=== PATIENT | male | born 1970 | race African-American/Black ===

== ENCOUNTER 2017-02-18 21:08 | Emergency (ER) | payer SELFPAY | END 2017-02-19 02:22 | disposition home or self-care (01) | LOC: ERS 21:08 | DX: R06.00 Dyspnea, unspecified (principal); J44.9 Chronic obstructive pulmonary disease, unspecified; E03.9 Hypothyroidism, unspecified; E78.5 Hyperlipidemia, unspecified; I11.0 Hypertensive heart disease with heart failure; I50.9 Heart failure, unspecified; F31.9 Bipolar disorder, unspecified; F41.9 Anxiety disorder, unspecified; F20.9 Schizophrenia, unspecified; F17.210 Nicotine dependence, cigarettes, uncomplicated | CPT/HCPCS: 99284 ==

== ENCOUNTER 2017-03-01 21:15 | Inpatient (IN) | payer OTHER, SELFPAY ==
[2017-03-01 22:20] LABS: Hemoglobin 12.9 g/dL (14.0-18.0); INR-International Normal Ratio 1.1; Mean Corpuscular HGB CONC 34.3 g/dL (32.0-36.0); Mean Corpuscular Hemoglobin 35.2 pg (27.0-31.0); Prothrombin Time 13.9 SEC (12.0-14.7); RBC Distribution Width 12.3 % (11.5-14.5); Red Blood Cell (RBC) Count 3.67 mill/uL (4.70-6.10)
[2017-03-01 22:21] LABS: PTT 39.7 SEC (22.9-36.1)
--- NOTE | 2017-03-01 22:21 | RAD ---
CHEST ONE VIEW 03/01/17 HISTORY: Chest pain. COMPARISON: Chest one view 07/18/16. FINDINGS: Heart size is markedly enlarged. Dural lead AICD/pacer is present. No pneumothorax. No focal air space consolidation. IMPRESSION: Marked cardiomegaly. POS: [facility]
[2017-03-01 22:22] LABS: D-Dimer Test 0.44 *mcg/mL (0.27-0.43)
[2017-03-01 22:34] LABS: ALT (SGPT) 20 U/L (8-55); AST (SGOT) 76 U/L (5-34); Albumin 4.3 g/dL (3.5-5.0); Alkaline Phosphatase 100 U/L (40-150); Anion Gap 16 mmol/L (10-20); BUN (Urea Nitrogen) 12 mg/dL (8.9-20.6); Bilirubin, Total 0.5 mg/dL (0.2-1.2); CK (CPK) 3970 U/L (30-200); Calc. Creatinine Clearance 0 mL/min (70-130); Calcium 9.3 mg/dL (7.8-10.44); Carbon Dioxide 25 mmol/L (22-29); Chloride 101 mmol/L (98-107); Estimated GFR-MDRD 67; Globulin 4.2 g/dL (2.4-3.5); Glucose 92 mg/dL (70-105); Potassium 3.4 mmol/L (3.5-5.1); Protein, Total 8.5 g/dL (6.0-8.3); Sodium 139 mmol/L (136-145)
[2017-03-01 22:38] LABS: Lymphocytes 35 % (21-51); MDiff Complete? YES; Mean Platelet Volume 10.9 fL (7.4-10.4); Monocytes 5 % (0-10); Neutrophil 60 % (42-75); PLT Morphology Comment Appears Decreased; Platelet Count 84 thou/uL (130-400); White Blood Cell (WBC) Count 6.3 thou/uL (4.8-10.8)
[2017-03-01 22:42] LABS: Troponin I 0.023 ng/mL (< 0.028)
[2017-03-01 22:49] LABS: CKMB 30.8 ng/mL (0-6.6)
[2017-03-02 00:29] LABS: Bilirubin Negative (Negative); Blood, Urine Negative (Negative); Clarity CLEAR (Clear); Glucose, Urine (Dipstick) Negative (Negative); Leukocyte Negative (Negative); Nitrite Negative (Negative); Protein, Urine (Dipstick) 100 mg/dL (Neg-Trace); Specific Gravity, Urine 1.022 (1.002-1.036)
[2017-03-02 00:31] LABS: Bacteria/HPF None Seen HPF (None Seen); Hyaline Casts/LPF 0-3 HYALINE CAST LPF (0-3 Hyaline); Squamous Epithelial None Seen HPF (0-3); WBC/HPF 0-3 HPF (0-3)
[2017-03-02 00:49] LABS: Medtox Reader # READER 4; Phencyclidine (PCP) Not Detected (NotDetected); THC/Cannabinoid Screen Detected (NotDetected)
[2017-03-02 00:50] LABS: Amphetamine Not Detected (NotDetected); Barbiturates Screen Not Detected (NotDetected); Benzodiazepine Screen Not Detected (NotDetected); Cocaine Metabolite Screen Detected (NotDetected); Medtox Control Line Valid? VALID (VALID); Methadone Not Detected (NotDetected); Methamphetamine Not Detected (NotDetected); Opiate Screen Not Detected (NotDetected); Oxycodone Screen Not Detected (NotDetected); Tricyclic Screen Not Detected (NotDetected)
[2017-03-02 02:04] LABS: Troponin I 0.029 ng/mL (< 0.028)
[2017-03-02] MEDS ORDERED: Sodium Chloride 0.45% 1,000 ML IV SCH ×2 (03:30→19:15)
[2017-03-02 05:43] LABS: Troponin I 0.019 ng/mL (< 0.028)
[2017-03-02] MEDS ORDERED: ISOVUE-370 76%-LOCM 1 ML ONE (06:23)
--- NOTE | 2017-03-02 08:44 | CT ---
PRELIMINARY REPORT/[facility]/EMERGENCY AFTER HOURS PROCEDURE: EXAM: CT Angiography Chest With Intravenous Contrast CLINICAL HISTORY: 46 years old, male; Pain; Chest pain; Type not specified; Patient HX: R/O pe TECHNIQUE: Axial computed tomographic angiography images of the chest with intravenous contrast using pulmonary embolism protocol. Coronal reformatted images were created and reviewed. Oblique reformatted images were created and reviewed. CONTRAST: 100 mL of ISOVUE administered intravenously. COMPARISON: No relevant prior studies available. FINDINGS: Pulmonary arteries: No visible acute pulmonary embolism. Aorta: No acute findings. No thoracic aortic aneurysm. Inferior vena cava: IV contrast extends from the right atrium into the IVC and hepatic veins, suspici ous for right-sided heart failure. Lungs: There is bilateral dependent and bibasilar atelectatic change or scarring. No mass. Pleural space: Unremarkable. No significant effusion. No pneumothorax. Heart: There is cardiomegaly. Bones/joints: No acute fracture. No dislocation. Soft tissues: Unremarkable. Lymph nodes: Unremarkable. No enlarged lymph nodes. Tubes, lines and devices: There is a left chest wall pacemaker device with leads appearing intact. IMPRESSION: 1. No visible acute pulmonary embolism. 2. IV contrast extends from the right atrium into the IVC and hepatic veins, suspicious for right-kayli ed heart failure. Thank you for allowing us to participate in the care of your patient. Dictated and Authenticated by: Mauricio Moore MD 03/02/2017 1:43 AM Central Time ([place] & [place]) FINAL REPORT CT CHEST WITH 3D VOLUME RENDERING: FINDINGS/IMPRESSION: I agree with the preliminary interpretation. No large, central pulmonary embolus. Additional details are described above. POS: [facility]
--- NOTE | 2017-03-02 11:33 | HP ---
CHIEF COMPLAINT: Chest pain and shortness of breath. HISTORY OF PRESENT ILLNESS: This is a 46-year-old male presenting to the ER with substernal chest pa in radiating to the right shoulder. He states that the pain started about 18-20 hours ago. The joni ent states that he has also shortness of breath upon exertion, which has improved with rest. The lakeisha n in him itself does not change with any alleviating or aggravating factors. The patient also states that he has some difficulty laying flat and requires 3-4 pillows to sleep at night. 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 The patient otherwise states that he has had this issue happ ened to him before and has been told that he has probable sleep apnea as well as mild case of heart f ailure. The patient currently otherwise denies any allergic symptoms or issues. No alleviating or a ggravating factors. ALLERGIES: The patient denies any drug allergies. PAST MEDICAL HISTORY: Positive for pulmonary disease, chronic obstructive pulmonary disease, hyperte nsion, congestive heart failure and anemia. PAST SURGICAL HISTORY: Appendectomy, hernia repair and implanted defibrillator pacemaker. HOME MEDICATIONS: See MAR. FAMILY HISTORY: The patient says he is not aware of any family history. SOCIAL HISTORY: The patient smokes about half a pack a day for the past few years. Social drinker a s well. REVIEW OF SYSTEMS: Twelve-point review of systems performed. Pertinent positives in the HPI, otherw ise negative. PHYSICAL EXAMINATION: VITAL SIGNS: Blood pressure 156/88, pulse 80, temperature 98.2 and respiratory rate 20. GENERAL: The patient lying in bed, very sleepy, answering questions in full sentences; however, fall ing asleep immediately within a few seconds of pause. HEENT: Normocephalic, atraumatic. Pupils are equal, round and reactive to light and accommodation. Extraocular muscles intact. Oral cavity moist and pink. NECK: Supple, palpable, nontender, mobile thyroid. PULMONARY: Inspiratory wheezing present. Increased AP diameter. Mild respiratory distress noted. CARDIOVASCULAR: Regular rate and rhythm. S1 and S2. 2/6 systolic ejection murmur appreciated; berry cary, difficult to ausculate given coarse breath sound and wheezing present during the pulmonary exam. ABDOMEN: Rotund, positive bowel sounds, soft and nontender. EXTREMITIES: 2+ peripheral pulses. Moving all extremities. 1+ pitting edema bilateral lower extrem ities. NEUROLOGIC: Cranial nerves II-XII intact. Following commands. SKIN: Intact, moist. LABORATORY DATA: CBC: Hemoglobin 13, hematocrit 38, white blood cell count 6.3 and platelet count 8 4. BMP: Sodium 139, potassium 3.4, chloride 101, bicarb 24, creatinine 1.37, glucose 92. Troponin 0.023, 0.029 and 0.19. Urinalysis positive for protein as well as urobilinogen. Urine drug screen n egative for all substances, positive for cocaine and cannabis. ASSESSMENT AND PLAN: 1. Chest pain. 2. Shortness of breath. 3. Right-sided heart failure. 4. Obesity. 5. Cocaine and cannabis positive drug screen. 6. Tachycardia. 7. Hypertension. At this point in time we will admit to observation, consult the Cardiology for management of chest pa in. The patient requested to stop taking an illicit drug activity. We will place the patient on nasal cannula and monitor O2 saturations. We will await Cardiology recommendations. Observation for 24 hours. At this point in time if the patient is stable in a.m. clinically improving with labs looking accepta ble and okay with Cardiology, we will plan for discharge likely tomorrow or within the next 24-48 reynaldo rs with followup outpatient with his primary care doctor and a pulmonary doctor for arrangements for outpatient sleep test. This case and plan was discussed with the patient at length. He understands and agrees with this plan.
--- NOTE | 2017-03-02 15:54 | EKG ---
Test Reason : CHEST PAIN Blood Pressure : / mmHG Vent. Rate : 069 BPM Atrial Rate : 069 BPM P-R Int : 182 ms QRS Dur : 120 ms QT Int : 460 ms P-R-T Axes : 031 -48 092 degrees QTc Int : 492 ms Normal sinus rhythm Left anterior fascicular block Left ventricular hypertrophy with QRS widening Cannot rule out Septal infarct , age undetermined Abnormal ECG No ST elevation/FL No change from 06/2016 Confirmed by CLAUDIA EDGAR ([id number]), food editor SOPHIE CROWE ([id number]) on 03/02/2017 3:54:23 PM Referred By: Confirmed By:CLAUDIA EDGAR
[2017-03-03 03:31] VITALS: BMI 36.8
[2017-03-03 06:49] LABS: Anion Gap 14 mmol/L (10-20); BUN (Urea Nitrogen) 11 mg/dL (8.9-20.6); Calc. Creatinine Clearance 105 mL/min (70-130); Calcium 8.9 mg/dL (7.8-10.44); Carbon Dioxide 25 mmol/L (22-29); Chloride 101 mmol/L (98-107); Estimated GFR-MDRD 72; Glucose 108 mg/dL (70-105); Potassium 3.1 mmol/L (3.5-5.1); Sodium 137 mmol/L (136-145)
[2017-03-03 06:53] LABS: CKMB 28.2 ng/mL (0-6.6); Critical Call CKMBM RESULT DECREASING
[2017-03-03] MEDS ORDERED: traMADol HCl 50 MG TAB PO PRN (09:31)
[2017-03-03] MEDS ORDERED: Carvedilol 3.125 MG TAB PO SCH ×2 (11:00→21:00)
[2017-03-03] MEDS ORDERED: Magnesium Oxide 400 MG TAB PO SCH (11:00)
[2017-03-03] MEDS ORDERED: Levothyroxine Sodium 100 MCG TAB PO SCH (11:00)
[2017-03-03] MEDS ORDERED: Allopurinol 100 MG TAB PO SCH (11:00)
[2017-03-03] MEDS ORDERED: Metolazone 5 MG TAB PO SCH (11:00)
[2017-03-03] MEDS ORDERED: Potassium Chloride 20 MEQ TAB PO SCH (11:00)
[2017-03-03] MEDS ORDERED: Isosorbide Dinitrate 20 MG TAB PO SCH ×2 (11:00→21:00)
[2017-03-03] MEDS ORDERED: Furosemide 40 MG TAB PO SCH (11:00)
[2017-03-03] MEDS ORDERED: Aspirin 81 mg Enteric Coated Tablet PO SCH (11:00)
[2017-03-03] MEDS ORDERED: hydrALAZINE 10 MG TAB PO SCH ×2 (11:00→21:00)
--- NOTE | 2017-03-03 11:06 | PDOC.PN ---
- Subjective Encounter Start Date: 03/03/17 Encounter Start Time: 11:05 Patient seen and examined, states he has some right shoulder pain but otherwise states he feels the same as yesterday, no other issues. - Objective Vital Signs & Weight: Vital Signs (12 hours) Temp Pulse Resp BP Pulse Ox 03/03/17 11:02 72 03/03/17 09:20 98.4 F 72 16 155/108 H 96 03/03/17 08:00 98.4 F 72 16 96 03/03/17 04:01 97.6 F 69 14 139/88 91 L 03/03/17 00:41 97.8 F 95 18 150/73 H 96 Weight Weight 231 lb 6.4 oz I&O: 03/02/17 03/03/17 03/04/17 06:59 06:59 06:59 Intake Total 724 120 Output Total 750 650 Balance -26 -530 Result Diagrams: 03/01/17 22:00 03/03/17 05:30 Phys Exam - Physical Examination Constitutional: NAD HEENT: PERRLA, moist MMs Neck: no nodes, no JVD Respiratory: no wheezing, no rales Cardiovascular: RRR, no significant murmur Gastrointestinal: soft, non-tender Musculoskeletal: pulses present Neurological: non-focal, normal sensation Psychiatric: normal affect, A&O x 3 Dx/Plan (1) Shoulder pain Code(s): M25.519 - PAIN IN UNSPECIFIED SHOULDER Status: Acute (2) Acute on chronic systolic (congestive) heart failure Code(s): I50.23 - ACUTE ON CHRONIC SYSTOLIC (CONGESTIVE) HEART FAILURE Status : Acute Comment: EF 15-20%, Lasix 60mg IV q12h, monitor daily weight, fluid restrict 1.5L/24h (3) CKD (chronic kidney disease) stage 3, GFR 30-59 ml/min Status: Chronic (4) Dyslipidemia Code(s): E78.5 - HYPERLIPIDEMIA, UNSPECIFIED Status: Chronic (5) Hypertension Code(s): I10 - ESSENTIAL (PRIMARY) HYPERTENSION Status: Chronic Qualifiers: (6) Hypothyroidism Code(s): E03.9 - HYPOTHYROIDISM, UNSPECIFIED Status: Chronic Qualifiers: (7) Rhabdomyolysis Code(s): M62.82 - RHABDOMYOLYSIS Status: Chronic Qualifiers: - Plan * replace potassium * right shoulder xray * will consult PT for eval & Tx * patient stable otherwise * DC plans in 24-48hrs if labs improving and patient clinically stable * case and plan d/w patient at length, he understands and agrees with this plan
[2017-03-03] MEDS ORDERED: Ketorolac Tromethamine 30 MG/ML VIAL IVP SCH (14:45)
--- NOTE | 2017-03-03 15:29 | RAD ---
RIGHT SHOULDER THREE VIEWS: History: Right shoulder pain. FINDINGS: No evidence of fracture or dislocation. AC joint is upper normal width but is normally aligned. IMPRESSION: Upper normal AC joint distance. No malalignment. No fracture or dislocation. POS: [facility]
[2017-03-03] MEDS: Isosorbide Dinitrate 20 MG TAB PO SCH ×2 (16:27→21:32)
[2017-03-03] MEDS: hydrALAZINE 25 MG TAB PO SCH ×2 (16:27→21:32)
[2017-03-03] MEDS: Furosemide 40 MG TAB PO SCH (16:27)
--- NOTE | 2017-03-03 20:34 | CON ---
DATE OF CONSULTATION: 03/03/2017 The patient is a 46-year-old gentleman who presents with right-sided chest discomfort. The patient has a history of a nonischemic cardiomyopathy. In 2014 , he underwent a cardiac catheterization and was found to have a severe decrease in left ventricular systolic function with normal coronary arteries. The patient subsequently has had placement of automatic implantable cardiac defibrillator. He was admitted on several occasions with chest discomfort. The patient presents with right-sided chest discomfort. He states at times that he will have pain on the right side of his chest which was extremely sensitive to touch. He states it was worse when he takes a deep breath. He states this began yesterday it became severe and he came to the emergency room for further evaluation. The patient states his chest pain has continued. PAST MEDICAL HISTORY: 1. Cardiomyopathy. 2. Hypertension. PAST SURGICAL HISTORY: Appendectomy, hernia repair, defibrillator placement. SOCIAL HISTORY: The patient smokes half pack per day. He denies having any use of illicit drugs. FAMILY HISTORY: No strong family history of heart disease. MEDICATIONS ON ADMISSION: Allopurinol 100 daily, aspirin 81 daily, Coreg 3.25 b.i.d., Lasix 80 b.i.d., hydralazine 10 b.i.d., Isordil 10 b.i.d., Synthroid 100 mcg daily, magnesium oxide 400 mg daily, Zaroxolyn 5 mg daily, and K-Dur 20 daily. PHYSICAL EXAMINATION: VITAL SIGNS: This is an ill-appearing gentleman with a blood pressure 145/98. NECK: No jugular venous distention. LUNGS: Clear to auscultation. HEART: Regular rate and rhythm, normal S1, S2. ABDOMEN: Distended. EXTREMITIES: Showed trace edema. SKIN: Warm and dry. NEUROLOGIC: Nonfocal. VASCULAR: Radial pulses are 2+. LABORATORY RESULTS: His sodium was 137, potassium 3.1, chloride 101, bicarbonate 25, BUN 11, creatinine is 1.29. His CPK was 3970 with a troponin of 0.019. His white blood cell count is 6.3, hemoglobin 12.9, hematocrit 37.7, platelets were 84. His toxicology revealed him to be positive for cocaine and marijuana. IMPRESSION: 1. Atypical chest pain. 2. History of cardiomyopathy. 3. History of automatic implantable cardioverter defibrillator. 4. Rhabdomyolysis. 5. Drug abuse. This gentleman presents with atypical chest pain,. It is right-sided and continuous. I would recommend nonsteroidal medication. No further recommendations. MTDD
[2017-03-03] MEDS: Carvedilol 6.25 MG TAB PO SCH (21:32)
[2017-03-04] MEDS ORDERED: Acetaminophen 500 MG TAB PO PRN (01:37)
[2017-03-04] MEDS: Levothyroxine Sodium 100 MCG TAB PO SCH (05:22)
[2017-03-04] MEDS ORDERED: Chloraseptic Spray 180 ml Bottle PO PRN (07:09)
[2017-03-04] MEDS ORDERED: Ondansetron HCl/PF 4 MG/2 ML Vial IVP PRN (07:09)
[2017-03-04] MEDS ORDERED: Mag-Al 1200 mg/1200 mg/30 ML UDCUP PO PRN (07:09)
[2017-03-04] MEDS ORDERED: Ondansetron ODT 4 MG TAB PO PRN (07:09)
[2017-03-04] MEDS ORDERED: Bisacodyl 10 MG SUPP PR PRN (07:09)
[2017-03-04] MEDS ORDERED: Senokot 8.6 MG TAB PO PRN (07:09)
[2017-03-04] MEDS ORDERED: Loperamide HCl 2 MG CAP PO PRN (07:09)
[2017-03-04] MEDS ORDERED: Artificial Tears 18 DROP/0.9 ML EA EYE PRN (07:09)
[2017-03-04] MEDS ORDERED: hydrALAZINE 20 MG/ML VIAL SLOW IVP PRN (07:09)
[2017-03-04] MEDS ORDERED: Eucerin (Mineral Oil/Petrolatum,White) 30 gm Jar TOP PRN (07:09)
[2017-03-04] MEDS ORDERED: Sodium Chloride 0.65% Nasal 44 ML BOT EA NARE PRN (07:09)
[2017-03-04] MEDS ORDERED: Diabetic Tussin 200 MG/10 ML UDCUP PO PRN (07:09)
[2017-03-04] MEDS ORDERED: Nitroglycerin 0.4 MG TAB (25 Tab Bottle) SL PRN (07:09)
[2017-03-04] MEDS ORDERED: Temazepam 15 MG CAP PO PRN (07:09)
[2017-03-04] MEDS ORDERED: Milk Of Magnesia 30 ML UDCUP PO PRN (07:09)
[2017-03-04] MEDS: Potassium Chloride 20 MEQ TAB PO SCH ×2 (08:29→08:35)
[2017-03-04] MEDS: Allopurinol 100 MG TAB PO SCH (08:29)
[2017-03-04] MEDS: Metolazone 5 MG TAB PO SCH (08:29)
[2017-03-04] MEDS: Aspirin 81 mg Enteric Coated Tablet PO SCH (08:29)
[2017-03-04] MEDS: Isosorbide Dinitrate 20 MG TAB PO SCH ×3 (08:30→21:59)
[2017-03-04] MEDS: Furosemide 40 MG TAB PO SCH ×2 (08:30→13:22)
[2017-03-04] MEDS: Famotidine 20 MG TAB PO SCH ×2 (08:30→21:58)
[2017-03-04] MEDS: Carvedilol 6.25 MG TAB PO SCH ×2 (08:30→21:58)
[2017-03-04] MEDS: hydrALAZINE 25 MG TAB PO SCH ×3 (08:30→21:59)
[2017-03-04] MEDS: Magnesium Oxide 400 MG TAB PO SCH (08:31)
--- NOTE | 2017-03-04 11:45 | PDOC.PN ---
- Subjective Encounter Start Date: 03/04/17 Encounter Start Time: 07:10 -: old records requested/rev Patient seen and examined. No new complaints. No overnight events - Objective MAR Reviewed: Yes Vital Signs & Weight: Vital Signs (12 hours) Temp Pulse Resp BP BP Pulse Ox 03/04/17 08:30 63 126/97 H 03/04/17 07:30 97.5 F L 63 18 126/97 H 95 03/04/17 07:20 97.7 F 63 18 94 L 03/04/17 04:16 97.7 F 63 18 125/63 94 L Weight Weight 231 lb 6.4 oz I&O: 03/03/17 03/04/17 03/05/17 06:59 06:59 06:59 Intake Total 724 1180 300 Output Total 750 1250 350 Balance -26 -70 -50 Result Diagrams: 03/01/17 22:00 03/03/17 05:30 EKG Reviewed by me: Yes Phys Exam - Physical Examination Constitutional: NAD HEENT: PERRLA, moist MMs, sclera anicteric Neck: no JVD, supple Respiratory: no wheezing, no rales, no rhonchi Cardiovascular: RRR, no significant murmur, no rub Gastrointestinal: soft, non-tender, no distention, positive bowel sounds Musculoskeletal: pulses present, edema present Neurological: non-focal, normal sensation, moves all 4 limbs Lymphatic: no nodes Psychiatric: normal affect, A&O x 3 Skin: no rash, normal turgor Dx/Plan (1) Acute on chronic systolic (congestive) heart failure Code(s): I50.23 - ACUTE ON CHRONIC SYSTOLIC (CONGESTIVE) HEART FAILURE Status : Acute Comment: (2) Hypokalemia Code(s): E87.6 - HYPOKALEMIA Status: Acute Comment: (3) Shoulder pain Code(s): M25.519 - PAIN IN UNSPECIFIED SHOULDER Status: Acute (4) Anemia, macrocytic Code(s): D53.9 - NUTRITIONAL ANEMIA, UNSPECIFIED Status: Chronic Comment: (5) Bipolar disorder Code(s): F31.9 - BIPOLAR DISORDER, UNSPECIFIED Status: Chronic Qualifiers: (6) CKD (chronic kidney disease) stage 3, GFR 30-59 ml/min Status: Chronic (7) Dyslipidemia Code(s): E78.5 - HYPERLIPIDEMIA, UNSPECIFIED Status: Chronic (8) Hypertension Code(s): I10 - ESSENTIAL (PRIMARY) HYPERTENSION Status: Chronic Qualifiers: (9) Hypothyroidism Code(s): E03.9 - HYPOTHYROIDISM, UNSPECIFIED Status: Chronic Qualifiers: (10) Non-ischemic cardiomyopathy Code(s): I42.9 - CARDIOMYOPATHY, UNSPECIFIED Status: Chronic Comment: (11) Noncompliance Code(s): Z91.19 - PATIENT'S NONCOMPLIANCE W OTH MEDICAL TREATMENT AND REGIMEN Status: Chronic (12) Obesity (BMI 30-39.9) Code(s): E66.9 - OBESITY, UNSPECIFIED Status: Chronic (13) Polysubstance abuse Code(s): F19.10 - OTHER PSYCHOACTIVE SUBSTANCE ABUSE, UNCOMPLICATED Status: Chronic (14) Rhabdomyolysis Code(s): M62.82 - RHABDOMYOLYSIS Status: Chronic Qualifiers: (15) Vitamin D deficiency Code(s): E55.9 - VITAMIN D DEFICIENCY, UNSPECIFIED Status: Chronic - Plan cont current plan of care * medication reviewed as below * symptomatic treatment * repeat labs tomorrow * no change in treatment plan * continue diuresis. Review of Systems - Review of Systems Constitutional: negative: fever, chills, sweats, weakness, malaise, other Eyes: negative: Pain, Vision Change, Conjunctivae Inflammation, Eyelid Inflammation, Redness, Other Respiratory: Shortness of Breath, SOB with Excertion. negative: Cough, Dry, Hemoptysis, Pleuritic Pain, Sputum, Wheezing Cardiovascular: edema. negative: chest pain, palpitations, orthopnea, paroxysmal nocturnal dyspnea, light headedness, other Gastrointestinal: negative: Nausea, Vomiting, Abdominal Pain, Diarrhea, Constipation, Melena, Hematochezia, Other Genitourinary: negative: Dysuria, Frequency, Incontinence, Hematuria, Retention , Other Musculoskeletal: negative: Neck Pain, Shoulder Pain, Arm Pain, Back Pain, Hand Pain, Leg Pain, Foot Pain, Other Skin: negative: Rash, Lesions, Melvin, Bruising, Other Neurological: negative: Weakness, Numbness, Incoordination, Change in Speech, Confusion, Seizures, Other - Medications/Allergies Allergies/Adverse Reactions: Allergies Allergy/AdvReac Type Severity Reaction Status Date / Time JOSE ANGEL Inhibitors Allergy Severe Verified 04/27/16 02:02 diphenhydramine HCl Allergy SWELLING Verified 04/27/16 02:02 [From Benadryl] tramadol Allergy Nausea Verified 06/06/16 03:06 Medications: Current Medications Acetaminophen (Tylenol) 1,000 mg PO Q6H PRN PRN Reason: Headache Al Hydroxide/Mg Hydroxide (Maalox) 15 ml PO Q4H PRN PRN Reason: Heartburn or Indigestion Allopurinol (Zyloprim) 100 mg PO DAILY [facility] Last Admin: 03/04/17 08:29 Dose: 100 mg Artificial Tears (Tears Naturale) 0 drop EA EYE PRN PRN PRN Reason: Dry Eyes Aspirin (Ecotrin) 81 mg PO DAILY [facility] Last Admin: 03/04/17 08:29 Dose: 81 mg Bisacodyl (Dulcolax) 10 mg [place] DAILYPRN PRN PRN Reason: Constipation Carvedilol (Coreg) 6.25 mg PO BID [facility] Last Admin: 03/04/17 08:30 Dose: 6.25 mg Famotidine (Pepcid) 20 mg PO BID [facility] Last Admin: 03/04/17 08:30 Dose: 20 mg Furosemide (Lasix) 80 mg PO 0900,1400 [facility] Last Admin: 03/04/17 08:30 Dose: 80 mg Guaifenesin (Robitussin Sf) 200 mg PO Q4H PRN PRN Reason: Cough Hydralazine HCl (Apresoline) 25 mg PO TID [facility] Last Admin: 03/04/17 08:30 Dose: 25 mg Hydralazine HCl (Apresoline) 10 mg SLOW IVP Q4H PRN PRN Reason: Systolic BP > 180 Isosorbide Dinitrate (Isordil) 20 mg PO TID [facility] Last Admin: 03/04/17 08:30 Dose: 20 mg Levothyroxine Sodium (Synthroid) 100 mcg PO 0600 [facility] Last Admin: 03/04/17 05:22 Dose: 100 mcg Loperamide HCl (Imodium) 2 mg PO PRN PRN PRN Reason: Diarrhea/Loose Stools Magnesium Hydroxide (Milk Of Magnesium) 30 ml PO DAILYPRN PRN PRN Reason: Constipation Magnesium Oxide (Magnesium Oxide) 400 mg PO DAILY [facility] Last Admin: 03/04/17 08:31 Dose: 400 mg Metolazone (Zaroxolyn) 5 mg PO 0830 [facility] Last Admin: 03/04/17 08:29 Dose: 5 mg Mineral Oil/White Petrolatum (Eucerin Cream) 0 gm TOP BIDPRN PRN PRN Reason: Dry Skin Nitroglycerin (Nitrostat) 0.4 mg SL Q5MIN PRN PRN Reason: Chest Pain Ondansetron HCl (Zofran Odt) 4 mg PO Q6H PRN PRN Reason: Nausea/Vomiting Ondansetron HCl (Zofran) 4 mg IVP Q6H PRN PRN Reason: Nausea/Vomiting Phenol (Chloraseptic [place] 180 Ml Bot) 0 ml PO PRN PRN PRN Reason: Sore Throat Potassium Chloride (K-Dur) 40 meq PO QAM-WM [facility] Last Admin: 03/04/17 08:35 Dose: Not Given Senna (Senokot) 2 tab PO HSPRN PRN PRN Reason: Constipation Sodium Chloride (Flush - Normal Saline) 10 ml IVF PRN PRN PRN Reason: Saline Flush Sodium Chloride (Lee Nasal [place] 0.65%) 0 ml EA NARE QIDPRN PRN PRN Reason: Nasal Congestion Temazepam (Restoril) 15 mg PO HSPRN PRN PRN Reason: Insomnia Tramadol HCl (Ultram) 50 mg PO QID PRN PRN Reason: Pain
[2017-03-05] MEDS: Levothyroxine Sodium 100 MCG TAB PO SCH (05:19)
[2017-03-05 05:51] LABS: #Eosinphils 0.1 thou/uL (0.0-0.7); #Lymphocytes 1.6 thou/uL (1.20-3.40); #Monocytes 0.5 thou/uL (0.11-0.59); #Neutrophils 3.8 thou/uL (1.40-6.50); %Basophils 0.2 % (0.0-1.0); %Eosinophils 2.4 % (0.0-10.0); %Lymphocytes 26.7 % (21.0-51.0); %Monocytes 7.9 % (0.0-10.0); %Neutrophils 62.9 % (42.0-75.0); Hemoglobin 12.6 g/dL (14.0-18.0); Mean Corpuscular HGB CONC 33.8 g/dL (32.0-36.0); Mean Corpuscular Hemoglobin 34.7 pg (27.0-31.0); Mean Platelet Volume 11.5 fL (7.4-10.4); Platelet Count 80 thou/uL (130-400); RBC Distribution Width 12.4 % (11.5-14.5); Red Blood Cell (RBC) Count 3.64 mill/uL (4.70-6.10)
[2017-03-05 06:06] LABS: Anion Gap 20 mmol/L (10-20); BUN (Urea Nitrogen) 23 mg/dL (8.9-20.6); CK (CPK) 3196 U/L (30-200); Calc. Creatinine Clearance 71 mL/min (70-130); Calcium 10.1 mg/dL (7.8-10.44); Carbon Dioxide 28 mmol/L (22-29); Chloride 92 mmol/L (98-107); Estimated GFR-MDRD 46; Glucose 110 mg/dL (70-105); Magnesium 2.6 mg/dL (1.6-2.6); Potassium 3.1 mmol/L (3.5-5.1); Sodium 137 mmol/L (136-145)
[2017-03-05 07:43] VITALS: TEMP 98.3
[2017-03-05] MEDS: Furosemide 40 MG TAB PO SCH (08:39)
[2017-03-05] MEDS: Carvedilol 6.25 MG TAB PO SCH (08:39)
[2017-03-05] MEDS: Allopurinol 100 MG TAB PO SCH (08:40)
[2017-03-05] MEDS: Famotidine 20 MG TAB PO SCH (08:40)
[2017-03-05] MEDS: Metolazone 5 MG TAB PO SCH (08:40)
[2017-03-05] MEDS: Aspirin 81 mg Enteric Coated Tablet PO SCH (08:40)
[2017-03-05] MEDS: Isosorbide Dinitrate 20 MG TAB PO SCH (08:40)
[2017-03-05] MEDS: hydrALAZINE 25 MG TAB PO SCH (08:40)
[2017-03-05] MEDS: Magnesium Oxide 400 MG TAB PO SCH (08:40)
[2017-03-05] MEDS: Potassium Chloride 20 MEQ TAB PO SCH (08:40)
[2017-03-05 08:42] VITALS: BP 131/81
--- NOTE | 2017-03-05 09:57 | PDOC.PN ---
- Subjective Encounter Start Date: 03/05/17 Encounter Start Time: 06:10 Patient seen and examined. No new complaints. No overnight events - Objective MAR Reviewed: Yes Vital Signs & Weight: Vital Signs (12 hours) Temp Pulse Resp BP BP Pulse Ox 03/05/17 08:40 76 03/05/17 08:39 131/81 03/05/17 07:47 98.3 F 76 16 03/05/17 07:25 98.3 F 76 16 134/88 94 L 03/05/17 04:00 98.7 F 60 18 142/64 H 93 L 03/05/17 00:00 97.9 F 103 H 20 138/72 95 03/04/17 21:59 63 131/81 03/04/17 21:58 131/81 Weight Weight 231 lb 6.4 oz I&O: 03/04/17 03/05/17 03/06/17 06:59 06:59 06:59 Intake Total 1180 1140 Output Total 1250 1050 Balance -70 90 Result Diagrams: 03/05/17 04:24 03/05/17 04:24 EKG Reviewed by me: Yes Phys Exam - Physical Examination Constitutional: NAD HEENT: PERRLA, moist MMs, sclera anicteric Neck: no JVD, supple Respiratory: no wheezing, no rales, no rhonchi Cardiovascular: RRR, no significant murmur, no rub Gastrointestinal: soft, non-tender, no distention, positive bowel sounds Musculoskeletal: no edema, pulses present Neurological: non-focal, normal sensation, moves all 4 limbs Psychiatric: normal affect, A&O x 3 Skin: no rash, normal turgor Dx/Plan (1) Acute on chronic systolic (congestive) heart failure Code(s): I50.23 - ACUTE ON CHRONIC SYSTOLIC (CONGESTIVE) HEART FAILURE Status : Acute Comment: (2) Hypokalemia Code(s): E87.6 - HYPOKALEMIA Status: Acute Comment: (3) Shoulder pain Code(s): M25.519 - PAIN IN UNSPECIFIED SHOULDER Status: Acute (4) Anemia, macrocytic Code(s): D53.9 - NUTRITIONAL ANEMIA, UNSPECIFIED Status: Chronic Comment: (5) Bipolar disorder Code(s): F31.9 - BIPOLAR DISORDER, UNSPECIFIED Status: Chronic Qualifiers: (6) CKD (chronic kidney disease) stage 3, GFR 30-59 ml/min Status: Chronic (7) Dyslipidemia Code(s): E78.5 - HYPERLIPIDEMIA, UNSPECIFIED Status: Chronic (8) Hypertension Code(s): I10 - ESSENTIAL (PRIMARY) HYPERTENSION Status: Chronic Qualifiers: (9) Hypothyroidism Code(s): E03.9 - HYPOTHYROIDISM, UNSPECIFIED Status: Chronic Qualifiers: (10) Non-ischemic cardiomyopathy Code(s): I42.9 - CARDIOMYOPATHY, UNSPECIFIED Status: Chronic Comment: (11) Noncompliance Code(s): Z91.19 - PATIENT'S NONCOMPLIANCE W OTH MEDICAL TREATMENT AND REGIMEN Status: Chronic (12) Obesity (BMI 30-39.9) Code(s): E66.9 - OBESITY, UNSPECIFIED Status: Chronic (13) Polysubstance abuse Code(s): F19.10 - OTHER PSYCHOACTIVE SUBSTANCE ABUSE, UNCOMPLICATED Status: Chronic (14) Rhabdomyolysis Code(s): M62.82 - RHABDOMYOLYSIS Status: Chronic Qualifiers: (15) Vitamin D deficiency Code(s): E55.9 - VITAMIN D DEFICIENCY, UNSPECIFIED Status: Chronic - Plan cont current plan of care * outpt echo * medication reviewed as below * medically stable for discharge * see discharge summery * outpt follow up. Review of Systems - Review of Systems ENT: negative: Ear Pain, Ear Discharge, Nose Pain, Nose Discharge, Nose Congestion, Mouth Pain, Mouth Swelling, Throat Pain, Throat Swelling, Other Respiratory: negative: Cough, Dry, Shortness of Breath, Hemoptysis, SOB with Excertion, Pleuritic Pain, Sputum, Wheezing Cardiovascular: negative: chest pain, palpitations, orthopnea, paroxysmal nocturnal dyspnea, edema, light headedness, other Gastrointestinal: negative: Nausea, Vomiting, Abdominal Pain, Diarrhea, Constipation, Melena, Hematochezia, Other Genitourinary: negative: Dysuria, Frequency, Incontinence, Hematuria, Retention , Other Musculoskeletal: negative: Neck Pain, Shoulder Pain, Arm Pain, Back Pain, Hand Pain, Leg Pain, Foot Pain, Other Skin: negative: Rash, Lesions, Melvin, Bruising, Other - Medications/Allergies Allergies/Adverse Reactions: Allergies Allergy/AdvReac Type Severity Reaction Status Date / Time JOSE ANGEL Inhibitors Allergy Severe Verified 04/27/16 02:02 diphenhydramine HCl Allergy SWELLING Verified 04/27/16 02:02 [From Benadryl] tramadol Allergy Nausea Verified 06/06/16 03:06 Medications: Current Medications Acetaminophen (Tylenol) 1,000 mg PO Q6H PRN PRN Reason: Headache Al Hydroxide/Mg Hydroxide (Maalox) 15 ml PO Q4H PRN PRN Reason: Heartburn or Indigestion Allopurinol (Zyloprim) 100 mg PO DAILY [facility] Last Admin: 03/05/17 08:40 Dose: 100 mg Artificial Tears (Tears Naturale) 0 drop EA EYE PRN PRN PRN Reason: Dry Eyes Aspirin (Ecotrin) 81 mg PO DAILY [facility] Last Admin: 03/05/17 08:40 Dose: 81 mg Bisacodyl (Dulcolax) 10 mg [place] DAILYPRN PRN PRN Reason: Constipation Carvedilol (Coreg) 6.25 mg PO BID [facility] Last Admin: 03/05/17 08:39 Dose: 6.25 mg Famotidine (Pepcid) 20 mg PO BID [facility] Last Admin: 03/05/17 08:40 Dose: 20 mg Furosemide (Lasix) 80 mg PO 0900,1400 [facility] Last Admin: 03/05/17 08:39 Dose: 80 mg Guaifenesin (Robitussin Sf) 200 mg PO Q4H PRN PRN Reason: Cough Hydralazine HCl (Apresoline) 25 mg PO TID [facility] Last Admin: 03/05/17 08:40 Dose: 25 mg Hydralazine HCl (Apresoline) 10 mg SLOW IVP Q4H PRN PRN Reason: Systolic BP > 180 Isosorbide Dinitrate (Isordil) 20 mg PO TID [facility] Last Admin: 03/05/17 08:40 Dose: 20 mg Levothyroxine Sodium (Synthroid) 100 mcg PO 0600 [facility] Last Admin: 03/05/17 05:19 Dose: 100 mcg Loperamide HCl (Imodium) 2 mg PO PRN PRN PRN Reason: Diarrhea/Loose Stools Magnesium Hydroxide (Milk Of Magnesium) 30 ml PO DAILYPRN PRN PRN Reason: Constipation Magnesium Oxide (Magnesium Oxide) 400 mg PO DAILY [facility] Last Admin: 03/05/17 08:40 Dose: 400 mg Metolazone (Zaroxolyn) 5 mg PO 0830 [facility] Last Admin: 03/05/17 08:40 Dose: 5 mg Mineral Oil/White Petrolatum (Eucerin Cream) 0 gm TOP BIDPRN PRN PRN Reason: Dry Skin Nitroglycerin (Nitrostat) 0.4 mg SL Q5MIN PRN PRN Reason: Chest Pain Ondansetron HCl (Zofran Odt) 4 mg PO Q6H PRN PRN Reason: Nausea/Vomiting Ondansetron HCl (Zofran) 4 mg IVP Q6H PRN PRN Reason: Nausea/Vomiting Phenol (Chloraseptic [place] 180 Ml Bot) 0 ml PO PRN PRN PRN Reason: Sore Throat Potassium Chloride (K-Dur) 40 meq PO QAM-WM [facility] Last Admin: 03/05/17 08:40 Dose: 40 meq Senna (Senokot) 2 tab PO HSPRN PRN PRN Reason: Constipation Sodium Chloride (Flush - Normal Saline) 10 ml IVF PRN PRN PRN Reason: Saline Flush Sodium Chloride ([place] Nasal [place] 0.65%) 0 ml EA NARE QIDPRN PRN PRN Reason: Nasal Congestion Last Admin: 03/05/17 00:09 Dose: 2 spr Temazepam (Restoril) 15 mg PO HSPRN PRN PRN Reason: Insomnia
--- NOTE | 2017-03-05 11:06 | DIS ---
DATE OF ADMISSION: 03/02/2017 DATE OF DISCHARGE: 03/05/2017 PRIMARY CARE PHYSICIAN: Piero Chakraborty. DISCHARGE DISPOSITION: Home. PRIMARY DISCHARGE DIAGNOSES: 1. Acute on chronic systolic congestive heart failure exacerbation. 2. Hypokalemia, corrected. 3. Shoulder pain. SECONDARY DISCHARGE DIAGNOSES: Chronic macrocytic anemia, bipolar disorder, chronic kidney disease s tage 3, dyslipidemia, hypertension, hypothyroidism, nonischemic cardiomyopathy, chronic systolic hear t failure, noncompliance with medical treatment and diet, obesity with body mass index 36, polysubsta nce abuse, rhabdomyolysis, chronic vitamin D deficiency. PRIMARY PROCEDURE/OPERATION: None. RADIOLOGICAL INVESTIGATION: Chest x-ray, CT angio was negative for PE. Shoulder x-ray was negative for any fracture or dislocation. SIGNIFICANT LABORATORY DATA: Hemoglobin 12.6, INR 1.1, creatinine 1.91. CK 3196. BNP 333.3. Urina lysis normal. Urine drug screen positive for cocaine and cannabinoid. Influenza A and B negative. DISCHARGE MEDICATIONS: Allopurinol 100 mg p.o. daily, aspirin 81 mg p.o. daily, Coreg 3.125 mg p.o. b.i.d., Lasix 80 mg p.o. b.i.d., hydralazine 10 mg p.o. b.i.d., isosorbide dinitrate 10 mg p.o. b.i.d ., Synthroid 100 mcg p.o. daily, magnesium oxide 400 mg p.o. daily, Zaroxolyn 5 mg p.o. daily p.r.n. as directed, potassium chloride 40 mEq p.o. daily, tramadol 50 mg q.i.d. p.r.n. CONTRAINDICATIONS: Patient is not on JOSE ANGEL inhibitor because patient is allergic to JOSE ANGEL INHIBITOR and ARB. Patient is not on statin because of elevated total CK. 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 Chung was consulted while in hospital. TEST RESULTS PENDING ON DISCHARGE: None. ALLERGIES: JOSE ANGEL INHIBITOR, BENADRYL, TRAMADOL. DISCHARGE PLAN: Post hospital, the patient will follow up with [facility] on 03/11/2017 at 1 :45 p.m. Patient will get outpatient echocardiography. HOSPITAL COURSE: A 46-year-old male who was admitted by Dr. Emelina Hart. This patient has presen chan to the emergency room for shortness of breath. He had elevated D-dimer and that is why CT angio was done which was negative for PE. His chest pain was atypical and musculoskeletal. He was predomi nantly having shoulder pain and that is why we did shoulder x-ray which was unremarkable. Cardiology saw this patient and they also agreed with noncardiac nature of pain. While in hospital, we treated him with CHF. We also monitored his total CK. His total CK is chronically elevated. At this time, his urine drug screen was positive for cocaine and cannabinoids. Unfortunately, this patient is extremely noncompliant with medications as well as dietary treatment a nd so he is always risk for recurrent admission. We provided patient counseling about healthy lifest yle and dietary education, fluid restriction and medication compliance. Overall, this patient is stable for discharge today. The patient is seen and examined at bedside tojoselin almaguer. Please see my progress note from today for further details.
== END 2017-03-05 12:46 | disposition home or self-care (01) | DRG 291 ==
LOC: ERS 21:15 → ERHOLD 03-02 00:49 → OBSVTOIN 03-02 00:49 → 2SE 03-02 18:37
PROVIDERS: ADMIT Internal Medicine; ATTEND Internal Medicine
DX: I13.0 Hypertensive heart and chronic kidney disease with heart failure and stage 1 through stage 4 chronic kidney disease, or unspecified chronic kidney disease (principal); I50.23 Acute on chronic systolic (congestive) heart failure; M62.82 Rhabdomyolysis; I42.9 Cardiomyopathy, unspecified; N18.3 Chronic kidney disease, stage 3 (moderate); D53.9 Nutritional anemia, unspecified; E66.9 Obesity, unspecified; E87.6 Hypokalemia; R07.89 Other chest pain; M25.511 Pain in right shoulder; J44.9 Chronic obstructive pulmonary disease, unspecified; Z68.36 Body mass index [BMI] 36.0-36.9, adult; I50.810 Right heart failure, unspecified; Z95.810 Presence of automatic (implantable) cardiac defibrillator; Z91.11 Patient's noncompliance with dietary regimen; Z91.14 Patient's other noncompliance with medication regimen; F31.9 Bipolar disorder, unspecified; E78.5 Hyperlipidemia, unspecified; E03.9 Hypothyroidism, unspecified; E55.9 Vitamin D deficiency, unspecified; F19.10 Other psychoactive substance abuse, uncomplicated; F17.210 Nicotine dependence, cigarettes, uncomplicated
CPT/HCPCS: 36415; 71045; 71275; 80048; 80053; 80306; 81003; 81015; 82550; 82553; 83735; 83880; 84484; 85025; 85379; 85610; 85730; 93005; 93798; 96360; 96361; 99406; J1885

== ENCOUNTER 2017-04-20 02:27 | Inpatient (IN) | payer OTHER ==
[2017-04-20] MEDS ORDERED: Furosemide 40 MG/4 ML VIAL ONE ×2 (02:42→04:03)
[2017-04-20 03:07] LABS: #Eosinphils 0.1 thou/uL (0.0-0.7); #Lymphocytes 1.4 thou/uL (1.20-3.40); #Monocytes 0.3 thou/uL (0.11-0.59); #Neutrophils 3.2 thou/uL (1.40-6.50); %Basophils 0.8 % (0.0-1.0); %Eosinophils 2.2 % (0.0-10.0); %Lymphocytes 27.2 % (21.0-51.0); %Monocytes 5.9 % (0.0-10.0); %Neutrophils 63.9 % (42.0-75.0); Mean Corpuscular HGB CONC 34.6 g/dL (32.0-36.0); Mean Corpuscular Hemoglobin 35.6 pg (27.0-31.0); Mean Platelet Volume 10.7 fL (7.4-10.4); Platelet Count 82 thou/uL (130-400); RBC Distribution Width 13.8 % (11.5-14.5); Red Blood Cell (RBC) Count 3.37 mill/uL (4.70-6.10); White Blood Cell (WBC) Count 5.1 thou/uL (4.8-10.8)
[2017-04-20 03:11] LABS: Actual Bicarbonate (HCO3a) 27.3 mEq/L (22-26); Base Excess (BEa) 2.5 mEq/L (0 (+/-) 2.5); CO2 Tension 42.9 mmHg (35.0-45.0); Calcium, Ionized 1.1 mmol/L (1.12-1.30); Hemoglobin (Hb) 12.4 g/dL (14.0-18.0); O2 Tension (PaO2) 251.4 mmHg (80.0-100.0); pH, Arterial 7.42 (7.35-7.45)
[2017-04-20 03:12] LABS: ALV-art Gradient 46.975 (0-20); Analyzer IN Cardio ER; Puncture Site RRA
[2017-04-20 03:20] LABS: ALT (SGPT) 17 U/L (8-55); AST (SGOT) 41 U/L (5-34); Albumin 4.4 g/dL (3.5-5.0); Alkaline Phosphatase 121 U/L (40-150); Anion Gap 11 mmol/L (10-20); BUN (Urea Nitrogen) 10 mg/dL (8.9-20.6); Bilirubin, Total 0.7 mg/dL (0.2-1.2); CK (CPK) 1839 U/L (30-200); Calc. Creatinine Clearance 0 mL/min (70-130); Calcium 9.3 mg/dL (7.8-10.44); Carbon Dioxide 29 mmol/L (22-29); Chloride 102 mmol/L (98-107); Estimated GFR-MDRD 70; Globulin 3.9 g/dL (2.4-3.5); Glucose 123 mg/dL (70-105); Potassium 3.2 mmol/L (3.5-5.1); Protein, Total 8.3 g/dL (6.0-8.3); Sodium 139 mmol/L (136-145)
[2017-04-20 03:30] LABS: CKMB 19.1 ng/mL (0-6.6)
[2017-04-20 05:55] LABS: Magnesium 2.4 mg/dL (1.6-2.6); Phosphorus 3.3 mg/dL (2.3-4.7)
[2017-04-20] MEDS ORDERED: Furosemide 40 MG/4 ML VIAL SLOW IVP SCH (06:00)
[2017-04-20] MEDS ORDERED: Ondansetron ODT 4 MG TAB SL PRN (06:04)
[2017-04-20] MEDS ORDERED: Acetaminophen 325 MG TAB PO PRN (06:04)
[2017-04-20] MEDS ORDERED: Ondansetron HCl/PF 4 MG/2 ML Vial IVP PRN ×2 (06:04→07:26)
[2017-04-20 06:25] LABS: Troponin I 0.025 ng/mL (< 0.028)
[2017-04-20 06:29] VITALS: BMI 34.9
[2017-04-20] MEDS ORDERED: Ondansetron ODT 4 MG TAB PO PRN (07:26)
[2017-04-20] MEDS ORDERED: Metolazone 5 MG TAB PO SCH (08:30)
[2017-04-20] MEDS: Isosorbide Dinitrate 5 MG TAB PO SCH ×2 (09:15→22:40)
[2017-04-20] MEDS: Allopurinol 100 MG TAB PO SCH (09:15)
[2017-04-20] MEDS: Magnesium Oxide 400 MG TAB PO SCH (09:16)
[2017-04-20] MEDS: Aspirin 81 mg Enteric Coated Tablet PO SCH (09:16)
[2017-04-20] MEDS: hydrALAZINE 10 MG TAB PO SCH ×2 (09:16→22:40)
[2017-04-20] MEDS: Carvedilol 3.125 MG TAB PO SCH ×2 (09:17→17:09)
[2017-04-20] MEDS: Enoxaparin Sodium 40 MG/0.4 ML SYRINGE SC SCH (09:18)
[2017-04-20 09:51] LABS: Troponin I 0.027 ng/mL (< 0.028)
--- NOTE | 2017-04-20 10:46 | RAD ---
PORTABLE CHEST 1 VIEW: Date: 04/20/17 Time: 0302 hours HISTORY: Dyspnea. FINDINGS/IMPRESSION: Comparison made with exam of 03/01/17. The heart is enlarged. Aorta is tortuous. Left-sided AICD remains in place. No lobar consolidation, p neumothoraces, luis pulmonary edema, or large effusions are seen. POS: [facility]
[2017-04-20 13:27] LABS: Actual Bicarbonate (HCO3a) 31.1 mEq/L (22-26); Base Excess (BEa) 6.1 mEq/L (0 (+/-) 2.5); CO2 Tension 46.6 mmHg (35.0-45.0); pH, Arterial 7.44 (7.35-7.45)
[2017-04-20 13:28] LABS: Hemoglobin (Hb) 12.4 g/dL (14.0-18.0)
[2017-04-20 13:29] LABS: Analyzer IN Cardio OR; Calcium, Ionized 1.1 mmol/L (1.12-1.30); Puncture Site RRA
[2017-04-20 13:30] LABS: Hematocrit-ABG 39.8 % (42.0-52.0)
[2017-04-20] MEDS: Furosemide 40 MG/4 ML VIAL SLOW IVP SCH (15:05)
--- NOTE | 2017-04-20 18:04 | EKG ---
Test Reason : Blood Pressure : / mmHG Vent. Rate : 067 BPM Atrial Rate : 067 BPM P-R Int : 216 ms QRS Dur : 124 ms QT Int : 496 ms P-R-T Axes : 001 -38 077 degrees QTc Int : 524 ms Atrial-paced rhythm with prolonged AV conduction Left axis deviation Left ventricular hypertrophy with QRS widening Cannot rule out Septal infarct , age undetermined Abnormal ECG Confirmed by GRAY SANTOYO, BRUCE ([id number]), commissioning editor LUZ KULKARNI ([id number]) on 04/20/2017 6:03:48 PM Referred By: Confirmed By:BRUCE CASTELLANO MD
[2017-04-21] MEDS: Levothyroxine Sodium 100 MCG TAB PO SCH (05:39)
[2017-04-21] MEDS: Furosemide 40 MG/4 ML VIAL SLOW IVP SCH (05:39)
[2017-04-21 05:51] LABS: Anion Gap 14 mmol/L (10-20); BUN (Urea Nitrogen) 16 mg/dL (8.9-20.6); Calc. Creatinine Clearance 72 mL/min (70-130); Calcium 9.8 mg/dL (7.8-10.44); Carbon Dioxide 30 mmol/L (22-29); Chloride 95 mmol/L (98-107); Estimated GFR-MDRD 48; Glucose 104 mg/dL (70-105); Potassium 3.4 mmol/L (3.5-5.1); Sodium 136 mmol/L (136-145)
[2017-04-21] MEDS ORDERED: Acetaminophen 325 MG TAB PO PRN (07:40)
[2017-04-21] MEDS ORDERED: Senokot 8.6 MG TAB PO PRN (07:40)
[2017-04-21] MEDS ORDERED: hydrALAZINE 20 MG/ML VIAL SLOW IVP PRN (07:40)
[2017-04-21] MEDS ORDERED: Diabetic Tussin 200 MG/10 ML UDCUP PO PRN (07:40)
[2017-04-21] MEDS ORDERED: Eucerin (Mineral Oil/Petrolatum,White) 30 gm Jar TOP PRN (07:40)
[2017-04-21] MEDS ORDERED: Temazepam 15 MG CAP PO PRN (07:40)
[2017-04-21] MEDS ORDERED: Mag-Al 1200 mg/1200 mg/30 ML UDCUP PO PRN (07:40)
[2017-04-21] MEDS ORDERED: Chloraseptic Spray 180 ml Bottle PO PRN (07:40)
[2017-04-21] MEDS ORDERED: Sodium Chloride 0.65% Nasal 44 ML BOT EA NARE PRN (07:40)
[2017-04-21] MEDS ORDERED: Artificial Tears 18 DROP/0.9 ML EA EYE PRN (07:40)
[2017-04-21] MEDS ORDERED: Milk Of Magnesia 30 ML UDCUP PO PRN (07:40)
[2017-04-21] MEDS ORDERED: FLU VACC QS2017-18 36 mo. & older 0.5 ML SYRINGE IM ONE (09:00)
--- NOTE | 2017-04-21 10:26 | PDOC.PN ---
- Subjective Encounter Start Date: 04/21/17 Encounter Start Time: 08:45 -: old records requested/rev Patient seen and examined. No new complaints. No overnight events - Objective Resuscitation Status: Resuscitation Status FULL:Full Resuscitation MAR Reviewed: Yes Vital Signs & Weight: Vital Signs (12 hours) Temp Pulse Resp BP 04/21/17 08:00 98.4 F 64 16 138/90 04/20/17 22:40 72 Weight Weight 222 lb 6.4 oz I&O: 04/20/17 04/21/17 04/22/17 06:59 06:59 06:59 Intake Total 240 1280 Output Total 800 4625 1050 Balance -560 -3345 -1050 Result Diagrams: 04/20/17 02:45 04/21/17 05:17 EKG Reviewed by me: Yes Phys Exam - Physical Examination Constitutional: NAD HEENT: PERRLA, moist MMs, sclera anicteric Neck: no JVD, supple Respiratory: no wheezing, no rales, no rhonchi Cardiovascular: RRR, no significant murmur, no rub Gastrointestinal: soft, non-tender, no distention, positive bowel sounds Musculoskeletal: pulses present, edema present Neurological: non-focal, normal sensation, moves all 4 limbs Psychiatric: normal affect, A&O x 3 Skin: no rash, normal turgor Dx/Plan (1) Acute on chronic systolic (congestive) heart failure Code(s): I50.23 - ACUTE ON CHRONIC SYSTOLIC (CONGESTIVE) HEART FAILURE Status : Acute Comment: (2) Acute worsening of stage 3 chronic kidney disease Code(s): N18.3 - CHRONIC KIDNEY DISEASE, STAGE 3 (MODERATE) Status: Acute (3) Anemia, macrocytic Code(s): D53.9 - NUTRITIONAL ANEMIA, UNSPECIFIED Status: Chronic Comment: (4) Bipolar disorder Code(s): F31.9 - BIPOLAR DISORDER, UNSPECIFIED Status: Chronic Qualifiers: (5) CKD (chronic kidney disease) stage 3, GFR 30-59 ml/min Status: Chronic (6) Dyslipidemia Code(s): E78.5 - HYPERLIPIDEMIA, UNSPECIFIED Status: Chronic (7) Hypertension Code(s): I10 - ESSENTIAL (PRIMARY) HYPERTENSION Status: Chronic Qualifiers: (8) Hypothyroidism Code(s): E03.9 - HYPOTHYROIDISM, UNSPECIFIED Status: Chronic Qualifiers: (9) Non-ischemic cardiomyopathy Code(s): I42.9 - CARDIOMYOPATHY, UNSPECIFIED Status: Chronic Comment: (10) Noncompliance Code(s): Z91.19 - PATIENT'S NONCOMPLIANCE W OTH MEDICAL TREATMENT AND REGIMEN Status: Chronic (11) Obesity (BMI 30-39.9) Code(s): E66.9 - OBESITY, UNSPECIFIED Status: Chronic (12) Polysubstance abuse Code(s): F19.10 - OTHER PSYCHOACTIVE SUBSTANCE ABUSE, UNCOMPLICATED Status: Chronic (13) Rhabdomyolysis Code(s): M62.82 - RHABDOMYOLYSIS Status: Chronic Qualifiers: (14) Vitamin D deficiency Code(s): E55.9 - VITAMIN D DEFICIENCY, UNSPECIFIED Status: Chronic - Plan cont current plan of care * medication reviewed as below * symptomatic treatment * DC lasix * repeat labs tomorrow * ambulate as tolerated. Review of Systems - Review of Systems Eyes: negative: Pain, Vision Change, Conjunctivae Inflammation, Eyelid Inflammation, Redness, Other ENT: negative: Ear Pain, Ear Discharge, Nose Pain, Nose Discharge, Nose Congestion, Mouth Pain, Mouth Swelling, Throat Pain, Throat Swelling, Other Respiratory: negative: Cough, Dry, Shortness of Breath, Hemoptysis, SOB with Excertion, Pleuritic Pain, Sputum, Wheezing Cardiovascular: negative: chest pain, palpitations, orthopnea, paroxysmal nocturnal dyspnea, edema, light headedness, other Gastrointestinal: negative: Nausea, Vomiting, Abdominal Pain, Diarrhea, Constipation, Melena, Hematochezia, Other Genitourinary: negative: Dysuria, Frequency, Incontinence, Hematuria, Retention , Other Musculoskeletal: negative: Neck Pain, Shoulder Pain, Arm Pain, Back Pain, Hand Pain, Leg Pain, Foot Pain, Other - Medications/Allergies Allergies/Adverse Reactions: Allergies Allergy/AdvReac Type Severity Reaction Status Date / Time JOSE ANGEL Inhibitors Allergy Severe Verified 04/20/17 06:50 diphenhydramine HCl Allergy SWELLING Verified 04/20/17 06:50 [From Benadryl] tramadol Allergy Nausea Verified 04/20/17 06:50 Medications: Current Medications Acetaminophen (Tylenol) 650 mg PO Q4H PRN PRN Reason: Headache/Fever or Mild Pain Al Hydroxide/Mg Hydroxide (Maalox) 15 ml PO Q4H PRN PRN Reason: Heartburn or Indigestion Allopurinol (Zyloprim) 100 mg PO DAILY [facility] Last Admin: 04/20/17 09:15 Dose: 100 mg Artificial Tears (Tears Naturale) 0 drop EA EYE PRN PRN PRN Reason: Dry Eyes Aspirin (Ecotrin) 81 mg PO DAILY [facility] Last Admin: 04/20/17 09:16 Dose: 81 mg Carvedilol (Coreg) 3.125 mg PO BID[facility] Last Admin: 04/20/17 17:09 Dose: 3.125 mg Enoxaparin Sodium (Lovenox) 40 mg SC 0900 [facility] Last Admin: 04/20/17 09:18 Dose: Not Given Famotidine (Pepcid) 20 mg PO DAILY [facility] Guaifenesin (Robitussin Sf) 200 mg PO Q4H PRN PRN Reason: Cough Hydralazine HCl (Apresoline) 10 mg PO BID [facility] Last Admin: 04/20/17 22:40 Dose: 10 mg Hydralazine HCl (Apresoline) 10 mg SLOW IVP Q4H PRN PRN Reason: Systolic BP > 180 Isosorbide Dinitrate (Isordil) 10 mg PO BID [facility] Last Admin: 04/20/17 22:40 Dose: 10 mg Levothyroxine Sodium (Synthroid) 100 mcg PO 0600 [facility] Last Admin: 04/21/17 05:39 Dose: 100 mcg Magnesium Hydroxide (Milk Of Magnesium) 30 ml PO DAILYPRN PRN PRN Reason: Constipation Magnesium Oxide (Magnesium Oxide) 400 mg PO DAILY [facility] Last Admin: 04/20/17 09:16 Dose: 400 mg Mineral Oil/White Petrolatum (Eucerin Cream) 0 gm TOP BIDPRN PRN PRN Reason: Dry Skin Ondansetron HCl (Zofran Odt) 4 mg PO Q6H PRN PRN Reason: Nausea/Vomiting Ondansetron HCl (Zofran) 4 mg IVP Q6H PRN PRN Reason: Nausea/Vomiting Phenol (Chloraseptic [place] 180 Ml Bot) 0 ml PO PRN PRN PRN Reason: Sore Throat Senna (Senokot) 2 tab PO HSPRN PRN PRN Reason: Constipation Sodium Chloride (Flush - Normal Saline) 10 ml IVF Q12HR [facility] Last Admin: 04/20/17 22:41 Dose: 10 ml Sodium Chloride (Flush - Normal Saline) 10 ml IVF PRN PRN PRN Reason: Saline Flush Sodium Chloride ([place] Nasal [place] 0.65%) 0 ml EA NARE QIDPRN PRN PRN Reason: Nasal Congestion Temazepam (Restoril) 15 mg PO HSPRN PRN PRN Reason: Insomnia
[2017-04-21] MEDS: hydrALAZINE 10 MG TAB PO SCH ×2 (11:12→11:13)
[2017-04-21] MEDS: Enoxaparin Sodium 40 MG/0.4 ML SYRINGE SC SCH (11:12)
[2017-04-21] MEDS: Aspirin 81 mg Enteric Coated Tablet PO SCH (11:12)
[2017-04-21] MEDS: Carvedilol 3.125 MG TAB PO SCH ×2 (11:13→17:25)
[2017-04-21] MEDS: Magnesium Oxide 400 MG TAB PO SCH (11:14)
[2017-04-21] MEDS: Isosorbide Dinitrate 5 MG TAB PO SCH ×2 (11:14→20:40)
[2017-04-21] MEDS: Allopurinol 100 MG TAB PO SCH (11:15)
[2017-04-21] MEDS: Famotidine 20 MG TAB PO SCH (11:16)
[2017-04-22] MEDS: Levothyroxine Sodium 100 MCG TAB PO SCH (05:12)
[2017-04-22 05:26] LABS: #Eosinphils 0.1 thou/uL (0.0-0.7); #Lymphocytes 1.8 thou/uL (1.20-3.40); #Monocytes 0.5 thou/uL (0.11-0.59); #Neutrophils 3.4 thou/uL (1.40-6.50); %Basophils 0.8 % (0.0-1.0); %Eosinophils 2.1 % (0.0-10.0); %Lymphocytes 30.7 % (21.0-51.0); %Monocytes 8.5 % (0.0-10.0); %Neutrophils 57.9 % (42.0-75.0); Hemoglobin 12.5 g/dL (14.0-18.0); Mean Corpuscular HGB CONC 34.7 g/dL (32.0-36.0); Mean Corpuscular Hemoglobin 35.7 pg (27.0-31.0); Mean Platelet Volume 10.7 fL (7.4-10.4); Platelet Count 84 thou/uL (130-400); RBC Distribution Width 13.8 % (11.5-14.5); White Blood Cell (WBC) Count 5.9 thou/uL (4.8-10.8)
[2017-04-22 05:29] LABS: Albumin 4.3 g/dL (3.5-5.0); Anion Gap 16 mmol/L (10-20); BUN (Urea Nitrogen) 24 mg/dL (8.9-20.6); BUN/Creatinine Ratio 12.77; CK (CPK) 1872 U/L (30-200); Calc. Creatinine Clearance 65 mL/min (70-130); Calcium 10.1 mg/dL (7.8-10.44); Carbon Dioxide 31 mmol/L (22-29); Chloride 92 mmol/L (98-107); Estimated GFR-MDRD 47; Glucose 104 mg/dL (70-105); Phosphorus 4.3 mg/dL (2.3-4.7); Potassium 3.2 mmol/L (3.5-5.1); Sodium 136 mmol/L (136-145)
[2017-04-22] MEDS ORDERED: Potassium Chloride 20 MEQ TAB PO SCH (07:45)
[2017-04-22] MEDS: Aspirin 81 mg Enteric Coated Tablet PO SCH (09:37)
[2017-04-22] MEDS: Allopurinol 100 MG TAB PO SCH (09:37)
[2017-04-22] MEDS: hydrALAZINE 10 MG TAB PO SCH ×2 (09:37→20:57)
[2017-04-22] MEDS: Isosorbide Dinitrate 5 MG TAB PO SCH ×2 (09:37→20:56)
[2017-04-22] MEDS: Magnesium Oxide 400 MG TAB PO SCH (09:38)
[2017-04-22] MEDS: Carvedilol 3.125 MG TAB PO SCH ×2 (09:38→17:49)
[2017-04-22] MEDS: Famotidine 20 MG TAB PO SCH (09:38)
[2017-04-22] MEDS: Enoxaparin Sodium 40 MG/0.4 ML SYRINGE SC SCH (09:38)
--- NOTE | 2017-04-22 10:17 | PDOC.PN ---
- Subjective Encounter Start Date: 04/22/17 Encounter Start Time: 07:20 Patient seen and examined. No new complaints. No overnight events - Objective Resuscitation Status: Resuscitation Status FULL:Full Resuscitation MAR Reviewed: Yes Vital Signs & Weight: Vital Signs (12 hours) Temp Pulse Resp BP Pulse Ox 04/22/17 09:37 68 04/22/17 08:00 98.2 F 68 20 135/90 04/22/17 05:00 60 18 136/89 92 L 04/21/17 23:20 98.2 F 64 15 125/69 96 Weight Weight 207 lb I&O: 04/21/17 04/22/17 04/23/17 06:59 06:59 06:59 Intake Total 1280 1200 Output Total 4625 3300 Balance -3345 -2100 Result Diagrams: 04/22/17 04:24 04/22/17 04:24 EKG Reviewed by me: Yes Phys Exam - Physical Examination Constitutional: NAD HEENT: PERRLA, moist MMs, sclera anicteric Neck: no JVD, supple Respiratory: no wheezing, no rales, no rhonchi Cardiovascular: RRR, no significant murmur, no rub Gastrointestinal: soft, non-tender, no distention, positive bowel sounds Musculoskeletal: no edema, pulses present Neurological: non-focal, normal sensation Lymphatic: no nodes Psychiatric: normal affect Skin: no rash, normal turgor Dx/Plan (1) Acute on chronic systolic (congestive) heart failure Code(s): I50.23 - ACUTE ON CHRONIC SYSTOLIC (CONGESTIVE) HEART FAILURE Status : Acute Comment: (2) Acute worsening of stage 3 chronic kidney disease Code(s): N18.3 - CHRONIC KIDNEY DISEASE, STAGE 3 (MODERATE) Status: Acute (3) Anemia, macrocytic Code(s): D53.9 - NUTRITIONAL ANEMIA, UNSPECIFIED Status: Chronic Comment: (4) Bipolar disorder Code(s): F31.9 - BIPOLAR DISORDER, UNSPECIFIED Status: Chronic Qualifiers: (5) CKD (chronic kidney disease) stage 3, GFR 30-59 ml/min Status: Chronic (6) Dyslipidemia Code(s): E78.5 - HYPERLIPIDEMIA, UNSPECIFIED Status: Chronic (7) Hypertension Code(s): I10 - ESSENTIAL (PRIMARY) HYPERTENSION Status: Chronic Qualifiers: (8) Hypothyroidism Code(s): E03.9 - HYPOTHYROIDISM, UNSPECIFIED Status: Chronic Qualifiers: (9) Non-ischemic cardiomyopathy Code(s): I42.9 - CARDIOMYOPATHY, UNSPECIFIED Status: Chronic Comment: (10) Noncompliance Code(s): Z91.19 - PATIENT'S NONCOMPLIANCE W OTH MEDICAL TREATMENT AND REGIMEN Status: Chronic (11) Obesity (BMI 30-39.9) Code(s): E66.9 - OBESITY, UNSPECIFIED Status: Chronic (12) Polysubstance abuse Code(s): F19.10 - OTHER PSYCHOACTIVE SUBSTANCE ABUSE, UNCOMPLICATED Status: Chronic (13) Rhabdomyolysis Code(s): M62.82 - RHABDOMYOLYSIS Status: Chronic Qualifiers: (14) Vitamin D deficiency Code(s): E55.9 - VITAMIN D DEFICIENCY, UNSPECIFIED Status: Chronic - Plan cont current plan of care * renal function high, still ck high, will monitor * medication reviewed as below * symptomatic treatment * pt seems euvolemic * his noncompliance with treatment always concern. Review of Systems - Review of Systems Constitutional: negative: fever, chills, sweats, weakness, malaise, other ENT: negative: Ear Pain, Ear Discharge, Nose Pain, Nose Discharge, Nose Congestion, Mouth Pain, Mouth Swelling, Throat Pain, Throat Swelling, Other Respiratory: negative: Cough, Dry, Shortness of Breath, Hemoptysis, SOB with Excertion, Pleuritic Pain, Sputum, Wheezing Cardiovascular: negative: chest pain, palpitations, orthopnea, paroxysmal nocturnal dyspnea, edema, light headedness, other Gastrointestinal: negative: Nausea, Vomiting, Abdominal Pain, Diarrhea, Constipation, Melena, Hematochezia, Other Genitourinary: negative: Dysuria, Frequency, Incontinence, Hematuria, Retention , Other Musculoskeletal: negative: Neck Pain, Shoulder Pain, Arm Pain, Back Pain, Hand Pain, Leg Pain, Foot Pain, Other Skin: negative: Rash, Lesions, Melvin, Bruising, Other - Medications/Allergies Allergies/Adverse Reactions: Allergies Allergy/AdvReac Type Severity Reaction Status Date / Time JOSE ANGEL Inhibitors Allergy Severe Verified 04/20/17 06:50 diphenhydramine HCl Allergy SWELLING Verified 04/20/17 06:50 [From Benadryl] tramadol Allergy Nausea Verified 04/20/17 06:50 Medications: Current Medications Acetaminophen (Tylenol) 650 mg PO Q4H PRN PRN Reason: Headache/Fever or Mild Pain Al Hydroxide/Mg Hydroxide (Maalox) 15 ml PO Q4H PRN PRN Reason: Heartburn or Indigestion Allopurinol (Zyloprim) 100 mg PO DAILY [facility] Last Admin: 04/22/17 09:37 Dose: 100 mg Artificial Tears (Tears Naturale) 0 drop EA EYE PRN PRN PRN Reason: Dry Eyes Aspirin (Ecotrin) 81 mg PO DAILY [facility] Last Admin: 04/22/17 09:37 Dose: 81 mg Carvedilol (Coreg) 3.125 mg PO BID[facility] Last Admin: 04/22/17 09:38 Dose: 3.125 mg Enoxaparin Sodium (Lovenox) 40 mg SC 0900 [facility] Last Admin: 04/22/17 09:38 Dose: 40 mg Famotidine (Pepcid) 20 mg PO DAILY [facility] Last Admin: 04/22/17 09:38 Dose: 20 mg Guaifenesin (Robitussin Sf) 200 mg PO Q4H PRN PRN Reason: Cough Hydralazine HCl (Apresoline) 10 mg PO BID [facility] Last Admin: 04/22/17 09:37 Dose: 10 mg Hydralazine HCl (Apresoline) 10 mg SLOW IVP Q4H PRN PRN Reason: Systolic BP > 180 Isosorbide Dinitrate (Isordil) 10 mg PO BID [facility] Last Admin: 04/22/17 09:37 Dose: 10 mg Levothyroxine Sodium (Synthroid) 100 mcg PO 0600 [facility] Last Admin: 04/22/17 05:12 Dose: 100 mcg Magnesium Hydroxide (Milk Of Magnesium) 30 ml PO DAILYPRN PRN PRN Reason: Constipation Magnesium Oxide (Magnesium Oxide) 400 mg PO DAILY [facility] Last Admin: 04/22/17 09:38 Dose: 400 mg Mineral Oil/White Petrolatum (Eucerin Cream) 0 gm TOP BIDPRN PRN PRN Reason: Dry Skin Ondansetron HCl (Zofran Odt) 4 mg PO Q6H PRN PRN Reason: Nausea/Vomiting Ondansetron HCl (Zofran) 4 mg IVP Q6H PRN PRN Reason: Nausea/Vomiting Phenol (Chloraseptic [place] 180 Ml Bot) 0 ml PO PRN PRN PRN Reason: Sore Throat Senna (Senokot) 2 tab PO HSPRN PRN PRN Reason: Constipation Sodium Chloride (Flush - Normal Saline) 10 ml IVF Q12HR [facility] Last Admin: 04/22/17 09:39 Dose: Not Given Sodium Chloride (Flush - Normal Saline) 10 ml IVF PRN PRN PRN Reason: Saline Flush Sodium Chloride ([place] Nasal [place] 0.65%) 0 ml EA NARE QIDPRN PRN PRN Reason: Nasal Congestion Temazepam (Restoril) 15 mg PO HSPRN PRN PRN Reason: Insomnia
--- NOTE | 2017-04-22 11:53 | PQF ---
CLINICAL DOCUMENTATION IMPROVEMENT CLARIFICATION FORM: ICD-10 Updated PLEASE DO AN ADDENDUM TO THE PROGRESS NOTE WITH ANY DOCUMENTATION UPDATES OR ADDITIONS AND CARRY THROUGH TO DC SUMMARY. THANK YOU. DATE: 04/22/17 ATTN: DR. MCFARLAND Please exercise your independent, professional judgment in responding to the clarification form. Clinical indicators are provided on the bottom of this form for your review Please check appropriate box(s): [ x ] Acute Respiratory Failure: [x ] with Hypoxia[ ] with Hypercapnia [ ] Acute On Chronic Respiratory Failure: [ ] with Hypoxia [ ] with Hypercapnia [ ] Acute Respiratory Failure due to: (etiology) [ ] Acute Respiratory Insufficiency following (if applicable): [ ] trauma [ ] surgery [ ] Chronic Respiratory Failure only [ ] with Hypoxia [ ] with Hypercapnia [ ] Hypoxia [ ] Other diagnosis [ ] Unable to determine In addition, please specify: Present on Admission (POA): [x ] Yes [ ] No [ ] Unable to determine For continuity of documentation, please document condition throughout progress notes and discharge summary. Thank You. CLINICAL INDICATORS - SIGNS / SYMPTOMS / LABS ER NOTE: "RESPIRATORY FAILURE DUE TO MEDICATIONS NON-COMPLIANCE" RR 6 IN ER ABG PCO2 46.6 ABG PO2 53.0 RISKS: ACUTE ON CHRONIC SYSTOLIC HEART FAILURE H/O COPD TREATMENT: ON BIPAP IN ER IV LASIX (GIVEN IN ER) ABGS (This form is maintained as a part of the permanent medical record) 2014 [employer]. All Rights Reserved [employer] Winform Viewer [email or web address] Office: [phone] [facility]
[2017-04-23 07:53] LABS: Albumin 4.9 g/dL (3.5-5.0); Anion Gap 14 mmol/L (10-20); BUN (Urea Nitrogen) 26 mg/dL (8.9-20.6); BUN/Creatinine Ratio 14.44; CK (CPK) 3157 U/L (30-200); Calc. Creatinine Clearance 72 mL/min (70-130); Calcium 10.5 mg/dL (7.8-10.44); Carbon Dioxide 34 mmol/L (22-29); Chloride 92 mmol/L (98-107); Estimated GFR-MDRD 49; Glucose 95 mg/dL (70-105); Phosphorus 3.6 mg/dL (2.3-4.7); Potassium 3.8 mmol/L (3.5-5.1); Sodium 136 mmol/L (136-145)
--- NOTE | 2017-04-23 09:29 | PDOC.PN ---
- Subjective Encounter Start Date: 04/23/17 Encounter Start Time: 07:40 Patient seen and examined. No new complaints. No overnight events - Objective Resuscitation Status: Resuscitation Status FULL:Full Resuscitation MAR Reviewed: Yes Vital Signs & Weight: Vital Signs (12 hours) Temp Pulse Resp BP Pulse Ox 04/23/17 08:16 75 136/93 H 16 L 04/23/17 04:00 98.6 F 63 20 127/91 H 93 L Weight Weight 220 lb I&O: 04/22/17 04/23/17 04/24/17 06:59 06:59 06:59 Intake Total 1200 300 Output Total 3300 600 Balance -2100 -300 Result Diagrams: 04/22/17 04:24 04/23/17 07:19 EKG Reviewed by me: Yes Phys Exam - Physical Examination Constitutional: NAD HEENT: PERRLA, moist MMs, sclera anicteric Neck: no JVD, supple Respiratory: no wheezing, no rales, no rhonchi Cardiovascular: RRR, no significant murmur, no rub Gastrointestinal: soft, non-tender, no distention, positive bowel sounds Musculoskeletal: no edema, pulses present Neurological: non-focal, normal sensation Lymphatic: no nodes Psychiatric: normal affect, A&O x 3 Skin: no rash, normal turgor Dx/Plan (1) Acute on chronic systolic (congestive) heart failure Code(s): I50.23 - ACUTE ON CHRONIC SYSTOLIC (CONGESTIVE) HEART FAILURE Status : Acute Comment: (2) Acute worsening of stage 3 chronic kidney disease Code(s): N18.3 - CHRONIC KIDNEY DISEASE, STAGE 3 (MODERATE) Status: Acute (3) Anemia, macrocytic Code(s): D53.9 - NUTRITIONAL ANEMIA, UNSPECIFIED Status: Chronic Comment: (4) Bipolar disorder Code(s): F31.9 - BIPOLAR DISORDER, UNSPECIFIED Status: Chronic Qualifiers: (5) CKD (chronic kidney disease) stage 3, GFR 30-59 ml/min Status: Chronic (6) Dyslipidemia Code(s): E78.5 - HYPERLIPIDEMIA, UNSPECIFIED Status: Chronic (7) Hypertension Code(s): I10 - ESSENTIAL (PRIMARY) HYPERTENSION Status: Chronic Qualifiers: (8) Hypothyroidism Code(s): E03.9 - HYPOTHYROIDISM, UNSPECIFIED Status: Chronic Qualifiers: (9) Non-ischemic cardiomyopathy Code(s): I42.9 - CARDIOMYOPATHY, UNSPECIFIED Status: Chronic Comment: (10) Noncompliance Code(s): Z91.19 - PATIENT'S NONCOMPLIANCE W OTH MEDICAL TREATMENT AND REGIMEN Status: Chronic (11) Obesity (BMI 30-39.9) Code(s): E66.9 - OBESITY, UNSPECIFIED Status: Chronic (12) Polysubstance abuse Code(s): F19.10 - OTHER PSYCHOACTIVE SUBSTANCE ABUSE, UNCOMPLICATED Status: Chronic (13) Rhabdomyolysis Code(s): M62.82 - RHABDOMYOLYSIS Status: Chronic Qualifiers: (14) Vitamin D deficiency Code(s): E55.9 - VITAMIN D DEFICIENCY, UNSPECIFIED Status: Chronic - Plan cont current plan of care * pt is not on ACEI or ARB due to his allergy as well as renal insufficiency, so contraindicated * he is not on statin due to his high CK * renal function started improving but CK is high * will check TSH * can not give fluid due to chronic high CK and underlying CHF * medication reviewed as below * symptomatic treatment. Review of Systems - Review of Systems ENT: negative: Ear Pain, Ear Discharge, Nose Pain, Nose Discharge, Nose Congestion, Mouth Pain, Mouth Swelling, Throat Pain, Throat Swelling, Other Respiratory: negative: Cough, Dry, Shortness of Breath, Hemoptysis, SOB with Excertion, Pleuritic Pain, Sputum, Wheezing Cardiovascular: negative: chest pain, palpitations, orthopnea, paroxysmal nocturnal dyspnea, edema, light headedness, other Gastrointestinal: negative: Nausea, Vomiting, Abdominal Pain, Diarrhea, Constipation, Melena, Hematochezia, Other Genitourinary: negative: Dysuria, Frequency, Incontinence, Hematuria, Retention , Other Musculoskeletal: negative: Neck Pain, Shoulder Pain, Arm Pain, Back Pain, Hand Pain, Leg Pain, Foot Pain, Other Skin: negative: Rash, Lesions, Melvin, Bruising, Other - Medications/Allergies Allergies/Adverse Reactions: Allergies Allergy/AdvReac Type Severity Reaction Status Date / Time JOSE ANGEL Inhibitors Allergy Severe Verified 04/20/17 06:50 diphenhydramine HCl Allergy SWELLING Verified 04/20/17 06:50 [From Benadryl] tramadol Allergy Nausea Verified 04/20/17 06:50 Medications: Current Medications Acetaminophen (Tylenol) 650 mg PO Q4H PRN PRN Reason: Headache/Fever or Mild Pain Al Hydroxide/Mg Hydroxide (Maalox) 15 ml PO Q4H PRN PRN Reason: Heartburn or Indigestion Allopurinol (Zyloprim) 100 mg PO DAILY [facility] Last Admin: 04/22/17 09:37 Dose: 100 mg Artificial Tears (Tears Naturale) 0 drop EA EYE PRN PRN PRN Reason: Dry Eyes Aspirin (Ecotrin) 81 mg PO DAILY [facility] Last Admin: 04/22/17 09:37 Dose: 81 mg Carvedilol (Coreg) 3.125 mg PO BID-[facility] Last Admin: 04/22/17 17:49 Dose: 3.125 mg Enoxaparin Sodium (Lovenox) 40 mg SC 0900 [facility] Last Admin: 04/22/17 09:38 Dose: 40 mg Famotidine (Pepcid) 20 mg PO DAILY [facility] Last Admin: 04/22/17 09:38 Dose: 20 mg Guaifenesin (Robitussin Sf) 200 mg PO Q4H PRN PRN Reason: Cough Hydralazine HCl (Apresoline) 10 mg PO BID [facility] Last Admin: 04/22/17 20:57 Dose: 10 mg Hydralazine HCl (Apresoline) 10 mg SLOW IVP Q4H PRN PRN Reason: Systolic BP > 180 Isosorbide Dinitrate (Isordil) 10 mg PO BID [facility] Last Admin: 04/22/17 20:56 Dose: 10 mg Levothyroxine Sodium (Synthroid) 100 mcg PO 0600 [facility] Last Admin: 04/22/17 05:12 Dose: 100 mcg Magnesium Hydroxide (Milk Of Magnesium) 30 ml PO DAILYPRN PRN PRN Reason: Constipation Magnesium Oxide (Magnesium Oxide) 400 mg PO DAILY [facility] Last Admin: 04/22/17 09:38 Dose: 400 mg Mineral Oil/White Petrolatum (Eucerin Cream) 0 gm TOP BIDPRN PRN PRN Reason: Dry Skin Ondansetron HCl (Zofran Odt) 4 mg PO Q6H PRN PRN Reason: Nausea/Vomiting Ondansetron HCl (Zofran) 4 mg IVP Q6H PRN PRN Reason: Nausea/Vomiting Phenol (Chloraseptic Edwards 180 Ml Bot) 0 ml PO PRN PRN PRN Reason: Sore Throat Senna (Senokot) 2 tab PO HSPRN PRN PRN Reason: Constipation Sodium Chloride (Flush - Normal Saline) 10 ml IVF Q12HR [facility] Last Admin: 04/22/17 20:57 Dose: 10 ml Sodium Chloride (Flush - Normal Saline) 10 ml IVF PRN PRN PRN Reason: Saline Flush Sodium Chloride ([place] Nasal Edwards 0.65%) 0 ml EA NARE QIDPRN PRN PRN Reason: Nasal Congestion Temazepam (Restoril) 15 mg PO HSPRN PRN PRN Reason: Insomnia
[2017-04-23] MEDS: Levothyroxine Sodium 100 MCG TAB PO SCH (09:44)
[2017-04-23] MEDS: Allopurinol 100 MG TAB PO SCH (09:44)
[2017-04-23] MEDS: Famotidine 20 MG TAB PO SCH (09:45)
[2017-04-23] MEDS: Carvedilol 3.125 MG TAB PO SCH ×2 (09:45→19:50)
[2017-04-23] MEDS: Aspirin 81 mg Enteric Coated Tablet PO SCH (09:45)
[2017-04-23] MEDS: Magnesium Oxide 400 MG TAB PO SCH (09:45)
[2017-04-23] MEDS: Enoxaparin Sodium 40 MG/0.4 ML SYRINGE SC SCH (09:46)
[2017-04-23] MEDS: Isosorbide Dinitrate 5 MG TAB PO SCH ×2 (09:50→20:15)
[2017-04-23] MEDS: hydrALAZINE 10 MG TAB PO SCH ×2 (09:51→20:16)
[2017-04-24] MEDS ORDERED: Levothyroxine Sodium 100 MCG TAB PO SCH (06:00)
[2017-04-24 08:23] VITALS: BP 140/92
[2017-04-24] MEDS: Isosorbide Dinitrate 5 MG TAB PO SCH (08:23)
[2017-04-24] MEDS: hydrALAZINE 10 MG TAB PO SCH (08:24)
[2017-04-24] MEDS: Carvedilol 3.125 MG TAB PO SCH (08:24)
[2017-04-24] MEDS: Allopurinol 100 MG TAB PO SCH (08:24)
[2017-04-24] MEDS: Magnesium Oxide 400 MG TAB PO SCH (08:24)
[2017-04-24] MEDS: Famotidine 20 MG TAB PO SCH (08:24)
[2017-04-24] MEDS: Enoxaparin Sodium 40 MG/0.4 ML SYRINGE SC SCH (08:24)
[2017-04-24] MEDS: Aspirin 81 mg Enteric Coated Tablet PO SCH (08:24)
[2017-04-24 09:25] VITALS: TEMP 98
--- NOTE | 2017-04-24 09:59 | PDOC.PN ---
- Subjective Encounter Start Date: 04/24/17 Encounter Start Time: 07:40 Patient seen and examined. No new complaints. No overnight events - Objective Resuscitation Status: Resuscitation Status FULL:Full Resuscitation MAR Reviewed: Yes Vital Signs & Weight: Vital Signs (12 hours) Temp Pulse Resp BP BP Pulse Ox 04/24/17 08:24 67 140/92 H 04/24/17 08:20 98 F 67 18 140/92 H 96 04/24/17 03:51 97.4 F L 64 18 138/88 93 L Weight Weight 220 lb 11.2 oz I&O: 04/23/17 04/24/17 04/25/17 06:59 06:59 06:59 Intake Total 300 540 Output Total 600 475 Balance -300 65 Result Diagrams: 04/22/17 04:24 04/23/17 07:19 EKG Reviewed by me: Yes (nsr) Phys Exam - Physical Examination Constitutional: NAD HEENT: PERRLA, moist MMs, sclera anicteric Neck: no JVD, supple Respiratory: no wheezing, no rales, no rhonchi Cardiovascular: RRR, no significant murmur, no rub Gastrointestinal: soft, non-tender, no distention, positive bowel sounds Musculoskeletal: no edema, pulses present Neurological: non-focal, normal sensation, moves all 4 limbs Lymphatic: no nodes Psychiatric: normal affect, A&O x 3 Skin: no rash, normal turgor Dx/Plan (1) Acute on chronic systolic (congestive) heart failure Code(s): I50.23 - ACUTE ON CHRONIC SYSTOLIC (CONGESTIVE) HEART FAILURE Status : Acute Comment: (2) Acute worsening of stage 3 chronic kidney disease Code(s): N18.3 - CHRONIC KIDNEY DISEASE, STAGE 3 (MODERATE) Status: Acute (3) Anemia, macrocytic Code(s): D53.9 - NUTRITIONAL ANEMIA, UNSPECIFIED Status: Chronic Comment: (4) Bipolar disorder Code(s): F31.9 - BIPOLAR DISORDER, UNSPECIFIED Status: Chronic Qualifiers: (5) CKD (chronic kidney disease) stage 3, GFR 30-59 ml/min Status: Chronic (6) Dyslipidemia Code(s): E78.5 - HYPERLIPIDEMIA, UNSPECIFIED Status: Chronic (7) Hypertension Code(s): I10 - ESSENTIAL (PRIMARY) HYPERTENSION Status: Chronic Qualifiers: (8) Hypothyroidism Code(s): E03.9 - HYPOTHYROIDISM, UNSPECIFIED Status: Chronic Qualifiers: (9) Non-ischemic cardiomyopathy Code(s): I42.9 - CARDIOMYOPATHY, UNSPECIFIED Status: Chronic Comment: (10) Noncompliance Code(s): Z91.19 - PATIENT'S NONCOMPLIANCE W OTH MEDICAL TREATMENT AND REGIMEN Status: Chronic (11) Obesity (BMI 30-39.9) Code(s): E66.9 - OBESITY, UNSPECIFIED Status: Chronic (12) Polysubstance abuse Code(s): F19.10 - OTHER PSYCHOACTIVE SUBSTANCE ABUSE, UNCOMPLICATED Status: Chronic (13) Rhabdomyolysis Code(s): M62.82 - RHABDOMYOLYSIS Status: Chronic Qualifiers: (14) Vitamin D deficiency Code(s): E55.9 - VITAMIN D DEFICIENCY, UNSPECIFIED Status: Chronic - Plan cont current plan of care * medication reviewed as below * symptomatic treatment * see discharge linnette. Review of Systems - Review of Systems ENT: negative: Ear Pain, Ear Discharge, Nose Pain, Nose Discharge, Nose Congestion, Mouth Pain, Mouth Swelling, Throat Pain, Throat Swelling, Other Respiratory: negative: Cough, Dry, Shortness of Breath, Hemoptysis, SOB with Excertion, Pleuritic Pain, Sputum, Wheezing Cardiovascular: negative: chest pain, palpitations, orthopnea, paroxysmal nocturnal dyspnea, edema, light headedness, other Gastrointestinal: negative: Nausea, Vomiting, Abdominal Pain, Diarrhea, Constipation, Melena, Hematochezia, Other Genitourinary: negative: Dysuria, Frequency, Incontinence, Hematuria, Retention , Other Musculoskeletal: negative: Neck Pain, Shoulder Pain, Arm Pain, Back Pain, Hand Pain, Leg Pain, Foot Pain, Other Skin: negative: Rash, Lesions, Melvin, Bruising, Other - Medications/Allergies Allergies/Adverse Reactions: Allergies Allergy/AdvReac Type Severity Reaction Status Date / Time JOSE ANGEL Inhibitors Allergy Severe Verified 04/20/17 06:50 diphenhydramine HCl Allergy SWELLING Verified 04/20/17 06:50 [From Benadryl] tramadol Allergy Nausea Verified 04/20/17 06:50 Medications: Current Medications Acetaminophen (Tylenol) 650 mg PO Q4H PRN PRN Reason: Headache/Fever or Mild Pain Al Hydroxide/Mg Hydroxide (Maalox) 15 ml PO Q4H PRN PRN Reason: Heartburn or Indigestion Allopurinol (Zyloprim) 100 mg PO DAILY [facility] Last Admin: 04/24/17 08:24 Dose: 100 mg Artificial Tears (Tears Naturale) 0 drop EA EYE PRN PRN PRN Reason: Dry Eyes Aspirin (Ecotrin) 81 mg PO DAILY [facility] Last Admin: 04/24/17 08:24 Dose: 81 mg Carvedilol (Coreg) 3.125 mg PO BID-[facility] Last Admin: 04/24/17 08:24 Dose: 3.125 mg Enoxaparin Sodium (Lovenox) 40 mg SC 0900 [facility] Last Admin: 04/24/17 08:24 Dose: Not Given Famotidine (Pepcid) 20 mg PO DAILY [facility] Last Admin: 04/24/17 08:24 Dose: 20 mg Guaifenesin (Robitussin Sf) 200 mg PO Q4H PRN PRN Reason: Cough Hydralazine HCl (Apresoline) 10 mg PO BID [facility] Last Admin: 04/24/17 08:24 Dose: 10 mg Hydralazine HCl (Apresoline) 10 mg SLOW IVP Q4H PRN PRN Reason: Systolic BP > 180 Isosorbide Dinitrate (Isordil) 10 mg PO BID [facility] Last Admin: 04/24/17 08:23 Dose: 10 mg Levothyroxine Sodium (Synthroid) 200 mcg PO 0600 [facility] Last Admin: 04/24/17 05:03 Dose: 200 mcg Magnesium Hydroxide (Milk Of Magnesium) 30 ml PO DAILYPRN PRN PRN Reason: Constipation Magnesium Oxide (Magnesium Oxide) 400 mg PO DAILY [facility] Last Admin: 04/24/17 08:24 Dose: 400 mg Mineral Oil/White Petrolatum (Eucerin Cream) 0 gm TOP BIDPRN PRN PRN Reason: Dry Skin Ondansetron HCl (Zofran Odt) 4 mg PO Q6H PRN PRN Reason: Nausea/Vomiting Ondansetron HCl (Zofran) 4 mg IVP Q6H PRN PRN Reason: Nausea/Vomiting Phenol (Chloraseptic Telf[place]ner 180 Ml Bot) 0 ml PO PRN PRN PRN Reason: Sore Throat Senna (Senokot) 2 tab PO HSPRN PRN PRN Reason: Constipation Sodium Chloride (Flush - Normal Saline) 10 ml IVF Q12HR [facility] Last Admin: 04/24/17 08:24 Dose: Not Given Sodium Chloride (Flush - Normal Saline) 10 ml IVF PRN PRN PRN Reason: Saline Flush Sodium Chloride ([place] Nasal Telferner 0.65%) 0 ml EA NARE QIDPRN PRN PRN Reason: Nasal Congestion Temazepam (Restoril) 15 mg PO HSPRN PRN PRN Reason: Insomnia
--- NOTE | 2017-04-24 11:34 | DIS ---
DATE OF ADMISSION: 04/20/2017 DATE OF DISCHARGE: 04/24/2017 PRIMARY CARE PHYSICIAN: Piero Chakraborty. DISCHARGE DISPOSITION: Home. PRIMARY DISCHARGE DIAGNOSES: 1. Acute on chronic systolic congestive heart failure due to noncompliance with treatment. 2. Acute on chronic kidney failure, baseline chronic kidney disease stage 3. SECONDARY DISCHARGE DIAGNOSES: Nonischemic cardiomyopathy, noncompliance with the treatment, polysub stance abuse, hypertension, hypothyroidism, dyslipidemia, chronic kidney disease stage 3, vitamin D d eficiency, bipolar disorder, chronic systolic heart failure, chronic rhabdomyolysis, obesity with bod y mass index of 33, macrocytic anemia, and thrombocytopenia. PRIMARY PROCEDURE/OPERATION: None. RADIOLOGICAL INVESTIGATION: Chest x-ray on admission showed cardiomegaly, AICD in place. Echocardio graphy was done, result is pending. SIGNIFICANT LABORATORY DATA: WBC 5.9, hemoglobin 12.5, platelet 84, MCV 103. Sodium 136, potassium 3.8, BUN 26, creatinine 1.80, calcium 10.5. CK level is 3157. TSH is 23. DISCHARGE MEDICATIONS: Allopurinol 100 mg p.o. daily, aspirin 81 mg p.o. daily, Coreg 3.125 mg p.o. b.i.d., Pepcid 20 mg p.o. daily, Lasix 40 mg p.o. daily, hydralazine 10 mg p.o. b.i.d., isosorbide di nitrate 10 mg p.o. b.i.d., Synthroid 200 mcg p.o. daily, magnesium oxide 400 mg p.o. daily, Zaroxolyn 5 mg p.o. daily p.r.n. as directed, potassium chloride 20 mEq p.o. daily. CONTRAINDICATIONS: The patient is not on JOSE ANGEL INHIBITOR and ARB because of his allergic to JOSE ANGEL INHIBI TOR and renal insufficiency, but the patient is instead on hydralazine mononitrate regimen. CODE STATUS: FULL CODE. INPATIENT CONSULTANTS: None. ALLERGIES: JOSE ANGEL INHIBITOR, BENADRYL, and TRAMADOL. DISCHARGE PLAN: Post-hospital, the patient will follow up with [facility] and primary care physician on 04/30/2017 at 2:15 p.m. HOSPITAL COURSE: A 46-year-old male who is extremely noncompliant, comes multiple times in our hospi saray. This patient was admitted by Dr. Mcnamara, but he has not done H&P yet. I started taking car e of this patient next day and this patient developed acute on chronic kidney failure with over diure sis that is why we stopped the diuresis. He does have chronically elevated total CK and that is rela chan with his uncontrolled hypothyroidism. While in hospital, we corrected his electrolytes. His mike al function started improving and going towards baseline. This patient is on room air and I provided extensive patient counseling to be compliant with the mirela tment. He does not have any medication and that is why we sent all the medication prescriptions to [facility]. He cannot have statins because of elevated CK. He is allergic to JOSE ANGEL INHIBITOR and he has renal failure and that is why he is not on JOSE ANGEL INHIBITOR and ARB, instead he is on hydralazine mo nonitrate regimen. Diuretic therapy education is also given. This patient is an extremely noncompliant and he is at always risk for readmission. The patient is seen and examined at bedside today. Please see my progress note from today for furthe r details.
== END 2017-04-24 11:34 | disposition home or self-care (01) | DRG 291 ==
LOC: ERS 02:27 → 2NO 06:05
PROVIDERS: ADMIT Internal Medicine; ATTEND Internal Medicine
DX: I13.0 Hypertensive heart and chronic kidney disease with heart failure and stage 1 through stage 4 chronic kidney disease, or unspecified chronic kidney disease (principal); I50.23 Acute on chronic systolic (congestive) heart failure; J96.01 Acute respiratory failure with hypoxia; N17.9 Acute kidney failure, unspecified; M62.82 Rhabdomyolysis; D69.6 Thrombocytopenia, unspecified; N18.3 Chronic kidney disease, stage 3 (moderate); I42.9 Cardiomyopathy, unspecified; Z91.14 Patient's other noncompliance with medication regimen; E03.9 Hypothyroidism, unspecified; E78.5 Hyperlipidemia, unspecified; E55.9 Vitamin D deficiency, unspecified; F31.9 Bipolar disorder, unspecified; E66.9 Obesity, unspecified; Z68.33 Body mass index [BMI] 33.0-33.9, adult; D53.9 Nutritional anemia, unspecified; F19.10 Other psychoactive substance abuse, uncomplicated; Z88.5 Allergy status to narcotic agent; Z88.8 Allergy status to other drugs, medicaments and biological substances; Z79.82 Long term (current) use of aspirin; Z79.899 Other long term (current) drug therapy
CPT/HCPCS: 36415; 71045; 80048; 80053; 80069; 82140; 82550; 82553; 82805; 83735; 83880; 84100; 84443; 84484; 85025; 87040; 93005; 93306; 93798; 94660; 96374; 96376; 99406; A4216; J1650; J1940

== ENCOUNTER 2017-09-04 16:46 | Emergency (ER) | payer OTHER ==
[2017-09-04] MEDS ORDERED: Bacitracin Zinc 1 Packet ONE (18:12)
[2017-09-04] MEDS ORDERED: Lidocaine 1% w/Epinephrine 1:100K 20 ML VIAL ONE (18:12)
[2017-09-04] MEDS ORDERED: Adacel (T-DAP) 0.5 ML VIAL ONE (18:49)
== END 2017-09-04 18:00 | disposition home or self-care (01) ==
LOC: ERS 16:46
DX: K61.0 Anal abscess (principal); J44.9 Chronic obstructive pulmonary disease, unspecified; E03.9 Hypothyroidism, unspecified; E78.5 Hyperlipidemia, unspecified; I11.0 Hypertensive heart disease with heart failure; I50.9 Heart failure, unspecified; D64.9 Anemia, unspecified; F31.9 Bipolar disorder, unspecified; F17.210 Nicotine dependence, cigarettes, uncomplicated; F20.9 Schizophrenia, unspecified; Z71.6 Tobacco abuse counseling
CPT/HCPCS: 46050; 87070; 87077; 87186; 87205; 90471; 90715; 99406; J2001

== ENCOUNTER 2017-10-06 23:58 | Observation (INO) | payer OTHER ==
[2017-10-07 00:47] LABS: #Basophils 0.1 thou/uL (0.0-0.2); #Eosinphils 0.1 thou/uL (0.0-0.7); #Lymphocytes 1.9 thou/uL (1.20-3.40); #Monocytes 0.5 thou/uL (0.11-0.59); #Neutrophils 2.8 thou/uL (1.40-6.50); %Basophils 1.5 % (0.0-1.0); %Eosinophils 1.6 % (0.0-10.0); %Lymphocytes 35.3 % (21.0-51.0); %Monocytes 9.5 % (0.0-10.0); %Neutrophils 52.1 % (42.0-75.0); Hemoglobin 13.3 g/dL (14.0-18.0); Mean Corpuscular HGB CONC 34.5 g/dL (32.0-36.0); Mean Corpuscular Hemoglobin 34.6 pg (27.0-31.0); Mean Platelet Volume 10.8 fL (7.4-10.4); Platelet Count 84 thou/uL (130-400); Red Blood Cell (RBC) Count 3.85 mill/uL (4.70-6.10); White Blood Cell (WBC) Count 5.3 thou/uL (4.8-10.8)
[2017-10-07 01:11] LABS: ALT (SGPT) 20 U/L (8-55); AST (SGOT) 34 U/L (5-34); Albumin 4.6 g/dL (3.5-5.0); Alkaline Phosphatase 113 U/L (40-150); Anion Gap 12 mmol/L (10-20); BUN (Urea Nitrogen) 12 mg/dL (8.9-20.6); Bilirubin, Total 0.4 mg/dL (0.2-1.2); CK (CPK) 874 U/L (30-200); Calc. Creatinine Clearance 0 mL/min (70-130); Calcium 8.9 mg/dL (7.8-10.44); Carbon Dioxide 22 mmol/L (22-29); Chloride 107 mmol/L (98-107); Estimated GFR-MDRD 66; Globulin 3.7 g/dL (2.4-3.5); Glucose 122 mg/dL (70-105); Protein, Total 8.3 g/dL (6.0-8.3); Sodium 137 mmol/L (136-145)
[2017-10-07] MEDS ORDERED: Furosemide 40 MG/4 ML VIAL ONE (01:18)
[2017-10-07] MEDS ORDERED: Nitroglycerin 2% Ointment 1 INCH/1 GM Packet ONE (01:18)
[2017-10-07 01:41] LABS: CKMB 10.5 ng/mL (0-6.6)
[2017-10-07] MEDS ORDERED: Ondansetron ODT 4 MG TAB SL PRN (02:46)
[2017-10-07] MEDS ORDERED: Ondansetron HCl/PF 4 MG/2 ML Vial IVP PRN ×2 (02:46→15:40)
[2017-10-07] MEDS ORDERED: Acetaminophen 325 MG TAB PO PRN (02:46)
[2017-10-07 03:00] VITALS: BMI 37.0
--- NOTE | 2017-10-07 08:15 | RAD ---
RADIOGRAPH CHEST 1 VIEW: Date: 10/07/2017 Time: 12:29 a.m. HISTORY: A 46-year-old male with fluid volume overload. COMPARISON: 04/20/2017 FINDINGS: There is cardiomegaly. There is mild pulmonary venous engorgement. A dual-lead left subclavian AICD is again noted. No luis pulmonary alveolar edema. Inspiration is deeper on the current study, whi ch may be responsible for the apparent improvement in the prominent interstitial markings. There is no pulmonary edema. The lateral costophrenic angles are sharp. No pneumothorax. IMPRESSION: 1. Cardiomegaly and minimal or mild pulmonary venous engorgement. 2. Automatic implantable cardioverter/defibrillator. RAFITA [] POS: MILKA
[2017-10-07] MEDS ORDERED: Furosemide 100 MG/10 ML VIAL SLOW IVP SCH (09:00)
[2017-10-07] MEDS ORDERED: hydrALAZINE 20 MG/ML VIAL SLOW IVP PRN (15:40)
[2017-10-07] MEDS ORDERED: Ondansetron ODT 4 MG TAB PO PRN (15:40)
[2017-10-07] MEDS ORDERED: cloNIDine 0.1 MG TAB PO PRN (15:40)
[2017-10-07] MEDS ORDERED: Acetaminophen 500 MG TAB PO PRN (15:40)
--- NOTE | 2017-10-07 17:12 | HP ---
DATE OF ADMISSION: 10/07/2017 PRIMARY CARE PHYSICIAN: [facility] in [place], [place]. CHIEF COMPLAINT: Shortness of breath and lower extremity swelling. HISTORY OF PRESENT ILLNESS: This is a 46-year-old male who presents to [facility] Emergency Department [facility] after complaining of 2-3 day his tory of increasing lower extremity and abdominal swelling. The patient's history is significant for nonischemic cardiomyopathy with ejection fraction of 10%-15% as well as noncompliance with medication regimen. [facility]'s Department personnel report the patient is noncompliant with taking his medicati ons after being incarcerated on 09/28/2017. The patient has a history of similar pattern according t o the Director Risk's office. The patient denies any specific chest or left arm discomfort. The patient a dmits to increased abdominal swelling and bloating in addition to lower extremity swelling. The joni ent states he has had some adjustment to his chronic medication regimen, but is unsure of what medica tions were adjusted, but states this was done by his primary providers at [facility] in [place], [place] . The patient denies any specific fever or productive cough. The patient admits to worse shortness of breath when lying flat. The patient denies any change to his bowel habits, dysuria, frequency or flank pain. The patient denies taking a daily weight and is unsure what his baseline dry weight is. In the emergency room, the patient underwent general evaluation including chest imaging showing mild pulmonary edema. The patient received IV Lasix 80 mg x1 dose in addition to a transdermal nitroglyc corrie. PAST MEDICAL HISTORY: 1. Noncompliance with medication regimen. 2. Nonischemic cardiomyopathy with ejection fraction of 10%-15%. 3. Chronic systolic congestive heart failure with ejection fraction of 10%-15%. 4. Chronic kidney disease stage 3. 5. Polysubstance abuse. 6. Hypertension. 7. Hypothyroidism. 8. Dyslipidemia. 9. Vitamin D deficiency. 10. Bipolar disorder. 11. Obesity. 12. Chronic macrocytic anemia. 13. Chronic thrombocytopenia. 14. Tobacco use. PAST SURGICAL HISTORY: 1. Status post appendectomy. 2. Status post AICD placement. CURRENT MEDICATIONS: 1. Coreg 6.25 mg p.o. b.i.d. 2. Lasix 40 mg 1 tab p.o. daily. 3. Hydralazine 10 mg p.o. b.i.d. 4. Levothyroxine 200 mcg p.o. daily. 5. K-Dur 20 mEq p.o. q.a.m. ALLERGIES: To JOSE ANGEL INHIBITORS, BENADRYL and TRAMADOL. FAMILY HISTORY: Positive for hypertension. SOCIAL HISTORY: The [facility] is [facility]. Smokes half a pack of cigarettes daily. No alcohol. History of marijuana and cocaine use. REVIEW OF SYSTEMS: The following complete review of systems was negative, unless otherwise mentioned in the HPI or below: Constitutional: Weight loss or gain, ability to conduct usual activities. Sk in: Rash, itching. Eyes: Double vision, pain. ENT/Mouth: Nose bleeding, neck stiffness, pain, te nderness. Cardiovascular: Palpitations, dyspnea on exertion, orthopnea. Respiratory: Shortness of breath, wheezing, cough, hemoptysis, fever or night sweats. Gastrointestinal: Poor appetite, abdom inal pain, heartburn, nausea, vomiting, constipation, or diarrhea. Genitourinary: Urgency, frequenc y, dysuria, nocturia. Musculoskeletal: Pain, swelling. Neurologic/Psychiatric: Anxiety, depressio n. Allergy/Immunologic: Skin rash, bleeding tendency. Otherwise negative except as stated per HPI. PHYSICAL EXAMINATION: VITAL SIGNS: Currently, blood pressure 146/90, pulse 73, respiratory rate 14, temperature 98.1 degre es Fahrenheit, O2 saturation 95% on room air. GENERAL APPEARANCE: This is a 46-year-old male, lethargic, but answers questions wh en engaged directly, in no acute distress. HEENT: Pupils are equal, round and reactive to light and accommodation. Extraocular muscles are int act. Mild edema of bilateral eyelids. Nares patent. OP is clear. Teeth in poor repair. NECK: Supple. No cervical adenopathy, no thyromegaly, no carotid bruits, no JVD appreciated. Cervi franky spine with full active and passive range of motion. No meningeal signs appreciated. CHEST: Bibasilar crackles. Air excursion equal in the upper lobes. CARDIOVASCULAR: S1, S2, without noted murmur, rub or gallop. ABDOMEN: Protuberant with bowel sounds positive in all 4 quadrants. Umbilical hernia noted. No nusrat ound or guarding noted. EXTREMITIES: Warm and dry with fair turgor. Bilateral pitting edema to the proximal shins bilateral ly. Pulses palpable distally at the dorsalis pedis, posterior tibial and popliteal arteries bilatera lly. Capillary refill less than 2 seconds. NEUROLOGIC: Cranial nerves II-XII are grossly intact. No focal or lateralizing signs appreciated. PERTINENT LABORATORY AND X-RAY FINDINGS: Creatinine 1.39, estimated GFR of 66, glucose 122. LFTs wi thin normal limits. Total CK 874. BNP 831, previously noted 352 on 04/20/2017. CBC showed a white blood cell count of 5.3, hemoglobin 13, hematocrit 39, MCV 100, platelet count 84,000 with normal dif ferential. Portable chest x-ray dated 10/07/2017 showed mild pulmonary vascular prominence. AICD de vice in place. EKG dated 10/07/2017 by my interpretation shows sinus mechanism with first degree AV block. Heart rates in the 70s. Attenuated R waves noted in the precordial leads. Left axis deviati on. No acute ST-T wave changes appreciated. ASSESSMENT AND PLAN: 1. Acute on chronic systolic congestive heart failure exacerbation. The patient will be observed on the telemetry unit. We will continue Lasix 40 mg IV b.i.d. Continue to monitor daily weights and s trict I's and O's. Last 2D transthoracic echocardiogram 04/20/2017 showed ejection fraction of 15%-2 0%. 2. Nonischemic cardiomyopathy with ejection fraction of 15%-20%. See number 1 above. Ensure compli ance with diuretic regimen. 3. Chronic kidney disease stage 2-3. Avoid nephrotoxic agents and contrast media. Serial creatinin e monitoring. 4. Chronic rhabdomyolysis. We will continue supportive management. Suspect multifactorial. Stable when compared with previous total CK trend dating back to 2014. 5. Hypertension. Resume home antihypertensive regimen and monitor clinical response. 6. Hypothyroidism. Check TSH and free T4 level in the a.m. Continue levothyroxine 200 mcg p.o. alisia ly. 7. Noncompliance. The patient with longstanding history of noncompliance with medication regimen. 8. Prophylaxis. Sequential compression devices while in bed. Pepcid 20 mg p.o. b.i.d. 9. Code status is full. Surrogate medical decision maker is the patient's father, Mauricio Mejia.
[2017-10-07] MEDS: Carvedilol 3.125 MG TAB PO SCH (17:23)
[2017-10-07] MEDS: Furosemide 40 MG/4 ML VIAL SLOW IVP SCH (17:47)
[2017-10-07] MEDS: Famotidine 20 MG TAB PO SCH (21:16)
[2017-10-07] MEDS: hydrALAZINE 10 MG TAB PO SCH (21:16)
[2017-10-08 05:19] LABS: Anion Gap 16 mmol/L (10-20); BUN (Urea Nitrogen) 19 mg/dL (8.9-20.6); Calc. Creatinine Clearance 100 mL/min (70-130); Calcium 9.1 mg/dL (7.8-10.44); Carbon Dioxide 21 mmol/L (22-29); Chloride 101 mmol/L (98-107); Estimated GFR-MDRD 67; Glucose 108 mg/dL (70-105); Potassium 3.2 mmol/L (3.5-5.1); Sodium 135 mmol/L (136-145)
[2017-10-08 05:25] LABS: Hemoglobin 14.3 g/dL (14.0-18.0); Mean Corpuscular HGB CONC 34.5 g/dL (32.0-36.0); Mean Corpuscular Hemoglobin 34.2 pg (27.0-31.0); Mean Corpuscular Volume 99.3 fL (78.0-98.0); Mean Platelet Volume 10.3 fL (7.4-10.4); Platelet Count 81 thou/uL (130-400); RBC Distribution Width 13.7 % (11.5-14.5); Red Blood Cell (RBC) Count 4.19 mill/uL (4.70-6.10); White Blood Cell (WBC) Count 5.4 thou/uL (4.8-10.8)
[2017-10-08 05:38] LABS: Free T4 (Free Thyroxine) 0.61 ng/dL (0.70-1.48); Thyroid Stimulating Hormone 13.6682 uIU/mL (0.35-4.94)
[2017-10-08 05:41] LABS: Lymphocytes 35 % (21-51); MDiff Complete? YES; Monocytes 12 % (0-10); Neutrophil 53 % (42-75); PLT Morphology Comment Appears Decreased; RBC Morphology Normal
[2017-10-08] MEDS: Furosemide 40 MG/4 ML VIAL SLOW IVP SCH (05:53)
[2017-10-08] MEDS ORDERED: Levothyroxine Sodium 100 MCG TAB PO SCH (06:00)
[2017-10-08 08:24] VITALS: BP 156/94; TEMP 98.5
[2017-10-08] MEDS: Potassium Chloride 20 MEQ TAB PO SCH ×2 (08:29→11:05)
[2017-10-08] MEDS: Carvedilol 3.125 MG TAB PO SCH (08:29)
[2017-10-08] MEDS: Famotidine 20 MG TAB PO SCH (08:30)
[2017-10-08] MEDS: hydrALAZINE 10 MG TAB PO SCH (08:30)
[2017-10-08] MEDS ORDERED: Aspirin 81 mg Enteric Coated Tablet PO SCH (09:00)
[2017-10-08] MEDS ORDERED: Potassium Chloride 20 MEQ TAB PO SCH (09:45)
--- NOTE | 2017-10-08 13:25 | DIS ---
DATE OF ADMISSION: 10/07/2017 DATE OF DISCHARGE: 10/08/2017 DISCHARGE DIAGNOSES: 1. Acute on chronic systolic congestive heart failure exacerbation, improved. 2. Nonischemic cardiomyopathy with ejection fraction of 15%-20%. 3. Chronic kidney disease stage 3. 4. Chronic rhabdomyolysis. 5. Medication noncompliance. 6. Hypothyroidism, labile. CONSULTATIONS: None. PERTINENT LAB AND X-RAY FINDINGS: Potassium ranged between 3.2-4.0, creatinine ranged between 1.38-1 .39, estimated GFR 67. Total CK 874. BNP ranged between 153-831. TSH 13.7, free T4 0.61. CBC show ed a hemoglobin ranging between 13.3-14.3, MCV 100, platelet count ranged between 81,000-84,000. Por table chest x-ray dated 10/07/2017 showed cardiomegaly with mild pulmonary venous prominence. HOSPITAL COURSE: The patient was observed on the telemetry unit after initially presenting with incr eased dyspnea and pulmonary edema with acute on chronic systolic congestive heart failure exacerbatio n. The patient was given IV Lasix with excellent diuresis with approximately 5 pound decrease in shelly ght in 24 hours. The patient was symptomatically improved and maintaining O2 saturations greater andi n 90% on room air. The patient symptomatically improved with less dyspnea and ambulating in the room without difficulty. The patient was given education and reinforcement of the need to maintain consi stency with chronic medication regimen and Lasix therapy. I have examined the patient at the time of discharge and discussed followup instructions. The patient verbalizes understanding and in agreemen t, ready for discharge on 10/08/2017. DISCHARGE MEDICATIONS: 1. Lasix 40 mg 1 tab p.o. daily. 2. Coreg 6.25 mg p.o. b.i.d. 3. Hydralazine 10 mg p.o. b.i.d. 4. Levothyroxine 200 mcg p.o. daily. 5. K-Dur 20 mEq p.o. daily. FOLLOWUP: The patient to follow up with [facility] in [place], [place] within 7 days of discharge. CONDITION ON DISCHARGE: Stable. ACTIVITY: Ad sabas. DIET: Heart healthy. CODE STATUS: Full. DISPOSITION: To [facility], 10/08/2017.
--- NOTE | 2017-10-12 13:25 | EKG ---
Test Reason : Blood Pressure : / mmHG Vent. Rate : 072 BPM Atrial Rate : 072 BPM P-R Int : 232 ms QRS Dur : 130 ms QT Int : 444 ms P-R-T Axes : 038 -46 091 degrees QTc Int : 486 ms Sinus rhythm with 1st degree A-V block Left axis deviation Left ventricular hypertrophy with QRS widening T wave abnormality, consider lateral ischemia Abnormal ECG Confirmed by LAKESHA OMALLEY M.D. ([id number]), rewrite editor SOPHIE CROWE ([id number]) on 10/12/2017 1:25:04 PM Referred By: Confirmed By:LAKESHA OMALLEY M.D.
== END 2017-10-08 12:54 ==
LOC: ERS 23:58 → 2NO 10-07 02:49
PROVIDERS: ADMIT Internal Medicine; ATTEND Internal Medicine
DX: I13.0 Hypertensive heart and chronic kidney disease with heart failure and stage 1 through stage 4 chronic kidney disease, or unspecified chronic kidney disease (principal); N18.3 Chronic kidney disease, stage 3 (moderate); I50.23 Acute on chronic systolic (congestive) heart failure; D63.1 Anemia in chronic kidney disease; I42.8 Other cardiomyopathies; M62.82 Rhabdomyolysis; E03.9 Hypothyroidism, unspecified; E78.5 Hyperlipidemia, unspecified; E55.9 Vitamin D deficiency, unspecified; F31.9 Bipolar disorder, unspecified; F17.210 Nicotine dependence, cigarettes, uncomplicated; F19.10 Other psychoactive substance abuse, uncomplicated; Z79.899 Other long term (current) drug therapy; Z88.5 Allergy status to narcotic agent; Z88.8 Allergy status to other drugs, medicaments and biological substances; Z91.14 Patient's other noncompliance with medication regimen
CPT/HCPCS: 36415; 71045; 80048; 80053; 82550; 82553; 83880; 84439; 84443; 84484; 85007; 85025; 85027; 93005; 96374; 96376; 99406; A4216; G0378; J1940

== ENCOUNTER 2017-10-18 12:16 | Observation (INO) | payer OTHER ==
[2017-10-18] MEDS ORDERED: Nitroglycerin 2% Ointment 1 INCH/1 GM Packet ONE (12:42)
[2017-10-18 13:08] LABS: Hemoglobin 12.7 g/dL (14.0-18.0); Mean Corpuscular HGB CONC 35.6 g/dL (32.0-36.0); Mean Corpuscular Hemoglobin 35.7 pg (27.0-31.0); Mean Platelet Volume 9.7 fL (7.4-10.4); Platelet Count 90 thou/uL (130-400); RBC Distribution Width 13.3 % (11.5-14.5); Red Blood Cell (RBC) Count 3.55 mill/uL (4.70-6.10); White Blood Cell (WBC) Count 5.5 thou/uL (4.8-10.8)
[2017-10-18 13:20] LABS: ALT (SGPT) 13 U/L (8-55); AST (SGOT) 17 U/L (5-34); Albumin 4.2 g/dL (3.5-5.0); Alkaline Phosphatase 153 U/L (40-150); Anion Gap 12 mmol/L (10-20); BUN (Urea Nitrogen) 15 mg/dL (8.9-20.6); Bilirubin, Total 0.4 mg/dL (0.2-1.2); CK (CPK) 419 U/L (30-200); Calc. Creatinine Clearance 0 mL/min (70-130); Calcium 8.8 mg/dL (7.8-10.44); Carbon Dioxide 20 mmol/L (22-29); Chloride 107 mmol/L (98-107); Estimated GFR-MDRD 85; Globulin 3.7 g/dL (2.4-3.5); Glucose 139 mg/dL (70-105); Potassium 3.4 mmol/L (3.5-5.1); Protein, Total 7.9 g/dL (6.0-8.3); Sodium 136 mmol/L (136-145)
--- NOTE | 2017-10-18 13:20 | RAD ---
PORTABLE CHEST 1 VIEW: Date: 10/18/17 Time: 1222 hours HISTORY: Chest pain and shortness of breath. FINDINGS: Comparison made with exam of 10/07/17. The heart is enlarged. The aorta is tortuous. Left-sided AICD remains in place. No lobar consolidatio n, pneumothoraces, luis pulmonary edema, or pleural effusions are seen. IMPRESSION: No acute process. POS: [facility]
[2017-10-18 13:23] LABS: CKMB 6.6 ng/mL (0-6.6); Troponin I 0.014 ng/mL (< 0.028)
[2017-10-18 13:30] LABS: Band 2 % (5-11); Eosinophils 1 % (0-10); Lymphocytes 25 % (21-51); MDiff Complete? YES; Macrocytosis SLIGHT = 6-15 cells (100X) (0-5/hpf); Monocytes 10 % (0-10); Neutrophil 60 % (42-75); PLT Morphology Comment Appears Decreased; Polychromasia SLIGHT = 2-3 cells (100X) (0-2/hpf); Reactive Lymphocytes 1 % (0-10)
[2017-10-18 16:25] VITALS: BP 169/115; TEMP 97.4
--- NOTE | 2017-10-20 08:28 | HP ---
DATE OF ADMISSION: 10/18/2017. TIME OF SERVICE: 1430 PRIMARY CARE PHYSICIAN: [facility] at present as the patient is a city call. CHIEF COMPLAINT: Chest pain. HISTORY OF PRESENT ILLNESS: Mr. Mejia is a 46-year-old -[place] male currently incarcerate d at [facility] who was brought to the emergency department via EMS for complaints of chest p ain. The patient states at this point during admission that he is still hanging around and still nag ging. ER reported initially that it was improved and disappeared with nitro paste and aspirin. The patient said it was increased with palpation and increased with deep inspiration. The patient was re cently here at 10/07/2017 to 10/08/2017 for acute exacerbation of CHF. He has been taking his medicines at the nursing home as prescribed. No fevers or chills. No cough or sputum production. No nausea or vomiting. PAST MEDICAL HISTORY: 1. Hypothyroidism on replacement. 2. Chronic thrombocytopenia. 3. Chronic systolic congestive heart failure, last exacerbation was 10/07/2017. 4. Nonischemic cardiomyopathy with an EF around 15%. 5. Chronic kidney disease stage 3. 6. Chronic rhabdomyolysis. 7. Medical nonadherence. 8. Bipolar disorder. 9. Obesity. 10. Hyperlipidemia. 11. Ongoing tobacco abuse. 12. Vitamin D deficiency. PAST SURGICAL HISTORY: Includes, 1. AICD implantation due to his nonischemic cardiomyopathy. 2. Appendectomy. HOME MEDICATIONS: 1. Lasix 40 mg daily. 2. Coreg 6.25 mg p.o. b.i.d. 3. Hydralazine 100 mg p.o. b.i.d. 4. Levothyroxine 200 mcg daily. ALLERGIES: JOSE ANGEL INHIBITORS, BENADRYL, and TRAMADOL. FAMILY HISTORY: Significant for hypertension. SOCIAL HISTORY: Positive for tobacco around half pack per day, smoked for many years. He currently incarcerated at the [facility]. He does have a history of marijuana and cocaine abuse. I di d not ask him why he is in nursing home. REVIEW OF SYSTEMS: All systems reviewed and negative except as stated as per HPI. PHYSICAL EXAMINATION: VITAL SIGNS: Temperature 97.5, pulse 64, blood pressure 149/78, respiratory rate 16, satting 100% on room air. GENERAL: He is awake. He is alert. He is oriented x3. He is a sleeping, obese, -[place] m adam who was in no acute distress. HEENT: Head is normocephalic, atraumatic. Pupils are equal, round and reactive to light bilaterally . Mucous membranes are moist. He has no visible lesions. There is no thrush. NECK: Supple. No lymphadenopathy, JVD, or thyromegaly. LUNGS: Clear. No wheezes, no rales, no rhonchi with good air movement. Symmetrical chest excursion . CARDIOVASCULAR: Heart sounds are distant. Normal S1, S2. I do not appreciate S3 or S4. He has a 2 -3/6 systolic ejection murmur in the right upper sternal border. ABDOMEN: Obese. It is nontender, nondistended. No rebound, rigidity or guarding. I cannot palpate any enlarged organs. EXTREMITIES: Show no cyanosis, no clubbing. He has got trace pedal edema. He has got nonpalpable p ulses, but his feet are warm. SKIN: Warm, moist, and well perfused. Capillary refill around 3 seconds. MUSCULOSKELETAL: Normal to inspection. Large joints including the shoulders, elbows, hips and knees appear normal. No evidence of inflammation or palpable effusions. NEUROLOGIC: Cranial nerves II through XII are grossly intact. He has no focal neurologic deficits, normal speech pattern and 5/5 strength in all 4 extremities. LABORATORY DATA: Show sodium of 136, potassium 3.4, chloride 107, bicarbonate 20, BUN 15, creatinine 1.12, glucose 137, and calcium of 8.8. Liver function within normal limits. CBC showed a white cou nt of 5.5, hemoglobin 12.7, hematocrit of 35.7, platelet count is 90,000. CK-MB is normal at 6.6. C K elevated at 419. BNP was normal at 229. He was 133 when he discharged on 10/08/2017 and was 830.8 on 10/07/2017, when he arrived. Troponin I was negative. X-RAY FINDINGS: X-ray showed no acute cardiopulmonary changes. He does have increased cardiac silho uette size. ASSESSMENT AND PLAN: 1. Chest pain, patient has known nonischemic cardiomyopathy. I doubt this is an ischemic event. We will get serial cardiac biomarkers. We will place him in observation and keep him overnight. We wi ll continue his home medications for other medical problems. 2. Hypothyroidism, chronic kidney disease stage 3, chronic rhabdomyolysis, bipolar disorder, obesity , hyperlipidemia, home medicines as before. Tobacco cessation counseling was offered and the patient declined.
== END 2017-10-18 16:17 | disposition left against medical advice (07) ==
LOC: ERS 12:16 → 2SW 14:15
PROVIDERS: ADMIT Internal Medicine Infectious Disease; ATTEND Internal Medicine Infectious Disease
DX: R07.9 Chest pain, unspecified (principal); E03.9 Hypothyroidism, unspecified; D69.6 Thrombocytopenia, unspecified; I50.22 Chronic systolic (congestive) heart failure; N18.3 Chronic kidney disease, stage 3 (moderate); I42.8 Other cardiomyopathies; M62.82 Rhabdomyolysis; F31.9 Bipolar disorder, unspecified; E66.9 Obesity, unspecified; E78.5 Hyperlipidemia, unspecified; F17.210 Nicotine dependence, cigarettes, uncomplicated; E55.9 Vitamin D deficiency, unspecified; F14.11 Cocaine abuse, in remission; F12.11 Cannabis abuse, in remission; Z79.899 Other long term (current) drug therapy; Z88.5 Allergy status to narcotic agent; Z88.8 Allergy status to other drugs, medicaments and biological substances; Z95.810 Presence of automatic (implantable) cardiac defibrillator; Z91.14 Patient's other noncompliance with medication regimen
CPT/HCPCS: 36415; 71045; 80053; 82550; 82553; 83735; 83880; 84484; 85025; 93005; 94760; G0378

== ENCOUNTER 2017-11-29 23:59 | Emergency (ER) | payer OTHER ==
[2017-11-30] MEDS ORDERED: Ketorolac Tromethamine 30 MG/ML VIAL ONE ×2 (00:20→00:22)
[2017-11-30 00:36] LABS: #Eosinphils 0.1 thou/uL (0.0-0.7); #Lymphocytes 1.7 thou/uL (1.20-3.40); #Monocytes 0.6 thou/uL (0.11-0.59); #Neutrophils 3.3 thou/uL (1.40-6.50); %Basophils 0.6 % (0.0-1.0); %Eosinophils 1.4 % (0.0-10.0); %Lymphocytes 28.9 % (21.0-51.0); %Monocytes 10.9 % (0.0-10.0); %Neutrophils 58.2 % (42.0-75.0); Hemoglobin 13.9 g/dL (14.0-18.0); Mean Corpuscular HGB CONC 33.7 g/dL (32.0-36.0); Mean Corpuscular Hemoglobin 32.2 pg (27.0-31.0); Mean Corpuscular Volume 95.6 fL (78.0-98.0); Mean Platelet Volume 9.9 fL (7.4-10.4); Platelet Count 115 thou/uL (130-400); RBC Distribution Width 12.8 % (11.5-14.5); Red Blood Cell (RBC) Count 4.33 mill/uL (4.70-6.10); White Blood Cell (WBC) Count 5.7 thou/uL (4.8-10.8)
[2017-11-30 00:49] LABS: ALT (SGPT) 24 U/L (8-55); AST (SGOT) 27 U/L (5-34); Albumin 4.4 g/dL (3.5-5.0); Alkaline Phosphatase 256 U/L (40-150); Anion Gap 15 mmol/L (10-20); BUN (Urea Nitrogen) 13 mg/dL (8.9-20.6); Bilirubin, Total 0.5 mg/dL (0.2-1.2); Calc. Creatinine Clearance 0 mL/min (70-130); Calcium 9.7 mg/dL (7.8-10.44); Carbon Dioxide 21 mmol/L (22-29); Chloride 104 mmol/L (98-107); Estimated GFR-MDRD 84; Globulin 4.7 g/dL (2.4-3.5); Glucose 183 mg/dL (70-105); Potassium 3.3 mmol/L (3.5-5.1); Protein, Total 9.1 g/dL (6.0-8.3); Sodium 137 mmol/L (136-145)
[2017-11-30 00:52] LABS: CKMB 5.2 ng/mL (0-6.6); Troponin I 0.014 ng/mL (< 0.028)
--- NOTE | 2017-11-30 08:23 | RAD ---
CHEST 1 VIEW: HISTORY: Chest pain. COMPARISON: 10/18/2017. FINDINGS: Cardiac silhouette is magnified and enlarged. Pulmonary vasculature unremarkable. Mediastinum is mi dline with a multilead left subclavian cardiac electronic device. No lobar consolidation or evidence of pneumothorax. color stripper leads overlie the chest. IMPRESSION: Cardiomegaly, stable. POS: [facility]
== END 2017-11-30 01:27 | disposition home or self-care (01) ==
LOC: ERS 23:59
DX: R07.2 Precordial pain (principal); D50.9 Iron deficiency anemia, unspecified; J44.9 Chronic obstructive pulmonary disease, unspecified; E03.9 Hypothyroidism, unspecified; E78.5 Hyperlipidemia, unspecified; I11.0 Hypertensive heart disease with heart failure; I50.9 Heart failure, unspecified; F41.9 Anxiety disorder, unspecified; F31.9 Bipolar disorder, unspecified; F20.9 Schizophrenia, unspecified; F17.210 Nicotine dependence, cigarettes, uncomplicated; Z79.899 Other long term (current) drug therapy
CPT/HCPCS: 36415; 71045; 80053; 82553; 84484; 85025; 93005; 96372; J1885

== ENCOUNTER 2018-07-31 16:44 | Emergency (ER) | payer OTHER, SELFPAY ==
[2018-07-31] MEDS ORDERED: Ketorolac Tromethamine 30 MG/ML VIAL ONE (17:50)
== END 2018-07-31 17:50 | disposition home or self-care (01) ==
LOC: ERS 16:44
DX: M54.42 Lumbago with sciatica, left side (principal); I25.10 Atherosclerotic heart disease of native coronary artery without angina pectoris; I11.0 Hypertensive heart disease with heart failure; I50.9 Heart failure, unspecified; E03.9 Hypothyroidism, unspecified; F41.9 Anxiety disorder, unspecified; F31.9 Bipolar disorder, unspecified; F20.9 Schizophrenia, unspecified; F17.210 Nicotine dependence, cigarettes, uncomplicated; Z79.899 Other long term (current) drug therapy
CPT/HCPCS: 96372; J1885

== ENCOUNTER 2018-10-22 09:43 | Emergency (ER) | payer MEDICAID, OTHER ==
[2018-10-22] MEDS ORDERED: Acetaminophen 500 MG TAB ONE (12:03)
--- NOTE | 2018-10-22 12:52 | ULT ---
VENOUS DUPLEX SONOGRAM RIGHT LOWER EXTREMITY: HISTORY: Right leg pain and edema. FINDINGS: The right common femoral vein and greater saphenous junction were evaluated along with the femoral, d eep femoral, popliteal, and posterior tibial veins. There is good color and spectral Doppler flow, c ompression, and augmentation. IMPRESSION: No sonographic evidence of deep vein thrombosis within the right lower extremity. POS: [facility]
== END 2018-10-22 12:34 | disposition home or self-care (01) ==
LOC: ERS 09:43
DX: M25.561 Pain in right knee (principal); I11.0 Hypertensive heart disease with heart failure; I50.9 Heart failure, unspecified; D50.9 Iron deficiency anemia, unspecified; J44.9 Chronic obstructive pulmonary disease, unspecified; E03.9 Hypothyroidism, unspecified; E78.5 Hyperlipidemia, unspecified; F41.9 Anxiety disorder, unspecified; F31.9 Bipolar disorder, unspecified; F20.9 Schizophrenia, unspecified; F17.210 Nicotine dependence, cigarettes, uncomplicated; Z71.6 Tobacco abuse counseling; Z79.899 Other long term (current) drug therapy
CPT/HCPCS: 99406

== ENCOUNTER 2018-11-07 11:31 | Emergency (ER) | payer OTHER ==
[2018-11-07 12:18] LABS: Hemoglobin 13.3 g/dL (14.0-18.0)
[2018-11-07] MEDS ORDERED: Tranexamic Acid 1,000 MG/10 ML VIAL ONE (13:02)
--- NOTE | 2018-11-08 16:00 | EKG ---
Test Reason : Blood Pressure : / mmHG Vent. Rate : 082 BPM Atrial Rate : 082 BPM P-R Int : 198 ms QRS Dur : 116 ms QT Int : 422 ms P-R-T Axes : 050 -57 096 degrees QTc Int : 493 ms Normal sinus rhythm Left anterior fascicular block Left ventricular hypertrophy with QRS widening and repolarization abnormality Anteroseptal infarct , age undetermined Abnormal ECG Confirmed by ANGELLA SANTOYO, IVAN ([id number]), advertising editor SOPHIE CROWE ([id number]) on 11/08/2018 3:59:38 PM Referred By: Confirmed By:IVAN PERALES MD
== END 2018-11-07 13:39 | disposition home or self-care (01) ==
LOC: ERS 11:31
DX: R04.0 Epistaxis (principal); I50.9 Heart failure, unspecified; D50.9 Iron deficiency anemia, unspecified; I10 Essential (primary) hypertension; J44.9 Chronic obstructive pulmonary disease, unspecified; E03.9 Hypothyroidism, unspecified; E78.5 Hyperlipidemia, unspecified; F41.9 Anxiety disorder, unspecified; F20.9 Schizophrenia, unspecified; F17.210 Nicotine dependence, cigarettes, uncomplicated; Z79.899 Other long term (current) drug therapy
CPT/HCPCS: 36415; 85014; 85018; 93005

== ENCOUNTER 2019-01-11 04:34 | Inpatient (IN) | payer OTHER ==
[2019-01-11 05:23] LABS: #Basophils 0.1 thou/uL (0.0-0.2); #Eosinphils 0.1 thou/uL (0.0-0.7); #Lymphocytes 2.3 thou/uL (1.20-3.40); #Monocytes 0.5 thou/uL (0.11-0.59); #Neutrophils 3.5 thou/uL (1.40-6.50); %Basophils 0.8 % (0.0-1.0); %Lymphocytes 35.5 % (21.0-51.0); %Monocytes 7.9 % (0.0-10.0); %Neutrophils 53.7 % (42.0-75.0); Hemoglobin 13.8 g/dL (14.0-18.0); Mean Corpuscular HGB CONC 35.5 g/dL (32.0-36.0); Mean Corpuscular Hemoglobin 35.1 pg (27.0-31.0); Mean Corpuscular Volume 98.7 fL (78.0-98.0); Platelet Count 97 thou/uL (130-400); RBC Distribution Width 12.6 % (11.5-14.5); Red Blood Cell (RBC) Count 3.94 mill/uL (4.70-6.10); White Blood Cell (WBC) Count 6.4 thou/uL (4.8-10.8)
[2019-01-11 05:37] LABS: ALT (SGPT) 28 U/L (8-55); AST (SGOT) 48 U/L (5-34); Albumin 4.7 g/dL (3.5-5.0); Alkaline Phosphatase 162 U/L (40-110); Anion Gap 14 mmol/L (10-20); BUN (Urea Nitrogen) 11 mg/dL (8.9-20.6); Bilirubin, Total 0.3 mg/dL (0.2-1.2); Calc. Creatinine Clearance 0 mL/min (70-130); Calcium 9.4 mg/dL (7.8-10.44); Carbon Dioxide 26 mmol/L (22-29); Chloride 101 mmol/L (98-107); Estimated GFR-MDRD 64; Globulin 4.2 g/dL (2.4-3.5); Glucose 174 mg/dL (70-105); Potassium 3.3 mmol/L (3.5-5.1); Protein, Total 8.9 g/dL (6.0-8.3); Sodium 138 mmol/L (136-145)
[2019-01-11] MEDS ORDERED: Nitroglycerin 2% Ointment 1 INCH/1 GM Packet ONE (05:47)
[2019-01-11] MEDS ORDERED: Aspirin Chewable 81 MG TAB ONE (05:47)
[2019-01-11] MEDS ORDERED: Carvedilol 6.25 MG TAB PO SCH ×2 (06:00→17:00)
[2019-01-11 06:09] LABS: Bacteria/HPF None Seen HPF (None Seen); Bilirubin Negative (Negative); Blood, Urine Negative (Negative); Clarity Clear (Clear); Glucose, Urine (Dipstick) Normal (Negative); Leukocyte Negative Leu/uL (Negative); Nitrite Negative (Negative); Protein, Urine (Dipstick) 200 mg/dL (Neg-Trace); RBC/HPF 0-3 HPF (0-3); Squamous Epithelial None Seen HPF (0-3); WBC/HPF 0-3 HPF (0-3)
[2019-01-11] MEDS ORDERED: hydrALAZINE 20 MG/ML VIAL ONE (06:12)
[2019-01-11 06:16] LABS: Amphetamine Not Detected (NotDetected); Barbiturates Screen Not Detected (NotDetected); Benzodiazepine Screen Not Detected (NotDetected); Cocaine Metabolite Screen Not Detected (NotDetected); Medtox Control Line Valid? VALID (VALID); Medtox Reader # READER 1; Methadone Not Detected (NotDetected); Methamphetamine Not Detected (NotDetected); Opiate Screen Not Detected (NotDetected); Oxycodone Screen Not Detected (NotDetected); Phencyclidine (PCP) Not Detected (NotDetected); THC/Cannabinoid Screen Not Detected (NotDetected); Tricyclic Screen Not Detected (NotDetected)
[2019-01-11] MEDS ORDERED: Ondansetron PF 4 MG/2 ML Vial IVP PRN (06:21)
[2019-01-11] MEDS ORDERED: Acetaminophen 325 MG TAB PO PRN (06:21)
[2019-01-11] MEDS ORDERED: HYDROcodone/Acetaminophen 7.5/325 mg Tablet PO PRN (06:21)
[2019-01-11] MEDS ORDERED: Dextrose 5% in Water 1,000 ML IV PRN (06:25)
[2019-01-11] MEDS ORDERED: Dextrose 50% Abboject 50 ML SYRINGE SLOW IVP PRN (06:25)
[2019-01-11] MEDS ORDERED: hydrALAZINE 20 MG/ML VIAL SLOW IVP PRN (06:26)
[2019-01-11] MEDS ORDERED: niCARdipine 40MG In NaCl 40 MG/200 ML BAG IVPB SCH (07:00)
[2019-01-11] MEDS ORDERED: niCARdipine 50 MG in Sodium Chloride 0.9% 250 ML 230 ML IV SCH (07:00)
[2019-01-11] MEDS ORDERED: niCARdipine 25 MG in Sodium Chloride 0.9% 250 ML 240 ML IVPB SCH (07:45)
--- NOTE | 2019-01-11 08:05 | HP ---
PRESENTING COMPLAINT: Right-sided numbness. HISTORY OF PRESENT ILLNESS: Mr. Mauricio Mejia is a 48-year-old male with past medical history of hypertension, diabetes mellitus, obesity, sick sinus syndrome status post pacemaker placement, history of coronary artery disease, status post PCI, the last was in 2014, presented because of worsening numbness of the right side. The patient described numbness affecting the right upper extremity, chest wall and trunk and down to the right lower extremity. Numbness is not spreading to the left side. He denies any chest pain. On presentation to the ED, he was reported as having right-sided chest pain, but currently denies symptoms now. He denies any headache or dizziness. He denies any nausea or vomiting. He states he does not check his blood pressure at home, but later states he takes his medicines, that his blood pressure has been fluctuating at home. He is unable to clarify if he checks it or not. He states he only takes Coreg for his blood pressure medications. He denies any dyspnea or exertional shortness of breath. On arrival in the emergency room, he was noted with EKG showing marked LVH with strain pattern but no ST segment changes. Initial set of troponin was negative. Head CT was negative. The patient was noted with markedly elevated blood pressure with systolic of 230 over diastolic of 140. He has been given his home dose of Coreg with no significant change in his blood pressure. PAST MEDICAL HISTORY: Significant for hypertension, diabetes mellitus, hyperlipidemia, status post pacemaker placement, history of coronary artery disease, history of nonischemic cardiomyopathy with EF of 15% to 20%, history of acute systolic CHF, history of hypothyroidism. ALLERGIES: JOSE ANGEL INHIBITORS, TRAMADOL, AND BENADRYL. SOCIAL HISTORY: The patient resides alone in the community. He admits to history of tobacco use, currently trying to quit, smokes about 3 sticks per day now. He denies any alcohol abuse of illicit drug use. FAMILY HISTORY: Significant for coronary artery disease in mother. HOME MEDICATIONS: Include 1. Lasix. 2. Hydralazine. 3. Coreg. 4. Synthroid. 5. Potassium chloride. REVIEW OF SYSTEMS: All systems review x14 were negative except as mentioned above. Also, patient described a history of right-sided weakness when ambulating. He feels like he is dragging his right foot. PHYSICAL EXAMINATION: VITAL SIGNS: Current vital, blood pressure initially of 230/149, IV hydralazine 20 mg given. Blood pressure improved to 200/110 after 20 minutes. Pulse of 61, respiratory rate of 18, O2 saturation of 98% on room air. GENERAL: An obese middle-aged male, bit anxious, but not in any acute pain or respiratory distress. HEENT: Head is atraumatic and normocephalic. Pupils equal and reactive to light. NECK: No JVD. No carotid bruit. RESPIRATORY: Good air entry bilaterally. No crepitations. CARDIOVASCULAR: S1 and S2. Rate and rhythm regular. Palpable pacemaker in situ. GI: Abdomen is full, soft, nontender. Bowel sounds positive. MUSCULOSKELETAL: No pedal edema. No calf tenderness. NEUROLOGIC: Patient is alert and oriented. No pronator drift. Deep tendon reflexes 2+ bilaterally. LABORATORY DATA: EKG shows marked LVH with strain pattern. No ST segment changes. Chest x-ray not done. Head CT pending official reading, but no acute infarct noted. WBC 6.4, hemoglobin 13, platelet , neutrophils 53%. Sodium 138, potassium 3.3, glucose 174, BUN 11, creatinine 1.4, baseline range 1.1 to 1.8. AST and ALT normal. Alkaline phosphatase 152. Troponin is 0.019. Albumin 4.7. Urinalysis was unremarkable. Urine drug screen was negative. IMPRESSION: 1. Hypertensive encephalopathy - due to uncontrolled baseline blood pressure. We will admit patient for observation to possible rule out transient ischemic attack. We will control blood pressure with adequate drop to less than 170/90 within the next 2 to 3 hours. IV hydralazine given. We will start p.o. Coreg and add Imdur now. Monitor blood pressure closely. We will admit to telemetry unit. As expected, numbness to start to improve when blood pressure systolic below 180. If persistent, we will obtain MRI of the brain given recent right lower extremity weakness. 2. Chronic tobacco use. Tobacco cessation advised. We will start nicotine patch. 3. Diabetes mellitus. We will do sliding scale insulin. 4. History of congestive heart failure. Hold IV fluid for now. We will resume Lasix. 5. History of hypothyroidism. We will resume Synthroid 200 mcg, follow TSH. 6. Deep venous thrombosis prophylaxis, subcutaneous heparin. 7. Advanced directive. The patient is full code. Total time spent on evaluation of patient, discussion and evaluation greater than 60 minutes. Job ID: [id number]
--- NOTE | 2019-01-11 08:08 | CT ---
PRELIMINARY REPORT/[facility]/EMERGENCY AFTER HOURS PROCEDURE: PROCEDURE INFORMATION: Exam: CT Head Without Contrast Exam date and time: 01/11/2019 5:20 AM Clinical history: 48 years old, male; Weakness, extremity; Patient HX: Patient presents for evaluatio n of sensory deficits, right face numbness, right arm numbness, right leg numbness. TECHNIQUE: Imaging protocol: Computed tomography of the head without contrast. COMPARISON: No relevant prior studies available. FINDINGS: Brain: No acute intracranial hemorrhage or mass effect. There is very mild decreased attenuation in t he periventricular white matter, likely from microvascular disease. Suspect a small old lacunar infar ct in the left basal ganglia/internal capsule region. No definite acute infarct by CT. MRI could be m ore sensitive/specific for detection, and also for distinguishing between old and subacute infarcts, as clinically directed. Ventricles: Ventricle size is normal for age. Bones/joints: No definite acute skull fracture. Sinuses: Included paranasal sinuses are essentially clear. Mastoid air cells: No significant acute finding. IMPRESSION: 1. No acute intracranial hemorrhage or mass effect. 2. Changes of microvascular disease, and suspected old left lacunar infarct. 3. No definite acute infarct by CT, see above discussion. 4. Other findings discussed above. Thank you for allowing us to participate in the care of your patient. Dictated and Authenticated by: Moise Harris MD 01/11/2019 5:40 AM Central Time ([place] & [place]) FINAL REPORT HEAD CT WITHOUT CONTRAST: COMPARISON: 02/29/2016. HISTORY: Right-sided numbness. Sensory defect. FINDINGS: This report is in agreement with the [facility]. No acute intracranial process. [place] radha small-vessel ischemic changes of the white matter are identified. POS: [facility]
[2019-01-11] MEDS ORDERED: Isosorbide Mononitrate (ER) 30 MG TAB PO SCH ×2 (09:00)
[2019-01-11] MEDS: Carvedilol 6.25 MG TAB PO SCH ×2 (11:30→17:42)
[2019-01-11 11:32] LABS: Troponin I 0.053 ng/mL (< 0.028)
[2019-01-11] MEDS: Furosemide 40 MG TAB PO SCH (11:44)
[2019-01-11] MEDS: Nicotine 14 MG PATCH TD SCH (11:44)
[2019-01-11] MEDS: Potassium Chloride 20 MEQ TAB PO SCH (11:44)
[2019-01-11] MEDS: Enoxaparin Sodium 40 MG/0.4 ML SYRINGE SC SCH (11:47)
[2019-01-11 12:45] VITALS: BMI 36.1
[2019-01-11 14:37] LABS: Troponin I 0.051 ng/mL (< 0.028)
[2019-01-11] MEDS: HumaLOG 300 UNITS/3 ML VIAL SC PRN ×2 (14:40→18:56)
--- NOTE | 2019-01-11 15:27 | CON ---
DATE OF TELEMEDICINE CONSULTATION: 01/11/2019 CHIEF COMPLAINT: Right-sided numbness. HISTORY OF PRESENT ILLNESS: The patient reports yesterday he experienced right-sided numbness and weakness and reports he had no improvement. However, per nursing staff, he has improved slightly. He does have a speech difficulty, which is persistent and he has left facial droop. Per nursing staff, it has worsened today. PREVIOUS MEDICAL HISTORY: Positive for the patient having hypertension and also diabetes plus pacemaker from the past and he has hyperlipidemia, coronary artery disease, nonischemic cardiomyopathy with EF of 15% to 20%, and hypothyroidism. ALLERGIES: HE IS ALLERGIC TO JOSE [employer]GEL INHIBITORS, TRAMADOL, AND BENADRYL. SOCIAL HISTORY: He lives alone. He does smoke. He currently is trying to quit. He smokes three cigarettes per day. Does not use alcohol or drugs. FAMILY HISTORY: His mother is alive. She is 66 and has coronary artery disease. She did have a stroke as well. His father is blind. He is in his 70s. He has diabetes and GA. His sister had hernia surgery. Brother is healthy. The patient has no other history of stroke in his family. MEDICATIONS: At home include; 1. Lasix. 2. Hydralazine. 3. Coreg. 4. Synthroid. 5. Potassium chloride. REVIEW OF SYSTEMS: PULMONARY: Negative for shortness of breath or cough. GI: Negative for nausea, vomiting, and diarrhea. HEMATOLOGIC: Negative for bleeding diatheses. DERMATOLOGIC: Negative for any skin rash. OPHTHALMOLOGIC: Negative for any vision issues. NEUROLOGIC: Positive for numbness and weakness. LABORATORY WORKUP: White count 6.4, hemoglobin 13.8, hematocrit 38.9, and platelet count 97. Chemistry; sodium 138, potassium 3.3, chloride 101, bicarb 26, BUN 11 , creatinine 1.42, AST 48, ALT 28, alkaline phosphatase 162, and TSH 14.28. Urinalysis is negative for any bacteria. Urine tox screen is also negative. CT scan of the brain was completed and his CT showed no acute intracranial hemorrhage or mass effect. He does have microvascular disease with suspected old left lacunar infarct. PHYSICAL EXAMINATION: VITAL SIGNS: Temperature 97.6, pulse 70, respiratory rate 12, O2 saturation 95 , and blood pressure 160/97. GENERAL APPEARANCE: Well-built, well-nourished male, who seems to be short of breath and tired. CHEST: Clear vesicular breathing. CARDIOVASCULAR: S1 and S2 heard. No murmurs. ABDOMEN: Soft. NEUROLOGIC: He had dysarthria. Higher intellectual function, normal orientation to time, place, and person. Appropriate conversation. Able to follow all commands. Cranial nerves 2 through 12, normal extraocular movements. Tongue midline. No atrophy noted. Normal sensation of face on the left side. Right-sided facial numbness was present. He did have a facial droop on the left side. Normal hearing bilaterally. Tongue midline. No atrophy noted. Normal elevation of palate. Motor, bulk normal, tone normal, strength 5/5 throughout in iliopsoas, hamstrings, quadriceps, ankle dorsiflexion, plantar flexion, deltoid, biceps, triceps, wrist extension and flexion, finger extension and flexion. Deep tendon reflexes were absent. Cerebellar, he had normal lojjdn-ey-sawq and gogf-pj-wgkn. IMPRESSION: The patient is a 48-year-old man with heart issues, pacemaker placement, and congestive heart failure with EF of 15% to 20%, and significant history for hypertension, diabetes, all of which are his stroke risk factors. At this time, he comes for evaluation of a stroke. He has on examination left- sided facial droop and right-sided numbness, but no weakness was noted. Likely he had a posterior circulation lacunar infarct. In this patient unfortunately, we were unable to perform an MRI due to presence of pacemaker, unless pacemaker is compatible. RECOMMENDATION: Start him on aspirin plus statin for stroke prophylaxis and please complete his cardiac workup and he may be a candidate for additional anti- platelet agents and Plavix based on Cardiology opinion. The patient can be discharged to rehab center once workup is completed. Job ID: [id number] [facility]
--- NOTE | 2019-01-11 15:29 | CT ---
CTA OF THE HEAD WITH AND WITHOUT CONTRAST NONCONTRAST HEAD CT POSTCONTRAST CT OF BRAIN POSTCONTRAST SOFT TISSUE NECK CT CTA OF BRAIN: INDICATION: Stroke. COMPARISON: None. TECHNIQUE: CT angiogram of the head and neck are performed in the axial plane. Three-dimensional reformatted lyndsey ges are submitted for interpretation. FINDINGS: CTA OF THE HEAD WITH AND WITHOUT CONTRAST: NONCONTRAST HEAD CT: No acute intracranial process. No hemorrhage. Partial opacification of the left mastoid air cells. POSTCONTRAST CT OF BRAIN: Pathologic enhancement: No pathologic enhancement the brain. Postcontrast soft tissue neck CT: Sinuses: Adequate aeration of the paranasal sinuses. Orbits: Bilateral ocular lenses are appropriately located. Both globes are intact. Retrobulbar fat is preserved. Symmetric attenuation the optic nerves and ocular rectus muscles. Prominent bilateral ophthalmic veins. Correlate for a cavernous carotid fistula. Salivary glands:Symmetric attenuation of the parotid and submandibular glands. Thyroid gland: Markedly diminutive. Lymph nodes: No evidence of lymphadenopathy by size criteria. Paraspinal muscles: Symmetric attenuation of the sternocleidomastoid muscles. Appropriate attenuation of the paraspinal muscles. Cervical spine:Vertebral body height is maintained. No fracture. No significant central canal stenosi s or significant neural foraminal narrowing. Limited evaluation by technique. Upper mediastinum and lung apices: Patchy groundglass opacity of lung apices. Enlarged cardiac silhou ette. CTA OF THE BRAIN: Intracranial internal carotid arteries: Symmetric enhancement and luminal diameter of the distal cerv ical and intracranial internal carotid arteries. Anterior circulation: Symmetric enhancement and luminal diameter of the M1 segments. Left A1 segment is smaller than the contralateral side, likely representing congenital variant. Bilateral A2 segments are patent and have symmetric luminal diameter. Proximal MCA branches are essentially symmet ayse. Intracranial vertebral arteries: Appropriate enhancement and luminal diameter. Visualized PICA artery origins are unremarkable. Posterior circulation: Appropriate enhancement and luminal diameter of the basilar artery. Appropriat e enhancement and luminal diameter both P1 segments. CTA OF THE NECK WITH CONTRAST: CT angiogram of the neck is markedly limited due to beam attenuation artifact from contrast bolus not ed in both jugular veins. Right carotid artery: Appropriate enhancement and luminal diameter. No significant stenosis throughou t the entire right carotid artery. Left carotid: Appropriate enhancement and luminal diameter. No significant stenosis noted throughout the entire left carotid artery. Subclavian arteries:Suboptimal evaluation the left subclavian artery. Right subclavian artery appears to be grossly patent Vertebral arteries:Limited evaluation of bilateral cervical vertebral arteries due to poor timing of contrast bolus. Grossly no evidence of high-grade stenosis. IMPRESSION: 1. Limited evaluation of the great vessels of the neck due to timing of contrast bolus. There is sign ificant beam attenuation artifact from a large amount of contrast noted in both jugular veins. No significant stenosis based upon NASCET criteria. 2. No significant stenosis at the level of [place]. 3. Prominent superior ophthalmic veins bilaterally. Correlate for cavernous carotid fistula.
[2019-01-11] MEDS ORDERED: Iopamidol-370 76% 500 ML 1 ML ONE (16:45)
[2019-01-12 06:10] LABS: Band 3 % (5-11); Hemoglobin 11.9 g/dL (14.0-18.0); Hypochromia SLIGHT = 6-15 cells (100X) (0-5/hpf); Lymphocytes 19 % (21-51); MDiff Complete? YES; Mean Corpuscular HGB CONC 34.4 g/dL (32.0-36.0); Mean Corpuscular Hemoglobin 34.4 pg (27.0-31.0); Mean Corpuscular Volume 99.9 fL (78.0-98.0); Mean Platelet Volume 11.5 fL (7.4-10.4); Monocytes 3 % (0-10); Neutrophil 75 % (42-75); Platelet Count 81 thou/uL (130-400); Platelet Morphology Comment Appears Decreased; RBC Distribution Width 12.7 % (11.5-14.5); Red Blood Cell (RBC) Count 3.47 mill/uL (4.70-6.10); White Blood Cell (WBC) Count 8.3 thou/uL (4.8-10.8)
[2019-01-12 06:25] LABS: Anion Gap 11 mmol/L (10-20); BUN (Urea Nitrogen) 11 mg/dL (8.9-20.6); Calc. Creatinine Clearance 92 mL/min (70-130); Calcium 9.2 mg/dL (7.8-10.44); Carbon Dioxide 27 mmol/L (22-29); Chloride 102 mmol/L (98-107); Estimated GFR-MDRD 63; Glucose 175 mg/dL (70-105); Potassium 3.3 mmol/L (3.5-5.1); Sodium 137 mmol/L (136-145)
[2019-01-12] MEDS: Nicotine 14 MG PATCH TD SCH (06:36)
[2019-01-12] MEDS: Furosemide 40 MG TAB PO SCH (06:37)
[2019-01-12] MEDS: HumaLOG 300 UNITS/3 ML VIAL SC PRN (06:37)
[2019-01-12] MEDS: Levothyroxine Sodium 100 MCG TAB PO SCH (06:37)
[2019-01-12] MEDS: Enoxaparin Sodium 40 MG/0.4 ML SYRINGE SC SCH (08:53)
[2019-01-12] MEDS: Carvedilol 6.25 MG TAB PO SCH ×2 (08:53→17:06)
[2019-01-12] MEDS: Potassium Chloride 20 MEQ TAB PO SCH (08:54)
--- NOTE | 2019-01-12 12:43 | PDOC.HOSPP ---
- Subjective Encounter Date: 01/12/19 Encounter Time: 07:00 (pT SEEN FIR ) Subjective: Pt seen for followup re: hypertensive urgency. He reports chest pain on and off over last few days, none today. - Objective Vital Signs & Weight: Vital Signs (12 hours) Temp Pulse Pulse Pulse Resp BP BP 01/12/19 11:57 98.1 F 83 16 01/12/19 09:20 65 69 163/96 H 01/12/19 08:53 157/99 H 01/12/19 07:38 98.3 F 61 16 01/12/19 04:00 98.4 F 60 18 BP BP Pulse Ox 01/12/19 11:57 149/86 H 95 01/12/19 09:20 155/93 H 01/12/19 08:53 01/12/19 07:38 157/99 H 97 01/12/19 04:00 144/72 H 95 Weight Weight 230 lb 14.4 oz I&O: 01/11/19 01/12/19 01/13/19 06:59 06:59 06:59 Output Total 700 Balance -700 Labs and MARs reviewed by me. Result Diagrams: 01/12/19 04:25 01/12/19 04:25 Additional Labs: Accuchecks 01/12/19 01/11/19 01/11/19 06:12 19:57 16:58 POC Glucose 161 H 148 H 162 H 01/11/19 12:43 POC Glucose 196 H Labs and MARs reviewed by me EKG Reviewed by me: Yes (Tele: NSR) Hospitalist ROS - Review of Systems Cardiovascular: denies: chest pain, palpitations, orthopnea, paroxysmal noc. dyspnea, edema, light headedness Gastrointestinal: denies: nausea, vomiting, abdominal pain, diarrhea, constipation, melena, hematochezia - Medication Medications: Active Medications Generic Name Dose Route Start Last Admin Trade Name Freq PRN Reason Stop Dose Admin Carvedilol 12.5 mg 01/11/19 08:00 01/12/19 08:53 Coreg PO 12.5 mg BID-WM BRENDA Administration Enoxaparin Sodium 40 mg 01/11/19 09:00 01/12/19 08:53 Lovenox SC Not Given 0900 BRENDA Furosemide 40 mg 01/11/19 07:30 01/12/19 06:37 Lasix PO 40 mg DAILY-AC BRENDA Administration Insulin Human Lispro 0 units 01/11/19 06:25 01/12/19 06:37 Humalog SC 2 unit .MODERATE SLIDING SC PRN Administration Moderate Correctional Scale Isosorbide Mononitrate 60 mg 01/11/19 09:00 01/12/19 08:53 Imdur PO 60 mg DAILY BRENDA Administration Levothyroxine Sodium 200 mcg 01/12/19 06:00 01/12/19 06:37 Synthroid PO 200 mcg 0600 BRENDA Administration Nicotine 14 mg 01/11/19 06:30 01/12/19 06:36 Nicoderm Patch TD Not Given Q24HR BRENDA Potassium Chloride 20 meq 01/11/19 08:00 01/12/19 08:54 K-Dur PO 20 meq QAM-WM BRENDA Administration Sodium Chloride 10 ml 01/11/19 09:00 01/12/19 08:52 Flush - Normal Saline IVF 10 ml Q12HR BRENDA Administration - Exam General - other findings: Obese Eye: anicteric sclera ENT: moist mucosa Neck: supple Heart: RRR Respiratory: CTAB Gastrointestinal: soft, non-tender Extremities: no clubbing Psychiatric: normal affect, normal behavior Hosp A/P (1) Hypertensive urgency Code(s): I16.0 - HYPERTENSIVE URGENCY Status: Acute (2) Chest pain Code(s): R07.9 - CHEST PAIN, UNSPECIFIED Status: Acute (3) Dyslipidemia Code(s): E78.5 - HYPERLIPIDEMIA, UNSPECIFIED Status: Chronic (4) Hypertension Code(s): I10 - ESSENTIAL (PRIMARY) HYPERTENSION Status: Chronic Qualifiers: (5) Hypothyroidism Code(s): E03.9 - HYPOTHYROIDISM, UNSPECIFIED Status: Chronic Qualifiers: - Plan plan discussed w/ family, PT/OT, out of bed/ambulate HTN improved. Continue aspirin and statin. Check stress test.
[2019-01-12] MEDS ORDERED: Aspirin 81 mg Enteric Coated Tablet PO SCH (13:00)
[2019-01-12 16:00] LABS: Hemoglobin A1c 7.7 % (4.0-6.0)
[2019-01-12] MEDS ORDERED: Clopidogrel Bisulfate 300 MG TAB PO SCH (16:30)
[2019-01-12] MEDS: Isosorbide Dinitrate 20 MG TAB PO SCH (21:04)
[2019-01-12] MEDS: hydrALAZINE 25 MG TAB PO SCH (21:06)
[2019-01-12] MEDS: Atorvastatin Calcium 40 MG TAB PO SCH (21:09)
[2019-01-12] MEDS: metFORMIN 500 MG TAB PO SCH (21:09)
--- NOTE | 2019-01-13 00:43 | CON ---
DATE OF CONSULTATION: HISTORY OF PRESENT ILLNESS: Mauricio Mejia is a 48-year-old black male with history of nonischemic cardiomyopathy. In 2014, he underwent cardiac catheterization and was found to have severe left ventricular dysfunction with normal coronary arteries. In 2016, he had a dual-chamber defibrillator inserted. He was most recently seen by Dr. Chung on 12/18/2018. Echocardiogram in September 2018, revealed ejection fraction had improved to 45% to 50%. There was moderate left atrial enlargement , severe concentric left ventricular hypertrophy, bqad-ao-qgpybmad mitral regurgitation, and thav-ne-wkovgpzv tricuspid regurgitation. He was placed on BiDil. BiDil is not listed on his medications as one of the ones he is taking at home, but he does state that he is taking it 3 times per day. He also states he has been taking aspirin 81 on a regular basis. He was admitted yesterday with finding of right-sided weakness and numbness. He tried to get up out of bed and fell to the floor. He denies any recent chest pain, but does state at times he does have sharp chest pain lasting seconds, usually on the right side of his chest. When he presented, he had a blood pressure of 230/ 140. He has had improvement in his right-sided weakness and states today was able to ambulate to the bathroom and back. Head CT revealed an old left lacunar infarct. CT [place] did not show any significant stenosis. PAST MEDICAL HISTORY: Nonischemic cardiomyopathy with ejection fraction improving from 15%-20% up to 45%-50% in September 2018. Hypertension, diabetes, hyperlipidemia, noncardiac chest pain, hypothyroidism. ALLERGIES: JOSE ANGEL INHIBITOR, ARB DRUGS, TRAMADOL. CURRENT MEDICATIONS: 1. Aspirin 81 daily. 2. Atorvastatin 40 at bedtime. 3. Carvedilol 12.5 b.i.d. 4. Isoniazid 300 daily. 5. Metformin 1000 b.i.d. 6. KCl 20 mEq q.a.m. 7. Furosemide 40 daily. 8. He also should be taking BiDil one t.i.d. SOCIAL HISTORY: He continues to smoke several cigarettes per day. He has had positive urine for cocaine and cannabinoids in the past, but urine drug screen on this admission is negative. FAMILY HISTORY: Mother had coronary artery disease. REVIEW OF SYSTEMS: 10-point review of systems is otherwise unremarkable. PHYSICAL EXAMINATION: VITAL SIGNS: Blood pressure 168/103, pulse of 62. HEENT: PERRL. NECK: Supple. CHEST: Clear. CARDIAC: S1 and S2 normal without any S3, S4, or murmurs. Carotid upstrokes normal without bruits. ABDOMEN: Obese, normal bowel sounds. No tenderness. EXTREMITIES: No clubbing, cyanosis, or edema. NEUROLOGICAL: The patient has good strength bilaterally at the present time. He does complain, however, of some numbness on his right side. LABORATORY DATA: EKG revealed normal sinus rhythm with left axis deviation, left ventricular hypertrophy with repolarization abnormalities. Urine drug screen is negative. Hemoglobin 11.9, hematocrit 34.6, white count 8300, platelets 81,000. Sodium 137, potassium 3.3, chloride 102, carbon dioxide 27, BUN 11, creatinine 1.44. Troponin I 0.053. TSH 14.2809. IMPRESSION: 1. Cerebrovascular accident, while on aspirin 81 mg daily. 2. Nonischemic cardiomyopathy. However, last ejection fraction was 45% to 50%. 3. Hypertension. 4. Hyperlipidemia. 5. Diabetes. 6. The patient continues to smoke. 7. History of normal coronary arteries in 2014. 8. Atypical chest discomfort. 9. Hypothyroidism. 10. Mfy-EZ-myiijiktr myocardial infarction, type 2. 11. Chronic kidney disease. PLAN: The patient will be restarted on hydralazine 37.5 t.i.d. and isosorbide 20 t.i.d. He will be loaded with Plavix 300 mg and placed on 75 mg daily. I did not see any [facility] transmissions in the office. I will have [facility] performed to see if he has any evidence of atrial fibrillation, which would then warrant anticoagulation. Job ID: [id number] [facility]
[2019-01-13 05:21] LABS: #Basophils 0.1 thou/uL (0.0-0.2); #Eosinphils 0.1 thou/uL (0.0-0.7); #Lymphocytes 1.9 thou/uL (1.20-3.40); #Monocytes 0.8 thou/uL (0.11-0.59); #Neutrophils 5.9 thou/uL (1.40-6.50); %Basophils 0.7 % (0.0-1.0); %Eosinophils 1.5 % (0.0-10.0); %Lymphocytes 21.9 % (21.0-51.0); Hemoglobin 12.4 g/dL (14.0-18.0); Mean Corpuscular HGB CONC 34.2 g/dL (32.0-36.0); Mean Corpuscular Hemoglobin 33.7 pg (27.0-31.0); Mean Corpuscular Volume 98.3 fL (78.0-98.0); Mean Platelet Volume 11.5 fL (7.4-10.4); Platelet Count 93 thou/uL (130-400); RBC Distribution Width 12.7 % (11.5-14.5); Red Blood Cell (RBC) Count 3.68 mill/uL (4.70-6.10); White Blood Cell (WBC) Count 8.8 thou/uL (4.8-10.8)
[2019-01-13 05:39] LABS: Anion Gap 15 mmol/L (10-20); BUN (Urea Nitrogen) 12 mg/dL (8.9-20.6); Calc. Creatinine Clearance 109 mL/min (70-130); Calcium 8.7 mg/dL (7.8-10.44); Carbon Dioxide 21 mmol/L (22-29); Chloride 101 mmol/L (98-107); Estimated GFR-MDRD 77; Glucose 125 mg/dL (70-105); Potassium 3.2 mmol/L (3.5-5.1); Sodium 134 mmol/L (136-145)
[2019-01-13] MEDS: Levothyroxine Sodium 100 MCG TAB PO SCH (07:23)
[2019-01-13] MEDS: Nicotine 14 MG PATCH TD SCH (07:24)
[2019-01-13] MEDS: Furosemide 40 MG TAB PO SCH (07:24)
--- NOTE | 2019-01-13 10:31 | NM ---
NM Cardiac Stress W EF WF History: Chest pain Comparison: None. Findings: Stress and rest performed after the intravenous administration of 32 and 28.5 mCi technetiu m 99m sestamibi, respectively. Adequate left ventricular uptake of radiotracer. Mild reversible ischemia of the anterior and lateral left ventricular wall. Global hypokinesia with ejection fraction of 34%. Impression: 1. Mild reversible ischemia of the anterior and lateral left ventricular wall. 2. Global hypokinesis with low ejection fraction of 34%.
[2019-01-13] MEDS ORDERED: Regadenoson 0.4 MG/5 ML SYRINGE ONE (10:41)
[2019-01-13] MEDS: Isoniazid 100 MG TAB PO SCH (10:42)
[2019-01-13] MEDS: hydrALAZINE 25 MG TAB PO SCH ×3 (10:42→20:37)
[2019-01-13] MEDS: Aspirin 81 mg Enteric Coated Tablet PO SCH (10:42)
[2019-01-13] MEDS: pyridOXINE 50 MG (B6) TAB PO SCH (10:43)
[2019-01-13] MEDS: metFORMIN 500 MG TAB PO SCH ×2 (10:43→20:37)
[2019-01-13] MEDS: Carvedilol 6.25 MG TAB PO SCH ×2 (10:43→15:55)
[2019-01-13] MEDS: Isosorbide Dinitrate 20 MG TAB PO SCH ×3 (10:43→20:37)
[2019-01-13] MEDS: Potassium Chloride 20 MEQ TAB PO SCH (10:44)
[2019-01-13] MEDS: Enoxaparin Sodium 40 MG/0.4 ML SYRINGE SC SCH (12:19)
[2019-01-13] MEDS: Clopidogrel Bisulfate 75 MG TAB PO SCH (12:19)
--- NOTE | 2019-01-13 14:20 | PQF ---
ARIS NOVAK DAVID [id number] [facility] [id number] CLINICAL DOCUMENTATION IMPROVEMENT CLARIFICATION FORM: ICD-10 Updated PLEASE DO AN ADDENDUM TO THE PROGRESS NOTE WITH ANY DOCUMENTATION UPDATES OR ADDITIONS AND CARRY THROUGH TO DC SUMMARY. THANK YOU. DATE: 01/13/19 ATTN: DR CURIEL Please exercise your independent, professional judgment in responding to the clarification form. Clinical indicators are provided on the bottom of this form for your review Please check appropriate box(s): HEART FAILURE: A. ACUITY [ ] Chronic B. TYPE [ ] Systolic / HFrEF [ ] Diastolic / HFpEF [ ] Combined Systolic / Diastolic [ ] Other diagnosis [ ] Unable to determine In addition, please specify: Present on Admission (POA): [ ] Yes [ ] No [ ] Unable to determine For continuity of documentation, please document condition throughout progress notes and discharge summary. Thank You. CLINICAL INDICATORS - SIGNS / SYMPTOMS / LABS / RESULTS AND LOCATION IN EMR Ejection Fraction =___15-20___ % PER H&P 01/11, 45-50 % PER CARDIO CONSULT RISKS FACTORS / RESULTS AND LOCATION IN EMR History of CAD/ischemic heart disease - 01/12 CONSULT NOTE - NICM CKD - 01/12 CONSULT NOTE Hypertension 01/11 H&P Sick Sinus SYndrome - 01/11 H&P TREATMENTS / RESULTS AND LOCATION IN EMR Carvedilol 12.5 mg PO BID - 01/11 PER ORDERS Cardiac monitoring / telemetry - 01/11 PER ORDERS lLasix 40 mg PO daily- 01/11 PER ORDERS Cardiology Consult- 01/12 COMPLETED MTDD
--- NOTE | 2019-01-13 18:17 | PDOC.HOSPP ---
- Subjective Encounter Date: 01/13/19 Encounter Time: 16:00 Subjective: Pt seen for followup re: hypertensive urgency. States he feels better. - Objective Vital Signs & Weight: Vital Signs (12 hours) Temp Pulse Resp BP BP Pulse Ox 01/13/19 15:55 151/81 H 01/13/19 15:25 98.3 F 66 15 158/81 H 97 01/13/19 15:16 66 151/81 H 01/13/19 11:49 98.6 F 76 18 176/103 H 92 L 01/13/19 10:43 181/112 H 01/13/19 10:42 63 01/13/19 08:00 96 01/13/19 07:45 98.7 F 63 16 175/105 H 96 Weight Weight 230 lb 14.4 oz I&O: 01/12/19 01/13/19 01/14/19 06:59 06:59 06:59 Intake Total 660 734 Output Total 700 550 80 Balance -700 110 654 Result Diagrams: 01/13/19 04:32 01/13/19 04:32 Additional Labs: Accuchecks 01/13/19 01/13/19 01/13/19 17:16 10:41 05:53 POC Glucose 150 H 221 H 145 H 01/12/19 01/11/19 19:51 04:57 POC Glucose 204 H 164 H Labs and MARs reviewed by me EKG Reviewed by me: Yes (Tele: NSR) Hospitalist ROS - Review of Systems Cardiovascular: denies: chest pain, palpitations, orthopnea, paroxysmal noc. dyspnea, edema, light headedness Gastrointestinal: denies: nausea, vomiting, abdominal pain, diarrhea, constipation, melena, hematochezia - Medication Medications: Active Medications Generic Name Dose Route Start Last Admin Trade Name Freq PRN Reason Stop Dose Admin Aspirin 81 mg 01/13/19 09:00 01/13/19 10:42 Ecotrin PO 81 mg DAILY BRENDA Administration Atorvastatin Calcium 40 mg 01/12/19 21:00 01/12/19 21:09 Lipitor PO 40 mg HS BRENDA Administration Carvedilol 12.5 mg 01/11/19 08:00 01/13/19 15:55 Coreg PO 12.5 mg BID-WM BRENDA Administration Clopidogrel Bisulfate 75 mg 01/13/19 09:00 01/13/19 12:19 Plavix PO 75 mg DAILY BRENDA Administration Enoxaparin Sodium 40 mg 01/11/19 09:00 01/13/19 12:19 Lovenox SC 40 mg 0900 BRENDA Administration Furosemide 40 mg 01/11/19 07:30 01/13/19 07:24 Lasix PO 40 mg DAILY-AC BRENDA Administration Hydralazine HCl 37.5 mg 01/12/19 21:00 01/13/19 15:16 Apresoline PO 37.5 mg TID BRENDA Administration Insulin Human Lispro 0 units 01/11/19 06:25 01/12/19 06:37 Humalog SC 2 unit .MODERATE SLIDING SC PRN Administration Moderate Correctional Scale Isoniazid 300 mg 01/13/19 09:00 01/13/19 10:42 Isoniazid PO 300 mg DAILY BRENDA Administration Isosorbide Dinitrate 20 mg 01/12/19 21:00 01/13/19 15:15 Isordil PO 20 mg TID BRENDA Administration Isosorbide Mononitrate 60 mg 01/11/19 09:00 01/13/19 10:42 Imdur PO 60 mg DAILY [facility] Administration Levothyroxine Sodium 200 mcg 01/12/19 06:00 01/13/19 07:23 Synthroid PO 200 mcg 0600 [facility] Administration Metformin HCl 1,000 mg 01/12/19 21:00 01/13/19 10:43 Glucophage PO 1,000 mg BID [facility] Administration Nicotine 14 mg 01/11/19 06:30 01/13/19 07:24 Nicoderm Patch TD Not Given Q24HR [facility] Potassium Chloride 20 meq 01/11/19 08:00 01/13/19 10:44 K-Dur PO 20 meq QAM-WM [facility] Administration Pyridoxine HCl 50 mg 01/13/19 09:00 01/13/19 10:43 Vitamin B 6 PO 50 mg DAILY [facility] Administration Sodium Chloride 10 ml 01/11/19 09:00 01/13/19 12:19 Flush - Normal Saline IVF 10 ml Q12HR BRENDA Administration - Exam General - other findings: Obese Eye: anicteric sclera ENT: normocephalic atraumatic, moist mucosa Neck: supple Heart: RRR, no rubs Respiratory: CTAB, no ronchi Gastrointestinal: soft, non-tender Extremities: no clubbing Neurological: no weakness Psychiatric: normal affect, normal behavior Hosp A/P (1) Hypertensive urgency Code(s): I16.0 - HYPERTENSIVE URGENCY Status: Acute (2) Dyslipidemia Code(s): E78.5 - HYPERLIPIDEMIA, UNSPECIFIED Status: Chronic (3) Hypertension Code(s): I10 - ESSENTIAL (PRIMARY) HYPERTENSION Status: Chronic Qualifiers: (4) Hypothyroidism Code(s): E03.9 - HYPOTHYROIDISM, UNSPECIFIED Status: Chronic Qualifiers: (5) Chest pain Code(s): R07.9 - CHEST PAIN, UNSPECIFIED Status: Resolved - Plan out of bed/ambulate Blood pressure improved. Continue aspirin and statin. Stress test shows reversible ischemia, await cardiology opinion.
[2019-01-13] MEDS: Atorvastatin Calcium 40 MG TAB PO SCH (20:37)
[2019-01-14 05:09] LABS: #Basophils 0.1 thou/uL (0.0-0.2); #Eosinphils 0.2 thou/uL (0.0-0.7); #Lymphocytes 2.4 thou/uL (1.20-3.40); #Monocytes 0.9 thou/uL (0.11-0.59); #Neutrophils 6.3 thou/uL (1.40-6.50); %Basophils 0.9 % (0.0-1.0); %Eosinophils 2.2 % (0.0-10.0); %Lymphocytes 24.3 % (21.0-51.0); %Monocytes 8.8 % (0.0-10.0); %Neutrophils 63.8 % (42.0-75.0); Mean Corpuscular HGB CONC 34.3 g/dL (32.0-36.0); Mean Corpuscular Hemoglobin 34.6 pg (27.0-31.0); Mean Platelet Volume 10.4 fL (7.4-10.4); Platelet Count 88 thou/uL (130-400); RBC Distribution Width 12.5 % (11.5-14.5); Red Blood Cell (RBC) Count 3.46 mill/uL (4.70-6.10); White Blood Cell (WBC) Count 9.9 thou/uL (4.8-10.8)
[2019-01-14 05:29] LABS: Anion Gap 19 mmol/L (10-20); BUN (Urea Nitrogen) 14 mg/dL (8.9-20.6); Calc. Creatinine Clearance 105 mL/min (70-130); Calcium 8.8 mg/dL (7.8-10.44); Carbon Dioxide 16 mmol/L (22-29); Chloride 103 mmol/L (98-107); Estimated GFR-MDRD 74; Glucose 114 mg/dL (70-105); Potassium 3.4 mmol/L (3.5-5.1); Sodium 135 mmol/L (136-145)
[2019-01-14] MEDS: Levothyroxine Sodium 100 MCG TAB PO SCH (06:03)
[2019-01-14] MEDS: Nicotine 14 MG PATCH TD SCH (06:04)
[2019-01-14] MEDS: Furosemide 40 MG TAB PO SCH (09:03)
[2019-01-14] MEDS: Aspirin 81 mg Enteric Coated Tablet PO SCH (09:04)
[2019-01-14] MEDS: Potassium Chloride 20 MEQ TAB PO SCH (09:04)
[2019-01-14] MEDS: metFORMIN 500 MG TAB PO SCH (09:04)
[2019-01-14] MEDS: Clopidogrel Bisulfate 75 MG TAB PO SCH (09:04)
[2019-01-14] MEDS: pyridOXINE 50 MG (B6) TAB PO SCH (09:04)
[2019-01-14] MEDS: Isosorbide Dinitrate 20 MG TAB PO SCH ×3 (09:05→22:24)
[2019-01-14] MEDS: Carvedilol 6.25 MG TAB PO SCH ×2 (09:05→16:29)
[2019-01-14] MEDS: hydrALAZINE 25 MG TAB PO SCH ×3 (09:05→22:28)
[2019-01-14] MEDS: Enoxaparin Sodium 40 MG/0.4 ML SYRINGE SC SCH (09:06)
[2019-01-14] MEDS: Isoniazid 100 MG TAB PO SCH (09:13)
[2019-01-14] MEDS: HumaLOG 300 UNITS/3 ML VIAL SC PRN (11:17)
--- NOTE | 2019-01-14 13:34 | PDOC.HOSPP ---
- Subjective Encounter Date: 01/14/19 Encounter Time: 07:00 Subjective: Pt seen for followup re: hypertensive urgency. Reports facial numbness is better. - Objective Vital Signs & Weight: Vital Signs (12 hours) Temp Pulse Resp BP BP BP Pulse Ox 01/14/19 11:29 98.4 F 70 18 137/75 96 01/14/19 09:05 65 136/74 01/14/19 08:00 93 L 01/14/19 07:38 97.9 F 65 18 136/74 93 L 01/14/19 04:45 66 18 138/85 96 01/14/19 03:40 97.3 F L 66 18 138/85 96 Weight Weight 229 lb 6.4 oz I&O: 01/13/19 01/14/19 01/15/19 06:59 06:59 06:59 Intake Total 660 974 Output Total 550 280 Balance 110 694 Result Diagrams: 01/14/19 04:32 01/14/19 04:32 Additional Labs: Accuchecks 01/14/19 01/14/19 01/13/19 10:59 06:21 20:25 POC Glucose 194 H 136 H 148 H 01/13/19 17:16 POC Glucose 150 H Labs and MARs reviewed by me EKG Reviewed by me: Yes (Tele; A-paced) Hospitalist ROS - Review of Systems Respiratory: denies: cough, shortness of breath, SOB with excertion, pleuritic pain, wheezing Cardiovascular: denies: chest pain, palpitations, orthopnea, paroxysmal noc. dyspnea, edema, light headedness - Medication Medications: Active Medications Generic Name Dose Route Start Last Admin Trade Name Patrick PRN Reason Stop Dose Admin Aspirin 81 mg 01/13/19 09:00 01/14/19 09:04 Ecotrin PO 81 mg DAILY BRENDA Administration Atorvastatin Calcium 40 mg 01/12/19 21:00 01/13/19 20:37 Lipitor PO 40 mg HS BRENDA Administration Carvedilol 12.5 mg 01/11/19 08:00 01/14/19 09:05 Coreg PO 12.5 mg BID-WM BRENDA Administration Clopidogrel Bisulfate 75 mg 01/13/19 09:00 01/14/19 09:04 Plavix PO 75 mg DAILY BRENDA Administration Enoxaparin Sodium 40 mg 01/11/19 09:00 01/14/19 09:06 Lovenox SC Not Given 0900 BRENDA Furosemide 40 mg 01/11/19 07:30 01/14/19 09:03 Lasix PO 40 mg DAILY-AC BRENDA Administration Hydralazine HCl 37.5 mg 01/12/19 21:00 01/14/19 09:05 Apresoline PO 37.5 mg TID BRENDA Administration Insulin Human Lispro 0 units 01/11/19 06:25 01/14/19 11:17 Humalog SC 2 unit .MODERATE SLIDING SC PRN Administration Moderate Correctional Scale Isoniazid 300 mg 01/13/19 09:00 01/14/19 09:13 Isoniazid PO 300 mg DAILY BRENDA Administration Isosorbide Dinitrate 20 mg 01/12/19 21:00 01/14/19 09:05 Isordil PO 20 mg TID BRENDA Administration Isosorbide Mononitrate 60 mg 01/11/19 09:00 01/14/19 09:05 Imdur PO 60 mg DAILY BRENDA Administration Levothyroxine Sodium 200 mcg 01/12/19 06:00 01/14/19 06:03 Synthroid PO 200 mcg 0600 [facility] Administration Metformin HCl 1,000 mg 01/12/19 21:00 01/14/19 09:04 Glucophage PO 1,000 mg BID BRENDA Administration Nicotine 14 mg 01/11/19 06:30 01/14/19 06:04 Nicoderm Patch TD Not Given Q24HR [facility] Potassium Chloride 20 meq 01/11/19 08:00 01/14/19 09:04 K-Dur PO 20 meq QAM-WM BRENDA Administration Pyridoxine HCl 50 mg 01/13/19 09:00 01/14/19 09:04 Vitamin B 6 PO 50 mg DAILY [facility] Administration Sodium Chloride 10 ml 01/11/19 09:00 01/14/19 09:06 Flush - Normal Saline IVF 10 ml Q12HR BRENDA Administration - Exam General Appearance: NAD Eye: anicteric sclera ENT: moist mucosa Neck: supple Heart: RRR Respiratory: CTAB Gastrointestinal: soft, non-tender Neurological: no focal deficits Psychiatric: normal affect, normal behavior Hosp A/P (1) Hypertensive urgency Code(s): I16.0 - HYPERTENSIVE URGENCY Status: Acute (2) Dyslipidemia Code(s): E78.5 - HYPERLIPIDEMIA, UNSPECIFIED Status: Chronic (3) Hypertension Code(s): I10 - ESSENTIAL (PRIMARY) HYPERTENSION Status: Chronic Qualifiers: (4) Hypothyroidism Code(s): E03.9 - HYPOTHYROIDISM, UNSPECIFIED Status: Chronic Qualifiers: (5) Chronic systolic CHF (congestive heart failure), NYHA class 2 Code(s): I50.22 - CHRONIC SYSTOLIC (CONGESTIVE) HEART FAILURE Status: Chronic Plan: Present on admission (6) Chest pain Code(s): R07.9 - CHEST PAIN, UNSPECIFIED Status: Resolved - Plan Pt awaiting cath (abnormal stress test). Blood pressure improved. Continue aspirin and statin.
[2019-01-14] MEDS ORDERED: Communication Order-Pharmacy FS PRN (14:45)
[2019-01-14] MEDS: Atorvastatin Calcium 40 MG TAB PO SCH (22:24)
[2019-01-15 05:12] LABS: #Basophils 0.1 thou/uL (0.0-0.2); #Eosinphils 0.1 thou/uL (0.0-0.7); #Monocytes 0.7 thou/uL (0.11-0.59); #Neutrophils 5.4 thou/uL (1.40-6.50); %Basophils 0.9 % (0.0-1.0); %Eosinophils 1.7 % (0.0-10.0); %Lymphocytes 24.2 % (21.0-51.0); %Monocytes 8.1 % (0.0-10.0); %Neutrophils 65.1 % (42.0-75.0); Hemoglobin 11.8 g/dL (14.0-18.0); Mean Corpuscular HGB CONC 34.8 g/dL (32.0-36.0); Mean Corpuscular Hemoglobin 34.7 pg (27.0-31.0); Mean Corpuscular Volume 99.5 fL (78.0-98.0); Mean Platelet Volume 10.9 fL (7.4-10.4); Platelet Count 95 thou/uL (130-400); RBC Distribution Width 12.5 % (11.5-14.5); Red Blood Cell (RBC) Count 3.41 mill/uL (4.70-6.10); White Blood Cell (WBC) Count 8.3 thou/uL (4.8-10.8)
[2019-01-15 05:14] LABS: Anion Gap 10 mmol/L (10-20); BUN (Urea Nitrogen) 12 mg/dL (8.9-20.6); Calc. Creatinine Clearance 98 mL/min (70-130); Carbon Dioxide 27 mmol/L (22-29); Chloride 101 mmol/L (98-107); Estimated GFR-MDRD 69; Glucose 118 mg/dL (70-105); Potassium 3.2 mmol/L (3.5-5.1); Sodium 135 mmol/L (136-145)
[2019-01-15] MEDS: Nicotine 14 MG PATCH TD SCH (06:14)
[2019-01-15] MEDS: Levothyroxine Sodium 100 MCG TAB PO SCH (06:18)
[2019-01-15] MEDS: Carvedilol 6.25 MG TAB PO SCH ×2 (06:18→17:13)
[2019-01-15] MEDS: Potassium Chloride 20 MEQ TAB PO SCH (08:09)
[2019-01-15] MEDS: hydrALAZINE 25 MG TAB PO SCH ×3 (08:10→21:47)
[2019-01-15] MEDS: Isosorbide Dinitrate 20 MG TAB PO SCH ×3 (08:12→21:47)
[2019-01-15] MEDS: Furosemide 40 MG TAB PO SCH (08:13)
[2019-01-15] MEDS: Clopidogrel Bisulfate 75 MG TAB PO SCH (08:13)
[2019-01-15] MEDS: Aspirin 81 mg Enteric Coated Tablet PO SCH (08:13)
[2019-01-15] MEDS: pyridOXINE 50 MG (B6) TAB PO SCH (08:14)
[2019-01-15] MEDS: Isoniazid 100 MG TAB PO SCH (08:48)
[2019-01-15] MEDS ORDERED: Iopamidol 370 76% 100 ML VIAL ONE (10:37)
[2019-01-15] MEDS ORDERED: Iopamidol 370 76% 50 ML VIAL FS ONE (10:37)
--- NOTE | 2019-01-15 10:42 | PDOC.HOSPP ---
- Subjective Encounter Date: 01/15/19 Encounter Time: 07:20 Subjective: Pt seen for followup re: hypertensive urgency. Sleepy but arousable. - Objective Vital Signs & Weight: Vital Signs (12 hours) Temp Pulse Resp BP BP BP Pulse Ox 01/15/19 08:15 97.6 F 99 16 162/93 H 93 L 01/15/19 08:10 62 133/87 01/15/19 06:18 133/87 01/15/19 03:42 97.9 F 62 18 133/87 97 01/14/19 23:47 97.9 F 66 18 132/78 96 Weight Weight 229 lb 6.4 oz I&O: 01/14/19 01/15/19 01/16/19 06:59 06:59 06:59 Intake Total 974 730 Output Total 280 675 Balance 694 55 Result Diagrams: 01/15/19 04:41 01/15/19 04:41 Additional Labs: Accuchecks 01/15/19 01/14/19 01/14/19 06:25 19:59 16:31 POC Glucose 120 H 139 H 122 H 01/14/19 10:59 POC Glucose 194 H Labs and MARs reviewed by me EKG Reviewed by me: Yes (Tele: A-paced) Hospitalist ROS - Review of Systems Constitutional: denies: fever, chills, sweats, weakness, malaise Respiratory: denies: cough, shortness of breath, SOB with excertion, pleuritic pain, wheezing - Medication Medications: Active Medications Generic Name Dose Route Start Last Admin Trade Name Sanjivq PRN Reason Stop Dose Admin Aspirin 81 mg 01/13/19 09:00 01/15/19 08:13 Ecotrin PO Not Given DAILY [facility] Atorvastatin Calcium 40 mg 01/12/19 21:00 01/14/19 22:24 Lipitor PO 40 mg HS BRENDA Administration Carvedilol 12.5 mg 01/11/19 08:00 01/15/19 06:18 Coreg PO 12.5 mg BID-WM BRENDA Administration Clopidogrel Bisulfate 75 mg 01/13/19 09:00 01/15/19 08:13 Plavix PO Not Given DAILY BRENDA Furosemide 40 mg 01/11/19 07:30 01/15/19 08:13 Lasix PO Not Given DAILY-AC [facility] Hydralazine HCl 37.5 mg 01/12/19:00 01/15/19 08:10 Apresoline PO 37.5 mg TID BRENDA Administration Insulin Human Lispro 0 units 01/11/19 06:25 01/14/19 11:17 Humalog SC 2 unit .MODERATE SLIDING SC PRN Administration Moderate Correctional Scale Isoniazid 300 mg 01/13/19 09:00 01/15/19 08:48 Isoniazid PO 300 mg DAILY BRENDA Administration Isosorbide Dinitrate 20 mg 01/12/19 21:00 01/15/19 08:12 Isordil PO 20 mg TID BRENDA Administration Isosorbide Mononitrate 60 mg 01/11/19 09:00 01/15/19 08:12 Imdur PO 60 mg DAILY BRENDA Administration Levothyroxine Sodium 200 mcg 01/12/19 06:00 01/15/19 06:18 Synthroid PO 200 mcg 0600 BRENDA Administration Nicotine 14 mg 01/11/19 06:30 01/15/19 06:14 Nicoderm Patch TD Not Given Q24HR BRENDA Potassium Chloride 20 meq 01/11/19 08:00 01/15/19 08:09 K-Dur PO 20 meq QAM-WM BRENDA Administration Pyridoxine HCl 50 mg 01/13/19 09:00 01/15/19 08:14 Vitamin B 6 PO 50 mg DAILY BRENDA Administration Sodium Chloride 10 ml 01/11/19 09:00 01/15/19 08:14 Flush - Normal Saline IVF 10 ml Q12HR BRENDA Administration - Exam General - other findings: Obesity Eye: anicteric sclera ENT: moist mucosa Neck: supple Heart: RRR, no rubs Respiratory: CTAB Gastrointestinal: soft, non-tender Psychiatric: normal affect, normal behavior Hosp A/P (1) Hypertensive urgency Code(s): I16.0 - HYPERTENSIVE URGENCY Status: Acute (2) Dyslipidemia Code(s): E78.5 - HYPERLIPIDEMIA, UNSPECIFIED Status: Chronic (3) Hypertension Code(s): I10 - ESSENTIAL (PRIMARY) HYPERTENSION Status: Chronic Qualifiers: (4) Hypothyroidism Code(s): E03.9 - HYPOTHYROIDISM, UNSPECIFIED Status: Chronic Qualifiers: (5) Chronic systolic CHF (congestive heart failure), NYHA class 2 Code(s): I50.22 - CHRONIC SYSTOLIC (CONGESTIVE) HEART FAILURE Status: Chronic (6) Chest pain Code(s): R07.9 - CHEST PAIN, UNSPECIFIED Status: Resolved - Plan out of bed/ambulate Pt to have cath today. Monitor vital signs, totrate antihypertensives as needed. Continue aspirin and statin.
[2019-01-15] MEDS ORDERED: Verapamil 5 MG/2 ML VIAL ONE (11:01)
[2019-01-15] MEDS ORDERED: Nitroglycerin 100MG/250ML BOT 250 ML ONE (11:01)
[2019-01-15] MEDS ORDERED: Heparin 10,000 UNITS/1 ML VIAL ONE (11:01)
[2019-01-15] MEDS ORDERED: Heparin (Artline) 1,000 ML ONE (11:01)
[2019-01-15] MEDS ORDERED: Lidocaine 1% (PF) 30 ML VIAL ONE (11:02)
[2019-01-15] MEDS ORDERED: Fentanyl 100 MCG/2 ML VIAL ONE (12:52)
[2019-01-15] MEDS ORDERED: Midazolam HCl 2 mg/2 ml Vial ONE (12:52)
[2019-01-15] MEDS ORDERED: hydrALAZINE 20 MG/ML VIAL ONE (12:52)
[2019-01-15] MEDS ORDERED: Sodium Chloride 0.9% 200 ML IV PRN (13:41)
[2019-01-15] MEDS ORDERED: Sodium Chloride 0.9% 250 ML IV SCH (14:00)
[2019-01-15] MEDS: Atorvastatin Calcium 40 MG TAB PO SCH (21:47)
[2019-01-16 06:25] LABS: Anion Gap 11 mmol/L (10-20); BUN (Urea Nitrogen) 14 mg/dL (8.9-20.6); Calc. Creatinine Clearance 106 mL/min (70-130); Calcium 9.3 mg/dL (7.8-10.44); Carbon Dioxide 28 mmol/L (22-29); Chloride 102 mmol/L (98-107); Estimated GFR-MDRD 75; Glucose 124 mg/dL (70-105); Potassium 3.7 mmol/L (3.5-5.1); Sodium 137 mmol/L (136-145)
[2019-01-16] MEDS: Nicotine 14 MG PATCH TD SCH (07:40)
[2019-01-16] MEDS: Levothyroxine Sodium 100 MCG TAB PO SCH (07:40)
[2019-01-16] MEDS: Isosorbide Dinitrate 20 MG TAB PO SCH ×2 (09:32→14:33)
[2019-01-16] MEDS: pyridOXINE 50 MG (B6) TAB PO SCH (09:32)
[2019-01-16] MEDS: Potassium Chloride 20 MEQ TAB PO SCH (09:32)
[2019-01-16] MEDS: Clopidogrel Bisulfate 75 MG TAB PO SCH (09:32)
[2019-01-16] MEDS: Aspirin 81 mg Enteric Coated Tablet PO SCH (09:32)
[2019-01-16] MEDS: Furosemide 40 MG TAB PO SCH (09:33)
[2019-01-16] MEDS: hydrALAZINE 25 MG TAB PO SCH ×2 (09:33→14:31)
[2019-01-16] MEDS: Carvedilol 6.25 MG TAB PO SCH (09:33)
[2019-01-16] MEDS: Isoniazid 100 MG TAB PO SCH (14:33)
[2019-01-16 15:41] VITALS: BP 158/101; TEMP 99.7
--- NOTE | 2019-01-16 18:02 | DIS ---
DATE OF ADMISSION: 01/11/2019 DATE OF DISCHARGE: 01/16/2019 PRIMARY CARE PROVIDER: Dr. Damaris Gamino. DISCHARGE DIAGNOSES: 1. Ischemic cerebrovascular accident. 2. Nonischemic cardiomyopathy. 3. Hypertensive urgency. CONDITION OF PATIENT ON THE DAY OF DISCHARGE: Stable. I assessed Mr. Mejia on the day of discharge. He denies any chest pain or shortness of breath. Vital signs are stable. S1 and S2 are heard, regular. Lungs are clear to auscultation bilaterally. DISCHARGE MEDICATIONS: 1. Aspirin 81 mg daily. 2. Atorvastatin 40 mg at bedtime. 3. Coreg 12.5 mg 2 times a day. 4. Isoniazid 300 mg daily. 5. Metformin 1000 mg 2 times a day. 6. Pyridoxine 50 mg daily. 7. NicoDerm CQ 14 mg patch daily. 8. Plavix 75 mg daily. 9. Lasix 40 mg daily. 10. Hydralazine 37.5 mg 3 times a day. 11. Isosorbide dinitrate 20 mg 3 times a day. 12. Synthroid 200 mcg daily. 13. Potassium chloride 20 mEq daily. CONSULTATIONS DURING THIS HOSPITALIZATION: Neurology, Dr. Barber and Cardiology , Dr. Toledo. POST-DISCHARGE FOLLOWUP: With primary care provider in 3 days' time and with Cardiology, Dr. Chung in 2 to 3 weeks' time. HOSPITAL COURSE: Mr. Mejia is a pleasant 48-year-old gentleman, who was admitted to [facility] for ischemic cerebrovascular accident on 01/11/2019. Please refer to Dr. Guy's history and physical note dated 01/11/2019, for further details. He was seen by Neurology Service. CT angiogram of brain and neck did not show any significant stenosis. He had prominent superior ophthalmic veins bilaterally. 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 He also complained of on and off chest pain. Nuclear stress test showed mild reversible ischemia of anterior and lateral left ventricular wall. He went on to have cardiac catheterization, which did not show any significant coronary artery disease. Neurology Service felt that given his symptoms, he probably had a posterior circulation lacunar infarct. He had a pacemaker and therefore, MRI could not be performed. His blood pressure medications were adjusted because of hypertensive urgency. He is being discharged home in a stable condition. On the day of discharge, he has normal sodium, normal potassium, creatinine 1.24 , calcium 9.3, and estimated GFR of 75. On 01/15, he had a white count of 8300, hemoglobin 11.8, and platelet count 95,000. Many thanks for allowing me to participate in the patient's care. Please feel free to contact me with any questions or concerns. DIET: Heart healthy, diabetic. ACTIVITY: No restrictions. DISCHARGE DESTINATION: Home. TIME SPENT: Total amount of time spent coordinating this discharge: 32 minutes. Job ID: [id number] MTDD
--- NOTE | 2019-01-19 05:20 | PQF ---
[facility] Interventional Radiology Tech Crystal Reports Winform ViewerARIS NOVAK BEN CURIEL [id number] [address] [place] [address] [id number] CLINICAL DOCUMENTATION CLARIFICATION FORM: POST DISCHARGE Addendum to original discharge summary date: ____ Late entry note date: __ DATE: 01/19/2019 ATTN: BEN CURIEL Please exercise your independent, professional judgment in responding to the clarification form. Clinical indicators are provided on the bottom of this form for your review Please check appropriate box(s) to clarify if the following diagnosis has been ruled in or ruled out: NSTEMI type 2 (CDI/Coding list diagnosis here) [ x ] Ruled in diagnosis [ ] Continue to treat [ x ] Resolved [ ] Ruled out diagnosis [ ] Cannot rule out diagnosis [ ] Other diagnosis [ ] Unable to determine In addition, please specify: Present on Admission (POA): [ x ] Yes [ ] No [ ] Unable to determine For continuity of documentation, please document condition throughout progress notes and discharge summary. Thank You. CLINICAL INDICATORS - SIGNS / SYMPTOMS / LABS NSTEMI type 2 - Documented in Consultation report on 01/12 by Lucho Toldeo Troponin level 0.053 on 01/11 - Documented in Laboatory CVA - Documented in Discharge summary He also complained of on and off chest pain - Documented in Discharge summary Nuclear stress test showed mild reversible ischemia of anterior and lateral ventricular wall -Documented in Discharge summary RISK FACTORS Nonischemic cardiomyopathy - Documented in Consultation report on 01/12 by Lucho Toledo HTN urgency- Documented in Discharge summary CKD - Documented in Consultation report on 01/12 by Lucho Toledo TREATMENTS Aspirin 81 mg - Documented in Medication report Nuclear stress test [facility] Interventional Radiology Tech Crystal Reports Winform Viewer (This form is maintained as a part of the permanent medical record) 2014 [employer]. All Rights Reserved [email or web address] [not provided] MTDD
== END 2019-01-16 16:26 | disposition home or self-care (01) | DRG 64 ==
LOC: ERS 04:34 → 2SE 10:03
PROVIDERS: ADMIT Internal Medicine; ATTEND Internal Medicine
PROC: 4A023N7 Measurement of Cardiac Sampling and Pressure, Left Heart, Percutaneous Approach (ICD-10-PCS; principal; 2019-01-11)
PROC: B2111ZZ Fluoroscopy of Multiple Coronary Arteries using Low Osmolar Contrast (ICD-10-PCS; 2019-01-11)
PROC: B2151ZZ Fluoroscopy of Left Heart using Low Osmolar Contrast (ICD-10-PCS; 2019-01-11)
DX: I63.9 Cerebral infarction, unspecified (principal); I21.A1 Myocardial infarction type 2; I50.22 Chronic systolic (congestive) heart failure; I67.4 Hypertensive encephalopathy; I42.8 Other cardiomyopathies; G81.91 Hemiplegia, unspecified affecting right dominant side; I13.0 Hypertensive heart and chronic kidney disease with heart failure and stage 1 through stage 4 chronic kidney disease, or unspecified chronic kidney disease; I16.0 Hypertensive urgency; E66.9 Obesity, unspecified; I49.5 Sick sinus syndrome; I25.10 Atherosclerotic heart disease of native coronary artery without angina pectoris; F17.210 Nicotine dependence, cigarettes, uncomplicated; E78.5 Hyperlipidemia, unspecified; E03.9 Hypothyroidism, unspecified; N18.9 Chronic kidney disease, unspecified; R29.810 Facial weakness; R40.2412 Glasgow coma scale score 13-15, at arrival to emergency department; Z95.0 Presence of cardiac pacemaker; Z88.8 Allergy status to other drugs, medicaments and biological substances; Z79.82 Long term (current) use of aspirin; E11.22 Type 2 diabetes mellitus with diabetic chronic kidney disease; Z68.35 Body mass index [BMI] 35.0-35.9, adult
CPT/HCPCS: 36415; 36416; 70450; 70496; 70498; 78452; 80048; 80053; 80306; 81003; 81015; 83036; 84443; 84484; 85007; 85025; 85027; 87324; 87449; 90471; 90732; 93005; 93017; 93458; 93798; 94660; 94760; 96361; 96365; 96375; 99152; 99406; A9500; C1769; G0009; J0360; J1644; J1650; J2001; J2250; J2785; J3010; J7050; Q9967

== ENCOUNTER 2019-02-05 22:56 | Emergency (ER) | payer OTHER ==
--- NOTE | 2019-02-05 23:40 | RAD ---
EXAM: XR Ankle Rt 3 View STANDARD PROVIDED CLINICAL HISTORY: Pain FINDINGS: There is no evidence for fracture or other acute osseous abnormality involving the right ankle. Nondi splaced fracture involving the proximal fifth metatarsal as visualized on the lateral view. Alignment appears anatomic. Joint spaces appear preserved. IMPRESSION: Nondisplaced proximal left fifth metatarsal shaft fracture. Consider dedicated imaging as indicated.
[2019-02-05] MEDS ORDERED: Ketorolac Tromethamine 60 MG/2 ML VIAL ONE (23:47)
[2019-02-05] MEDS ORDERED: Ketorolac Tromethamine 30 MG/ML VIAL ONE (23:51)
[2019-02-05] MEDS ORDERED: cloNIDine 0.1 MG TAB ONE (23:53)
--- NOTE | 2019-02-06 00:01 | RAD ---
EXAM: XR Foot Rt 3 View STANDARD PROVIDED CLINICAL HISTORY: Fracture COMPARISON: None FINDINGS: Nondisplaced transversely oriented fracture involving the base of the fifth metatarsal, possibly with intra-articular extension. No additional fracture is evident. Alignment appears anatomic. Joint spaces appear preserved. IMPRESSION: Nondisplaced proximal fifth metatarsal fracture.
== END 2019-02-06 00:49 | disposition home or self-care (01) ==
LOC: ERS 22:56
DX: S92.354A Nondisplaced fracture of fifth metatarsal bone, right foot, initial encounter for closed fracture (principal); I11.0 Hypertensive heart disease with heart failure; I50.9 Heart failure, unspecified; D50.9 Iron deficiency anemia, unspecified; J44.9 Chronic obstructive pulmonary disease, unspecified; E03.9 Hypothyroidism, unspecified; E78.5 Hyperlipidemia, unspecified; F41.9 Anxiety disorder, unspecified; F31.9 Bipolar disorder, unspecified; F17.210 Nicotine dependence, cigarettes, uncomplicated; Z71.6 Tobacco abuse counseling; W10.9XXA Fall (on) (from) unspecified stairs and steps, initial encounter
CPT/HCPCS: 96374; 99406; J1885

== ENCOUNTER 2019-05-21 04:16 | Observation (INO) | payer OTHER ==
[2019-05-21] MEDS ORDERED: hydrALAZINE 20 MG/ML VIAL ONE (04:37)
[2019-05-21 05:02] LABS: #Eosinphils 0.4 thou/uL (0.0-0.7); #Lymphocytes 1.9 thou/uL (1.20-3.40); #Monocytes 0.5 thou/uL (0.11-0.59); %Basophils 0.6 % (0.0-1.0); %Eosinophils 4.7 % (0.0-10.0); %Neutrophils 64.7 % (42.0-75.0); Hemoglobin 10.7 g/dL (14.0-18.0); Mean Corpuscular HGB CONC 34.8 g/dL (32.0-36.0); Mean Corpuscular Hemoglobin 33.9 pg (27.0-31.0); Mean Corpuscular Volume 97.4 fL (78.0-98.0); Mean Platelet Volume 11.4 fL (7.4-10.4); Platelet Count 93 thou/uL (130-400); RBC Distribution Width 15.6 % (11.5-14.5); Red Blood Cell (RBC) Count 3.16 mill/uL (4.70-6.10); White Blood Cell (WBC) Count 7.7 thou/uL (4.8-10.8)
[2019-05-21 05:19] LABS: ALT (SGPT) 47 U/L (8-55); AST (SGOT) 59 U/L (5-34); Albumin 4.2 g/dL (3.5-5.0); Alkaline Phosphatase 167 U/L (40-110); Anion Gap 11 mmol/L (10-20); BUN (Urea Nitrogen) 15 mg/dL (8.9-20.6); Bilirubin, Total 0.9 mg/dL (0.2-1.2); Calc. Creatinine Clearance 0 mL/min (70-130); Carbon Dioxide 29 mmol/L (22-29); Chloride 102 mmol/L (98-107); Estimated GFR-MDRD 63; Globulin 3.4 g/dL (2.4-3.5); Glucose 136 mg/dL (70-105); Protein, Total 7.6 g/dL (6.0-8.3); Sodium 139 mmol/L (136-145)
[2019-05-21 05:24] LABS: Potassium 2.7 mmol/L (3.5-5.1)
[2019-05-21] MEDS ORDERED: Potassium Chloride 20 MEQ TAB ONE (05:27)
[2019-05-21] MEDS ORDERED: Furosemide 40 MG/4 ML VIAL ONE (05:37)
[2019-05-21] MEDS ORDERED: Potassium Chloride 20 MEQ in Premix Bag 1 BAG IVPB SCH (05:45)
[2019-05-21] MEDS ORDERED: Senokot S 8.6-50 MG TAB PO PRN ×2 (05:58→10:43)
[2019-05-21] MEDS ORDERED: Acetaminophen 325 MG TAB PO PRN ×2 (05:58→10:43)
[2019-05-21] MEDS: Levothyroxine Sodium 100 MCG TAB PO SCH (06:00)
[2019-05-21] MEDS ORDERED: HumaLOG 300 UNITS/3 ML VIAL SC PRN (06:00)
[2019-05-21] MEDS ORDERED: Dextrose 5% in Water 1,000 ML IV PRN ×2 (06:00→10:43)
[2019-05-21] MEDS ORDERED: Dextrose 50% Abboject 50 ML SYRINGE SLOW IVP PRN ×2 (06:00→10:43)
[2019-05-21 06:14] LABS: Amphetamine Not Detected (NotDetected); Barbiturates Screen Not Detected (NotDetected); Benzodiazepine Screen Not Detected (NotDetected); Cocaine Metabolite Screen Not Detected (NotDetected); Medtox Control Line Valid? VALID (VALID); Medtox Reader # READER 4; Methadone Not Detected (NotDetected); Methamphetamine Not Detected (NotDetected); Opiate Screen Not Detected (NotDetected); Oxycodone Screen Not Detected (NotDetected); Phencyclidine (PCP) Not Detected (NotDetected); THC/Cannabinoid Screen Not Detected (NotDetected); Tricyclic Screen Not Detected (NotDetected)
--- NOTE | 2019-05-21 07:18 | RAD ---
SINGLE VIEW CHEST: Date: 05/21/2019 COMPARISON: 11/30/2017. HISTORY: Shortness of breath and dyspnea. FINDINGS: Single view of the chest shows an enlarged but stable cardiomediastinal silhouette. The pacemaker is unchanged in position. There are subtle areas of air space opacity projecting over both lower lobes. This may represent pulmonary edema or focal infiltrates. IMPRESSION: Bibasilar infiltrates versus pulmonary edema. POS: [facility]
[2019-05-21 07:52] VITALS: BMI 37.3
[2019-05-21] MEDS ORDERED: Carvedilol 3.125 MG TAB PO SCH (08:00)
[2019-05-21 08:01] LABS: Free T4 (Free Thyroxine) Less than 0.40 ng/dL (0.70-1.48)
[2019-05-21 08:24] LABS: Troponin I 0.038 ng/mL (< 0.028)
[2019-05-21] MEDS ORDERED: Enoxaparin Sodium 40 MG/0.4 ML SYRINGE SC SCH (09:00)
[2019-05-21] MEDS: Clopidogrel Bisulfate 75 MG TAB PO SCH (09:23)
[2019-05-21] MEDS: Carvedilol 6.25 MG TAB PO SCH ×2 (09:23→16:23)
[2019-05-21] MEDS ORDERED: hydrALAZINE 20 MG/ML VIAL SLOW IVP PRN (10:43)
--- NOTE | 2019-05-21 11:16 | HP ---
PRIMARY CARE PHYSICIAN: Dr. Damaris Gamino. CHIEF COMPLAINT: I get short of breath when I lay down. HISTORY OF PRESENT ILLNESS: Mr. Mejia is a pleasant 48-year-old gentleman, who has a history of congestive heart failure, both systolic and diastolic. He also has a history of hypertension and diabetes as well as obstructive sleep apnea. He says in the last 2 days he has been getting short winded when he lays down. He also says that he has been "having sleep apnea problems." He says that he believes his machine is broken and has not been able to use it for the last month. He says he pulled it out of the closet to try to use it, so it is unclear how often he has actually been using it before it broke; but he keeps falling asleep when I tried to get any additional history from him. He says that he has been taking his medications regularly, but then he says oh, but sometimes I may forget to take it off and on. It was also noted that his medication bottles the doctor's name on the bottle was Dr. Michael who he saw back in December of last year and several of the medications have Dr. Michael's name on them and the last filled was in January of 2019. When I tried to ask him more about this, he basically will fall asleep. He is also not sure about what his settings should be on his CPAP machine and says that he tried to call to get it replaced, but then they said that he needed to talk with Dr. Gamino have this fixed. REVIEW OF SYSTEMS: Essentially unobtainable as the patient continues to fall asleep. However, when his cellphone rang, he was able to answer that and talk and then go back to sleep. PAST MEDICAL HISTORY: Significant for nonischemic cardiomyopathy, combined systolic and diastolic heart failure, hypertension, diabetes mellitus type 2, hyperlipidemia, and hypothyroidism as well as obstructive sleep apnea. PAST SURGICAL HISTORY: He had a cardiac catheterization in December 2018 as well as a pacemaker. ALLERGIES: JOSE ANGEL INHIBITORS, TRAMADOL, AND BENADRYL. FAMILY HISTORY: Significant for coronary artery disease. SOCIAL HISTORY: He smokes about 3 to 4 cigarettes a day. He has been a smoker for about 35 years. Denies any alcohol use. He has a girlfriend. Has 4 children. CURRENT MEDICATIONS: These are taken from the bottles in his room and include: 1. Lipitor 40 mg daily. 2. Carvedilol 12.5 mg twice a day. 3. Lasix 40 mg twice daily. 4. Plavix 75 mg daily. 5. Hydralazine 25 mg t.i.d. 6. Nifedipine. It is unclear whether he has been taking these. Again, bottles have dates back in January of 2019. Also read in one of Dr. Chung's notes that he wanted him off calcium channel blockers and the nifedipine is in his bag of medicines. PHYSICAL EXAMINATION: GENERAL: He is alert and oriented. He appears to be in no acute distress, but he does fall asleep. Blood pressure was 160/95, heart rate 90, respiratory rate of 18, temperature is 98.0, and O2 saturation is 96% on room air. HEENT: Pupils are equal, round, and reactive. Extraocular muscles are intact. His sclerae anicteric. Throat, no erythema, no exudates. NECK: No adenopathy. No bruits. LUNGS: Essentially clear to auscultation. There is no wheezing, no rales, no rhonchi. CARDIOVASCULAR: He has a normal S1 and S2. He did have an S3 and a slight grade 2/6 systolic murmur. ABDOMEN: Obese, it is soft, nontender, and nondistended. Bowel sounds are present. EXTREMITIES: He has 1+ edema. No calf tenderness. No joint effusions. NEUROLOGICAL: Grossly nonfocal. SKIN AND INTEGUMENT: No skin changes. No rash. LABORATORY DATA: Hemoglobin was 10.7, hematocrit is 30.7, white blood cell count 7.7, platelets are 93. Sodium 139, potassium 2.7, chloride is 102, CO2 is 29, BUN of 15, creatinine 1.4, glucose is 136. His BNP was 487. The TSH was 14.3, free T4 less than 0.4. Urine drug screen was negative. He on his chest x-ray by my reading has cardiomegaly with mild increased pulmonary vascular markings and on his EKG, it is sinus rhythm, the rate is in the 80s and he has an interventricular conduction delay as well as some T-wave inversions in I and aVL. ASSESSMENT AND PLAN: 1. This is a 48-year-old gentleman, who presents with acute on chronic respiratory failure due to congestive heart failure exacerbation and I suspect the congestive heart failure exacerbation is likely due to medical noncompliance. His bottles have dates back in January of 2019 when he was last in the hospital with prescriptions with one of our colleague's name on them and also his TSH is elevated as well as free T4 and I suspect he has been noncompliant with his Synthroid as he appears to be clinically hypothyroid and he also admits to noncompliance with BiPAP or CPAP. For the plan, he has been placed in observation. He has already been given Lasix in the ER. He may deserve another dose of IV Lasix. We will need to call his pharmacy to see when his medicines were last filled in the event that he has old bottles, but he did tell me these were the most current ones he has presently and then also need to try to find out the name of his CPAP device and who sent it so that we can see if it can be replaced and what type of settings he had been using. He says he went to a place across from [facility] to have the sleep study done. 2. Hypertension. He had hypertensive urgency. I suspect once again due to noncompliance, the bottle of hydralazine again was last filled on 01/30/2019. We will reconcile and restart his medicines and we will avoid the nifedipine. 3. Diabetes mellitus. Again, we will need to reconcile and restart his home medications as well as a sliding scale insulin. 4. Hypothyroidism. He appears to be under replaced. Once again, I suspect due to medical noncompliance, we will restart his home dose and this will need to be rechecked in the outpatient setting. An echocardiogram is also pending and further recommendations will be made pending the echo result. Job ID: [id number]
[2019-05-21] MEDS: Nicotine 14 MG PATCH TD SCH (11:18)
[2019-05-21 11:32] LABS: Troponin I 0.028 ng/mL (< 0.028)
[2019-05-21] MEDS: hydrALAZINE 25 MG TAB PO SCH ×2 (15:01→20:23)
[2019-05-21] MEDS ORDERED: Atorvastatin Calcium 40 MG TAB PO SCH (21:00)
[2019-05-22] MEDS: Levothyroxine Sodium 100 MCG TAB PO SCH (03:25)
[2019-05-22 05:19] LABS: Anion Gap 12 mmol/L (10-20); BUN (Urea Nitrogen) 20 mg/dL (8.9-20.6); Calc. Creatinine Clearance 89 mL/min (70-130); Calcium 8.9 mg/dL (7.8-10.44); Carbon Dioxide 27 mmol/L (22-29); Chloride 102 mmol/L (98-107); Estimated GFR-MDRD 59; Glucose 166 mg/dL (70-105); Potassium 3.2 mmol/L (3.5-5.1); Sodium 138 mmol/L (136-145)
[2019-05-22 05:31] LABS: #Eosinphils 0.4 thou/uL (0.0-0.7); #Lymphocytes 1.5 thou/uL (1.20-3.40); #Monocytes 0.4 thou/uL (0.11-0.59); #Neutrophils 4.3 thou/uL (1.40-6.50); %Basophils 0.6 % (0.0-1.0); %Eosinophils 5.9 % (0.0-10.0); %Lymphocytes 23.1 % (21.0-51.0); %Monocytes 6.1 % (0.0-10.0); %Neutrophils 64.3 % (42.0-75.0); Hemoglobin 10.4 g/dL (14.0-18.0); Large Platelets SLIGHT; MDiff Complete? YES; Mean Corpuscular HGB CONC 35.3 g/dL (32.0-36.0); Mean Corpuscular Hemoglobin 34.8 pg (27.0-31.0); Mean Corpuscular Volume 98.5 fL (78.0-98.0); Mean Platelet Volume 11.3 fL (7.4-10.4); Platelet Count 82 thou/uL (130-400); Platelet Morphology Comment Appears Decreased; RBC Distribution Width 15.8 % (11.5-14.5); White Blood Cell (WBC) Count 6.6 thou/uL (4.8-10.8)
[2019-05-22] MEDS ORDERED: Potassium Chloride 20 MEQ TAB PO SCH ×2 (08:00→12:15)
[2019-05-22] MEDS ORDERED: Aspirin 81 mg Enteric Coated Tablet PO SCH (09:00)
[2019-05-22] MEDS ORDERED: Furosemide 40 MG/4 ML VIAL SLOW IVP SCH ×2 (09:00→14:00)
[2019-05-22] MEDS ORDERED: Enoxaparin Sodium 40 MG/0.4 ML SYRINGE SC SCH (09:00)
[2019-05-22] MEDS: Carvedilol 6.25 MG TAB PO SCH (10:01)
[2019-05-22] MEDS: Clopidogrel Bisulfate 75 MG TAB PO SCH (10:02)
[2019-05-22] MEDS: hydrALAZINE 25 MG TAB PO SCH ×2 (10:02→14:10)
[2019-05-22] MEDS: Nicotine 14 MG PATCH TD SCH (10:13)
[2019-05-22 11:44] VITALS: BP 136/88; TEMP 97.4
--- NOTE | 2019-05-22 12:27 | PDOC.HOSPP ---
- Subjective Encounter Date: 05/22/19 Subjective: Feels a little better. - Objective Vital Signs & Weight: Vital Signs (12 hours) Temp Pulse Resp BP Pulse Ox 05/22/19 11:15 97.4 F L 70 20 136/88 94 L 05/22/19 10:02 71 05/22/19 07:24 97.7 F 71 16 134/79 95 05/22/19 03:24 97.3 F L 74 13 158/75 H 96 Weight Weight 239 lb 9.6 oz I&O: 05/21/19 05/22/19 05/23/19 06:59 06:59 06:59 Intake Total 1580 Output Total 1500 Balance 80 Result Diagrams: 05/22/19 04:30 05/22/19 04:30 Additional Labs: Accuchecks 05/22/19 05/21/19 05/21/19 11:32 19:53 16:26 POC Glucose 163 H 162 H 132 H Hospitalist ROS - Medication Medications: Active Medications Generic Name Dose Route Start Last Admin Trade Name Patrick PRN Reason Stop Dose Admin Aspirin 81 mg 05/22/19 09:00 05/22/19 10:01 Ecotrin PO 81 mg DAILY BRENDA Administration Atorvastatin Calcium 40 mg 05/21/19 21:00 05/21/19 20:23 Lipitor PO 40 mg HS BRENDA Administration Carvedilol 12.5 mg 05/21/19 08:00 05/22/19 10:01 Coreg PO 12.5 mg BID-WM BRENDA Administration Clopidogrel Bisulfate 75 mg 05/21/19 09:00 05/22/19 10:02 Plavix PO 75 mg DAILY BRENDA Administration Enoxaparin Sodium 40 mg 05/22/19 09:00 05/22/19 10:02 Lovenox SC Not Given 0900 [facility] Hydralazine HCl 37.5 mg 05/21/19 15:00 05/22/19 10:02 Apresoline PO 37.5 mg TID BRENDA Administration Insulin Human Lispro 0 units 05/21/19 06:00 05/21/19 11:08 Humalog SC 3 unit .MILD SLIDING SCALE PRN Administration Mild Correctional Scale Levothyroxine Sodium 200 mcg 05/21/19 06:00 05/22/19 03:25 Synthroid PO 200 mcg 0600 BRENDA Administration Nicotine 14 mg 05/21/19 11:00 05/22/19 10:13 Nicoderm Patch TD Not Given Q24HR BRENDA Potassium Chloride 20 meq 05/22/19 08:00 05/22/19 10:01 K-Dur PO 20 meq QAM-WM BRENDA Administration Sodium Chloride 10 ml 05/21/19 09:00 05/22/19 10:03 Flush - Normal Saline IVF 10 ml Q12HR BRENDA Administration - Exam General Appearance: awake alert Eye: PERRL Neck: supple, symmetric, no JVD Heart: RRR, no murmur, no gallops, no rubs Respiratory: no wheezes, no rales, no ronchi, rhonchi Gastrointestinal: soft, non-tender, non-distended, normal bowel sounds Hosp A/P (1) Acute on chronic systolic (congestive) heart failure Code(s): I50.23 - ACUTE ON CHRONIC SYSTOLIC (CONGESTIVE) HEART FAILURE Status : Acute (2) Bipolar disorder Code(s): F31.9 - BIPOLAR DISORDER, UNSPECIFIED Status: Chronic Qualifiers: (3) CKD (chronic kidney disease) stage 3, GFR 30-59 ml/min Status: Chronic (4) Dyslipidemia Code(s): E78.5 - HYPERLIPIDEMIA, UNSPECIFIED Status: Chronic (5) Hypertension Code(s): I10 - ESSENTIAL (PRIMARY) HYPERTENSION Status: Chronic Qualifiers: - Plan Remains significantly symptomatic. Fluid balance even yesterday. Increase lasix to 40 mg IV twice daily. Strict I&O 1800CC Fluid restriction.
--- NOTE | 2019-05-29 15:03 | EKG ---
Test Reason : Blood Pressure : / mmHG Vent. Rate : 083 BPM Atrial Rate : 083 BPM P-R Int : 206 ms QRS Dur : 132 ms QT Int : 448 ms P-R-T Axes : 046 -50 106 degrees QTc Int : 526 ms Normal sinus rhythm Left axis deviation Left ventricular hypertrophy with QRS widening and repolarization abnormality Cannot rule out Septal infarct , age undetermined Abnormal ECG Confirmed by KATJA JENNINGS DO ([id number]), associate editor LUZ KULKARNI ([id number]) on 05/29/2019 3:02:54 PM Referred By: Confirmed By:KATJA JENNINGS DO
== END 2019-05-22 16:07 | disposition left against medical advice (07) ==
LOC: ERS 04:16 → 2SW 05:56
PROVIDERS: ADMIT Internal Medicine; ATTEND Internal Medicine
DX: J96.20 Acute and chronic respiratory failure, unspecified whether with hypoxia or hypercapnia (principal); I13.0 Hypertensive heart and chronic kidney disease with heart failure and stage 1 through stage 4 chronic kidney disease, or unspecified chronic kidney disease; E11.22 Type 2 diabetes mellitus with diabetic chronic kidney disease; N18.3 Chronic kidney disease, stage 3 (moderate); I50.43 Acute on chronic combined systolic (congestive) and diastolic (congestive) heart failure; I42.8 Other cardiomyopathies; E03.9 Hypothyroidism, unspecified; E78.5 Hyperlipidemia, unspecified; F17.210 Nicotine dependence, cigarettes, uncomplicated; G47.33 Obstructive sleep apnea (adult) (pediatric); F31.9 Bipolar disorder, unspecified; Z79.899 Other long term (current) drug therapy; Z88.5 Allergy status to narcotic agent; Z88.8 Allergy status to other drugs, medicaments and biological substances
CPT/HCPCS: 36415; 36416; 71045; 80048; 80053; 80306; 83735; 83880; 84439; 84443; 84481; 84484; 85025; 93005; 93306; 96365; 96372; 96375; 96376; G0378; J0360; J1650; J1940; J3480

== ENCOUNTER 2019-06-01 04:37 | Emergency (ER) | payer OTHER ==
[2019-06-01] MEDS ORDERED: Nitroglycerin 2% Ointment 1 INCH/1 GM Packet ONE ×2 (04:52→04:56)
[2019-06-01 05:10] LABS: #Eosinphils 0.3 thou/uL (0.0-0.7); #Lymphocytes 1.5 thou/uL (1.20-3.40); #Monocytes 0.3 thou/uL (0.11-0.59); #Neutrophils 3.9 thou/uL (1.40-6.50); %Basophils 0.5 % (0.0-1.0); %Eosinophils 5.3 % (0.0-10.0); %Lymphocytes 24.8 % (21.0-51.0); %Monocytes 4.9 % (0.0-10.0); %Neutrophils 64.4 % (42.0-75.0); Hemoglobin 10.5 g/dL (14.0-18.0); Mean Corpuscular HGB CONC 33.5 g/dL (32.0-36.0); Mean Platelet Volume 10.9 fL (7.4-10.4); Platelet Count 105 thou/uL (130-400); RBC Distribution Width 17.3 % (11.5-14.5)
[2019-06-01 05:30] LABS: ALT (SGPT) 42 U/L (8-55); AST (SGOT) 44 U/L (5-34); Albumin 4.2 g/dL (3.5-5.0); Alkaline Phosphatase 169 U/L (40-110); Anion Gap 11 mmol/L (10-20); BUN (Urea Nitrogen) 14 mg/dL (8.9-20.6); Bilirubin, Total 0.9 mg/dL (0.2-1.2); Calc. Creatinine Clearance 0 mL/min (70-130); Calcium 8.5 mg/dL (7.8-10.44); Carbon Dioxide 28 mmol/L (22-29); Chloride 103 mmol/L (98-107); Estimated GFR-MDRD 56; Globulin 3.3 g/dL (2.4-3.5); Glucose 178 mg/dL (70-105); Magnesium 2.2 mg/dL (1.6-2.6); Potassium 3.2 mmol/L (3.5-5.1); Protein, Total 7.5 g/dL (6.0-8.3); Sodium 139 mmol/L (136-145)
[2019-06-01] MEDS ORDERED: Furosemide 20 MG/2 ML VIAL ONE (05:53)
--- NOTE | 2019-06-01 08:07 | RAD ---
EXAM: CHEST ONE VIEW HISTORY: Dyspnea COMPARISON: 05/21/2019 FINDINGS: Left subclavian AICD device remains in place. Cardiac silhouette remains enlarged. Mild pulmonary vas cular congestion is present. Suboptimal evaluation of the left lung base due to overlying soft tissue density and enlarged cardiac silhouette. No consolidation is present, and there are mildly inc reased interstitial densities at the right lung base. No other interval change. IMPRESSION: Cardiomegaly and mild pulmonary vascular congestion. Correlation for mild CHF is suggested.
--- NOTE | 2019-06-03 13:43 | EKG ---
Test Reason : EMERGENCY Blood Pressure : / mmHG Vent. Rate : 083 BPM Atrial Rate : 083 BPM P-R Int : 188 ms QRS Dur : 128 ms QT Int : 436 ms P-R-T Axes : 044 -49 105 degrees QTc Int : 512 ms Normal sinus rhythm Possible Left atrial enlargement Left bundle branch block Abnormal ECG Confirmed by ROSETTA JOYNER ([id number]), editor news LUZ KULKARNI ([id number]) on 06/03/2019 1:42:52 PM Referred By: Confirmed By:ROSETTA JOYNER
== END 2019-06-01 06:07 | disposition home or self-care (01) ==
LOC: ERS 04:37
DX: I42.9 Cardiomyopathy, unspecified (principal); I11.0 Hypertensive heart disease with heart failure; I50.9 Heart failure, unspecified; D50.9 Iron deficiency anemia, unspecified; J44.9 Chronic obstructive pulmonary disease, unspecified; E03.9 Hypothyroidism, unspecified; E78.5 Hyperlipidemia, unspecified; F31.9 Bipolar disorder, unspecified; F41.9 Anxiety disorder, unspecified; F20.9 Schizophrenia, unspecified; F17.210 Nicotine dependence, cigarettes, uncomplicated; Z79.899 Other long term (current) drug therapy
CPT/HCPCS: 71045; 80053; 83735; 83880; 84484; 85025; 93005; 96374; J1940

== ENCOUNTER 2019-06-08 14:18 | Inpatient (IN) | payer OTHER ==
[2019-06-08 15:01] LABS: #Eosinphils 0.3 thou/uL (0.0-0.7); #Lymphocytes 1.7 thou/uL (1.20-3.40); #Monocytes 0.4 thou/uL (0.11-0.59); #Neutrophils 4.6 thou/uL (1.40-6.50); %Basophils 0.2 % (0.0-1.0); %Eosinophils 4.4 % (0.0-10.0); %Lymphocytes 24.8 % (21.0-51.0); %Monocytes 5.1 % (0.0-10.0); %Neutrophils 65.4 % (42.0-75.0); Hemoglobin 10.9 g/dL (14.0-18.0); Mean Corpuscular HGB CONC 33.3 g/dL (32.0-36.0); Mean Corpuscular Hemoglobin 34.7 pg (27.0-31.0); Mean Platelet Volume 10.7 fL (7.4-10.4); Platelet Count 105 thou/uL (130-400); RBC Distribution Width 16.7 % (11.5-14.5); Red Blood Cell (RBC) Count 3.14 mill/uL (4.70-6.10)
[2019-06-08 15:23] LABS: ALT (SGPT) 27 U/L (8-55); AST (SGOT) 30 U/L (5-34); Albumin 4.2 g/dL (3.5-5.0); Alkaline Phosphatase 149 U/L (40-110); Anion Gap 11 mmol/L (10-20); BUN (Urea Nitrogen) 13 mg/dL (8.9-20.6); Bilirubin, Total 0.6 mg/dL (0.2-1.2); CK (CPK) 945 U/L (30-200); Calc. Creatinine Clearance 0 mL/min (70-130); Calcium 8.7 mg/dL (7.8-10.44); Carbon Dioxide 27 mmol/L (22-29); Chloride 105 mmol/L (98-107); Estimated GFR-MDRD 65; Globulin 3.1 g/dL (2.4-3.5); Glucose 148 mg/dL (70-105); Lipase 13 U/L (8-78); Potassium 3.3 mmol/L (3.5-5.1); Protein, Total 7.3 g/dL (6.0-8.3); Sodium 140 mmol/L (136-145)
--- NOTE | 2019-06-08 15:40 | RAD ---
PORTABLE CHEST 1 VIEW: Date: 06/08/2019 Time: 1510 hours HISTORY: Shortness of breath and bilateral lower extremity swelling. COMPARISON: 06/01/2019. FINDINGS: The heart is enlarged. Left-sided AICD remains in place. Mild pulmonary vascular congestion. No lobar consolidation, pneumothoraces, or large effusions are seen. IMPRESSION: Mild CHF. POS: GENEV[facility]E
[2019-06-08] MEDS ORDERED: Furosemide 40 MG/4 ML VIAL ONE (15:44)
[2019-06-08] MEDS ORDERED: Aspirin Chewable 81 MG TAB ONE (15:44)
[2019-06-08 15:46] LABS: CKMB 8.7 ng/mL (0-6.6)
[2019-06-08] MEDS ORDERED: Nitroglycerin 2% Ointment 1 INCH/1 GM Packet ONE (15:56)
[2019-06-08] MEDS ORDERED: Ondansetron ODT 4 MG TAB PO PRN (18:25)
[2019-06-08] MEDS ORDERED: Bisacodyl 5 MG TAB PO PRN (18:25)
[2019-06-08] MEDS ORDERED: Calcium Carbonate 500 MG ChewTAB PO PRN (18:25)
[2019-06-08] MEDS ORDERED: Senokot S 8.6-50 MG TAB PO PRN (18:25)
[2019-06-08] MEDS ORDERED: Potassium Chloride 20 MEQ TAB PO SCH (18:30)
[2019-06-08 18:57] LABS: Troponin I 0.044 ng/mL (< 0.028)
[2019-06-08] MEDS ORDERED: Dextrose 5% in Water 1,000 ML IV PRN (19:27)
[2019-06-08] MEDS ORDERED: HumaLOG 300 UNITS/3 ML VIAL SC PRN (19:27)
[2019-06-08] MEDS ORDERED: Dextrose 50% Abboject 50 ML SYRINGE SLOW IVP PRN (19:27)
[2019-06-08] MEDS: Furosemide 40 MG/4 ML VIAL SLOW IVP SCH (19:47)
[2019-06-08] MEDS: Nicotine 14 MG PATCH TD SCH (19:47)
[2019-06-08] MEDS: Famotidine 20 MG TAB PO SCH (19:47)
[2019-06-08] MEDS: Acetaminophen 325 MG TAB PO PRN (19:51)
[2019-06-08] MEDS: Heparin 5,000 UNITS/ML VIAL SC SCH (20:02)
[2019-06-08 20:15] VITALS: BMI 38.7
[2019-06-08 21:31] LABS: Troponin I 0.049 ng/mL (< 0.028)
[2019-06-08 21:51] LABS: Free T4 (Free Thyroxine) 0.46 ng/dL (0.70-1.48)
[2019-06-09] MEDS: Furosemide 40 MG/4 ML VIAL SLOW IVP SCH ×3 (05:10→20:47)
--- NOTE | 2019-06-09 06:36 | HP ---
PRIMARY CARE PHYSICIAN: Dr. Damaris Gamino with [facility]. CHIEF COMPLAINT: Shortness of breath, bilateral lower extremity swelling x2 days. HISTORY OF PRESENT ILLNESS: The patient is a 48-year-old male with a past medical history significant for combined systolic and diastolic heart failure with an AICD, hypertension, hyperlipidemia, hypothyroidism, obstructive sleep apnea and smoking, who presents to ER with above complaint. The patient reports that over the last several days he has noticed significant swelling to his lower extremities and as of yesterday, he has had progressive shortness of breath. He reports some associated orthopnea. He denies any chest pain or heart palpitations. He denies any cough or wheezing. He denies any fever or chills. The patient reports that he has been taking his medicines as prescribed. He has not been weighing himself daily. Of note, the patient was recently discharged on 05/20 from this hospital for a CHF exacerbation. In the ER, the patient was found to have an EKG, normal sinus rhythm 92 beats per minute with some left ventricular hypertrophy. Chest x-ray showed some cardiomegaly, AICD in place with mild pulmonary congestion, significant for mild CHF exacerbation. Troponin was mildly bumped at 0.040. CK-MB 8.7. BNP of 507. Potassium of 3.3. The patient was given nitro 1-inch, Lasix 40 mg IV push, and a full dose aspirin and will be admitted to the floor. PAST MEDICAL HISTORY: Significant for nonischemic cardiomyopathy, combined systolic and diastolic heart failure, hypertension, diabetes type 2, hyperlipidemia, hypothyroidism, smoking and obstructive sleep apnea. Reports being compliant on his CPAP. PAST SURGICAL HISTORY: He had a cardiac catheterization in 2019 as well as an AICD. ALLERGIES: 1. JOSE ANGEL INH[employer]. 2. TRAMADOL. 3. BENADRYL. MEDICATIONS: 1. Carvedilol 12.5 mg one p.o. b.i.d. 2. Atorvastatin 40 mg one p.o. at bedtime. 3. Nifedipine Extended Release 30 mg p.o. b.i.d. 4. Clopidogrel 75 mg one p.o. daily. 5. Isosorbide dinitrate 20 mg one p.o. t.i.d. 6. Hydralazine 25 mg 1-1/2 tablets p.o. t.i.d. 7. Furosemide 40 mg one p.o. b.i.d. 8. Levothyroxine 150 mcg one p.o. q.a.m. SOCIAL HISTORY: The patient lives in [place] with his girlfriend. He collects disability. He is a smoker, half pack per day, trying to quit. He denies any alcohol intake or any illicit drug use. FAMILY HISTORY: Family history significant for coronary artery disease. REVIEW OF SYSTEMS: All other systems reviewed are negative unless noted in the HPI. PHYSICAL EXAMINATION: GENERAL: He is alert and oriented. He is in no acute distress. VITAL SIGNS: Temperature of 98.7, blood pressure of 152/126, pulse of 79, respirations of 15. He is 95% on 3 L. He is in no pain. HEENT: Pupils are equal, round, and reactive to light. Extraocular muscles are intact. Sclerae are nonicteric. Throat, posterior oropharynx is clear. No erythema. No exudates. NECK: No adenopathy. No JVD. No bruits. LUNGS: The patient is mildly diminished in the lower bases bilaterally. There is no wheezing, rhonchi, or rales. CARDIOVASCULAR: Regular rate and rhythm. Did auscultate a 2/6 murmur. ABDOMEN: Soft, nontender, and distended. Distant bowel sounds. No guarding. No signs of acute abdomen. EXTREMITIES: He has 3+ pitting edema in the bilateral lower extremities. Pedal pulses bilaterally are weak. NEUROLOGIC: The patient's GCS is 15. He is alert and oriented x3. No focal deficits. SKIN: Clean, dry, and intact. LABORATORY DATA: EKG, sinus rhythm 92 beats per minute with some LVH. Chest x- ray showed some cardiomegaly, AICD in place and some mild pulmonary congestion consistent with mild CHF exacerbation. Troponins are mildly bumped. Troponin 0.040. BNP 507. CK-MB 8.7. Sodium was 140, potassium was 3.3, BUN was 13, creatinine was 1.40, glucose was 148, lipase 13, AST 30, ALT 27, ALP 149. WBC is 7, hemoglobin 10.9, hematocrit 32.7, and platelets 105. IMPRESSION: 1. Acute congestive heart failure exacerbation. Right now, the patient is in no acute distress on 3 L nasal cannula, satting 95% to 96%. Last echo was dated on 05/14 showed an EF of 30% to 35% with severe mitral regurgitation and grade 3 diastolic dysfunction. We will give Lasix 40 mg IV push x1 dose now and we will start the patient on Lasix 40 mg b.i.d. IV push, do a fluid restriction of 1500 mL, sodium restriction of 2 g, will do strict I's and O's. Consult heart failure clinic. Recheck labs in a.m. and we will check a TSH and a mag. 2. Hypokalemia, it is mild, 3.3. We will replace with 40 mEq of potassium x1 dose now. Recheck BMP in the a.m. 3. Chronic obstructive pulmonary disease, appears stable. We will add DuoNebs p.r.n. and maintain oxygen above 92%. 4. Diabetes II, HA1C was 7.7 (01/13), Will start sliding scale and AC/HS accuchecks. 5. Hypertension, chronic. We will restart the patient's home meds when reconciled by nursing. 6. Hyperlipidemia, chronic. We will restart atorvastatin 40 mg when reconciled by nursing. 7. Hypothyroidism. We will restart the patient's levothyroxine when medications are reconciled by nursing and we will recheck TSH. 8. Obstructive sleep apnea. The patient reports being compliant on CPAP. The patient does not have CPAP here in the hospital. We will continue to monitor O2 sats. 9. Tobacco abuse. Attempting to quit. Will start NRT therapy and counseling for tobacco cessation. 10. Consult PT and OT. 11. Gastrointestinal and deep venous thrombosis prophylaxis. The patient is a full code. DPOA is Maria A Sprague, his girlfriend, # [phone]. Job ID: [id number] [facility]
[2019-06-09 06:48] LABS: Hemoglobin A1c 7.2 % (4.0-6.0)
[2019-06-09 07:08] LABS: ALT (SGPT) 25 U/L (8-55); AST (SGOT) 27 U/L (5-34); Albumin 4.2 g/dL (3.5-5.0); Alkaline Phosphatase 152 U/L (40-110); Anion Gap 13 mmol/L (10-20); BUN (Urea Nitrogen) 15 mg/dL (8.9-20.6); Bilirubin, Total 0.7 mg/dL (0.2-1.2); Calc. Creatinine Clearance 91 mL/min (70-130); Calcium 8.6 mg/dL (7.8-10.44); Carbon Dioxide 28 mmol/L (22-29); Chloride 102 mmol/L (98-107); Estimated GFR-MDRD 59; Globulin 3.2 g/dL (2.4-3.5); Glucose 144 mg/dL (70-105); Potassium 3.5 mmol/L (3.5-5.1); Protein, Total 7.4 g/dL (6.0-8.3); Sodium 139 mmol/L (136-145)
[2019-06-09 07:52] LABS: Eosinophils 6 % (0-10); Hemoglobin 10.9 g/dL (14.0-18.0); Lymphocytes 24 % (21-51); MDiff Complete? YES; Mean Corpuscular HGB CONC 33.3 g/dL (32.0-36.0); Mean Corpuscular Hemoglobin 34.7 pg (27.0-31.0); Mean Platelet Volume 10.1 fL (7.4-10.4); Monocytes 6 % (0-10); Neutrophil 63 % (42-75); Platelet Count 107 thou/uL (130-400); Platelet Morphology Comment Appears Decreased; Polychromasia SLIGHT = 2-3 cells (100X) (0-2/hpf); RBC Distribution Width 16.6 % (11.5-14.5); Red Blood Cell (RBC) Count 3.13 mill/uL (4.70-6.10); White Blood Cell (WBC) Count 6.1 thou/uL (4.8-10.8)
[2019-06-09] MEDS: Heparin 5,000 UNITS/ML VIAL SC SCH ×2 (08:45→20:45)
[2019-06-09] MEDS: Aspirin Chewable 81 MG TAB PO SCH (08:45)
[2019-06-09] MEDS: Famotidine 20 MG TAB PO SCH ×2 (08:45→20:46)
--- NOTE | 2019-06-09 12:08 | PDOC.HOSPP ---
- Subjective Encounter Date: 06/09/19 Encounter Time: 10:00 Subjective: The patient was readmitted for shortness of breath and leg swelling. He states he was taking his diamox at home however it was not working. He still feels short of breath currently. He does not eat salt. Patient states he was using his CPAP/BIPAP mask at home but he ran out and needs a new machine. Per nursing staff he is drowsy and slurs his speech sometime. He was noted to be snoring and wearing nasal cannula - Objective Vital Signs & Weight: Vital Signs (12 hours) Temp Pulse Pulse Pulse Resp BP BP 06/09/19 11:19 06/09/19 11:13 98.0 F 80 16 06/09/19 10:15 82 88 159/105 H 169/106 H 06/09/19 10:14 82 159/105 H 169/106 H 06/09/19 07:28 97.6 F 72 16 06/09/19 03:30 97.2 F L 71 20 BP Pulse Ox Pulse Ox 06/09/19 11:19 91 L 06/09/19 11:13 152/101 H 91 L 06/09/19 10:15 06/09/19 10:14 99 06/09/19 07:28 146/101 H 97 06/09/19 03:30 140/104 H 94 L Weight Weight 242 lb 11.2 oz I&O: 06/08/19 06/09/19 06/10/19 06:59 06:59 06:59 Intake Total 537 Output Total 2100 Balance -1563 Result Diagrams: 06/09/19 06:33 06/09/19 06:34 Additional Labs: Accuchecks 06/09/19 06/08/19 05:40 21:03 POC Glucose 166 H 204 H Hospitalist ROS - Review of Systems Constitutional: denies: fever, chills - Medication Medications: Active Medications Generic Name Dose Route Start Last Admin Trade Name Freq PRN Reason Stop Dose Admin Acetaminophen 650 mg 06/08/19 18:25 06/08/19 19:51 Tylenol PO 650 mg Q4H PRN Administration Headache/Fever/Mild Pain (1-3) Aspirin 81 mg 06/09/19 09:00 06/09/19 08:45 Aspirin Chewable PO 81 mg DAILY BRENDA Administration Famotidine 20 mg 06/08/19 21:00 06/09/19 08:45 Pepcid PO 20 mg BID BRENDA Administration Furosemide 40 mg 06/09/19 06:00 06/09/19 05:10 Lasix SLOW IVP 40 mg 0600,1400 BRENDA Administration Furosemide 40 mg 06/08/19 21:00 06/08/19 19:47 Lasix SLOW IVP 40 mg 2100 BRENDA Administration Heparin Sodium (Porcine) 5,000 units 06/08/19 21:00 06/09/19 08:45 Heparin SC 5,000 units BID BRENDA Administration Nicotine 14 mg 06/08/19 20:00 06/08/19 19:47 Nicoderm Patch TD Not Given Q24HR BRENDA - Exam General Appearance: NAD, awake alert General - other findings: intermittently drowsy Eye: PERRL, anicteric sclera ENT: normocephalic atraumatic, no oropharyngeal lesions Neck: supple, no JVD Heart: RRR, no murmur, no gallops, no rubs Respiratory: CTAB, no wheezes, no rales, no ronchi Gastrointestinal: soft, non-tender, non-distended Extremities: 1+ LE edema Skin: normal turgor, no lesions, no rashes Neurological: cranial nerve grossly intact, normal sensation to touch, no focal deficits, no new deficit Hosp A/P - Plan This is a 48 year old male who presented with shortness of breath and leg swelling, admitted for CHF exacerbation #CHF exacerbation - will continue IV lasix - creatinine slightly up to 1.53 - was on diamox as an outpatient - continue plavix - will repeat ECHO due to higher troponin compared to last time #COPD #NEREIDA - patient is to wear BIPAP qhs and CPAP while sleeping #Atrial fibrillation - will resume metoprolol and amiodarone started during last hospitalization - not on eliquis due to LUE hematoma during last admission #Type II diabetes - A1C 7.2, continue sliding scale insulin #LUE hematoma #LUE superficial thrombosis - on DVt prophylaxis - holding anticoagulation #Nonsmall cell lung cancer stage IV - patient follows with oncology as an outpatient Code status: full code
[2019-06-09 12:38] LABS: CKMB 5.3 ng/mL (0-6.6)
[2019-06-09] MEDS ORDERED: Amiodarone 200 MG TAB PO SCH (13:00)
[2019-06-09] MEDS ORDERED: Clopidogrel Bisulfate 75 MG TAB PO SCH (13:00)
[2019-06-09] MEDS: Nicotine 14 MG PATCH TD SCH (20:45)
[2019-06-09] MEDS ORDERED: Metoprolol Tartrate 25 MG TAB PO SCH (21:00)
[2019-06-10] MEDS: Acetaminophen 325 MG TAB PO PRN (04:11)
[2019-06-10] MEDS: Furosemide 40 MG/4 ML VIAL SLOW IVP SCH ×2 (05:51→13:52)
[2019-06-10] MEDS ORDERED: Clopidogrel Bisulfate 75 MG TAB PO SCH (09:00)
[2019-06-10] MEDS ORDERED: Amiodarone 200 MG TAB PO SCH (09:00)
[2019-06-10] MEDS: Famotidine 20 MG TAB PO SCH ×2 (09:08→20:39)
[2019-06-10] MEDS: Aspirin Chewable 81 MG TAB PO SCH (09:08)
[2019-06-10] MEDS: Heparin 5,000 UNITS/ML VIAL SC SCH ×2 (09:09→20:40)
[2019-06-10] MEDS ORDERED: Carvedilol 6.25 MG TAB PO SCH (10:00)
[2019-06-10] MEDS: HumaLOG 300 UNITS/3 ML VIAL SC PRN (11:15)
--- NOTE | 2019-06-10 18:31 | PDOC.HOSPP ---
- Subjective Encounter Date: 06/10/19 Encounter Time: 10:00 Subjective: The patient states he is doing better. He lost 6 pounds. Leg swelling is normal. However he still has some orthopnea and cough laying down Patient also reports feeling a knot in his neck. - Objective Vital Signs & Weight: Vital Signs (12 hours) Temp Pulse Pulse Pulse Resp BP BP 06/10/19 16:00 98.5 F 78 21 H 06/10/19 13:37 79 141/93 H 06/10/19 12:10 98.3 F 86 18 06/10/19 11:51 84 68 168/101 H 06/10/19 11:09 158/107 H 06/10/19 07:52 99.4 F 84 16 06/10/19 07:40 BP BP BP Pulse Ox Pulse Ox Pulse Ox 06/10/19 16:00 136/93 H 97 06/10/19 13:37 06/10/19 12:10 168/101 H 94 L 06/10/19 11:51 169/104 H 96 97 06/10/19 11:09 06/10/19 07:52 167/107 H 95 06/10/19 07:40 95 Weight Weight 236 lb 9.6 oz I&O: 06/09/19 06/10/19 06/11/19 06:59 06:59 06:59 Intake Total 537 1320 1207 Output Total 2100 2360 850 Balance -1563 -1040 357 Result Diagrams: 06/09/19 06:33 06/09/19 06:34 Additional Labs: Accuchecks 06/10/19 06/09/19 06/09/19 05:46 20:17 17:12 POC Glucose 145 H 192 H 173 H 06/09/19 11:36 POC Glucose 156 H Hospitalist ROS - Review of Systems Constitutional: denies: fever, chills - Medication Medications: Active Medications Generic Name Dose Route Start Last Admin Trade Name Freq PRN Reason Stop Dose Admin Acetaminophen 650 mg 06/08/19 18:25 06/10/19 04:11 Tylenol PO 650 mg Q4H PRN Administration Headache/Fever/Mild Pain (1-3) Aspirin 81 mg 06/09/19 09:00 06/10/19 09:08 Aspirin Chewable PO 81 mg DAILY BRENDA Administration Clopidogrel Bisulfate 75 mg 06/10/19 09:00 04/15/20 09:09 Plavix PO 75 mg DAILY BRENDA Administration Famotidine 20 mg 06/08/19 21:00 06/10/19 09:08 Pepcid PO 20 mg BID BRENDA Administration Furosemide 40 mg 06/09/19 06:00 06/10/19 13:52 Lasix SLOW IVP 40 mg 0600,1400 BRENDA Administration Furosemide 40 mg 06/08/19 21:00 06/09/19 20:47 Lasix SLOW IVP 40 mg 2100 BRENDA Administration Heparin Sodium (Porcine) 5,000 units 06/08/19 21:00 06/10/19 09:09 Heparin SC 5,000 units BID BRENDA Administration Insulin Human Lispro 0 units 06/08/19 19:27 06/10/19 11:15 Humalog SC 2 unit .MILD SLIDING SCALE PRN Administration Mild Correctional Scale Nicotine 14 mg 06/08/19 20:00 06/09/19 20:45 Nicoderm Patch TD 14 mg Q24HR BRENDA Administration - Exam General Appearance: NAD, awake alert Eye: PERRL, anicteric sclera ENT: normocephalic atraumatic, no oropharyngeal lesions ENT - other findings: hoarse voice. Neck: supple, symmetric, no JVD, no thyromegaly Neck - other findings: Palpable lump on left side of neck, feels like scar tissue? Heart: RRR, no murmur, no gallops, no rubs Respiratory: CTAB, no wheezes, no rales, no ronchi Gastrointestinal: soft, non-tender, non-distended, normal bowel sounds, no palpable masses Extremities: no cyanosis, no clubbing, no edema Hosp A/P - Plan This is a 48 year old male who presented with shortness of breath and leg swelling, admitted for CHF exacerbation #CHF exacerbation - will continue IV lasix. Repeat chest X ray and BMP - still has some orthopnea - troponin peaked at 0.043 - repeat ECHO showed moderate to severe TR, EF 25-30%, no wall motion abnormalities Hypertensive urgency - BP 168/101 - started coreg 6.25 mg bid Neck lump - will check neck ultrasound #Type II diabetes - A1C 7.2, continue sliding scale insulin Code status: full code
[2019-06-10] MEDS: Carvedilol 6.25 MG TAB PO SCH (18:42)
[2019-06-10 19:14] LABS: Anion Gap 14 mmol/L (10-20); BUN (Urea Nitrogen) 19 mg/dL (8.9-20.6); Calc. Creatinine Clearance 85 mL/min (70-130); Calcium 9.1 mg/dL (7.8-10.44); Carbon Dioxide 28 mmol/L (22-29); Chloride 99 mmol/L (98-107); Estimated GFR-MDRD 56; Glucose 162 mg/dL (70-105); Magnesium 2.3 mg/dL (1.6-2.6); Potassium 3.1 mmol/L (3.5-5.1); Sodium 138 mmol/L (136-145)
[2019-06-10] MEDS ORDERED: Potassium Chloride 20 MEQ TAB PO SCH (19:30)
[2019-06-10] MEDS: Nicotine 14 MG PATCH TD SCH (20:41)
[2019-06-11 05:39] LABS: Anion Gap 14 mmol/L (10-20); BUN (Urea Nitrogen) 17 mg/dL (8.9-20.6); Calc. Creatinine Clearance 90 mL/min (70-130); Calcium 9.1 mg/dL (7.8-10.44); Carbon Dioxide 29 mmol/L (22-29); Chloride 100 mmol/L (98-107); Estimated GFR-MDRD 60; Glucose 132 mg/dL (70-105); Potassium 3.8 mmol/L (3.5-5.1); Sodium 139 mmol/L (136-145)
[2019-06-11 06:04] LABS: Thyroid Stimulating Hormone 16.3688 uIU/mL (0.35-4.94)
[2019-06-11 06:08] LABS: Hemoglobin 11.9 g/dL (14.0-18.0); Mean Corpuscular HGB CONC 33.6 g/dL (32.0-36.0); Mean Corpuscular Hemoglobin 35.1 pg (27.0-31.0); Mean Platelet Volume 10.2 fL (7.4-10.4); Platelet Count 116 thou/uL (130-400); RBC Distribution Width 16.4 % (11.5-14.5); Red Blood Cell (RBC) Count 3.38 mill/uL (4.70-6.10); White Blood Cell (WBC) Count 6.1 thou/uL (4.8-10.8)
--- NOTE | 2019-06-11 08:22 | RAD ---
CHEST 1 VIEW: HISTORY: Orthopnea. COMPARISON: 06/08/2019. FINDINGS: Cardiomegaly, stable. Left ICD. Mild bilateral vascular congestion with slight improvement from the prior study. IMPRESSION: Stable cardiomegaly. Improving bilateral vascular congestion. No significant new process. POS: [facility]
--- NOTE | 2019-06-11 08:43 | ULT ---
ULTRASOUND LEFT NECK: Date: 06/11/2019 HISTORY: 48-year-old male with palpable lump in left neck. FINDINGS: Focused ultrasound with high frequency transducer in the left neck demonstrates a well-circumscribed, approximately 1.8 x 1.8 x 0.9 cm mass located in the superficial soft tissues, just deep to the derm is. It has intermediate echogenicity approximately 0.2 cm rim which has blood flow demonstrated by Do ppler. The rest of the mass has heterogeneously hypoechoic and intermediate echogenicity internal con tents with no blood flow. IMPRESSION: 1. Mass in the superficial soft tissues of the left neck. The findings are nonspecific, and possibil ities include necrotic malignant metastatic lymph node, pyogenic suppurative lymph node, or infected epidermal inclusion cyst. 2. Recommend further evaluation with CT of the neck with IV contrast (unless contraindicated). POS: JIN
[2019-06-11] MEDS ORDERED: Levothyroxine Sodium 25 MCG TAB PO SCH ×2 (08:52→09:00)
[2019-06-11] MEDS ORDERED: Sodium Chloride 0.45% 1,000 ML IV SCH (09:00)
[2019-06-11] MEDS: Heparin 5,000 UNITS/ML VIAL SC SCH ×2 (09:53→20:53)
[2019-06-11] MEDS: Carvedilol 6.25 MG TAB PO SCH ×2 (09:55→17:11)
[2019-06-11] MEDS: Famotidine 20 MG TAB PO SCH ×2 (09:56→20:53)
[2019-06-11] MEDS: Aspirin Chewable 81 MG TAB PO SCH (09:56)
--- NOTE | 2019-06-11 12:36 | CT ---
CT NECK SOFT TISSUES WITH CONTRAST: Date: 06/11/2019 HISTORY: 48-year-old male with palpable left neck mass. COMPARISON: None. TECHNIQUE: Single venous phase scan acquired from mid orbit level to hellen. Coronal and sagittal reconstruction s. FINDINGS: At the superiormost two image slices, there is a strongly enhancing mass at the superior aspect of th e left orbit, which is only partially imaged. Only the inferior portion of the mass is included, loca chan at the posterior half of the upper orbit. Located lateral to the left platysma muscle, inferolateral to the body and angle of the left mandible , and lateral to the left submandibular gland, there is an approximately 1 x 1.5 x 2 cm mass located in the subcutaneous fat. Its internal contents are low density, consistent with fluid, surrounded by rim of soft tissue density. It abuts both the overlying dermis, which is thickened, and the underlyi ng platysma muscle, which is also thickened. It is surrounded by fat stranding representing edema in the subcutaneous fat. There are heterogeneously diffuse, mild ground-glass changes throughout the upper lobes of the bilate ral lungs, probably representing pulmonary interstitial edema. The larynx is unremarkable. Thyroid gl and is small. No destructive osseous lesion or high grade cervical spondylosis. No major pathology identified involving the sublingual, submandibular, parotid, carotid, telegraph office telephone clerk, and posterior cervical, spaces. No cervical lymphadenopathy by size criteria. There are prominent col lateral blood vessels in the retropharyngeal space. Hyperplasia of lingual tonsil and adenoids. Tiny calcifications in the left palatine tonsil. Prominent blood vessels in bilateral parapharyngeal space s. No retropharyngeal abscess. There is diffuse mild edema in the subcutaneous fat abutting the poste rior paraspinal musculature diffusely, including suboccipital levels, and to a lesser degree througho ut the rest of the face and neck, and left buccal space. IMPRESSION: 1. Partially imaged strongly enhancing mass in the upper aspect of the left orbit, incompletely eval uated. Possibilities include venous varix, dilated superior ophthalmic vein, such as that due to casey tid-cavernous fistula, and neoplasm. Recommend further evaluation with dedicated CT of orbits with co ntrast, preferably 24-72 hours from now. 2. Inflammatory mass in the upper neck in subcutaneous fat, superficial to the left lateral submandi bular space: evidence for infection, probably a small abscess or infected epidermal inclusion cyst. 3. Atrophic thyroid gland. 4. Hyperplasia of Waldeyer's ring. 5. Prominent collateral blood vessels in deep spaces of neck. 6. Ground-glass changes at the bilateral lung apices. Nonspecific. Possibly mild pulmonary interstit ial edema. CODE T. POS: JIN
[2019-06-11] MEDS: HumaLOG 300 UNITS/3 ML VIAL SC PRN (12:47)
[2019-06-11] MEDS ORDERED: Iopamidol 370 76% 100 ML VIAL ONE (14:12)
--- NOTE | 2019-06-11 16:11 | PDOC.HOSPP ---
- Subjective Encounter Date: 06/11/19 Encounter Time: 10:00 Subjective: The patient denies significant shortness of breath or cough. He is only SOB while laying down. Still feels his neck feels heavy. US neck showing a mass, CT neck ordered - Objective Vital Signs & Weight: Vital Signs (12 hours) Temp Pulse Pulse Pulse Resp BP BP 06/11/19 14:32 76 81 149/105 H 06/11/19 12:50 98.4 F 79 16 06/11/19 09:55 165/105 H 06/11/19 08:35 06/11/19 08:16 98.6 F 85 20 BP BP Pulse Ox Pulse Ox Pulse Ox 06/11/19 14:32 146/103 H 90 L 92 L 06/11/19 12:50 144/94 H 95 06/11/19 09:55 06/11/19 08:35 95 06/11/19 08:16 165/105 H 95 Weight Weight 150 lb I&O: 06/10/19 06/11/19 06/12/19 06:59 06:59 06:59 Intake Total 1320 1357 Output Total 2360 1350 Balance -1040 7 Result Diagrams: 06/11/19 04:57 06/11/19 04:57 Additional Labs: Accuchecks 06/11/19 06/11/19 06/10/19 11:30 05:33 20:29 POC Glucose 175 H 148 H 165 H 06/10/19 06/10/19 16:58 10:59 POC Glucose 127 H 156 H Hospitalist ROS - Review of Systems Constitutional: denies: fever, chills Eyes: denies: pain, vision change - Medication Medications: Active Medications Generic Name Dose Route Start Last Admin Trade Name Freq PRN Reason Stop Dose Admin Acetaminophen 650 mg 06/08/19 18:25 06/10/19 04:11 Tylenol PO 650 mg Q4H PRN Administration Headache/Fever/Mild Pain (1-3) Aspirin 81 mg 06/09/19 09:00 06/11/19 09:56 Aspirin Chewable PO 81 mg DAILY BRENDA Administration Carvedilol 6.25 mg 06/10/19 17:00 06/11/19 09:55 Coreg PO 6.25 mg BID-WM BRENDA Administration Famotidine 20 mg 06/08/19 21:00 06/11/19 09:56 Pepcid PO 20 mg BID BRENDA Administration Heparin Sodium (Porcine) 5,000 units 06/08/19 21:00 06/11/19 09:53 Heparin SC 5,000 units BID BRENDA Administration Sodium Chloride 1,000 mls @ 50 mls/hr 06/11/19 09:00 06/11/19 10:12 1/2 Normal Saline IV 1,000 mls .Q20H BRENDA Administration Insulin Human Lispro 0 units 06/08/19 19:27 06/11/19 12:47 Humalog SC 2 unit .MILD SLIDING SCALE PRN Administration Mild Correctional Scale Nicotine 14 mg 06/08/19 20:00 06/10/19 20:41 Nicoderm Patch TD Not Given Q24HR BRENDA - Exam General Appearance: NAD, awake alert Eye: PERRL, anicteric sclera ENT: normocephalic atraumatic, no oropharyngeal lesions ENT - other findings: Hoarse voice Neck: no JVD Neck - other findings: palpable mass on the left side. Heart: RRR, no murmur, no gallops, no rubs Respiratory: CTAB, no wheezes, no rales, no ronchi Gastrointestinal: soft, non-tender, non-distended, normal bowel sounds Extremities: no cyanosis, no clubbing, no edema Skin: normal turgor, no lesions, no rashes Neurological: cranial nerve grossly intact, normal sensation to touch, no focal deficits, no new deficit Hosp A/P - Plan Ultrasound: mass in superficial soft tissues of the left neck. Possibility include necrotic malignant metastatic lymph node, inclusion cyst that is infected or pyogenic suppurative lymph node CT Neck with contrast: strongly enhancing mass in the upper aspect of the left orbit. INflammatory mass in uper neck in subcutaneous fat, superficial to the left lateral submandibular space. Small abscess or infected epidermal inclusion cyst. Atrophic thyroid gland. Hyperplasia of Waldeyers ring. Mild pulm edema This is a 48 year old male who presented with shortness of breath and leg swelling, admitted for CHF exacerbation #CHF exacerbation - stable -discontinued lasix - repeat ECHO showed moderate to severe TR, EF 25-30%, no wall motion abnormalities - resume po lasix after CT scan done Neck mass - - thyroid ultrasound showed left neck superficial mass, possibly metastatic lymph node vs inclusion cyst. CT neck shows possible ab scess - will consult ENT for further evaluation Left orbital mass - will obtain CT scan of orbit tomorrow MISSAEL - creatinine up to 1.6 yesterday. Discontinued lasix - IV fluids to prevent contrast nephropathy Hypertensive urgency - BP 148/101 - increase coreg to 12.5 mg bid Hypothyroidism - started levothyroxine 25 mcg. TSH is 8 #Type II diabetes - A1C 7.2, continue sliding scale insulin Code status: full code
[2019-06-12] MEDS: Nicotine 14 MG PATCH TD SCH (03:02)
[2019-06-12 05:00] LABS: Mean Corpuscular HGB CONC 33.5 g/dL (32.0-36.0); Mean Corpuscular Hemoglobin 34.9 pg (27.0-31.0); Mean Platelet Volume 10.8 fL (7.4-10.4); Platelet Count 116 thou/uL (130-400); RBC Distribution Width 16.2 % (11.5-14.5); Red Blood Cell (RBC) Count 3.16 mill/uL (4.70-6.10); White Blood Cell (WBC) Count 6.2 thou/uL (4.8-10.8)
[2019-06-12 05:17] LABS: Anion Gap 15 mmol/L (10-20); BUN (Urea Nitrogen) 16 mg/dL (8.9-20.6); Calc. Creatinine Clearance 66 mL/min (70-130); Calcium 9.1 mg/dL (7.8-10.44); Carbon Dioxide 25 mmol/L (22-29); Chloride 101 mmol/L (98-107); Estimated GFR-MDRD 70; Glucose 124 mg/dL (70-105); Potassium 3.5 mmol/L (3.5-5.1); Sodium 137 mmol/L (136-145)
[2019-06-12] MEDS ORDERED: Levothyroxine Sodium 25 MCG TAB PO SCH (06:00)
[2019-06-12] MEDS: Famotidine 20 MG TAB PO SCH (08:28)
[2019-06-12] MEDS: Carvedilol 6.25 MG TAB PO SCH (08:28)
[2019-06-12] MEDS: Aspirin Chewable 81 MG TAB PO SCH (08:29)
[2019-06-12] MEDS: Heparin 5,000 UNITS/ML VIAL SC SCH (08:29)
[2019-06-12 12:12] VITALS: BP 154/91; TEMP 97.8
--- NOTE | 2019-06-12 18:34 | DIS ---
DATE OF ADMISSION: 06/08/2019 DATE OF DISCHARGE: 06/12/2019 DISCHARGE DIAGNOSES: 1. CHF exacerbation. 2. Neck mass, possibly secondary to sebaceous cyst. 3. Left orbital mass. 4. Acute kidney injury. 5. Hypertensive urgency. 6. Hypothyroidism. 7. Umbilical hernia. CONSULTATIONS: ENT with Dr. Ring, General surgery with Dr. Levi Tanner PROCEDURES: None. BRIEF HISTORY OF PRESENT ILLNESS: This is a 48-year-old male with past medical history of CHF, hyperlipidemia, who presented to the emergency room with swelling to his lower extremities and progressive shortness of breath. The patient states he has not been weighing himself daily. He states he was taking his medications as prescribed. He was found to have some pulmonary edema on his chest x-ray. He was given IV Lasix and admitted for further workup. HOSPITAL COURSE: Acute CHF exacerbation: The patient was initially started on IV Lasix 40 mg IV b.i.d. Repeat chest x-ray on the showed improving pulmonary congestion. Eventually, his diuresis was held for few days because his creatinine had increased to 1.6. He was given IV fluids and his creatinine on the day of discharge was 1.31. He was discharged with 40 mg Lasix to take p.r.n. He was advised to weigh himself daily and to hold off on Lasix if he feels dehydrated, but to take it if he has leg swelling and congestion. He should follow up in Dr. Chung's clinic on discharge. He was not discharged with an JOSE ANGEL inhibitor due to elevated creatinine. The patient was supposed to be on hydralazine and Imdur; however, his blood pressure was controlled to the 150s without these medications. These could possibly be resumed as an outpatient, I am unsure whether the patient has even filled these from his pharmacy recently or not. Neck mass: The patient reported a lump in his neck. A thyroid ultrasound showed a superficial neck mass versus metastatic lymph node versus inclusion cyst. CT scan of his neck showed a possible abscess. ENT was consulted, who thought this was more likely a sebaceous cyst. They recommended he follow up in the clinic as an outpatient and they can consider lancing his mass at that time. Left orbital mass: The patient was noted to have an orbital mass on the left side, possibly secondary to dilated superior ophthalmic vein versus venous varix versus carotid cavernous fistula versus neoplasm. On physical exam however, this is not obvious. The patient refused CT of the orbit with contrast and wanted to do it as an outpatient. It was recommended to get this done as soon as possible. Acute kidney injury: The patient's creatinine had gone to 1.6 initially with excessive Lasix. He was given IV fluids and his creatinine improved to 1.3 on the day of discharge. Hypertensive urgency: The patient did have blood pressure as high as 160/100. He was resumed on his Coreg 12.5 mg b.i.d. with improvement in his blood pressure. The patient was not sure whether he was taking hydralazine and Imdur, so this was held on discharge. Type 2 diabetes: The patient was resumed on his outpatient medications. Hypothyroidism: The patient's TSH was checked and noted to be 8. He was started on levothyroxine 25 mcg. He should have repeat thyroid function tests in 6 weeks. Umbilical hernia: The patient reported a large umbilical hernia and requested to speak to a surgeon with regard to this. Dr. Tanner saw him and advised that if he wanted to get this repaired, he needed to have cardiology clearance as an outpatient. DISCHARGE PHYSICAL EXAMINATION: VITAL SIGNS: Temperature 97.8, heart rate 81, respiratory rate 18, O2 saturation 91% on room air, blood pressure 154/91. GENERAL: The patient is alert, awake, and oriented x3. He is obese. NECK: The patient does have a palpable mass on sternocleidomastoid area of his neck, firm to palpation and non-tender CVS: Regular rate and rhythm with no murmurs, rubs, or gallops. LUNGS: Clear to auscultation bilaterally. ABDOMEN: The patient has an umbilical hernia that is present. Nontender and nondistended. EXTREMITIES: No edema. PERTINENT LABORATORY DATA: CBC 06/11: Hemoglobin 11.0, hematocrit 32.9, MCV 104, platelet 116. BMP 06/11: Creatinine 1.31. LFTs 06/08: AST 27, ALT 25, alkaline phosphatase 152. Troponin I: 0.043. Vitamin B12: 269. Folate: 10.20. TSH: 16.3688. IMAGING: Chest x-ray 06/07: Mild pulmonary vascular congestion. Chest x-ray 06/09: Stable cardiomegaly. Improving bilateral vascular congestion. CT soft tissue neck 06/10: Partially imaged strongly enhancing mass in the upper aspect of the left orbit. Possibilities include venous varix, dilated superior ophthalmic vein, carotid cavernous fistula, neoplasm. Inflammatory mass in the upper neck in the subcutaneous fat, superficial to the left lateral submandibular space. Possible small abscess versus infected epidermal inclusion cyst. The patient had atrophic thyroid gland. Hyperplasia of Waldyer ring. Mild pulmonary edema. DISCHARGE CONDITION: Stable. ACTIVITY: As tolerated. DIET: Heart healthy diet with 2 L fluid restriction. DISCHARGE MEDICATIONS: 1. Coreg 12.5 mg p.o. b.i.d. 2. Lasix 40 mg p.o. daily p.r.n. 3. Levothyroxine 25 mcg p.o. daily. 4. Nicotine patch. DISCHARGE INSTRUCTIONS: The patient to follow up with his PCP in a week. He should follow up with Dr. Chung within a week or two. He should contact Dr. Levi Tanner from General surgery to set up an appointment for hernia repair. He should follow up with ENT, Dr. Ring to consider drainage of his neck cyst. He should also get a CT scan of his orbit with contrast to evaluate the mass near his left eye as soon as possible Job ID: [id number] MTDD
--- NOTE | 2019-06-13 09:59 | EKG ---
Test Reason : Blood Pressure : / mmHG Vent. Rate : 092 BPM Atrial Rate : 092 BPM P-R Int : 190 ms QRS Dur : 122 ms QT Int : 428 ms P-R-T Axes : 047 -50 103 degrees QTc Int : 529 ms Normal sinus rhythm Possible Left atrial enlargement Left anterior fascicular block Left ventricular hypertrophy with QRS widening Anteroseptal infarct , age undetermined T wave abnormality, consider lateral ischemia Abnormal ECG Confirmed by RONEY KONG ([id number]), marketing editor SOPHIE CROWE ([id number]) on 06/13/2019 9:59:28 AM Referred By: Confirmed By:RONEY KONG
--- NOTE | 2019-06-16 06:27 | CON ---
DATE OF CONSULTATION: CHIEF COMPLAINT: Left neck mass, shortness of breath. HISTORY OF PRESENT ILLNESS: This patient is a 48-year-old gentleman with a significant past medical history of congestive heart failure and hyperlipidemia who presented to the emergency room with lower extremity swelling and significant increased work of breathing and that the patient has been feeling quite ill over the last couple of days. He was found in the emergency room to have some pulmonary edema on chest x-ray and was given some diuresis to help improve that. While patient was admitted to the hospital during his hospital course, he complained of a left neck mass, which was evaluated with an ultrasound and with a CT scan. PAST MEDICAL HISTORY: CHF; left neck mass, likely sebaceous cyst; orbital vascular mass; acute kidney injury; hypertension; hypothyroidism; and umbilical herniation. PAST SURGICAL HISTORY: No head and neck surgeries. CURRENT MEDICATIONS: Please see medical record. ALLERGIES: THE PATIENT HAS AN ALLERGY TO JOSE ANGEL INHIBITORS, BENADRYL, AND TRAMADOL. SOCIAL HISTORY: Noncontributory. FAMILY HISTORY: Noncontributory. REVIEW OF SYSTEMS: SKIN: Negative. EYES: Negative. EARS, NOSE, AND THROAT: Please see HPI, otherwise, negative. RESPIRATORY: Shortness of breath. CARDIOVASCULAR: CHF exacerbation. GASTROINTESTINAL: Negative. MUSCULOSKELETAL: Negative. NEUROLOGIC: Negative. HEMATOLOGIC: Negative. LYMPHATIC: Negative. IMMUNOLOGIC: Negative. PHYSICAL EXAMINATION: GENERAL: No acute distress. Alert and oriented x3. However, the patient is significantly somnolent during HPI and physical exam. HEAD AND NECK: Normocephalic and atraumatic. No facial or skin lesions. No maxillary tenderness or frontal tenderness. No parotid gland masses or tenderness. No submandibular gland masses or tenderness. EYES: Extraocular movements are intact. Pupils are equally round and reactive to light and there is no nystagmus on lateral gaze. EARS: Right and left pinna are normal. EAC is clear. No debris of the ear canal or cerumen impaction. NOSE: External nose is normal. Nasal mucosa is healthy. Turbinates are healthy. No masses or lesions. ORAL CAVITY: Floor of mouth is soft. Palate and uvula are without lesions with symmetric elevation. NECK: No palpable lymphadenopathy. Trachea is midline. Thyroid is normal in size without apparent nodules. The left neck subcutaneous mass roughly 3 cm in size. It is firm; however, it is mobile with a small skin tethering location. There is no cellulitis or inflammation. No tenderness around the area and no ballotable fluid collection. NEUROLOGIC: Cranial nerves 2 through 12 are grossly intact. Mood and affect are normal. IMAGING: CT soft tissue neck showed an orbital vascular lesion as well as a left neck soft tissue mass with hypoechogenicity and ultrasound also located a left neck mass with unclear whether there was a fluid collection or not. ASSESSMENT AND PLAN: A 48-year-old male patient presenting with congestive heart failure exacerbation, shortness of breath, left neck mass, and newly discovered orbital vascular lesion. Given the location and physical exam of the left neck mass, it is likely a sebaceous cyst that has been slowly increasing over time. It does bother patient and does cause some mild discomfort. However, there are no clear signs of infection and there is no concern for progressive infection. At this point, given the location of the mass in the subcutaneous tissue, it is a very low risk for neoplastic process. However, given that it does bother patient, he would like it removed. We gave him our information in our clinic to follow up as an outpatient for a surgical excision of likely left sebaceous cyst. Given the location of the vascular mass in the orbit, recommend ophthalmologic followup and further dedicated CT orbit as needed as an outpatient. Job ID: [id number]
--- NOTE | 2019-06-16 11:44 | PQF ---
ARIS NOVAK JR SR, [facility] [id number] CLINICAL DOCUMENTATION IMPROVEMENT CLARIFICATION FORM: ICD-10 Updated PLEASE DO AN ADDENDUM TO THE PROGRESS NOTE WITH ANY DOCUMENTATION UPDATES OR ADDITIONS AND CARRY THROUGH TO DC SUMMARY. THANK YOU. DATE: 06/16/2019 ATTN: Dr. Sr Please exercise your independent, professional judgment in responding to the clarification form. Clinical indicators are provided on the bottom of this form for your review Please check appropriate box(s): [ ] Acute Renal Failure/MISSAEL without CKD [ x] Acute on Chronic Renal Failure please specify Stage of CKD 3__ (see below) [ ] Other diagnosis [ ] Unable to determine In addition, please specify: Present on Admission (POA): [ x ] Yes [ ] No [ ] Unable to determine National Kidney Foundation Guidelines for CKD Staging Stage I Kidney damage with normal or increased GFR GFR > 90 Stage II Kidney damage with mildly decreased GFR GFR 60-89 Stage III Kidney damage with moderately decreased GFR GFR 30-59 Stage IV Kidney damage with severely decreased GFR GFR 16-29 Stage V Kidney failureGFR<15 ESRD End Stage Renal DiseaseOn dialysis Acute Renal Failure/Acute Kidney Failure defined as: Increases in SCr by (>) 0.3 mg/dl within 48 hours OR- Increases in SCr by (>) 1.5 times baseline, known or presumed to have occurred within the prior 7 days OR- Urine volume < 0.5 ml/kg/hour for 6 hours (KDIGO supplement 2012 for RIFLE/SHABBIR criteria) For continuity of documentation, please document condition throughout progress notes and discharge summary. Thank You. CLINICAL INDICATORS - SIGNS / SYMPTOMS / LABS / RESULTS AND LOCATION IN MR Lab: BUN CREAT GFR 06/07 13 1.40 65 06/08 15 1.53 59 06/09 19 1.59 56 06/10 17 1.50 60 06/11 16 1.31 70 *PN 06/10 ([facility]): MISSAEL - creatinine up to 1.6 yesterday, *DC Summary 06/11 ([facility]): Acute kidney injury: The patient's creatinine had gone to 1.6 initially with excessive Lasix. He was given IV fluids and his creatinine improved to 1.3 on the day of discharge. RISK FACTORS / RESULTS AND LOCATION IN MR *H&P 06/07 ([facility]): - Past Medical History: Combined systolic and diastolic heart failure, hypertension, diabetes type 2 - Medications: Nifedipine, Furosemide - Acute congestive heart failure exacerbation. We will give Lasix 40mg IV push x1 now and we will start the patient on Lasix 40mg b.i.d IV push, do a fluid restriction of 1500ml. TREATMENTS / RESULTS AND LOCATION IN MR *Lab Orders: CMP 06/07-06/08, BMP 06/09-06/11 *PN 06/10 ([facility]): Discontinued lasix ... IV fluids to prevent contrast nephropathy. Thank you, Jessica (This form is maintained as a part of the permanent medical record) 2014 [employer] All Rights Reserved Jessica gN RN, [email or web address] [email or web address] cell phone: [phone] [facility] HOSPITALMarilyn
== END 2019-06-12 14:20 | disposition home or self-care (01) | DRG 291 ==
LOC: ERS 14:18 → 2NO 18:46
PROVIDERS: ADMIT Internal Medicine; ATTEND Internal Medicine
DX: I13.0 Hypertensive heart and chronic kidney disease with heart failure and stage 1 through stage 4 chronic kidney disease, or unspecified chronic kidney disease (principal); I50.41 Acute combined systolic (congestive) and diastolic (congestive) heart failure; N17.9 Acute kidney failure, unspecified; C34.90 Malignant neoplasm of unspecified part of unspecified bronchus or lung; L72.3 Sebaceous cyst; H05.9 Unspecified disorder of orbit; I16.0 Hypertensive urgency; E03.9 Hypothyroidism, unspecified; K42.9 Umbilical hernia without obstruction or gangrene; E78.5 Hyperlipidemia, unspecified; F41.9 Anxiety disorder, unspecified; F31.9 Bipolar disorder, unspecified; M79.81 Nontraumatic hematoma of soft tissue; N18.3 Chronic kidney disease, stage 3 (moderate); F17.210 Nicotine dependence, cigarettes, uncomplicated; I48.91 Unspecified atrial fibrillation; G47.33 Obstructive sleep apnea (adult) (pediatric); E87.6 Hypokalemia; D50.9 Iron deficiency anemia, unspecified; E11.9 Type 2 diabetes mellitus without complications; J44.9 Chronic obstructive pulmonary disease, unspecified; Z90.49 Acquired absence of other specified parts of digestive tract; Z79.4 Long term (current) use of insulin; Z95.810 Presence of automatic (implantable) cardiac defibrillator; Z88.6 Allergy status to analgesic agent; Z88.8 Allergy status to other drugs, medicaments and biological substances; Z79.01 Long term (current) use of anticoagulants
CPT/HCPCS: 36415; 36416; 70491; 71045; 76536; 80048; 80053; 82550; 82553; 82607; 82746; 83036; 83690; 83735; 83880; 84439; 84443; 84481; 84484; 85025; 85027; 93005; 93306; 94660; 94760; 96374; J1644; J1940; Q9967

== ENCOUNTER 2019-06-24 02:56 | Emergency (ER) | payer OTHER ==
[2019-06-24] MEDS ORDERED: Furosemide 100 MG/10 ML VIAL ONE (03:08)
[2019-06-24 03:41] LABS: ALT (SGPT) 23 U/L (8-55); AST (SGOT) 27 U/L (5-34); Albumin 4.2 g/dL (3.5-5.0); Alkaline Phosphatase 126 U/L (40-110); Anion Gap 15 mmol/L (10-20); BUN (Urea Nitrogen) 16 mg/dL (8.9-20.6); Bilirubin, Total 0.7 mg/dL (0.2-1.2); Calc. Creatinine Clearance 0 mL/min (70-130); Calcium 8.7 mg/dL (7.8-10.44); Carbon Dioxide 24 mmol/L (22-29); Chloride 106 mmol/L (98-107); Estimated GFR-MDRD 59; Globulin 3.2 g/dL (2.4-3.5); Glucose 129 mg/dL (70-105); Potassium 3.5 mmol/L (3.5-5.1); Protein, Total 7.4 g/dL (6.0-8.3); Sodium 141 mmol/L (136-145)
[2019-06-24 03:46] LABS: Hemoglobin 11.7 g/dL (14.0-18.0); Mean Corpuscular HGB CONC 33.5 g/dL (32.0-36.0); Mean Corpuscular Hemoglobin 34.8 pg (27.0-31.0); Red Blood Cell (RBC) Count 3.38 mill/uL (4.70-6.10); White Blood Cell (WBC) Count 7.6 thou/uL (4.8-10.8)
[2019-06-24 04:14] LABS: Amphetamine Not Detected (NotDetected); Barbiturates Screen Not Detected (NotDetected); Benzodiazepine Screen Not Detected (NotDetected); Cocaine Metabolite Screen Not Detected (NotDetected); Medtox Control Line Valid? VALID (VALID); Medtox Reader # READER 4; Methadone Not Detected (NotDetected); Methamphetamine Not Detected (NotDetected); Opiate Screen Not Detected (NotDetected); Oxycodone Screen Not Detected (NotDetected); Phencyclidine (PCP) Not Detected (NotDetected); THC/Cannabinoid Screen Not Detected (NotDetected); Tricyclic Screen Not Detected (NotDetected)
[2019-06-24 04:18] LABS: #Eosinphils 0.2 thou/uL (0.0-0.7); #Lymphocytes 1.9 thou/uL (1.20-3.40); #Monocytes 0.6 thou/uL (0.11-0.59); #Neutrophils 4.9 thou/uL (1.40-6.50); %Basophils 0.3 % (0.0-1.0); %Eosinophils 2.5 % (0.0-10.0); %Lymphocytes 25.5 % (21.0-51.0); %Monocytes 7.5 % (0.0-10.0); %Neutrophils 64.2 % (42.0-75.0); Large Platelets SLIGHT; MDiff Complete? YES; Mean Platelet Volume 9.6 fL (7.4-10.4); Platelet Count 109 thou/uL (130-400); Platelet Morphology Comment Appears Decreased
--- NOTE | 2019-06-24 07:25 | RAD ---
SINGLE VIEW OF THE CHEST: COMPARISON: 06/11/2019. HISTORY: Hypertension and CHF. Dyspnea. FINDINGS: A single view of the chest shows an enlarged but stable cardiomediastinal silhouette. The pacemaker is unchanged in position. There is no evidence of consolidation, mass, or pleural effusion. IMPRESSION: Stable cardiomegaly. POS: EAA
--- NOTE | 2019-06-24 14:58 | EKG ---
Test Reason : Blood Pressure : / mmHG Vent. Rate : 079 BPM Atrial Rate : 079 BPM P-R Int : 210 ms QRS Dur : 128 ms QT Int : 438 ms P-R-T Axes : 054 -54 104 degrees QTc Int : 502 ms Poor data quality, interpretation may be adversely affected Sinus rhythm with 1st degree A-V block Possible Left atrial enlargement Left axis deviation Left ventricular hypertrophy with QRS widening and repolarization abnormality Cannot rule out Anteroseptal infarct , age undetermined No STEMI Abnormal ECG Confirmed by ABE PURCELL M.D. ([id number]), mapping editor LUZ KULKARNI ([id number]) on 06/24/2019 2:57:54 PM Referred By: Confirmed By:ABE PURCELL M.D.
== END 2019-06-24 05:36 | disposition home or self-care (01) ==
LOC: ERS 02:56
DX: R06.00 Dyspnea, unspecified (principal); R60.0 Localized edema; I11.0 Hypertensive heart disease with heart failure; I50.9 Heart failure, unspecified; D50.9 Iron deficiency anemia, unspecified; E03.9 Hypothyroidism, unspecified; E78.5 Hyperlipidemia, unspecified; F31.9 Bipolar disorder, unspecified; F41.9 Anxiety disorder, unspecified; F20.9 Schizophrenia, unspecified; J44.9 Chronic obstructive pulmonary disease, unspecified; F17.210 Nicotine dependence, cigarettes, uncomplicated; Z79.899 Other long term (current) drug therapy
CPT/HCPCS: 71045; 80053; 80306; 82553; 83880; 84484; 85025; 93005; 96374; J1940

== ENCOUNTER 2019-07-07 01:43 | Emergency (ER) | payer OTHER ==
[2019-07-07 02:24] LABS: ALT (SGPT) 18 U/L (8-55); AST (SGOT) 35 U/L (5-34); Alkaline Phosphatase 123 U/L (40-110); Anion Gap 14 mmol/L (10-20); BUN (Urea Nitrogen) 20 mg/dL (8.9-20.6); Bilirubin, Total 0.7 mg/dL (0.2-1.2); Calc. Creatinine Clearance 0 mL/min (70-130); Calcium 8.5 mg/dL (7.8-10.44); Carbon Dioxide 24 mmol/L (22-29); Chloride 106 mmol/L (98-107); Estimated GFR-MDRD 48; Globulin 2.9 g/dL (2.4-3.5); Glucose 127 mg/dL (70-105); Potassium 3.1 mmol/L (3.5-5.1); Protein, Total 6.9 g/dL (6.0-8.3); Sodium 141 mmol/L (136-145)
[2019-07-07 02:26] LABS: #Eosinphils 0.1 thou/uL (0.0-0.7); #Monocytes 0.4 thou/uL (0.11-0.59); #Neutrophils 3.3 thou/uL (1.40-6.50); %Basophils 0.3 % (0.0-1.0); %Eosinophils 2.1 % (0.0-10.0); %Lymphocytes 34.4 % (21.0-51.0); %Monocytes 6.9 % (0.0-10.0); %Neutrophils 56.3 % (42.0-75.0); Anisocytosis SLIGHT = 6-15 cells (100X) (0-5/hpf); Hemoglobin 11.7 g/dL (14.0-18.0); Large Platelets SLIGHT; MDiff Complete? YES; Macrocytosis SLIGHT = 6-15 cells (100X) (0-5/hpf); Mean Corpuscular HGB CONC 32.4 g/dL (32.0-36.0); Mean Corpuscular Hemoglobin 33.8 pg (27.0-31.0); Mean Platelet Volume 10.3 fL (7.4-10.4); Platelet Count 94 thou/uL (130-400); Platelet Morphology Comment Appears Decreased; RBC Distribution Width 15.1 % (11.5-14.5); Red Blood Cell (RBC) Count 3.47 mill/uL (4.70-6.10); White Blood Cell (WBC) Count 5.8 thou/uL (4.8-10.8)
[2019-07-07 02:50] LABS: CKMB 10.4 ng/mL (0-6.6)
[2019-07-07 05:28] LABS: Troponin I 0.046 ng/mL (< 0.028)
--- NOTE | 2019-07-07 12:37 | RAD ---
PORTABLE CHEST 1 VIEW: DATE: 07/07/2019. TIME: 1:42 AM. HISTORY: Chest pain. COMPARISON: 06/24/2019. FINDINGS: Cardiomegaly and left AICD are again seen. The lungs are well expanded without lobar consolidation, pneumothoraces, luis pulmonary edema, or pleural effusions. IMPRESSION: No acute process. POS: GENEVIEVE
--- NOTE | 2019-07-11 12:50 | EKG ---
Test Reason : Blood Pressure : / mmHG Vent. Rate : 076 BPM Atrial Rate : 076 BPM P-R Int : 190 ms QRS Dur : 132 ms QT Int : 444 ms P-R-T Axes : 046 -51 110 degrees QTc Int : 499 ms Normal sinus rhythm Possible Left atrial enlargement Left axis deviation Left ventricular hypertrophy with QRS widening and repolarization abnormality Cannot rule out Septal infarct (cited on or before 08-JUN-2019) Abnormal ECG When compared with ECG of 24-JUN-2019 03:06, Questionable change in initial forces of Anteroseptal leads Confirmed by LIS ADAMS DO ([id number]), image editor SOPHIE CROWE ([id number]) on 07/11/2019 12:49:53 PM Referred By: Confirmed By:LIS ADAMS DO
== END 2019-07-07 06:03 | disposition home or self-care (01) ==
LOC: ERS 01:43
DX: R07.89 Other chest pain (principal); I11.0 Hypertensive heart disease with heart failure; I50.9 Heart failure, unspecified; D50.9 Iron deficiency anemia, unspecified; J44.9 Chronic obstructive pulmonary disease, unspecified; E78.5 Hyperlipidemia, unspecified; F41.9 Anxiety disorder, unspecified; F31.9 Bipolar disorder, unspecified; F20.9 Schizophrenia, unspecified; F17.210 Nicotine dependence, cigarettes, uncomplicated; Z79.899 Other long term (current) drug therapy; Z79.891 Long term (current) use of opiate analgesic
CPT/HCPCS: 36415; 71045; 80053; 82553; 83880; 84443; 84484; 85025; 93005

== ENCOUNTER 2019-08-11 19:09 | Inpatient (IN) | payer OTHER ==
[~2019-08-11 19:09] MED LIST: Iopamidol 370 76% 100 ML VIAL ONE
[2019-08-11 20:01] LABS: #Lymphocytes 1.1 thou/uL (1.20-3.40); #Monocytes 0.4 thou/uL (0.11-0.59); #Neutrophils 2.4 thou/uL (1.40-6.50); %Basophils 0.7 % (0.0-1.0); %Eosinophils 0.2 % (0.0-10.0); %Lymphocytes 27.1 % (21.0-51.0); %Monocytes 10.7 % (0.0-10.0); %Neutrophils 61.3 % (42.0-75.0); Hemoglobin 13.3 g/dL (14.0-18.0); Mean Corpuscular HGB CONC 32.9 g/dL (32.0-36.0); Mean Platelet Volume 10.5 fL (7.4-10.4); Platelet Count 81 thou/uL (130-400); RBC Distribution Width 13.6 % (11.5-14.5); Red Blood Cell (RBC) Count 4.03 mill/uL (4.70-6.10)
[2019-08-11 20:18] LABS: ALT (SGPT) 8 U/L (8-55); AST (SGOT) 20 U/L (5-34); Albumin 3.9 g/dL (3.5-5.0); Alkaline Phosphatase 136 U/L (40-110); Anion Gap 12 mmol/L (10-20); BUN (Urea Nitrogen) 12 mg/dL (8.9-20.6); Bilirubin, Total 0.6 mg/dL (0.2-1.2); CK (CPK) 297 U/L (30-200); Calc. Creatinine Clearance 0 mL/min (70-130); Calcium 8.1 mg/dL (7.8-10.44); Carbon Dioxide 23 mmol/L (22-29); Chloride 103 mmol/L (98-107); Estimated GFR-MDRD 69; Globulin 3.2 g/dL (2.4-3.5); Glucose 129 mg/dL (70-105); Lipase 26 U/L (8-78); Potassium 3.4 mmol/L (3.5-5.1); Protein, Total 7.1 g/dL (6.0-8.3); Sodium 135 mmol/L (136-145)
[2019-08-11 20:38] LABS: CKMB 2.3 ng/mL (0-6.6)
[2019-08-11] MEDS ORDERED: Acetaminophen 500 MG TAB ONE (23:00)
[2019-08-11 23:21] LABS: Bacteria/HPF None Seen HPF (None Seen); Bilirubin Negative (Negative); Blood, Urine Negative (Negative); Clarity Clear (Clear); Glucose, Urine (Dipstick) Normal (Negative); Leukocyte Negative Leu/uL (Negative); Nitrite Negative (Negative); Protein, Urine (Dipstick) 200 mg/dL (Neg-Trace); RBC/HPF 0-3 HPF (0-3); Squamous Epithelial None Seen HPF (0-3); WBC/HPF 0-3 HPF (0-3)
--- NOTE | 2019-08-11 23:47 | RAD ---
EXAM: CHEST ONE VIEW HISTORY: Dyspnea, shortness of breath, chest pain. COMPARISON: 07/28/2019 FINDINGS: Dual lead left subclavian acid device remains place. The heart remains enlarged. There is question of a mild patchy density in the retrocardiac region left lung base. Right lung is clear. Pulmonary vasculature is at the upper limits of normal. No other interval change. IMPRESSION: 1. Question of patchy density retrocardiac region left lung base. This could be related to atelectasi s versus pneumonitis. 2. Cardiomegaly.
--- NOTE | 2019-08-12 00:04 | CT ---
CT ANGIOGRAM THORAX WITH IV CONTRAST AND 3-D RECONSTRUCTIONS CLINICAL INDICATION: New onset chest pain and shortness of breath. COMPARISON: 03/02/2017 FINDINGS: Pulmonary arteries: No filling defects are seen in the pulmonary arteries to suggest a pulmonary embo fabián. Aorta: Not well opacified for evaluation of aortic dissection, the thoracic aorta is normal in grege r. Lungs: There are peripherally located around glass densities seen within the upper and lower lobes as well as in the right middle lobe suggesting pneumonitis. These findings can be seen with viral pneumonitis. No pleural effusion is seen. Mediastinum: The heart is enlarged. A dual-lead left subclavian AICD device is noted in place. There is mildly prominent soft tissue density in the hilar regions bilaterally suggesting lymphadenopathy. Thyroid gland: Not well evaluated on this exam. Osseous structures: Mild degenerative changes are seen in the spine. No suspicious lytic or sclerotic osseous lesions are identified. Chest wall: No abnormality visualized. Upper abdomen: There is reflux of contrast into the IVC and into the hepatic veins which suggests rig ht heart failure. IMPRESSION: 1. Peripherally located groundglass opacities in the lungs bilaterally suggesting pneumonitis. This f inding can be seen with viral pneumonitis such as COVID 19. 2[address] CT evidence of a pulmonary embolus. 3. Cardiomegaly with reflux of contrast into the IVC and hepatic veins suggesting right heart failure .
[2019-08-12] MEDS ORDERED: cefTRIAXone\\ROCEPHIN 1 GM VIAL ONE (00:13)
[2019-08-12] MEDS ORDERED: Azithromycin 500 MG VIAL ONE (00:14)
[2019-08-12] MEDS ORDERED: Guaifenesin DM 100-10/5 ML UDCUP PO PRN (00:58)
[2019-08-12] MEDS ORDERED: Ondansetron PF 4 MG/2 ML Vial IVP PRN ×2 (00:58→06:15)
[2019-08-12] MEDS ORDERED: Acetaminophen 325 MG TAB PO PRN (00:58)
--- NOTE | 2019-08-12 00:58 | PDOC.HHP ---
Hospitalist HPI - History of Present Illness Shortness of breath, cough, fever History of Present Illness: Patient with complex PMH including HTN, HLD, CAD and CHF presents to ED for evaluatin of flu like illness, shortness of breath and persistent cough. Tells me that he has not been feeling well for several days. One day prior to admission his symptoms exacerbated with very persistent primarily dry cough and dyspnea which prompted him for ED evaluation. Tells me that he has been active in the community and has not followed much of the advised precautions for COVID19 such as wearing a mask for practicing social distancing. He denies any sick contacts. Refers good medical compliance with chronic medications. Initial ED evaluation reveals acutely ill appearing individual, persistent cough , initially hypoxic in the high 80s currently requiring 2L O2 via NC. Fever of 102.2. Labs show pancytopenia, elevated BNP of 680, mild elevation of SCr, mild elevation of troponin of 0.06. Chest imaging reveals peripherally located groundglass opacities in the lungs bilaterally suggesting pneumonitis. Hospitalist ROS - Review of Systems Constitutional: reports: fever, sweats, weakness Eyes: denies: pain, vision change ENT: reports: nose congestion. denies: ear pain, ear discharge, throat pain Respiratory: reports: cough, dry, shortness of breath, SOB with excertion Cardiovascular: denies: chest pain, palpitations, orthopnea, paroxysmal noc. dyspnea Gastrointestinal: denies: nausea, vomiting, abdominal pain, diarrhea Genitourinary: denies: dysuria, frequency Musculoskeletal: denies: neck pain, back pain Skin: denies: rash, lesions Neurological: reports: weakness. denies: numbness, incoordination Hospitalist History - Social History Alcohol: reports: None Drugs: reports: none - Exam General Appearance: ill appearing General - other findings: Coughing during assessment Eye: PERRL ENT: normocephalic atraumatic, no oropharyngeal lesions Neck: supple, no JVD Heart: RRR, no murmur Respiratory: no wheezes, no rales, normal chest expansion, rhonchi Respiratory - other findings: Decreased breath sounds, faint rhonchi Gastrointestinal: soft, non-tender, non-distended Extremities: no cyanosis, no clubbing, no edema Skin: normal turgor Neurological: cranial nerve grossly intact Musculoskeletal: normal tone Psychiatric: normal affect, normal behavior, A&O x 3 Hospitalist Results - Labs Result Diagrams: 08/11/19 19:45 08/11/19 19:45 Lab results: WBC 4.0 thou/uL (4.8-10.8) L 08/11/19 19:45 Hgb 13.3 g/dL (14.0-18.0) L 08/11/19 19:45 Hct 40.4 % (42.0-52.0) L 08/11/19 19:45 MCV 100.0 fL (78.0-98.0) H 08/11/19 19:45 Plt Count 81 thou/uL (130-400) L 08/11/19 19:45 Neutrophils % 61.3 % (42.0-75.0) 08/11/19 19:45 Sodium 135 mmol/L (136-145) L 08/11/19 19:45 Potassium 3.4 mmol/L (3.5-5.1) L 08/11/19 19:45 Chloride 103 mmol/L (98-107) 08/11/19 19:45 Carbon Dioxide 23 mmol/L (22-29) 08/11/19 19:45 BUN 12 mg/dL (8.9-20.6) 08/11/19 19:45 Creatinine 1.34 mg/dL (0.7-1.3) H 08/11/19 19:45 Glucose 129 mg/dL (70-105) H 08/11/19 19:45 Lactic Acid 1.0 mmol/L (0.5-2.2) 08/11/19 21:28 Calcium 8.1 mg/dL (7.8-10.44) 08/11/19 19:45 Total Bilirubin 0.6 mg/dL (0.2-1.2) 08/11/19 19:45 AST 20 U/L (5-34) 08/11/19 19:45 ALT 8 U/L (8-55) 08/11/19 19:45 Alkaline Phosphatase 136 U/L (40-110) H 08/11/19 19:45 Creatine Kinase 297 U/L (30-200) H 08/11/19 19:45 CK-MB (CK-2) 2.3 ng/mL (0-6.6) 08/11/19 19:45 Troponin I 0.060 ng/mL (< 0.028) H 08/11/19 19:45 B-Natriuretic Peptide 680.7 pg/mL (0-100) H 08/11/19 19:45 Serum Total Protein 7.1 g/dL (6.0-8.3) 08/11/19 19:45 Albumin 3.9 g/dL (3.5-5.0) 08/11/19 19:45 Lipase 26 U/L (8-78) 08/11/19 19:45 Urine Ketones Negative mg/dL (Negative) 08/11/19 22:57 Urine Blood Negative (Negative) 08/11/19 22:57 Urine Nitrite Negative (Negative) 08/11/19 22:57 Ur Leukocyte Esterase Negative Dena/uL (Negative) 08/11/19 22:57 Urine RBC 0-3 HPF (0-3) 08/11/19 22:57 Urine WBC 0-3 HPF (0-3) 08/11/19 22:57 Ur Squamous Epith Cells None Seen HPF (0-3) 08/11/19 22:57 Urine Bacteria None Seen HPF (None Seen) 08/11/19 22:57 - Radiology Interpretation CT scan - chest Status: image reviewed by me ( Peripherally located groundglass opacities in the lungs bilaterally suggesting pneumonitis. This f) Hospitalist H&P A/P - Plan Plan: Problem List 1. Pneumonia suspected COVID19 vs CAP 2. Acute hypoxic respiratory failure 3. Pancytopenia 4. Elevated troponin level 5. History of CHF 6. History of CAD 7. History of HTN 8. History of CKD Assessment and Plan 1. Pneumonia suspected COVID19 vs CAP - admit patient for further management - given imaging suspecting COVID19 as etiology - start IV ABX since CAP can not be ruled out at this point - blood cultures and COVID19 test were sent - continue with oxygen support - antitussives & Tylenol PRN - pending progression will consider ID consultation 2. Acute hypoxic respiratory failure - denies chronic use of oxygen - does smoke about 3 cigs per day - currently requiring 2L to maintain O2 sats >92% - titrate oxyge as tolerated 3. Sepsis - meets sepsis criteria - treating with IV ABX to cover for CAP - follow up blood cultures and COVID19 test 3. Pancytopenia - likely related to sepsis - despite thrombocytopenia still with possible hypercoagulable state - continue with DVT ppx using hep SQ & mechanical ppx - monitor blood counts closely 4. Elevated troponin level - multifactorial including demand ischemia - obtain 2nd set of cardiac enzymes - monitor clinical progression 5. History of CHF - no clinical evidence of fluid overload - elevated BNP and SCr - hold diuretic given risk of decompensation due to sepsis - if stable can consider restarting diuretics in 24 hrs 6. History of CAD - continue with cardiac meds including Plavix, BB, statin - awaiting med rec 7. History of HTN - resume home medications with exception of diuretic - monitor hemodynamics closely 8. History of CKD - not far from baseline - hold diuretic for now - monitor RF closely DVT PPX: HepSQ. FULL CODE
[2019-08-12 01:48] LABS: Troponin I 0.062 ng/mL (< 0.028)
[2019-08-12 02:29] VITALS: BMI 31.2
[2019-08-12] MEDS ORDERED: Levothyroxine Sodium 25 MCG TAB PO SCH (06:00)
[2019-08-12] MEDS: Acetaminophen 325 MG TAB PO PRN ×2 (06:55→22:31)
[2019-08-12] MEDS: Levothyroxine Sodium 25 MCG TAB PO SCH (06:55)
[2019-08-12] MEDS ORDERED: Carvedilol 6.25 MG TAB PO SCH (08:00)
[2019-08-12] MEDS: hydrALAZINE 25 MG TAB PO SCH ×4 (08:41→22:08)
[2019-08-12] MEDS: Atorvastatin Calcium 40 MG TAB PO SCH (08:41)
[2019-08-12] MEDS: Carvedilol 6.25 MG TAB PO SCH ×2 (08:41→18:47)
[2019-08-12] MEDS: Isosorbide Dinitrate 20 MG TAB PO SCH ×3 (08:41→22:08)
[2019-08-12] MEDS: Clopidogrel Bisulfate 75 MG TAB PO SCH (08:41)
[2019-08-12] MEDS: NIFEdipine XL 30 MG TAB PO SCH ×2 (08:41→22:07)
[2019-08-12] MEDS: Heparin 5,000 UNITS/ML VIAL SC SCH ×3 (08:42→22:08)
[2019-08-12] MEDS ORDERED: Clopidogrel Bisulfate 75 MG TAB PO SCH (09:00)
[2019-08-12] MEDS ORDERED: Isosorbide Dinitrate 20 MG TAB PO SCH (09:00)
[2019-08-12] MEDS ORDERED: hydrALAZINE 25 MG TAB PO SCH (09:00)
[2019-08-12] MEDS ORDERED: Heparin 5,000 UNITS/ML VIAL SC SCH (09:00)
[2019-08-12] MEDS ORDERED: Atorvastatin Calcium 40 MG TAB PO SCH (09:00)
[2019-08-12] MEDS ORDERED: NIFEdipine XL 30 MG TAB PO SCH (09:00)
--- NOTE | 2019-08-12 12:41 | PDOC.HOSPP ---
- Subjective Encounter Date: 08/12/19 Encounter Time: 10:45 Subjective: no sob, is ambulating in room, took shower - Objective Vital Signs & Weight: Vital Signs (12 hours) Temp Pulse Resp BP Pulse Ox 08/12/19 08:50 97.6 F 67 16 137/116 H 100 08/12/19 08:41 71 08/12/19 04:15 99.6 F 71 16 100 08/12/19 01:58 99.3 F 77 16 136/82 94 L Weight Weight 224 lb 9.6 oz I&O: 08/11/19 08/12/19 08/13/19 06:59 06:59 06:59 Intake Total 300 Balance 300 Result Diagrams: 08/11/19 19:45 08/11/19 19:45 Hospitalist ROS - Medication Medications: Active Medications Generic Name Dose Route Start Last Admin Trade Name Freq PRN Reason Stop Dose Admin Acetaminophen 650 mg 08/12/19 06:15 08/12/19 06:55 Tylenol PO 650 mg Q4H PRN Administration Headache/Fever/Mild Pain (1-3) Atorvastatin Calcium 40 mg 08/12/19 09:00 08/12/19 08:41 Lipitor PO 40 mg DAILY BRENDA Administration Carvedilol 12.5 mg 08/12/19 08:00 08/12/19 08:41 Coreg PO 12.5 mg BID-WM BRENDA Administration Clopidogrel Bisulfate 75 mg 08/12/19 09:00 08/12/19 08:41 Plavix PO 75 mg DAILY BRENDA Administration Heparin Sodium (Porcine) 5,000 units 08/12/19 09:00 08/12/19 08:42 Heparin SC 5,000 units TID BRENDA Administration Hydralazine HCl 25 mg 08/12/19 09:00 08/12/19 08:41 Apresoline PO 25 mg TID BRENDA Administration Isosorbide Dinitrate 20 mg 08/12/19 09:00 08/12/19 08:41 Isordil PO 20 mg TID BRENDA Administration Levothyroxine Sodium 25 mcg 08/12/19 06:00 08/12/19 06:55 Synthroid PO 25 mcg 0600 BRENDA Administration Nifedipine 30 mg 08/12/19 09:00 08/12/19 08:41 Procardia Xl PO 30 mg BID BRENDA Administration - Exam General Appearance: awake alert Eye: PERRL, anicteric sclera ENT: no oropharyngeal lesions, moist mucosa Neck: supple, no JVD Heart: RRR, no murmur Respiratory: no wheezes, no rales Gastrointestinal: soft, non-tender, non-distended, normal bowel sounds Extremities: no cyanosis, no clubbing Neurological: cranial nerve grossly intact, no focal deficits Psychiatric: normal affect, A&O x 3 Hosp A/P (1) Pneumonia due to COVID-19 virus Code(s): U07.1 - COVID-19; J12.89 - OTHER VIRAL PNEUMONIA Status: Suspected (2) Acute on chronic systolic (congestive) heart failure Code(s): I50.23 - ACUTE ON CHRONIC SYSTOLIC (CONGESTIVE) HEART FAILURE Status : Acute (3) Hypokalemia Code(s): E87.6 - HYPOKALEMIA Status: Acute (4) Bipolar disorder Code(s): F31.9 - BIPOLAR DISORDER, UNSPECIFIED Status: Chronic Qualifiers: Active/Remission status: remission status unspecified (5) CKD (chronic kidney disease) stage 3, GFR 30-59 ml/min Status: Chronic (6) Dyslipidemia Code(s): E78.5 - HYPERLIPIDEMIA, UNSPECIFIED Status: Chronic (7) Hypertension Code(s): I10 - ESSENTIAL (PRIMARY) HYPERTENSION Status: Chronic Qualifiers: (8) Hypothyroidism Code(s): E03.9 - HYPOTHYROIDISM, UNSPECIFIED Status: Chronic Qualifiers: (9) Non-ischemic cardiomyopathy Code(s): I42.9 - CARDIOMYOPATHY, UNSPECIFIED Status: Chronic (10) Noncompliance Code(s): Z91.19 - PATIENT'S NONCOMPLIANCE W OTH MEDICAL TREATMENT AND REGIMEN Status: Chronic (11) Obesity (BMI 30-39.9) Code(s): E66.9 - OBESITY, UNSPECIFIED Status: Chronic - Plan await covid 19 pcr test is on ceftriaxone and zithromax continue plavix, lipitor, coreg, isordil, procardia and synthroid hemostable blood cs x2 -ve, bnp is 680
[2019-08-12] MEDS: Azithromycin 500 MG in Sodium Chloride 0.9% 250 ML 250 ML IVPB SCH (23:17)
[2019-08-12] MEDS ORDERED: cefTRIAXone\\ROCEPHIN 1 GM in Sodium Chloride 0.9% 100 ML IVPB SCH (23:59)
[2019-08-12] MEDS ORDERED: Azithromycin 500 MG in Sodium Chloride 0.9% 250 ML 250 ML IVPB SCH (23:59)
[2019-08-13] MEDS ORDERED: Senokot S 8.6-50 MG TAB PO PRN (00:07)
[2019-08-13] MEDS: Levothyroxine Sodium 25 MCG TAB PO SCH (04:32)
[2019-08-13] MEDS: Carvedilol 6.25 MG TAB PO SCH ×2 (09:00→17:08)
[2019-08-13] MEDS: Atorvastatin Calcium 40 MG TAB PO SCH (09:00)
[2019-08-13] MEDS: NIFEdipine XL 30 MG TAB PO SCH (09:01)
[2019-08-13] MEDS: hydrALAZINE 25 MG TAB PO SCH ×3 (09:01→21:05)
[2019-08-13] MEDS: Isosorbide Dinitrate 20 MG TAB PO SCH ×3 (09:01→21:04)
[2019-08-13] MEDS: Clopidogrel Bisulfate 75 MG TAB PO SCH (09:01)
[2019-08-13] MEDS: Heparin 5,000 UNITS/ML VIAL SC SCH ×4 (09:02→21:50)
[2019-08-13 10:08] LABS: #Lymphocytes 0.7 thou/uL (1.20-3.40); #Monocytes 0.2 thou/uL (0.11-0.59); #Neutrophils 2.3 thou/uL (1.40-6.50); %Eosinophils 0.6 % (0.0-10.0); %Lymphocytes 22.1 % (21.0-51.0); %Neutrophils 71.3 % (42.0-75.0); Hemoglobin 12.3 g/dL (14.0-18.0); Mean Corpuscular HGB CONC 32.6 g/dL (32.0-36.0); Mean Corpuscular Hemoglobin 33.1 pg (27.0-31.0); Mean Platelet Volume 10.8 fL (7.4-10.4); Platelet Count 62 thou/uL (130-400); RBC Distribution Width 13.6 % (11.5-14.5); Red Blood Cell (RBC) Count 3.72 mill/uL (4.70-6.10); White Blood Cell (WBC) Count 3.2 thou/uL (4.8-10.8)
[2019-08-13 10:09] LABS: MDiff Complete? YES
[2019-08-13 10:21] LABS: ALT (SGPT) 7 U/L (8-55); AST (SGOT) 20 U/L (5-34); Albumin 3.6 g/dL (3.5-5.0); Alkaline Phosphatase 122 U/L (40-110); Anion Gap 12 mmol/L (10-20); BUN (Urea Nitrogen) 9 mg/dL (8.9-20.6); Bilirubin, Total 0.5 mg/dL (0.2-1.2); Calc. Creatinine Clearance 132 mL/min (70-130); Calcium 7.7 mg/dL (7.8-10.44); Carbon Dioxide 22 mmol/L (22-29); Chloride 104 mmol/L (98-107); Estimated GFR-MDRD Greater than 90; Glucose 118 mg/dL (70-105); Potassium 3.6 mmol/L (3.5-5.1); Protein, Total 6.6 g/dL (6.0-8.3); Sodium 134 mmol/L (136-145)
[2019-08-13] MEDS: Acetaminophen 325 MG TAB PO PRN (12:51)
[2019-08-13] MEDS: Guaifenesin DM 100-10/5 ML UDCUP PO PRN (12:51)
--- NOTE | 2019-08-13 13:29 | PDOC.HOSPP ---
- Subjective Encounter Date: 08/13/19 Encounter Time: 10:00 Subjective: c/o nose being stuffed up, has sob and cough (dry) is amb with assistance in the room - Objective Vital Signs & Weight: Vital Signs (12 hours) Temp Pulse Resp BP Pulse Ox 08/13/19 12:55 99.4 F 78 23 H 117/66 94 L 08/13/19 08:55 99.5 F 89 28 H 137/91 H 95 08/13/19 04:50 99.1 F 86 20 134/69 94 L Weight Weight 228 lb 4.8 oz I&O: 08/12/19 08/13/19 08/14/19 06:59 06:59 06:59 Intake Total 300 360 360 Output Total 825 550 Balance 300 465 190 Result Diagrams: 08/13/19 09:51 08/13/19 09:51 Hospitalist ROS - Medication Medications: Active Medications Generic Name Dose Route Start Last Admin Trade Name Freq PRN Reason Stop Dose Admin Acetaminophen 650 mg 08/12/19 06:15 08/13/19 12:51 Tylenol PO 650 mg Q4H PRN Administration Headache/Fever/Mild Pain (1-3) Atorvastatin Calcium 40 mg 08/12/19 09:00 08/13/19 09:00 Lipitor PO 40 mg DAILY BRENDA Administration Carvedilol 12.5 mg 08/12/19 08:00 08/13/19 09:00 Coreg PO 12.5 mg BID-WM BRENDA Administration Clopidogrel Bisulfate 75 mg 08/12/19 09:00 08/13/19 09:01 Plavix PO 75 mg DAILY BRENDA Administration Guaifenesin/Dextromethorphan 15 ml 08/12/19 06:15 08/13/19 12:51 Robitussin Dm PO 15 ml Q4H PRN Administration Cough Heparin Sodium (Porcine) 5,000 units 08/12/19 09:00 08/13/19 09:02 Heparin SC Not Given TID BRENDA Hydralazine HCl 25 mg 08/12/19 09:00 08/13/19 09:01 Apresoline PO 25 mg TID BRENDA Administration Ceftriaxone Sodium 1 gm/ 100 mls @ 200 mls/hr 08/12/19 23:59 08/12/19 22:35 Sodium Chloride IVPB 100 mls Q24HR BRENDA Administration Azithromycin 500 mg/ Sodium 250 mls @ 250 mls/hr 08/12/19 23:59 08/12/19 23: 17 Chloride IVPB 250 mls Q24HR BRENDA Administration Isosorbide Dinitrate 20 mg 08/12/19 09:00 08/13/19 09:01 Isordil PO 20 mg TID BRENDA Administration Levothyroxine Sodium 25 mcg 08/12/19 06:00 08/13/19 04:32 Synthroid PO 25 mcg 0600 BRENDA Administration Nifedipine 30 mg 08/13/19 09:00 08/13/19 09:01 Procardia Xl PO 30 mg DAILY BRENDA Administration Sodium Chloride 10 ml 08/13/19 09:00 08/13/19 09:02 Flush - Normal Saline IVF 10 ml Q12HR BRENDA Administration - Exam General Appearance: awake alert Eye: PERRL, anicteric sclera ENT: no oropharyngeal lesions, moist mucosa Neck: supple, no JVD Heart: RRR, no murmur Respiratory: no wheezes, rales, rhonchi Gastrointestinal: soft, non-tender, non-distended, normal bowel sounds Extremities: no cyanosis, 1+ LE edema Neurological: cranial nerve grossly intact, no focal deficits Psychiatric: A&O x 3 Hosp A/P (1) Pneumonia due to COVID-19 virus Code(s): U07.1 - COVID-19; J12.89 - OTHER VIRAL PNEUMONIA Status: Suspected (2) Acute on chronic systolic (congestive) heart failure Code(s): I50.23 - ACUTE ON CHRONIC SYSTOLIC (CONGESTIVE) HEART FAILURE Status : Acute (3) Hypokalemia Code(s): E87.6 - HYPOKALEMIA Status: Acute (4) Bipolar disorder Code(s): F31.9 - BIPOLAR DISORDER, UNSPECIFIED Status: Chronic Qualifiers: Active/Remission status: remission status unspecified (5) CKD (chronic kidney disease) stage 3, GFR 30-59 ml/min Status: Chronic (6) Dyslipidemia Code(s): E78.5 - HYPERLIPIDEMIA, UNSPECIFIED Status: Chronic (7) Hypertension Code(s): I10 - ESSENTIAL (PRIMARY) HYPERTENSION Status: Chronic Qualifiers: (8) Hypothyroidism Code(s): E03.9 - HYPOTHYROIDISM, UNSPECIFIED Status: Chronic Qualifiers: (9) Non-ischemic cardiomyopathy Code(s): I42.9 - CARDIOMYOPATHY, UNSPECIFIED Status: Chronic (10) Noncompliance Code(s): Z91.19 - PATIENT'S NONCOMPLIANCE W OTH MEDICAL TREATMENT AND REGIMEN Status: Chronic (11) Obesity (BMI 30-39.9) Code(s): E66.9 - OBESITY, UNSPECIFIED Status: Chronic - Plan await covid 19 pcr test, if +ve will get to see, if -ve repeat test. low dose iv lasix at 6am and 2pm, nasal spray is on ceftriaxone and zithromax continue plavix, lipitor, coreg, isordil, procardia and synthroid hemostable blood cs x2 -ve, bnp is 680 encouraged patient to lay prone or side ways and to sit and ambulate more
[2019-08-13] MEDS: Furosemide 20 MG/2 ML VIAL SLOW IVP SCH (15:28)
[2019-08-13] MEDS: Sodium Chloride 0.65% Nasal 44 ML BOT EA NARE SCH (21:48)
[2019-08-13] MEDS: Azithromycin 500 MG in Sodium Chloride 0.9% 250 ML 250 ML IVPB SCH (23:32)
[2019-08-14] MEDS ORDERED: cefTRIAXone\\ROCEPHIN 1 GM in Sodium Chloride 0.9% 100 ML IVPB SCH (01:00)
[2019-08-14] MEDS: Levothyroxine Sodium 25 MCG TAB PO SCH (05:21)
[2019-08-14] MEDS: Furosemide 20 MG/2 ML VIAL SLOW IVP SCH ×3 (05:21→15:15)
[2019-08-14] MEDS: Guaifenesin DM 100-10/5 ML UDCUP PO PRN ×2 (05:33→21:28)
[2019-08-14] MEDS: Carvedilol 6.25 MG TAB PO SCH ×2 (07:39→16:52)
[2019-08-14] MEDS: Atorvastatin Calcium 40 MG TAB PO SCH (07:39)
[2019-08-14] MEDS: NIFEdipine XL 30 MG TAB PO SCH (07:39)
[2019-08-14] MEDS: hydrALAZINE 25 MG TAB PO SCH ×3 (07:40→21:29)
[2019-08-14] MEDS: Isosorbide Dinitrate 20 MG TAB PO SCH ×3 (07:40→21:29)
[2019-08-14] MEDS: Heparin 5,000 UNITS/ML VIAL SC SCH ×4 (07:41→21:29)
[2019-08-14] MEDS: Clopidogrel Bisulfate 75 MG TAB PO SCH (07:41)
[2019-08-14] MEDS: Sodium Chloride 0.65% Nasal 44 ML BOT EA NARE SCH ×2 (16:52→21:30)
--- NOTE | 2019-08-14 19:11 | PDOC.HOSPP ---
- Subjective Encounter Date: 08/14/19 Encounter Time: 16:55 Subjective: pt up in bed wants to know his prognosis. I educated him that we are waiting for his covid test results. - Objective Vital Signs & Weight: Vital Signs (12 hours) Temp Pulse Resp BP BP Pulse Ox 08/14/19 16:52 121/84 08/14/19 16:00 99.8 F H 99 22 H 121/84 96 08/14/19 14:57 75 08/14/19 13:55 98 F 75 20 140/83 97 08/14/19 12:00 97 08/14/19 08:00 99.1 F 93 22 H 148/88 H 93 L 08/14/19 07:40 88 148/84 H 08/14/19 07:39 88 148/84 H Weight Weight 223 lb 6.4 oz I&O: 08/13/19 08/14/19 08/15/19 06:59 06:59 06:59 Intake Total 360 2180 Output Total 825 3750 Balance -465 -1570 Result Diagrams: 08/13/19 09:51 08/13/19 09:51 Hospitalist ROS - Review of Systems Cardiovascular: denies: chest pain, palpitations, orthopnea, paroxysmal noc. dyspnea, edema, light headedness, other Gastrointestinal: denies: nausea, vomiting, abdominal pain, diarrhea, constipation, melena, hematochezia, other Genitourinary: denies: dysuria, frequency, incontinence, hematuria, retention, other - Medication Medications: Active Medications Generic Name Dose Route Start Last Admin Trade Name Freq PRN Reason Stop Dose Admin Acetaminophen 650 mg 08/12/19 06:15 08/13/19 12:51 Tylenol PO 650 mg Q4H PRN Administration Headache/Fever/Mild Pain (1-3) Atorvastatin Calcium 40 mg 08/12/19 09:00 08/14/19 07:39 Lipitor PO 40 mg DAILY BRENDA Administration Carvedilol 12.5 mg 08/12/19 08:00 08/14/19 16:52 Coreg PO 12.5 mg BID-WM BRENDA Administration Clopidogrel Bisulfate 75 mg 08/12/19 09:00 08/14/19 07:41 Plavix PO 75 mg DAILY BRENDA Administration Furosemide 20 mg 08/13/19 14:00 08/14/19 15:15 Lasix SLOW IVP Not Given 0600,1400 BRENDA Guaifenesin/Dextromethorphan 15 ml 08/12/19 06:15 08/14/19 05:33 Robitussin Dm PO 15 ml Q4H PRN Administration Cough Heparin Sodium (Porcine) 5,000 units 08/12/19 09:00 08/14/19 15:30 Heparin SC Not Given TID BRENDA Hydralazine HCl 25 mg 08/12/19 09:00 08/14/19 14:57 Apresoline PO 25 mg TID BRENDA Administration Isosorbide Dinitrate 20 mg 08/12/19 09:00 08/14/19 15:01 Isordil PO 20 mg TID BRENDA Administration Levothyroxine Sodium 25 mcg 08/12/19 06:00 08/14/19 05:21 Synthroid PO 25 mcg 0600 BRENDA Administration Nifedipine 30 mg 08/13/19 09:00 08/14/19 07:39 Procardia Xl PO 30 mg DAILY BRENDA Administration Sodium Chloride 10 ml 08/13/19 09:00 08/14/19 07:40 Flush - Normal Saline IVF 10 ml Q12HR BRENDA Administration Sodium Chloride 10 ml 08/13/19 08:17 08/14/19 14:56 Flush - Normal Saline IVF 10 ml PRN PRN Administration Saline Flush Sodium Chloride 0 ml 08/13/19 21:00 08/14/19 16:52 [place] Nasal [place] 0.65% EA NARE 1 inh BID BRENDA Administration - Exam Neck: negative: supple, symmetric, no JVD, no thyromegaly, no lymphadenopathy, no carotid bruit, JVD Heart: negative: RRR, no murmur, no gallops, no rubs, normal peripheral pulses, irregular, diminshed peripheral pulses, murmur present, II/IV, III/IV Respiratory: negative: CTAB, no wheezes, no rales, no ronchi, normal chest expansion, no tachypnea, normal percussion, rales, rhonchi, tachypneic, wheezes Gastrointestinal: negative: soft, non-tender, non-distended, normal bowel sounds , no palpable masses, no hepatomegaly, no splenomegaly, no bruit, no guarding, no rigidity, tender to palpation, distended, diminished bowl sounds, voluntary guarding Hosp A/P (1) Pneumonia due to COVID-19 virus Code(s): U07.1 - COVID-19; J12.89 - OTHER VIRAL PNEUMONIA Status: Suspected (2) Acute on chronic systolic (congestive) heart failure Code(s): I50.23 - ACUTE ON CHRONIC SYSTOLIC (CONGESTIVE) HEART FAILURE Status : Acute (3) Bipolar disorder Code(s): F31.9 - BIPOLAR DISORDER, UNSPECIFIED Status: Chronic Qualifiers: Active/Remission status: remission status unspecified (4) CKD (chronic kidney disease) stage 3, GFR 30-59 ml/min Status: Chronic (5) Dyslipidemia Code(s): E78.5 - HYPERLIPIDEMIA, UNSPECIFIED Status: Chronic (6) Hypertension Code(s): I10 - ESSENTIAL (PRIMARY) HYPERTENSION Status: Chronic Qualifiers: - Plan await covid 19 pcr test, if +ve will get to see, if -ve repeat test. low dose iv lasix at 6am and 2pm, nasal spray is on ceftriaxone and zithromax continue plavix, lipitor, coreg, isordil, procardia and synthroid hemostable blood cs x2 -ve, bnp is 680 encouraged patient to lay prone or side ways and to sit and ambulate more 08/13 pt was refusing medication. Explained to him that he needs to take his meds. covid still pending but based on ct most likely covid. will add crp and ferritin for am.
[2019-08-14] MEDS ORDERED: Azithromycin 500 MG in Sodium Chloride 0.9% 250 ML 250 ML IVPB SCH (21:00)
[2019-08-15] MEDS: Guaifenesin DM 100-10/5 ML UDCUP PO PRN (03:11)
[2019-08-15] MEDS: Furosemide 20 MG/2 ML VIAL SLOW IVP SCH ×2 (05:58→15:27)
[2019-08-15] MEDS: Levothyroxine Sodium 25 MCG TAB PO SCH (05:59)
[2019-08-15] MEDS: Heparin 5,000 UNITS/ML VIAL SC SCH ×2 (08:05→15:27)
[2019-08-15] MEDS: Clopidogrel Bisulfate 75 MG TAB PO SCH (08:07)
[2019-08-15] MEDS: Isosorbide Dinitrate 20 MG TAB PO SCH ×2 (08:07→15:26)
[2019-08-15] MEDS: Atorvastatin Calcium 40 MG TAB PO SCH (08:07)
[2019-08-15] MEDS: Carvedilol 6.25 MG TAB PO SCH ×2 (08:07→17:18)
[2019-08-15] MEDS: hydrALAZINE 25 MG TAB PO SCH ×2 (08:08→15:26)
[2019-08-15] MEDS: NIFEdipine XL 30 MG TAB PO SCH (08:08)
[2019-08-15] MEDS: Sodium Chloride 0.65% Nasal 44 ML BOT EA NARE SCH (08:09)
[2019-08-15] MEDS ORDERED: cefTRIAXone\\ROCEPHIN 1 GM in Sodium Chloride 0.9% 100 ML IVPB SCH (09:00)
[2019-08-15 10:10] LABS: ALT (SGPT) 9 U/L (8-55); AST (SGOT) 24 U/L (5-34); Albumin 3.6 g/dL (3.5-5.0); Alkaline Phosphatase 113 U/L (40-110); Anion Gap 12 mmol/L (10-20); BUN (Urea Nitrogen) 14 mg/dL (8.9-20.6); Bilirubin, Total 0.5 mg/dL (0.2-1.2); CRP (Inflammatory) 4.84 mg/dL (= or < 0.5); Calc. Creatinine Clearance 108 mL/min (70-130); Calcium 8.3 mg/dL (7.8-10.44); Carbon Dioxide 25 mmol/L (22-29); Chloride 104 mmol/L (98-107); Estimated GFR-MDRD 80; Globulin 3.3 g/dL (2.4-3.5); Glucose 150 mg/dL (70-105); Potassium 3.5 mmol/L (3.5-5.1); Protein, Total 6.9 g/dL (6.0-8.3); Sodium 137 mmol/L (136-145)
[2019-08-15 10:19] LABS: Band 39 % (5-11); Hemoglobin 12.7 g/dL (14.0-18.0); Lymphocytes 18 % (21-51); MDiff Complete? YES; Mean Corpuscular HGB CONC 33.3 g/dL (32.0-36.0); Mean Corpuscular Hemoglobin 33.1 pg (27.0-31.0); Mean Corpuscular Volume 99.6 fL (78.0-98.0); Mean Platelet Volume 11.4 fL (7.4-10.4); Metamyelocyte 2 % (0-0); Monocytes 3 % (0-10); Neutrophil 35 % (42-75); Platelet Count 61 thou/uL (130-400); RBC Distribution Width 13.6 % (11.5-14.5); Reactive Lymphocytes 3 % (0-10); Red Blood Cell (RBC) Count 3.82 mill/uL (4.70-6.10); White Blood Cell (WBC) Count 2.8 thou/uL (4.8-10.8)
--- NOTE | 2019-08-15 14:53 | EKG ---
Test Reason : Blood Pressure : / mmHG Vent. Rate : 095 BPM Atrial Rate : 095 BPM P-R Int : 180 ms QRS Dur : 120 ms QT Int : 390 ms P-R-T Axes : 056 -56 102 degrees QTc Int : 490 ms Sinus rhythm with occasional Premature ventricular complexes Possible Left atrial enlargement Left anterior fascicular block Left ventricular hypertrophy with QRS widening and repolarization abnormality Anteroseptal infarct , age undetermined Abnormal ECG Confirmed by JENS SANTOYO, KIKA ([id number]), electronic news gathering editor SOPHIE CROWE ([id number]) on 08/15/2019 2:52:57 PM Referred By: Confirmed By:KIKA COLINDRES MD
[2019-08-15] MEDS ORDERED: Furosemide 20 MG TAB PO SCH (15:00)
--- NOTE | 2019-08-15 15:36 | PDOC.HOSPP ---
- Subjective Encounter Date: 08/15/19 Encounter Time: 15:30 Subjective: f/u for PNA and suspicion for COVID-19 pending PCR results. Nursing states pt refusing anymore IV attempts. Remains on O2 @ 2L/min. - Objective Vital Signs & Weight: Vital Signs (12 hours) Temp Pulse Resp BP Pulse Ox 08/15/19 11:20 98.4 F 70 16 106/57 L 96 08/15/19 08:15 98.8 F 78 16 114/73 95 Weight Weight 222 lb I&O: 08/14/19 08/15/19 08/16/19 06:59 06:59 06:59 Intake Total 2180 930 Output Total 3750 850 Balance -1570 80 Result Diagrams: 08/15/19 09:29 08/15/19 09:29 Additional Labs: Microbiology 08/11/19 21:29 Venous blood - Right Hand Blood Culture - Preliminary NO GROWTH AT 48 HOURS 08/11/19 21:29 Venous blood - Right Arm Blood Culture - Preliminary NO GROWTH AT 48 HOURS Laboratory Tests 06/14/16 06/14/16 06/14/16 05:30 05:30 05:30 D-Dimer Ferritin Creatine Kinase 2332 H Troponin I 0.023 B-Natriuretic Peptide 898.1 H C-Reactive Protein 06/14/16 06/14/16 08/11/19 09:14 11:54 21:29 D-Dimer 0.56 H Ferritin Creatine Kinase Troponin I 0.030 H 0.020 B-Natriuretic Peptide C-Reactive Protein 08/15/19 08/15/19 08/15/19 09:29 09:29 09:29 D-Dimer Ferritin 386.81 H Creatine Kinase Troponin I B-Natriuretic Peptide 75.1 C-Reactive Protein 4.84 H EKG Reviewed by me: Yes (Tele - SR) Hospitalist ROS - Medication Medications: Active Medications Generic Name Dose Route Start Last Admin Trade Name Freq PRN Reason Stop Dose Admin Acetaminophen 650 mg 08/12/19 06:15 08/13/19 12:51 Tylenol PO 650 mg Q4H PRN Administration Headache/Fever/Mild Pain (1-3) Atorvastatin Calcium 40 mg 08/12/19 09:00 08/15/19 08:07 Lipitor PO 40 mg DAILY BRENDA Administration Carvedilol 12.5 mg 08/12/19 08:00 08/15/19 08:07 Coreg PO 12.5 mg BID-WM BRENDA Administration Clopidogrel Bisulfate 75 mg 08/12/19 09:00 08/15/19 08:07 Plavix PO 75 mg DAILY BRENDA Administration Furosemide 20 mg 08/15/19 15:00 08/15/19 15:26 Lasix PO 08/15/19 17:00 20 mg NOW BRENDA Administration Guaifenesin/Dextromethorphan 15 ml 08/12/19 06:15 08/15/19 03:11 Robitussin Dm PO 15 ml Q4H PRN Administration Cough Heparin Sodium (Porcine) 5,000 units 08/12/19 09:00 08/15/19 15:27 Heparin SC Not Given TID BRENDA Hydralazine HCl 25 mg 08/12/19 09:00 08/15/19 15:26 Apresoline PO 25 mg TID BRENDA Administration Ceftriaxone Sodium 1 gm/ 100 mls @ 200 mls/hr 08/15/19 09:00 08/15/19 08:07 Sodium Chloride IVPB 100 mls 0900 BRENDA Administration Isosorbide Dinitrate 20 mg 08/12/19 09:00 08/15/19 15:26 Isordil PO 20 mg TID BRENDA Administration Levothyroxine Sodium 25 mcg 08/12/19 06:00 08/15/19 05:59 Synthroid PO 25 mcg 0600 BRENDA Administration Nifedipine 30 mg 08/13/19 09:00 08/15/19 08:08 Procardia Xl PO 30 mg DAILY BRENDA Administration Sodium Chloride 10 ml 08/13/19 09:00 08/15/19 08:09 Flush - Normal Saline IVF 10 ml Q12HR BRENDA Administration Sodium Chloride 10 ml 08/13/19 08:17 08/14/19 14:56 Flush - Normal Saline IVF 10 ml PRN PRN Administration Saline Flush Sodium Chloride 0 ml 08/13/19 21:00 08/15/19 08:09 [place] Nasal [place] 0.65% EA NARE 1 inh BID BRENDA Administration - Exam General Appearance: NAD, awake alert Eye: PERRL, anicteric sclera ENT: normocephalic atraumatic, no oropharyngeal lesions Neck: supple, symmetric, no JVD, no thyromegaly, no lymphadenopathy Heart: RRR, no murmur, no gallops, no rubs, normal peripheral pulses Heart - other findings: S1, S2 Respiratory - other findings: diminished bilat, occasional rhonchi Gastrointestinal: soft, non-tender, non-distended, normal bowel sounds Extremities: no cyanosis, no clubbing, no edema Skin: normal turgor, no lesions Neurological: cranial nerve grossly intact, no new deficit Musculoskeletal: normal tone, normal strength, no muscle wasting Psychiatric: normal affect, A&O x 3 Hosp A/P (1) Pneumonia due to COVID-19 virus Code(s): U07.1 - COVID-19; J12.89 - OTHER VIRAL PNEUMONIA Status: Suspected (2) Acute on chronic systolic (congestive) heart failure Code(s): I50.23 - ACUTE ON CHRONIC SYSTOLIC (CONGESTIVE) HEART FAILURE Status : Acute (3) Acute worsening of stage 3 chronic kidney disease Code(s): N18.3 - CHRONIC KIDNEY DISEASE, STAGE 3 (MODERATE) Status: Acute (4) Bipolar disorder Code(s): F31.9 - BIPOLAR DISORDER, UNSPECIFIED Status: Chronic Qualifiers: Active/Remission status: remission status unspecified
[2019-08-15 15:55] VITALS: BP 116/75; TEMP 99.8
[2019-08-15] MEDS ORDERED: Azithromycin 250 MG TAB PO SCH (21:00)
--- NOTE | 2019-08-16 00:42 | DIS ---
DATE OF ADMISSION: 08/12/2019 DATE OF DISCHARGE: 08/15/2019 DISCHARGE DIAGNOSES: 1. Pneumonia secondary to COVID-19 virus RNA detected 08/12/19 with acute hypoxic respiratory failure 2. Chronic systolic congestive heart failure. 3. Chronic kidney disease, stage 3. 4. Bipolar disorder. 5. Hypertension, stable. CONSULTATIONS: None. PERTINENT LABORATORY AND X-RAY FINDINGS: Sodium ranged between 134 to 137. Creatinine ranged between 0.99 to 1.34, estimated GFR ranged between 69 to greater than 90, ferritin 387. Troponin I ranged between 0.060 to 0.062. CRP 4.84. BNP 75. CBC showed a white blood cell count ranged between 2.8 to 4.0, hemoglobin ranged between 12.3 to 13.3, platelet count ranged between 61 to 81. D-dimer 0.56. Blood cultures x2 dated 08/11/2019, showed no growth at 48 hours. Portable chest x-ray dated 08/11/2019, showed question of patchy density in the retrocardiac region, cardiomegaly. CT angiogram of the chest dated 08/11/2019, showed ground-glass opacities in bilateral lung bases suggestive of pneumonitis. HOSPITAL COURSE: The patient was initially admitted after presenting with increased dyspnea and fever and concern for COVID-19. The patient was initially noted with a fever of up to 102.2 degrees Fahrenheit and requiring oxygen at 2 L/minute by nasal cannula. Chest imaging showed patchy densities bilaterally concerning for pneumonitis. The patient was placed in isolation per protocol and initiated on Rocephin and Zithromax. The patient did receive bronchodilator therapy as well as general pulmonary supportive management. COVID-19 PCR was sent for evaluation; however, the final results are pending at the time of this dictation. The patient weaned off oxygen supplementation to maintain O2 saturations greater than 90%. The patient overall remained clinically stable and further refused IV medications or placement of a new IV during the hospital course. I have examined the patient at the time of discharge and discussed followup instructions. The patient verbalized understanding and in agreement, ready for discharge on 08/15/2019. DISCHARGE MEDICATIONS: 1. Zithromax 500 mg p.o. daily x4 days. 2. Prednisone 20 mg p.o. daily x3 days, followed by 10 mg p.o. daily x3 days. 3. Albuterol sulfate 2 puffs inhaled q.4 hours p.r.n. 4. Lipitor 40 mg p.o. daily. 5. Plavix 75 mg p.o. daily. 6. Lasix 40 mg p.o. b.i.d. 7. Hydralazine 25 mg p.o. t.i.d. 8. Isosorbide dinitrate 20 mg p.o. t.i.d. 9. Nifedipine XL 30 mg p.o. b.i.d. 10. Coreg 25 mg p.o. b.i.d. 11. Levothyroxine 25 mcg p.o. daily. FOLLOWUP: The patient may follow up with his primary care provider, Dr. Damaris Gamino. CONDITION ON DISCHARGE: Fair. ACTIVITY: Ad-sabas. DIET: Heart healthy. LABORATORY TESTS PENDING: COVID-19 PCR. CODE STATUS: Full. DISPOSITION: Home on 08/15/2019. TIME SPENT: Total time preparing and coordinating discharge, 32 minutes. Job ID: [id number] MTDD
[2019-08-16] MEDS ORDERED: Furosemide 20 MG TAB PO SCH (09:00)
--- NOTE | 2019-08-17 08:09 | PQF ---
CLINICAL DOCUMENTATION IMPROVEMENT CLARIFICATION FORM: ICD-10 Updated PLEASE DO AN ADDENDUM TO THE PROGRESS NOTE WITH ANY DOCUMENTATION UPDATES OR ADDITIONS AND CARRY THROUGH TO DC SUMMARY. THANK YOU. DATE: 08/17/2019 ATTN: Dr. Castellanos Please exercise your independent, professional judgment in responding to the clarification form. Clinical indicators are provided on the bottom of this form for your review Please check appropriate box(s) to clarify if the following diagnosis has been ruled in or ruled out: Sepsis [ ] Ruled in diagnosis [ ] Continue to treat [ ] Resolved [ x ] Ruled out diagnosis [ ] Improving [ ] Cannot rule out diagnosis [ ] Other diagnosis [ ] Unable to determine In addition, please specify: Present on Admission (POA): [ ] Yes [ x ] No [ ] Unable to determine For continuity of documentation, please document condition throughout progress notes and discharge summary. Thank You. CLINICAL INDICATORS - SIGNS / SYMPTOMS / LABS / RESULTS AND LOCATION IN ER Record 08/11: VS BP 190/41, pulse 92, resp. 17, Temp. 101.1 H&P 08/11: Initial ED evaluation reveals acutely ill appearing individual, initially hypoxic in the high 80s currently requiring 2L O2 via NC. Fever of 102.2. Lab: WBC 4.0 A/P: Pnuemonia suspected COVID 19 vs CAP Acute hypoxic respiratory failure Sepsis 08/12 ( Jagadeeshan) Pneumonia due to COVID-19 virus. Suspected Acute on chronic systolic CHF RISKS: H&P 08/11: PMH HTN, CAD and CHF. A/P: Pneumonia suspected COVID 19 vs CAP. Acute hypoxic respiratory failure. TREATMENT: Order 08/11-08/13: IV Zithromax Order 08/11-08/12: IV Rocephin MAR: Order 08/13: Zithromax 500 mg IV MAR: Order 08/13: Rocephin 1 gm IV 08/12 (Jimmyadeeshan) await covid 19 pcr test Thank you, Victoria (This form is maintained as a part of the permanent medical record) 2014 [email or web address], [employer] All Rights Reserved Victoria John RN, BSN [email or web address] [employer] [facility]
--- NOTE | 2019-08-18 07:15 | PQF ---
ARIS NOVAK JR BIANCA KEYES DO [id number] CLINICAL DOCUMENTATION CLARIFICATION FORM: POST DISCHARGE Addendum to original discharge summary date: ____ Late entry note date: __ DATE: 08/18/2019 ATTN:EmanuelBianca + COVID RNA detected on 08/12/19 Please exercise your independent, professional judgment in responding to the clarification form. Clinical indicators are provided on the bottom of this form for your review COVID 19 Clarification and Manifestations: Please check appropriate box(es): A.COVID 19 virus diagnosis Validation: [ x ] COVID-19 is ruled in (if so, please provide the evidence used to support this diagnosis), see above [ ] COVID-19 has been ruled out [ ] Other explanation of clinical findings [ ] Test Results Pending [ ] Unable to determine B.COVID 19 virus with associated manifestations: (please check all that apply) [ x ] Pneumonia [ x ] Acute Respiratory Failure [ ] Sepsis Viral [ ] Other diagnosis [ ] Unable to determine In addition, please specify: Present on Admission (POA): [ x ] Yes [ ] No [ ] Unable to determine For continuity of documentation, please document condition throughout progress notes and discharge summary. Thank You. Clinical Indicators - Signs / Symptoms / Labs with Results and Location in Medical Record DS 08/14 "PNA secondary to Covid 19 virus suspected" HP 08/10 "Pneumonia suspected covid19 vs CAP" HP 08/10 "Acute hypoxic respiratory failure" CT chest 08/10 "peripherally located groundglass opacities in the lungs bilaterally suggesting pneumonitis. This findings cab ne seen with viral pneumonitis such as COVID 19" HP 08/10 "CC:SOB and fever" PN 08/13 "Covis still pending but based on CT most likely Covid" Vital Signs 08/11: Flxo=004.0 Pulse=87 OU=478/59 Respi=24 Risk Factors with Results and Location in Medical Record HTN-HP 08/10 HLD-HP 08/10 CAD-HP 08/10 CHF-HP 08/10 CKD-HP 08/10 Smoker-HP 08/10 Sepsis-HP 08/10 Obesity-PN 08/12 Treatments with Results and Location in Medical Record Chest Xray-Collected 08/10 Oxygen via NC-DS 08/14 Isolation-DS 08/14 Rocephin 1gm IV-APR 30 Azithromycin 500mg IV-APR 30 (This form is maintained as a part of the permanent medical record) 2014 [employer] All Rights Reserved [email or web address]
== END 2019-08-15 18:06 | disposition home or self-care (01) | DRG 177 ==
LOC: ERS 19:09 → 2SW 08-12 01:00 → ERS 08-12 01:43
PROVIDERS: ADMIT Internal Medicine; ATTEND Internal Medicine
PROC: 8E0ZXY6 Isolation (ICD-10-PCS; principal; 2019-08-12)
DX: U07.1 COVID-19 (principal); I50.23 Acute on chronic systolic (congestive) heart failure; J96.01 Acute respiratory failure with hypoxia; J12.89 Other viral pneumonia; I13.0 Hypertensive heart and chronic kidney disease with heart failure and stage 1 through stage 4 chronic kidney disease, or unspecified chronic kidney disease; D61.818 Other pancytopenia; I42.8 Other cardiomyopathies; E78.5 Hyperlipidemia, unspecified; I25.10 Atherosclerotic heart disease of native coronary artery without angina pectoris; N18.3 Chronic kidney disease, stage 3 (moderate); F17.210 Nicotine dependence, cigarettes, uncomplicated; E87.6 Hypokalemia; F31.9 Bipolar disorder, unspecified; E03.9 Hypothyroidism, unspecified; Z91.19 Patient's noncompliance with other medical treatment and regimen; E66.9 Obesity, unspecified; Z68.31 Body mass index [BMI] 31.0-31.9, adult
CPT/HCPCS: 36415; 71045; 71275; 80053; 81003; 81015; 82550; 82553; 82728; 83605; 83690; 83880; 84484; 85025; 85379; 86140; 87040; 87635; 93005; 96365; 96375; J0456; J0696; J1644; J1940; J3490; J7050; Q9967; U0003

== ENCOUNTER 2019-08-24 14:37 | Emergency (ER) | payer OTHER ==
[2019-08-24] MEDS ORDERED: Lidocaine 1% w/Epinephrine 1:100K 20 ML VIAL ONE ×2 (16:56→16:57)
== END 2019-08-24 17:25 | disposition home or self-care (01) ==
LOC: ERS 14:37
DX: L02.31 Cutaneous abscess of buttock (principal); D50.9 Iron deficiency anemia, unspecified; I10 Essential (primary) hypertension; J44.9 Chronic obstructive pulmonary disease, unspecified; E03.9 Hypothyroidism, unspecified; E78.5 Hyperlipidemia, unspecified; I11.0 Hypertensive heart disease with heart failure; I50.9 Heart failure, unspecified; F41.9 Anxiety disorder, unspecified; F31.9 Bipolar disorder, unspecified; F20.9 Schizophrenia, unspecified; F17.210 Nicotine dependence, cigarettes, uncomplicated; Z79.02 Long term (current) use of antithrombotics/antiplatelets; Z79.899 Other long term (current) drug therapy
CPT/HCPCS: 46040

== ENCOUNTER 2019-09-11 16:47 | Inpatient (IN) | payer OTHER ==
[2019-09-11 18:20] LABS: #Eosinphils 0.1 thou/uL (0.0-0.7); #Lymphocytes 1.9 thou/uL (1.20-3.40); #Monocytes 0.6 thou/uL (0.11-0.59); #Neutrophils 4.5 thou/uL (1.40-6.50); %Basophils 0.1 % (0.0-1.0); %Eosinophils 1.6 % (0.0-10.0); %Lymphocytes 26.5 % (21.0-51.0); %Monocytes 7.7 % (0.0-10.0); %Neutrophils 64.1 % (42.0-75.0); Hemoglobin 11.7 g/dL (14.0-18.0); Mean Corpuscular HGB CONC 33.1 g/dL (32.0-36.0); Mean Corpuscular Hemoglobin 33.1 pg (27.0-31.0); Mean Platelet Volume 11.6 fL (7.4-10.4); Platelet Count 90 thou/uL (130-400); RBC Distribution Width 16.1 % (11.5-14.5); Red Blood Cell (RBC) Count 3.54 mill/uL (4.70-6.10)
[2019-09-11 18:38] LABS: ALT (SGPT) 16 U/L (8-55); AST (SGOT) 30 U/L (5-34); Albumin 3.7 g/dL (3.5-5.0); Alkaline Phosphatase 211 U/L (40-110); Anion Gap 13 mmol/L (10-20); BUN (Urea Nitrogen) 12 mg/dL (8.9-20.6); Bilirubin, Total 1.1 mg/dL (0.2-1.2); Calc. Creatinine Clearance 0 mL/min (70-130); Calcium 8.5 mg/dL (7.8-10.44); Carbon Dioxide 25 mmol/L (22-29); Chloride 104 mmol/L (98-107); Estimated GFR-MDRD 69; Globulin 3.5 g/dL (2.4-3.5); Glucose 160 mg/dL (70-105); Potassium 3.6 mmol/L (3.5-5.1); Protein, Total 7.2 g/dL (6.0-8.3); Sodium 138 mmol/L (136-145)
--- NOTE | 2019-09-11 19:09 | RAD ---
Chest one view HISTORY: Pelvic pneumonia. Dyspnea. COMPARISON: 08/11/2019. FINDINGS: Cardiac silhouette is magnified and enlarged pulmonary vasculature upper limits of normal. Ill-defined parenchymal opacity at the left base is similar in appearance to the prior study very sub tle peripheral patchy groundglass areas of parenchymal opacity correlate with the CT abnormality. No evidence of pneumothorax or lobar consolidation. IMPRESSION : Stable radiographic appearance of the chest, including subtle bilateral infiltrates and cardiomegaly.
[2019-09-11] MEDS ORDERED: Furosemide 40 MG/4 ML VIAL ONE (20:15)
[2019-09-11 21:26] LABS: Troponin I 0.055 ng/mL (< 0.028)
[2019-09-12 00:13] LABS: Troponin I 0.026 ng/mL (< 0.028)
[2019-09-12] MEDS ORDERED: Acetaminophen 325 MG TAB PO PRN (03:29)
[2019-09-12] MEDS ORDERED: Ondansetron PF 4 MG/2 ML Vial IVP PRN (03:29)
[2019-09-12] MEDS ORDERED: Ondansetron ODT 4 MG TAB SL PRN (03:29)
--- NOTE | 2019-09-12 05:58 | PDOC.HHP ---
Hospitalist HPI - History of Present Illness hypoxia, leg swelling History of Present Illness: This is a 48 year old male with history of CHF who presented to the hospital with dyspnea on exertion, cough and leg swelling. THe patient states over the past two weeks he feels his feet have gotten more swollen than usual which is making it hard to walk. He denies rashes or fevers. He states that he has been drinking soda on a daily basis, but has not been eating salt except for sea salt occasionally, when his girlfriend cooks food. He has been compliant with his lasix 40 mg daily. He also reports increasing dyspnea on exertion. He denies orthopnea or chest pain on exertion. He was recently diagnosed with COVID last month. Since then, he states the dry cough and fatigue have persisted. He states he was not discharged with oxygen. He denies chest pain, palpitations, dizziness or lightheadedness. The patient states he was told his oxygen saturation was low on room air. ED Course: The patient presented to the ER with normal vitals. He was found to have oxygen saturation of 88% on room air. His chest Xray showed subtle bilateral infiltrates and cardiomegaly. BNP was 983. The patient was also noted to have creatinine of 1.33, up from his baseline. Hospitalist ROS - Review of Systems Constitutional: reports: other (pt reports 12 pound weight loss). denies: fever , chills ENT: denies: ear pain, ear discharge Respiratory: denies: cough, dry, shortness of breath Cardiovascular: denies: chest pain, palpitations, orthopnea Gastrointestinal: denies: nausea, vomiting, abdominal pain Genitourinary: denies: dysuria, frequency Musculoskeletal: denies: neck pain, shoulder pain Neurological: denies: weakness, numbness Hospitalist History - Past Medical History Cardiac: reports: CHF, HTN Endocrine: reports: Hypothyroidism - Past Surgical History Past Surgical History: reports: Appendectomy, Hernia Repair Other Surgical History: implanted defibrillator - Family History Other Family History: None - Social History Smoking Status: Current some day smoker (smokes occasionally but has been giving it up) Alcohol: reports: None Drugs: reports: none Living Situation: Alone - Exam General Appearance: NAD, awake alert Eye: PERRL, anicteric sclera ENT: normocephalic atraumatic, no oropharyngeal lesions Neck: supple, symmetric, no JVD Heart: RRR, no murmur, no gallops, no rubs Respiratory: CTAB, no wheezes, no rales, no ronchi Gastrointestinal: soft, non-tender, non-distended, normal bowel sounds, no palpable masses Extremities: no cyanosis, no clubbing Extremities - other findings: mild edema in the feet Skin: normal turgor, no lesions, no rashes Neurological: cranial nerve grossly intact, normal sensation to touch, no focal deficits, no new deficit Musculoskeletal: normal tone, normal strength, no muscle wasting Psychiatric: normal affect, normal behavior, A&O x 3 Hospitalist Results - Labs Result Diagrams: 09/11/19 17:33 09/11/19 17:33 Lab results: WBC 7.0 thou/uL (4.8-10.8) 09/11/19 17:33 Hgb 11.7 g/dL (14.0-18.0) L 09/11/19 17:33 Hct 35.4 % (42.0-52.0) L 09/11/19 17:33 MCV 100.0 fL (78.0-98.0) H 09/11/19 17:33 Plt Count 90 thou/uL (130-400) L 09/11/19 17:33 Neutrophils % 64.1 % (42.0-75.0) 09/11/19 17:33 Sodium 138 mmol/L (136-145) 09/11/19 17:33 Potassium 3.6 mmol/L (3.5-5.1) 09/11/19 17:33 Chloride 104 mmol/L (98-107) 09/11/19 17:33 Carbon Dioxide 25 mmol/L (22-29) 09/11/19 17:33 BUN 12 mg/dL (8.9-20.6) 09/11/19 17:33 Creatinine 1.33 mg/dL (0.7-1.3) H 09/11/19 17:33 Glucose 160 mg/dL (70-105) H 09/11/19 17:33 Lactic Acid 1.9 mmol/L (0.5-2.2) 09/11/19 18:49 Calcium 8.5 mg/dL (7.8-10.44) 09/11/19 17:33 Total Bilirubin 1.1 mg/dL (0.2-1.2) 09/11/19 17:33 AST 30 U/L (5-34) 09/11/19 17:33 ALT 16 U/L (8-55) 09/11/19 17:33 Alkaline Phosphatase 211 U/L (40-110) H 09/11/19 17:33 Troponin I 0.026 ng/mL (< 0.028) 09/11/19 23:42 B-Natriuretic Peptide 983.3 pg/mL (0-100) H 09/11/19 17:33 Serum Total Protein 7.2 g/dL (6.0-8.3) 09/11/19 17:33 Albumin 3.7 g/dL (3.5-5.0) 09/11/19 17:33 Hospitalist H&P A/P - Plan Plan: This is a 48 year old male with past medical history of systolic CHF, recent COVID who presents to the ER with increasing dyspnea on exertion, leg swelling, hypoxia, admitted for mild CHF exacerbation #Acute hypoxic respiratory failure secondary to mild CHF exacerbation #Recent COVID + - will place on IV lasix 40 mg bid. chest X ray shows mild bilateral infiltrates - patient appears to be noncompliant with his fluid restriction - last ECHO was in April and showed EF of 25%. Will resume home coreg, plavix - will recheck COVID swab since last one was > 1 month ago, will d/c home prednisone #Acute kidney injury - creatinine up to 1.33. Check UA - diurese with lasix as mentioned above #Macrocytic anemia - Hb 11, chronic. B12/folate normal 05/2019 Hypothyroidism - continue levothyroxine Hypertension - continue hydralazine, nifedipine and imdur DVT prophylaxis: heparin Code status: full code
[2019-09-12] MEDS ORDERED: Albuterol 200 PUFF (6.7GM INHALER) INH PRN (06:01)
[2019-09-12 07:10] LABS: Anion Gap 11 mmol/L (10-20); BUN (Urea Nitrogen) 11 mg/dL (8.9-20.6); Calc. Creatinine Clearance 98 mL/min (70-130); Calcium 8.4 mg/dL (7.8-10.44); Carbon Dioxide 24 mmol/L (22-29); Chloride 103 mmol/L (98-107); Estimated GFR-MDRD 65; Glucose 188 mg/dL (70-105); Potassium 3.4 mmol/L (3.5-5.1); Sodium 135 mmol/L (136-145)
[2019-09-12] MEDS: Isosorbide Dinitrate 20 MG TAB PO SCH ×3 (07:49→20:00)
[2019-09-12] MEDS: Carvedilol 6.25 MG TAB PO SCH ×2 (07:49→17:00)
[2019-09-12] MEDS: NIFEdipine XL 30 MG TAB PO SCH ×2 (07:49→20:00)
[2019-09-12] MEDS: Clopidogrel Bisulfate 75 MG TAB PO SCH (07:50)
[2019-09-12] MEDS: hydrALAZINE 25 MG TAB PO SCH ×3 (07:50→20:00)
[2019-09-12] MEDS ORDERED: predniSONE 20 MG TAB PO SCH (08:00)
[2019-09-12] MEDS: Heparin 5,000 UNITS/ML VIAL SC SCH ×3 (10:08→20:01)
[2019-09-12 11:05] LABS: Bacteria/HPF None Seen HPF (None Seen); Bilirubin Negative (Negative); Blood, Urine Negative (Negative); Clarity Clear (Clear); Glucose, Urine (Dipstick) Normal (Negative); Ketone, Urine Negative (Negative); Leukocyte Negative Leu/uL (Negative); Nitrite Negative (Negative); Protein, Urine (Dipstick) 100 mg/dL (Neg-Trace); RBC/HPF 0-3 HPF (0-3); Specific Gravity, Urine 1.017 (1.002-1.036); Squamous Epithelial None Seen HPF (0-3); Urobilinogen 6 mg/dL (Less than 2); WBC/HPF 0-3 HPF (0-3)
[2019-09-12 11:06] LABS: Urine Culture Reflex No No
[2019-09-12] MEDS: Furosemide 40 MG/4 ML VIAL SLOW IVP SCH (15:19)
--- NOTE | 2019-09-12 15:33 | PDOC.EVN ---
Event Note - Event Note Event Note: inherite patient this morning. Patient alert and oriented x 3 but having difficulties expressing himself. Unknown if this is his baseline. Had a 3-beat asymptomatic NSVT. Has ICD in place, will optimize management of cardiac comorbidities
[2019-09-13] MEDS: Furosemide 40 MG/4 ML VIAL SLOW IVP SCH ×2 (05:18→15:16)
[2019-09-13] MEDS: Levothyroxine 150 MCG TAB PO SCH (05:18)
[2019-09-13 05:47] LABS: Anion Gap 11 mmol/L (10-20); BUN (Urea Nitrogen) 13 mg/dL (8.9-20.6); Calc. Creatinine Clearance 100 mL/min (70-130); Carbon Dioxide 26 mmol/L (22-29); Chloride 101 mmol/L (98-107); Estimated GFR-MDRD 67; Glucose 144 mg/dL (70-105); Potassium 3.4 mmol/L (3.5-5.1); Sodium 135 mmol/L (136-145)
[2019-09-13 06:52] LABS: #Eosinphils 0.2 thou/uL (0.0-0.7); #Lymphocytes 1.5 thou/uL (1.20-3.40); #Monocytes 0.5 thou/uL (0.11-0.59); %Eosinophils 2.4 % (0.0-10.0); %Lymphocytes 24.3 % (21.0-51.0); %Monocytes 8.6 % (0.0-10.0); %Neutrophils 64.6 % (42.0-75.0); Anisocytosis SLIGHT = 6-15 cells (100X) (0-5/hpf); Hemoglobin 11.2 g/dL (14.0-18.0); MDiff Complete? YES; Mean Corpuscular HGB CONC 32.5 g/dL (32.0-36.0); Mean Corpuscular Hemoglobin 33.3 pg (27.0-31.0); Mean Platelet Volume 11.3 fL (7.4-10.4); Platelet Count 84 thou/uL (130-400); Platelet Morphology Comment Appears Decreased; RBC Distribution Width 16.1 % (11.5-14.5); Red Blood Cell (RBC) Count 3.37 mill/uL (4.70-6.10); White Blood Cell (WBC) Count 6.2 thou/uL (4.8-10.8)
[2019-09-13] MEDS: Isosorbide Dinitrate 20 MG TAB PO SCH ×3 (08:00→21:13)
[2019-09-13] MEDS: NIFEdipine XL 30 MG TAB PO SCH ×2 (08:00→21:13)
[2019-09-13] MEDS: hydrALAZINE 25 MG TAB PO SCH ×3 (08:00→21:13)
[2019-09-13] MEDS: Clopidogrel Bisulfate 75 MG TAB PO SCH (08:00)
[2019-09-13] MEDS: Carvedilol 6.25 MG TAB PO SCH ×2 (08:01→19:27)
[2019-09-13] MEDS: Heparin 5,000 UNITS/ML VIAL SC SCH ×3 (08:01→21:00)
[2019-09-13] MEDS: Atorvastatin Calcium 40 MG TAB PO SCH (08:01)
[2019-09-13] MEDS ORDERED: Furosemide 40 MG TAB PO SCH (09:00)
[2019-09-13] MEDS ORDERED: Electrolyte Replacement Protoc 1 EACH EACH FS SCH (09:45)
[2019-09-13] MEDS ORDERED: Furosemide 40 MG/4 ML VIAL SLOW IVP SCH (10:15)
[2019-09-13] MEDS ORDERED: Electrolyte Replacement Protocol FS PRN (10:15)
[2019-09-13] MEDS ORDERED: Magnesium 2 GM/50 ML 2 GM in Premix Bag 1 BAG IVPB SCH (12:00)
[2019-09-13] MEDS ORDERED: Potassium Chloride 20 MEQ TAB PO SCH (12:00)
--- NOTE | 2019-09-13 17:31 | PDOC.HOSPP ---
- Subjective Encounter Date: 09/13/19 Encounter Time: 09:00 Subjective: no overnight events. this morning, breathing better and weaned off NC. no complaints. - Objective Vital Signs & Weight: Vital Signs (12 hours) Temp Pulse Resp BP BP BP Pulse Ox 09/13/19 15:25 98.6 F 93 18 127/85 93 L 09/13/19 11:40 97.8 F 62 18 130/75 94 L 09/13/19 07:19 98.0 F 64 18 132/82 95 Weight Weight 239 lb 11.2 oz I&O: 09/12/19 09/13/19 09/14/19 06:59 06:59 06:59 Intake Total 120 1680 Output Total 150 4000 Balance -30 -2320 Result Diagrams: 09/13/19 04:40 09/13/19 04:40 Hospitalist ROS - Review of Systems Constitutional: denies: fever, chills Respiratory: denies: cough, dry, shortness of breath Cardiovascular: denies: chest pain, palpitations Gastrointestinal: denies: nausea, vomiting, abdominal pain - Medication Medications: Active Medications Generic Name Dose Route Start Last Admin Trade Name Freq PRN Reason Stop Dose Admin Atorvastatin Calcium 40 mg 09/13/19 09:00 09/13/19 08:01 Lipitor PO 40 mg DAILY BRENDA Administration Carvedilol 12.5 mg 09/12/19 08:00 09/13/19 08:01 Coreg PO 12.5 mg BID-WM BRENDA Administration Clopidogrel Bisulfate 75 mg 09/12/19 09:00 09/13/19 08:00 Plavix PO 75 mg DAILY BRENDA Administration Furosemide 20 mg 09/13/19 14:00 09/13/19 15:16 Lasix SLOW IVP 20 mg 0600,1400 BRENDA Administration Heparin Sodium (Porcine) 5,000 units 09/12/19 09:00 09/13/19 15:16 Heparin SC 5,000 units TID BRENDA Administration Hydralazine HCl 25 mg 09/12/19 09:00 09/13/19 15:16 Apresoline PO 25 mg TID BRENDA Administration Isosorbide Dinitrate 20 mg 09/12/19 09:00 09/13/19 15:17 Isordil PO 20 mg TID BRENDA Administration Levothyroxine Sodium 150 mcg 09/13/19 06:00 09/13/19 05:18 Synthroid PO 150 mcg 0600 BRENDA Administration Nifedipine 30 mg 09/12/19 09:00 09/13/19 08:00 Procardia Xl PO 30 mg BID BRENDA Administration - Exam General Appearance: NAD, awake alert Eye: PERRL, anicteric sclera Neck: no JVD Heart: RRR, no murmur, no gallops, no rubs Respiratory: CTAB, no wheezes, no rales, no ronchi Gastrointestinal: soft, non-tender, non-distended, normal bowel sounds Extremities: 1+ LE edema Psychiatric: normal affect, normal behavior, A&O x 3 Hosp A/P - Plan #decompensated HFrEF prompt improvement with diuresis continue diuresis and strict I/O #NSVT -no additional episodes overnight; telemetry showing a-paced rhythm ELOS: 1 night
[2019-09-14 04:15] VITALS: BMI 36.3
[2019-09-14] MEDS: Levothyroxine 150 MCG TAB PO SCH (06:03)
[2019-09-14] MEDS: Furosemide 40 MG/4 ML VIAL SLOW IVP SCH (06:03)
[2019-09-14] MEDS: Atorvastatin Calcium 40 MG TAB PO SCH (09:11)
[2019-09-14] MEDS: Carvedilol 6.25 MG TAB PO SCH (09:11)
[2019-09-14] MEDS: Isosorbide Dinitrate 20 MG TAB PO SCH (09:11)
[2019-09-14] MEDS: Clopidogrel Bisulfate 75 MG TAB PO SCH (09:11)
[2019-09-14] MEDS: NIFEdipine XL 30 MG TAB PO SCH (09:12)
[2019-09-14] MEDS: hydrALAZINE 25 MG TAB PO SCH (09:12)
[2019-09-14] MEDS: Heparin 5,000 UNITS/ML VIAL SC SCH (09:12)
[2019-09-14 12:34] VITALS: BP 115/68; TEMP 97.9
--- NOTE | 2019-09-14 13:52 | DIS ---
DATE OF ADMISSION: 09/11/2019 DATE OF DISCHARGE: 09/14/2019 HOSPITAL COURSE: Mr. Mejia is a 48-year-old male with a medical history of CHF, who presented with dyspnea on exertion, cough and leg swelling. He was diagnosed with decompensated heart failure due to medication nonadherence. The patient was started on diuresis and his home regimen of heart failure medications. He improved promptly. On the day of discharge, he was breathing and saturating well on room air, was hemodynamically stable and had no complaints. PHYSICAL EXAMINATION: VITAL SIGNS: Blood pressure 121/71, pulse 71, respiratory rate 14, oxygen saturation 94% on room air, and temperature 97.9 Fahrenheit. GENERAL: Lying comfortably in bed. Alert. HEENT: PERRL. Anicteric sclerae. EOMI. NECK: No JVD. HEART: Regular rate and rhythm. No murmurs, gallops or rubs. LUNGS: Clear to auscultation bilaterally. No wheezing, rales or rhonchi. GI: Soft, nontender, and nondistended. Normal bowel sounds. EXTREMITIES: Bilateral equal pitting edema up to mid tibial level, improved compared to the day of admission. PSYCHIATRIC: Proper mood and affect. Alert and oriented x3. MEDICATION LIST: New medications: No new medications. Continued medications: 1. Albuterol. 2. Atorvastatin. 3. Coreg. 4. Plavix. 5. Lasix. 6. Hydralazine. 7. Isosorbide dinitrate. 8. Levothyroxine. 9. Nifedipine. Discontinued medications: 1. Prednisone. 2. Keflex. Job ID: [id number]
--- NOTE | 2019-09-15 13:22 | PQF ---
CLINICAL DOCUMENTATION CLARIFICATION FORM: Dear : Benny Liu Date / Time: 09/15/2019 Please exercise your independent, professional judgment in responding to the clarification form. Clinical indicators are provided on the bottom of this form for your review Please check appropriate box(es): Conflicting documentation was noted in the Medical Record; please clarify if patient is being treated/monitored for: [ ] COVID-19 confirmed [ ] Recent COVID+ [ ] Other diagnosis [x ] Unable to determine In addition, please specify: Present on Admission (POA): [x ] Yes [ ] No [ ] Unable to determine To be completed by CDI/Coding staff for physician review: Present Clinical Indicators - Signs / Symptoms / Labs Results and Location in Medical Record [ x ] ED final diagnosis: COVID-19, coronavirus confirmed. Patient has signs of CHF on x-ray as well as bilateral infiltrates consistent with COVID ED Provider Report 09/10 [ x ] Recent COVID +. Will recheck COVID swab since last one was > 1 month ago, will d/c home prednisone H&P [ x ] He was recently diagnosed with COVID last month. Since then, he states the dry cough and fatigue have persisted H&P Present Risk Factors Results and Location in Medical Record [ x ] Acute hypoxic respiratory failure, CHF exacerbation, recent COVID H&P Present Treatments Results and Location in Medical Record [ x ] Will recheck COVID swab and discontinue prednisone H&P [ x ] Chest x-ray 09/10 Reports CDS/[employer] Picker Signature: [email or web address] Phone #: Date/Time: 09/15/2019 This is a permanent part of the Medical Record [facility]
== END 2019-09-14 12:31 | disposition home or self-care (01) | DRG 291 ==
LOC: ERS 16:47 → ERHOLD 20:40 → 2SW 09-12 03:22
PROVIDERS: ADMIT Internal Medicine; ATTEND Internal Medicine
DX: I11.0 Hypertensive heart disease with heart failure (principal); J96.01 Acute respiratory failure with hypoxia; N17.9 Acute kidney failure, unspecified; I47.1 Supraventricular tachycardia; E03.9 Hypothyroidism, unspecified; F17.210 Nicotine dependence, cigarettes, uncomplicated; D53.9 Nutritional anemia, unspecified; J44.9 Chronic obstructive pulmonary disease, unspecified; E78.5 Hyperlipidemia, unspecified; F41.9 Anxiety disorder, unspecified; F31.9 Bipolar disorder, unspecified; I50.23 Acute on chronic systolic (congestive) heart failure; F20.9 Schizophrenia, unspecified; Z91.14 Patient's other noncompliance with medication regimen; Z90.49 Acquired absence of other specified parts of digestive tract; Z95.810 Presence of automatic (implantable) cardiac defibrillator; Z86.19 Personal history of other infectious and parasitic diseases
CPT/HCPCS: 36415; 71045; 80048; 80053; 81001; 83605; 83880; 84484; 85025; 93005; 96374; J1644; J1940; J3475

== ENCOUNTER 2019-09-23 14:44 | Inpatient (IN) | payer OTHER ==
--- NOTE | 2019-09-23 15:23 | RAD ---
Chest one view HISTORY: Chest pain. COVID pneumonia. COMPARISON: 09/11/2019. FINDINGS: Cardiac silhouette is magnified and enlarged. Pulmonary vasculature remains engorged with m ild bilateral perihilar infiltrates. Mediastinum is midline with a multi lead left subclavian cardiac electronic device. No lobar consolidation or evidence of pneumothorax. IMPRESSION : Cardiomegaly and pulmonary vascular congestion appear stable.
[2019-09-23 15:37] LABS: #Eosinphils 0.1 thou/uL (0.0-0.7); #Lymphocytes 1.5 thou/uL (1.20-3.40); #Monocytes 0.5 thou/uL (0.11-0.59); #Neutrophils 4.4 thou/uL (1.40-6.50); %Basophils 0.5 % (0.0-1.0); %Eosinophils 0.8 % (0.0-10.0); %Monocytes 7.6 % (0.0-10.0); %Neutrophils 68.1 % (42.0-75.0); Hemoglobin 12.6 g/dL (14.0-18.0); Mean Corpuscular Hemoglobin 32.1 pg (27.0-31.0); Mean Platelet Volume 10.6 fL (7.4-10.4); Platelet Count 100 thou/uL (130-400); RBC Distribution Width 16.4 % (11.5-14.5); Red Blood Cell (RBC) Count 3.92 mill/uL (4.70-6.10); White Blood Cell (WBC) Count 6.5 thou/uL (4.8-10.8)
[2019-09-23 15:45] LABS: ALT (SGPT) 11 U/L (8-55); AST (SGOT) 23 U/L (5-34); Albumin 3.9 g/dL (3.5-5.0); Alkaline Phosphatase 145 U/L (40-110); Anion Gap 12 mmol/L (10-20); BUN (Urea Nitrogen) 19 mg/dL (8.9-20.6); Bilirubin, Total 0.9 mg/dL (0.2-1.2); Calc. Creatinine Clearance 0 mL/min (70-130); Calcium 8.4 mg/dL (7.8-10.44); Carbon Dioxide 23 mmol/L (22-29); Chloride 108 mmol/L (98-107); Estimated GFR-MDRD 62; Globulin 3.3 g/dL (2.4-3.5); Glucose 172 mg/dL (70-105); Potassium 3.4 mmol/L (3.5-5.1); Protein, Total 7.2 g/dL (6.0-8.3); Sodium 140 mmol/L (136-145)
[2019-09-23 16:08] LABS: CKMB 6.4 ng/mL (0-6.6)
[2019-09-23] MEDS ORDERED: Potassium Chloride 20 MEQ TAB ONE (17:47)
[2019-09-23] MEDS ORDERED: Furosemide 40 MG/4 ML VIAL ONE (17:47)
[2019-09-23] MEDS ORDERED: Nitroglycerin 2% Ointment 1 INCH/1 GM Packet ONE (17:47)
[2019-09-23] MEDS ORDERED: Furosemide 20 MG/2 ML VIAL ONE (17:47)
[2019-09-23] MEDS ORDERED: Aspirin Chewable 81 MG TAB ONE (17:47)
[2019-09-23] MEDS ORDERED: Ondansetron ODT 4 MG TAB PO PRN (18:11)
[2019-09-23] MEDS ORDERED: Acetaminophen 325 MG TAB PO PRN (18:11)
[2019-09-23] MEDS ORDERED: Senokot S 8.6-50 MG TAB PO PRN (18:11)
[2019-09-23] MEDS ORDERED: Albuterol 200 PUFF (6.7GM INHALER) INH PRN (18:13)
[2019-09-23 18:15] LABS: Troponin I 0.039 ng/mL (< 0.028)
[2019-09-23] MEDS ORDERED: Potassium Citrate 10 MEQ TAB PO SCH (18:15)
--- NOTE | 2019-09-23 20:01 | HP ---
CHIEF COMPLAINT: Shortness of breath and lower extremity edema. Bounce back in 30 days for CHF exacerbation. HISTORY OF PRESENT ILLNESS: A 48-year-old male, with history of CHF, last hospitalization on September 13, presenting back with another episode of decompensated heart failure. In July 2019, he had a COVID-19 positive. During the last hospitalization, he was admitted for CHF exacerbation and diuresed and discharged in a stable condition. Now, he is presenting with short of breath and bounced back within 30 days. He has increased shortness of breath and lower extremity edema. His BNP last level was 187, today it is over 1000. He received nitro paste and given an aspirin. His initial troponin was indeterminate at the level of 0.045. Chest x-ray showed cardiomegaly with stable vascular congestion. EKG showed T inversions in the lead I and aVR. In September 2018, he had an echo showing EF of 50%, left atrium dilation, left ventricular hypertrophy. He was started on BiDil at that time. He had normal coronary arteries in 2014 cath. The patient says that he has significant orthopnea as well as PND. He denies any increased productive cough or fever or chills. REVIEW OF SYSTEMS: 13-point reviewed. Pertinent addressed above. The rest negative. ALLERGIES: HE IS ALLERGIC TO JOSE ANGEL INHIBITORS, DIPHENHYDRAMINE, AND TRAMADOL. PAST MEDICAL HISTORY: 1. Nonischemic cardiomyopathy with EF of 50% in September 2018 echo. 2. Diabetes, hyperlipidemia, hypertension, and hypothyroidism. CURRENT MEDICATIONS: 1. Aspirin 81 mg daily. 2. Lipitor 40 mg at bedtime. 3. Coreg 12.5 mg twice a day. 4. Metformin 1000 mg twice a day. 5. Lasix 40 mg daily. 6. BiDil one tablet three times a day. SOCIAL HISTORY: Patient does smoke several cigarettes a day. Occasional alcohol use. He is an ex-drug abuser with cocaine and marijuana. FAMILY HISTORY: Significant for mother had a coronary artery disease. PHYSICAL EXAMINATION: VITAL SIGNS: He is afebrile, normotensive. Patient is sitting straight in the bed. He is not able to complete the sentences in full. He is in mild respiratory distress. CARDIOVASCULAR: Regular rate and rhythm, without murmurs, rubs, or gallops. LUNGS: Anterior auscultation showed significant rales and rhonchi. EXTREMITIES: His lower extremities have 2+ pitting edema. ABDOMEN: Soft, but protuberant. Good bowel sounds positive. NEUROLOGIC: No focal deficits. LABORATORY DATA: CBC in the normal range. BNP showed 1001.5. Potassium 3.4. Creatinine 1.46. Troponin is 0.045. Chest x-ray showed cardiomegaly without any focal consolidation. IMPRESSION AND PLAN: This is a 48-year-old male, with a history of nonischemic cardiomyopathy, presenting with; 1. Congestive heart failure exacerbation, probably diastolic. We will get the 2D echo. Started him on diuresis. Strict in and outputs, daily weight, and fluid restriction for a couple of days. 2. We will also request Cardiology consult in the morning. 3. He was tested COVID positive on August 14. Though it is over a month, given his symptoms, I am also concerned about whether he had recurrence of COVID pneumonia that triggered his CHF exacerbation. Infilterate not evident in the imaging studies, so we will get rapid test, if possible. 4. Hypertension. Continue with his cardiac medications including Isordil and nifedipine for now and I am going to hold the Coreg at this point. Once he is out of congestive heart failure exacerbation, we will reintroduce the beta deborah. 5. Renally dosed heparin for deep venous thrombosis prophylaxis. 6. Full code. 7. Heart-healthy diet with less than 2 g of sodium. Job ID: [id number] MTDD
[2019-09-23 21:09] LABS: Troponin I 0.039 ng/mL (< 0.028)
[2019-09-23] MEDS: NIFEdipine XL 30 MG TAB PO SCH (21:40)
[2019-09-23] MEDS: Isosorbide Dinitrate 20 MG TAB PO SCH (21:40)
[2019-09-24 00:41] LABS: Troponin I 0.039 ng/mL (< 0.028)
[2019-09-24 00:48] VITALS: BMI 36.5
[2019-09-24] MEDS ORDERED: Benzonatate 100 MG CAP PO PRN ×2 (02:53→15:40)
[2019-09-24] MEDS: Furosemide 40 MG/4 ML VIAL SLOW IVP SCH ×2 (06:00→14:57)
[2019-09-24] MEDS: Levothyroxine 150 MCG TAB PO SCH (06:00)
[2019-09-24] MEDS ORDERED: Carvedilol 6.25 MG TAB PO SCH ×2 (08:00→09:30)
[2019-09-24] MEDS ORDERED: Spironolactone 25 MG TAB PO SCH (09:30)
[2019-09-24] MEDS: NIFEdipine XL 30 MG TAB PO SCH (09:32)
[2019-09-24] MEDS: Clopidogrel Bisulfate 75 MG TAB PO SCH (09:32)
[2019-09-24] MEDS: Isosorbide Dinitrate 20 MG TAB PO SCH ×3 (09:32→21:03)
--- NOTE | 2019-09-24 10:02 | CON ---
DATE OF CONSULTATION: HISTORY OF PRESENT ILLNESS: The patient is a 48-year-old gentleman, who presents with increasing dyspnea. The patient has a long history of nonischemic cardiomyopathy. He was seen in 2015 with congestive heart failure. He underwent cardiac catheterization, found to have severe decrease in left ventricular systolic function with normal coronary arteries. The patient also had subsequently placement of automatic implantable cardiac defibrillator. The patient has been noncompliant with his followup. He reports that he was admitted to the hospital with recurrent dyspnea and lower extremity swelling. The patient denies having any chest discomfort. PAST MEDICAL HISTORY: 1. Cardiomyopathy. 2. Hypertension. 3. Diabetes mellitus. 4. Dyslipidemia. 5. Chronic renal insufficiency. 6. Diabetes mellitus. PAST SURGICAL HISTORY: Appendectomy. ALLERGIES: JOSE ANGEL INHIBITOR, BENADRYL, AND TRAMADOL. MEDICATIONS: On admission, See nursing list. SOCIAL HISTORY: He has a long history of tobacco use and a past history of illicit drug use. REVIEW OF SYSTEMS: Ten-point system otherwise unremarkable. PHYSICAL EXAMINATION: GENERAL: Obese gentleman in no acute distress. VITAL SIGNS: Blood pressure 138/96. NECK: No jugular venous distention. LUNGS: Clear to auscultation. HEART: Regular rate and rhythm. Normal S1 and S2. 1/6 systolic murmur. ABDOMEN: Distended. EXTREMITIES: Showed moderate bilateral edema. VASCULAR: Radial pulses 2+. LABORATORY DATA: Sodium 140, potassium 3.4, chloride 108, bicarbonate 23, BUN 19, creatinine 1.4, glucose 172. Troponin 0.045. BNP was 1001. EKG normal sinus rhythm, left anterior fascicular block, left ventricular hypertrophy with repolarization abnormality. IMPRESSION: 1. Congestive heart failure. 2. History of nonischemic cardiomyopathy. 3. Hypertension. 4. Diabetes mellitus. 5. Chronic renal insufficiency. 6. History of AICD. 7. Noncompliance. This gentleman presents with congestive heart failure. He should not be on a calcium deborah. Would discontinue his nifedipine, which is contraindicated in patients with cardiomyopathy. We would switch the patient to hydralazine as BiDil is recommended for patients with nonischemic cardiomyopathy. For this patient with nonischemic cardiomyopathy, I would restart the patient on his Coreg. We would add Spironolactone and will follow this patient with you through his hospitalization. Job ID: [id number] [facility]
[2019-09-24 10:43] LABS: Anion Gap 14 mmol/L (10-20); BUN (Urea Nitrogen) 17 mg/dL (8.9-20.6); Calc. Creatinine Clearance 90 mL/min (70-130); Calcium 8.8 mg/dL (7.8-10.44); Carbon Dioxide 26 mmol/L (22-29); Chloride 103 mmol/L (98-107); Estimated GFR-MDRD 61; Glucose 151 mg/dL (70-105); Potassium 3.5 mmol/L (3.5-5.1); Sodium 139 mmol/L (136-145)
--- NOTE | 2019-09-24 12:18 | PDOC.HOSPP ---
- Subjective Encounter Date: 09/24/19 Encounter Time: 11:00 Subjective: Getting echo now. COVID test is still pending. He has negative balance of 700 mL for this last shift. His weight is about 233 pounds. - Objective Vital Signs & Weight: Vital Signs (12 hours) Temp Pulse Resp BP Pulse Ox 09/24/19 09:23 98.9 F 91 16 155/97 H 97 09/24/19 04:00 97.7 F 91 15 138/96 H 95 Weight Weight 233 lb I&O: 09/23/19 09/24/19 09/25/19 06:59 06:59 06:59 Intake Total 750 Output Total 1450 Balance -700 Result Diagrams: 09/23/19 15:12 09/24/19 10:09 Additional Labs: Accuchecks 09/24/19 10:55 POC Glucose 125 H Hospitalist ROS - Medication Medications: Active Medications Generic Name Dose Route Start Last Admin Trade Name Freq PRN Reason Stop Dose Admin Benzonatate 100 mg 09/24/19 02:53 09/24/19 04:54 Tessalon PO 100 mg TIDPRN PRN Administration Cough Clopidogrel Bisulfate 75 mg 09/24/19 09:00 09/24/19 09:32 Plavix PO 75 mg DAILY BRENDA Administration Furosemide 40 mg 09/24/19 06:00 09/24/19 06:00 Lasix SLOW IVP 40 mg 0600,1400 BRENDA Administration Isosorbide Dinitrate 20 mg 09/23/19 21:00 09/24/19 09:32 Isordil PO 20 mg TID BRENDA Administration Levothyroxine Sodium 150 mcg 09/24/19 06:00 09/24/19 06:00 Synthroid PO 150 mcg 0600 BRENDA Administration - Exam General Appearance: NAD, awake alert Eye: PERRL ENT: normocephalic atraumatic Neck: supple Heart: RRR Respiratory: CTAB, normal chest expansion Gastrointestinal: soft, normal bowel sounds Neurological: no focal deficits Psychiatric: A&O x 3 Hosp A/P - Plan CHF exacerbation probably diastolic -With shortness of breath and lower extremity edema -Echo is completed today report pending. -His blood pressure is slightly high. -He has a negative output of 700 mL. -Slight bump in his creatinine from 1.46-1.49. -Cardiology consult in progress. Indeterminate troponin with a level of 0.045-0.039. -Antibiotic mismatch type II secondary to CHF exacerbation. Shortness of breath -Though it likely due to CHF exacerbation given his recent COVID in July we need to rule out again -Test ordered. -His sats are good at 95% in the room air. Hypertension For now we are diuresing so will monitor closely. Kidney disease stage III -Expect creatinine level to bump up slightly due to IV diuresis. But watch closely. History of cocaine abuse -Ordered urine drug screen. Full code
[2019-09-24 14:08] LABS: SARS-CoV-2 MS2 Positive; SARS-CoV-2 N Gene Positive; SARS-CoV-2 S Gene Positive; SARS-CoV-2 by NAA DETECTED (NotDetected); SARS-CoV-2 orf1ab Negative
[2019-09-24 14:08] LABS: Amphetamine Not Detected (NotDetected); Barbiturates Screen Not Detected (NotDetected); Benzodiazepine Screen Not Detected (NotDetected); Cocaine Metabolite Screen Not Detected (NotDetected); Medtox Control Line Valid? VALID (VALID); Medtox Reader # READER 4; Methadone Not Detected (NotDetected); Methamphetamine Not Detected (NotDetected); Opiate Screen Not Detected (NotDetected); Oxycodone Screen Not Detected (NotDetected); Phencyclidine (PCP) Not Detected (NotDetected); THC/Cannabinoid Screen Not Detected (NotDetected); Tricyclic Screen Not Detected (NotDetected)
[2019-09-24] MEDS: hydrALAZINE 25 MG TAB PO SCH ×2 (14:58→21:03)
[2019-09-24] MEDS: Carvedilol 6.25 MG TAB PO SCH (17:40)
[2019-09-24] MEDS ORDERED: Dextrose 50% Abboject 50 ML SYRINGE IVP PRN (19:21)
[2019-09-24] MEDS ORDERED: Dextrose 5% in Water 1,000 ML IV PRN (19:21)
[2019-09-24] MEDS ORDERED: HumaLOG 300 UNITS/3 ML VIAL SC PRN (19:21)
[2019-09-24] MEDS: Enoxaparin Sodium 40 MG/0.4 ML SYRINGE SC SCH (21:03)
[2019-09-24] MEDS: Atorvastatin Calcium 40 MG TAB PO SCH (21:03)
[2019-09-25] MEDS: Levothyroxine 150 MCG TAB PO SCH (04:55)
[2019-09-25] MEDS: Furosemide 40 MG/4 ML VIAL SLOW IVP SCH (04:55)
[2019-09-25] MEDS: Dexamethasone 4 MG TAB PO SCH (08:21)
[2019-09-25] MEDS: Carvedilol 6.25 MG TAB PO SCH ×2 (08:21→17:27)
[2019-09-25] MEDS: Clopidogrel Bisulfate 75 MG TAB PO SCH (08:22)
[2019-09-25] MEDS: hydrALAZINE 25 MG TAB PO SCH ×4 (08:22→21:09)
[2019-09-25] MEDS: Isosorbide Dinitrate 20 MG TAB PO SCH ×4 (08:23→21:09)
[2019-09-25] MEDS: Spironolactone 25 MG TAB PO SCH (08:23)
--- NOTE | 2019-09-25 12:13 | PDOC.HOSPP ---
- Subjective Encounter Date: 09/25/19 Encounter Time: 11:50 Subjective: Patient is sitting in the bed he lost about 7 pounds with the diuresis. His legs looks much better. His medications has been adjusted. His echo shows EF of 25% with severe mitral regurgitation and increased left ventricular size. Creatinine remains same at 1.49. Currently he is on Lasix p.o. BMP panel has not done today even though it is a series lab. Stat ordered. - Objective Vital Signs & Weight: Vital Signs (12 hours) Temp Pulse Resp BP Pulse Ox 09/25/19 08:42 98.0 F 64 16 148/95 H 95 09/25/19 05:05 97.6 F 63 18 139/95 H 96 Weight Weight 226 lb 1.6 oz I&O: 09/24/19 09/25/19 09/26/19 06:59 06:59 06:59 Intake Total 750 1210 Output Total 1450 2375 Balance -700 -1165 Result Diagrams: 09/23/19 15:12 09/24/19 10:09 Additional Labs: Accuchecks 09/25/19 09/25/19 09/24/19 06:00 05:08 21:19 POC Glucose 131 H 131 H 171 H 09/24/19 17:49 POC Glucose 174 H Hospitalist ROS - Medication Medications: Active Medications Generic Name Dose Route Start Last Admin Trade Name Sanjivq PRN Reason Stop Dose Admin Atorvastatin Calcium 40 mg 09/24/19 21:00 09/24/19 21:03 Lipitor PO 40 mg HS BRENDA Administration Carvedilol 12.5 mg 09/24/19 17:00 09/25/19 08:21 Coreg PO 12.5 mg BID-WM BRENDA Administration Clopidogrel Bisulfate 75 mg 09/24/19 09:00 09/25/19 08:22 Plavix PO 75 mg DAILY BRENDA Administration Dexamethasone 6 mg 09/25/19 08:00 09/25/19 08:21 Decadron PO 6 mg QAM-WM BRENDA Administration Enoxaparin Sodium 40 mg 09/24/19 21:00 09/24/19 21:03 Lovenox SC 40 mg 2100 BRENDA Administration Hydralazine HCl 50 mg 09/24/19 15:00 09/25/19 08:22 Apresoline PO 50 mg TID BRENDA Administration Isosorbide Dinitrate 20 mg 09/23/19 21:00 09/25/19 08:23 Isordil PO 20 mg TID BRENDA Administration Levothyroxine Sodium 150 mcg 09/24/19 06:00 09/25/19 04:55 Synthroid PO 150 mcg 0600 BRENDA Administration Sodium Chloride 10 ml 09/24/19 21:00 09/25/19 08:23 Flush - Normal Saline IVF 10 ml Q12HR BRENDA Administration Spironolactone 25 mg 09/25/19 09:00 09/25/19 08:23 Aldactone PO 25 mg QAM BRENDA Administration - Exam General Appearance: NAD, awake alert Eye: PERRL ENT: normocephalic atraumatic Neck: supple Extremities: 1+ LE edema Neurological: no focal deficits Hosp A/P - Plan CHF exacerbation probably diastolic -With shortness of breath and lower extremity edema -Echo is completed today report pending. -His blood pressure is slightly high. -He has a negative output of 700 mL. -Slight bump in his creatinine from 1.46-1.49. -Cardiology consult in progress. Indeterminate troponin with a level of 0.045-0.039. -Antibiotic mismatch type II secondary to CHF exacerbation. Shortness of breath -Though it likely due to CHF exacerbation given his recent COVID in July we need to rule out again -Test ordered. -His sats are good at 95% in the room air. Hypertension For now we are diuresing so will monitor closely. Kidney disease stage III -Expect creatinine level to bump up slightly due to IV diuresis. But watch closely. History of cocaine abuse -Ordered urine drug screen. Full code His echo shows EF of 25% with severe mitral regurgitation and increased left ventricular size. Pacer wires in the RV. IVC dilated creatinine remains same at 1.49. Currently he is on Lasix p.o. BMP panel has not done today even though it is a series lab. Stat ordered. COVID-19 positive test (U07.1, COVID-19) with Acute Pneumonia (J12.89, Other viral pneumonia) (If respiratory failure or sepsis present, add as separate assessment) -On Decadron, Zithromax and the Lovenox once a day dose due to his chronic kidney dysfunction. Continue current management possible discharge in 1 to 2 days.
[2019-09-25 12:23] LABS: Anion Gap 10 mmol/L (10-20); BUN (Urea Nitrogen) 13 mg/dL (8.9-20.6); Calc. Creatinine Clearance 95 mL/min (70-130); Calcium 8.8 mg/dL (7.8-10.44); Carbon Dioxide 32 mmol/L (22-29); Chloride 100 mmol/L (98-107); Estimated GFR-MDRD 68; Glucose 124 mg/dL (70-105); Potassium 3.4 mmol/L (3.5-5.1); Sodium 139 mmol/L (136-145)
[2019-09-25 12:44] LABS: Free T4 (Free Thyroxine) 0.53 ng/dL (0.70-1.48); Thyroid Stimulating Hormone 16.805 uIU/mL (0.35-4.94)
[2019-09-25] MEDS: Azithromycin 250 MG TAB PO SCH (14:24)
[2019-09-25] MEDS: HumaLOG 300 UNITS/3 ML VIAL SC PRN (18:02)
[2019-09-25] MEDS: Enoxaparin Sodium 40 MG/0.4 ML SYRINGE SC SCH (21:08)
[2019-09-25] MEDS: Atorvastatin Calcium 40 MG TAB PO SCH (21:08)
[2019-09-26] MEDS: Levothyroxine 150 MCG TAB PO SCH (05:06)
[2019-09-26 05:22] LABS: Anion Gap 11 mmol/L (10-20); BUN (Urea Nitrogen) 12 mg/dL (8.9-20.6); Calc. Creatinine Clearance 108 mL/min (70-130); Calcium 8.5 mg/dL (7.8-10.44); Carbon Dioxide 27 mmol/L (22-29); Chloride 102 mmol/L (98-107); Estimated GFR-MDRD 78; Glucose 198 mg/dL (70-105); Potassium 3.6 mmol/L (3.5-5.1); Sodium 136 mmol/L (136-145)
[2019-09-26] MEDS: Isosorbide Dinitrate 20 MG TAB PO SCH ×3 (08:38→21:01)
[2019-09-26] MEDS: Spironolactone 25 MG TAB PO SCH (08:38)
[2019-09-26] MEDS: Dexamethasone 4 MG TAB PO SCH (08:38)
[2019-09-26] MEDS: hydrALAZINE 25 MG TAB PO SCH ×4 (08:38→21:01)
[2019-09-26] MEDS: Furosemide 40 MG TAB PO SCH (08:39)
[2019-09-26] MEDS: Clopidogrel Bisulfate 75 MG TAB PO SCH (08:39)
[2019-09-26] MEDS: Carvedilol 6.25 MG TAB PO SCH ×2 (08:39→16:39)
[2019-09-26 10:50] LABS: #Lymphocytes 1.7 thou/uL (1.20-3.40); #Monocytes 0.6 thou/uL (0.11-0.59); #Neutrophils 8.7 thou/uL (1.40-6.50); %Basophils 0.1 % (0.0-1.0); %Eosinophils 0.1 % (0.0-10.0); %Lymphocytes 15.3 % (21.0-51.0); %Monocytes 5.3 % (0.0-10.0); %Neutrophils 79.1 % (42.0-75.0); Hemoglobin 12.5 g/dL (14.0-18.0); Mean Corpuscular Hemoglobin 33.4 pg (27.0-31.0); Mean Platelet Volume 10.4 fL (7.4-10.4); Platelet Count 114 thou/uL (130-400); RBC Distribution Width 16.3 % (11.5-14.5); Red Blood Cell (RBC) Count 3.74 mill/uL (4.70-6.10)
--- NOTE | 2019-09-26 11:29 | PDOC.HOSPP ---
- Subjective Encounter Date: 09/26/19 Encounter Time: 10:40 Subjective: Patient on COVID isolation. I discussed with RN it appears that he has a chronic neurological deficits right side; he showed a symptoms of weakness on his left side as well. Will get CT head as well as CT angiogram. His creatinine is in the normal range. His platelet counts are 114 okay continue with the Lovenox now twice a day for COVID pneumonia treatment During my rounds patient is able to lift both his arms up over his shoulders. He is using his cell phone. seems to be mentation at baseline. I did not notice any lethargic or somnolent. - Objective Vital Signs & Weight: Vital Signs (12 hours) Temp Pulse Resp BP BP Pulse Ox 09/26/19 08:00 96.7 F L 77 18 154/102 H 95 09/26/19 05:12 97.5 F L 64 18 136/85 98 Weight Weight 228 lb 4.8 oz I&O: 09/25/19 09/26/19 09/27/19 06:59 06:59 06:59 Intake Total 1210 890 Output Total 2375 775 Balance -1165 115 Result Diagrams: 09/26/19 10:37 09/26/19 04:30 Additional Labs: Accuchecks 09/26/19 09/25/19 09/25/19 09:20 21:23 17:40 POC Glucose 224 H 258 H 153 H 09/25/19 12:08 POC Glucose 155 H Hospitalist ROS - Medication Medications: Active Medications Generic Name Dose Route Start Last Admin Trade Name Sanjivq PRN Reason Stop Dose Admin Atorvastatin Calcium 40 mg 09/24/19 21:00 09/25/19 21:08 Lipitor PO 40 mg HS BRENDA Administration Azithromycin 500 mg 09/25/19 13:00 09/25/19 14:24 Zithromax PO 09/28/19 13:01 500 mg 1300 BRENDA Administration Carvedilol 12.5 mg 09/24/19 17:00 09/26/19 08:39 Coreg PO 12.5 mg BID-WM BRENDA Administration Clopidogrel Bisulfate 75 mg 09/24/19 09:00 09/26/19 08:39 Plavix PO 75 mg DAILY BRENDA Administration Dexamethasone 6 mg 09/25/19 08:00 09/26/19 08:38 Decadron PO 6 mg QAM-WM BRENDA Administration Enoxaparin Sodium 40 mg 09/24/19 21:00 09/25/19 21:08 Lovenox SC 40 mg 2100 BRENDA Administration Furosemide 40 mg 09/26/19 07:30 09/26/19 08:39 Lasix PO 40 mg DAILY-AC BRENDA Administration Hydralazine HCl 50 mg 09/24/19 15:00 09/26/19 08:38 Apresoline PO 50 mg TID BRENDA Administration Insulin Human Lispro 0 units 09/24/19 19:21 09/25/19 18:02 Humalog SC 2 unit .MODERATE SLIDING SC PRN Administration MODERATE SLIDING SCALE Protocol Isosorbide Dinitrate 20 mg 09/23/19 21:00 09/26/19 08:38 Isordil PO 20 mg TID BRENDA Administration Sodium Chloride 10 ml 09/24/19 21:00 09/26/19 08:39 Flush - Normal Saline IVF 10 ml Q12HR BRENDA Administration Spironolactone 25 mg 09/25/19 09:00 09/26/19 08:38 Aldactone PO 25 mg QAM BRENDA Administration - Exam General Appearance: NAD, awake alert Eye: PERRL ENT: normocephalic atraumatic Neck: supple Heart: RRR Respiratory: CTAB, normal chest expansion Gastrointestinal: soft, normal bowel sounds Neurological: facial droop, hemiplegia Psychiatric: A&O x 3 Hosp A/P - Plan CHF exacerbation probably diastolic -With shortness of breath and lower extremity edema -Echo is completed today report pending. -His blood pressure is slightly high. -He has a negative output of 700 mL. -Slight bump in his creatinine from 1.46-1.49. -Cardiology following with His echo shows EF of 25% with severe mitral regurgitation and increased left ventricular size. Pacer wires in the RV. IVC dilated creatinine remains same at 1.49. Currently he is on Lasix p.o. Indeterminate troponin with a level of 0.045-0.039. -Antibiotic mismatch type II secondary to CHF exacerbation. Shortness of breath -Though it likely due to CHF exacerbation given his recent COVID in July we need to rule out again -Test ordered.---COVID positive -His sats are good at 95% in the room air. Hypertension For now we are diuresing so will monitor closely. Kidney disease stage III -Expect creatinine level to bump up slightly due to IV diuresis. But watch closely. History of cocaine abuse -Ordered urine drug screen. Full code COVID-19 positive test (U07.1, COVID-19) with Acute Pneumonia (J12.89, Other viral pneumonia) (If respiratory failure or sepsis present, add as separate assessment) -On Decadron, Zithromax and the Lovenox once a day dose due to his chronic kidney dysfunction.--------> 's kidney function improved will switch Lovenox to twice a day. Signs of hemiparesis --Will get a CT of the head and CT angiogram along with the physical therapy consult at assess his functional deficits. --possible discharge in 1 to 2 days.
--- NOTE | 2019-09-26 11:32 | CT ---
CTA Angio Head W WO Con CT brain without contrast History: Stroke with right-sided deficits. Comparison: CTA brain and CT brain without contrast December 2018 Findings: CT of the brain was performed without intravenous contrast. Subsequently after the intraven ous ministration of contrast CT angiogram of the brain was performed. 3-D rendering provided. CT brain: Multiple bilateral welch radiata infarcts. Senile calcifications of the basal ganglia. No acute hemorrhage or infarct. No midline shift or mass effect. Calvarium is intact. IMPRESSION: No acute intracranial abnormality. CT brain: Basilar artery is patent. Posterior cerebral arteries are patent. Middle cerebral arteries are patent. Anterior cerebral arteries are patent. No [place] stenosis, thrombosis or aneurysm formation. The superior ophthalmic veins are markedly distended Impression: 1. Intact [place] without stenosis, thrombosis or aneurysm formation. 2. 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 Differenti al includes dural-cavernous fistula, carotid-cavernous fistula, cavernous sinus thrombosis and idiopathic orbital inflammation amongst others. Conventional neuroangiography may be beneficial.
[2019-09-26] MEDS ORDERED: Iopamidol-370 76% 500 ML 1 ML ONE (11:51)
[2019-09-26] MEDS: Azithromycin 250 MG TAB PO SCH (12:12)
[2019-09-26] MEDS: HumaLOG 300 UNITS/3 ML VIAL SC PRN (17:43)
[2019-09-26] MEDS: Enoxaparin Sodium 40 MG/0.4 ML SYRINGE SC SCH (21:01)
[2019-09-26] MEDS: Atorvastatin Calcium 40 MG TAB PO SCH (21:01)
[2019-09-27 05:49] LABS: Anion Gap 9 mmol/L (10-20); BUN (Urea Nitrogen) 13 mg/dL (8.9-20.6); Calc. Creatinine Clearance 103 mL/min (70-130); Calcium 9.3 mg/dL (7.8-10.44); Carbon Dioxide 30 mmol/L (22-29); Chloride 101 mmol/L (98-107); Estimated GFR-MDRD 74; Glucose 138 mg/dL (70-105); Potassium 3.8 mmol/L (3.5-5.1); Sodium 136 mmol/L (136-145)
[2019-09-27] MEDS ORDERED: Levothyroxine 175 MCG TAB PO SCH (06:00)
[2019-09-27] MEDS: Dexamethasone 4 MG TAB PO SCH (08:52)
[2019-09-27] MEDS: hydrALAZINE 25 MG TAB PO SCH (08:54)
[2019-09-27] MEDS: Carvedilol 6.25 MG TAB PO SCH (08:55)
[2019-09-27] MEDS: Furosemide 40 MG TAB PO SCH (08:57)
[2019-09-27] MEDS: Isosorbide Dinitrate 20 MG TAB PO SCH (08:57)
[2019-09-27] MEDS: Spironolactone 25 MG TAB PO SCH (08:57)
[2019-09-27] MEDS: Clopidogrel Bisulfate 75 MG TAB PO SCH (08:57)
[2019-09-27] MEDS: Enoxaparin Sodium 40 MG/0.4 ML SYRINGE SC SCH (08:58)
[2019-09-27 10:56] VITALS: BP 135/80; TEMP 99
[2019-09-27] MEDS: Azithromycin 250 MG TAB PO SCH (12:31)
--- NOTE | 2019-09-27 18:33 | DIS ---
DATE OF ADMISSION: 09/23/2019 DATE OF DISCHARGE: 09/27/2019 DISCHARGE DISPOSITION: To home. PRIMARY DISCHARGE DIAGNOSES: Congestive heart failure exacerbation with systolic dysfunction, resolved. Coronavirus disease-19 virus positive, hypertension, dyslipidemia. PROCEDURES DONE DURING HOSPITALIZATION: Chest x-ray done on the day of admission showed cardiomegaly with pulmonary vascular congestion. Echo with 2D Doppler done showed an ejection fraction of 20% to 25%, [id number] mitral regurgitation, acmaikyx-po-tornqr tricuspid regurgitation. CT angio of the brain showed intact [place] without stenosis, thrombosis or aneurysm formation. There has been progressive dilatation of superior ophthalmic veins bilaterally, which is symmetric. H and H 12 and 37, platelet count 114. Urine drug screen is negative. COVID- 19 PCR done on 09/23/2019 is positive. Discharge BUN and creatinine are 13 and 1.2. TSH was 16.8, free T4 is 0.53. BNP on admission was 1001. INPATIENT CONSULT: Dr. Chung for Cardiology. DISCHARGE MEDICATIONS: 1. Atorvastatin 40 mg p.o. daily. 2. Plavix 75 mg p.o. daily. 3. Lasix 40 mg p.o. daily. 4. Isosorbide dinitrate 20 mg three times daily. 5. Hydralazine 50 mg three times daily. 6. Carvedilol 12.5 mg p.o. twice daily. 7. Albuterol inhaler q.4 hourly p.r.n. 8. Levothyroxine 175 mcg p.o. daily. 9. Dexamethasone 6 mg p.o. daily for another seven days. DISCHARGE PLAN: The patient to follow up with his primary care physician, Dr. Damaris Gamino in 1 week. He needs to follow up with Dr. Chung in 2 weeks. BRIEF COURSE DURING HOSPITALIZATION: The patient initially got admitted on the with complaints of shortness of breath and lower extremity edema. The patient has known history of CHF exacerbation with systolic and diastolic dysfunction. He has had gentle diuresis done and has had Cardiology consultation with Dr. Chung. The patient responded well to diuresis. He is ambulating and eating well prior to discharge. His COVID-19 PCR screening test came back positive. The patient has been saturating 95% on room air at the time of discharge. His CT angio of brain showed progressive dilatation of superior ophthalmic veins bilaterally. I have discussed his findings with Dr. John Montoya Neurosurgery. They will have outpatient appointment with him in the outpatient setting once he is out of quarantine for the COVID-19, which he tested positive. The patient has had dilatation of these veins on a CAT scan done in December of 2018 as well. He will likely have outpatient workup for the same. He is hemodynamically stable prior to discharge. Please note, I have seen and examined the patient on the day of discharge. The patient was counseled with regard to medication compliance, dietary compliance, and fluid restriction. Please note, I have seen and examined the patient on the day of discharge. Job ID: [id number] [facility]
--- NOTE | 2019-09-28 15:49 | PQF ---
CLINICAL DOCUMENTATION CLARIFICATION FORM: Dear Dr. Zavala Date: 09/28/2019 Please exercise your independent, professional judgment in responding to the clarification form. Clinical indicators are provided on the bottom of this form for your review. Please check appropriate box(es): [x ] Acute on Chronic Renal Failure please specify Stage of CKD (see below) [ ] CKD without ARF/MISSAEL please specify Stage of CKD [ ] Other diagnosis [ ] Unable to determine In addition, please specify: Present on Admission (POA): [ ] Yes [ x ] No got worse with iv diuresis from admission and is resolving [ ] Unable to determine For continuity of documentation, please document condition throughout progress notes and discharge summary. Thank You. To be completed by CDI/Coding staff for physician review: CLINICAL INDICATORS - SIGNS / SYMPTOMS / LABS / RESULTS AND LOCATION IN MR 09/23 ([facility]) -Slight bump in his creatinine from 1.46-1.49 Kidney disease stage 3 -Expect creatinine level to bump up slightly due to IV diuresis. Discharge Summary 09/26 ([facility]) Discharge BUN and creatinine 13 and 1.2 RISK FACTORS / RESULTS AND LOCATION IN MR H&P 09/22([facility]) PMH Nonischemic cardiomyopathy. DM , HTN. I/P: CHF exacerbation probably diastolic. 09/23 ([facility]) Chronic renal insufficiency. 09/24 ([facility]) Covid 19 positive test with Acute Pneumonia. TREATMENTS / RESULTS AND LOCATION IN MR 09/25 ([facility]) On decadron, zithromax and the lovenox once a day dose due to his chronic kidney dysfunction. National Kidney Foundation Guidelines for CKD Staging Stage I Kidney damage with normal or increased GFR GFR > 90 Stage II Kidney damage with mildly decreased GFR GFR 60-89 Stage III Kidney damage with moderately decreased GFR GFR 30-59 Stage IV Kidney damage with severely decreased GFR GFR 16-29 Stage V Kidney failure GFR<15 ESRD End Stage Renal Disease On dialysis Acute Renal Failure/Acute Kidney Failure defined as: Increases in SCr by (>) 0.3 mg/dl within 48 hours OR- Increases in SCr by (>) 1.5 times baseline, known or presumed to have occurred within the prior 7 days OR- Urine volume < 0.5 ml/kg/hour for 6 hours (KDIGO supplement 2012 for RIFLE/SHABBIR criteria) Thank you, Victoria John RN, BSN [email or web address] This is a permanent part of the Medical Record [facility]
--- NOTE | 2019-09-29 06:52 | PQF ---
CLINICAL DOCUMENTATION CLARIFICATION FORM: Dear : Edita Zavala Date / Time: 09/29/19 0623 Please exercise your independent, professional judgment in responding to the clarification form. Clinical indicators are provided on the bottom of this form for your review Please check appropriate box(es): [ ] Sepsis due to Covid 19 infection [ ] Severe sepsis due to Covid 19 infection [ ] Localized infection without sepsis [ x ] Other diagnosis _no sepsis, has asymptomatic covid 19 infection [ ] Unable to determine In addition, please specify: Present on Admission (POA): [ ] Yes [ ] No [ ] Unable to determine Physician Signature: Date/Time: For continuity of documentation, please document condition throughout progress notes and discharge summary. Thank You. To be completed by CDI/Coding staff for physician review: Present Clinical Indicators - Signs / Symptoms / Labs Results and Location in Medical Record [X] WBC 6.5; 11.0, Plt count 100, Neutrophils 681 Laboratory Hematology 09/22 [X] Covid 19 PCR: Detected Serology 09/22 [X] SIRS Scoring: Trina pt did meet at least 2 criteria ED notes p2 09/22 [X] BP 162/113, Pulse 104, Resp 22. Temp 98.1 Vital signs [X] In July 2019, He has Covid 19 positive H&P p1 09/22 Dr Padilla [X] Covid 19 Pneumonia H&P p2 09/22 Dr Padilla [X] MISSAEL Physician documentation 09/27 Dr Zavala Present Risk Factors Results and Location in Medical Record [X] DM H&P p1 09/22 Dr Padilla [X] HTN H&P p1 09/22 Dr Padilla [X] CHF H&P p1 09/22 Dr Padilla [X] Non-ischemic cardiomyopathy H&P p1 09/22 Dr Padilla [X] Covid 19 Pneumonia H&P p2 09/22 Dr Padilla Present Treatments Results and Location in Medical Record [X] Zithromax 500 mg oral MAY 01 [X] IVF NS 1L MAY 01 [X] Covid 19 PCR Serology 09/22 [X] Chest X-ray Imaging 09/22 Dr Sanders [X] Isolation Orders 09/23 CDS/New Accounts Representative Signature: Krystin Porras Phone #: [phone] Date/Time: 09/29/19 0651 This is a permanent part of the Medical Record [facility]
== END 2019-09-27 13:35 | disposition home or self-care (01) | DRG 177 ==
LOC: ERS 14:44 → 2NO 20:01 → OBSVTOIN 20:01 → 2SW 09-25 17:00
PROVIDERS: ADMIT Internal Medicine; ATTEND Internal Medicine
PROC: 8E0ZXY6 Isolation (ICD-10-PCS; principal; 2019-09-24)
DX: U07.1 COVID-19 (principal); I50.43 Acute on chronic combined systolic (congestive) and diastolic (congestive) heart failure; J12.89 Other viral pneumonia; I13.0 Hypertensive heart and chronic kidney disease with heart failure and stage 1 through stage 4 chronic kidney disease, or unspecified chronic kidney disease; N17.9 Acute kidney failure, unspecified; G81.94 Hemiplegia, unspecified affecting left nondominant side; I42.8 Other cardiomyopathies; J44.0 Chronic obstructive pulmonary disease with (acute) lower respiratory infection; E78.5 Hyperlipidemia, unspecified; F41.9 Anxiety disorder, unspecified; F31.9 Bipolar disorder, unspecified; F20.9 Schizophrenia, unspecified; F17.210 Nicotine dependence, cigarettes, uncomplicated; E11.22 Type 2 diabetes mellitus with diabetic chronic kidney disease; E03.9 Hypothyroidism, unspecified; N18.3 Chronic kidney disease, stage 3 (moderate); I34.0 Nonrheumatic mitral (valve) insufficiency; Z90.49 Acquired absence of other specified parts of digestive tract; Z95.810 Presence of automatic (implantable) cardiac defibrillator; Z79.899 Other long term (current) drug therapy; Z79.82 Long term (current) use of aspirin; Z88.6 Allergy status to analgesic agent; Z88.8 Allergy status to other drugs, medicaments and biological substances; Z79.84 Long term (current) use of oral hypoglycemic drugs; Z91.19 Patient's noncompliance with other medical treatment and regimen
CPT/HCPCS: 36415; 36416; 70496; 71045; 80048; 80053; 80306; 82553; 83880; 84439; 84443; 84484; 85025; 87635; 93005; 93306; 96372; 96374; 96376; G0378; J1650; J1940; J8540; Q9967; U0003

== ENCOUNTER 2019-10-29 00:35 | Inpatient (IN) | payer OTHER ==
[2019-10-29] MEDS ORDERED: Furosemide 40 MG/4 ML VIAL ONE (00:54)
[2019-10-29 01:18] LABS: ALT (SGPT) 9 U/L (8-55); AST (SGOT) 23 U/L (5-34); Albumin 3.7 g/dL (3.5-5.0); Alkaline Phosphatase 151 U/L (40-110); Anion Gap 13 mmol/L (10-20); BUN (Urea Nitrogen) 13 mg/dL (8.9-20.6); Bilirubin, Total 1.3 mg/dL (0.2-1.2); Calc. Creatinine Clearance 0 mL/min (70-130); Calcium 8.4 mg/dL (7.8-10.44); Carbon Dioxide 25 mmol/L (22-29); Chloride 108 mmol/L (98-107); Estimated GFR-MDRD 60; Glucose 160 mg/dL (70-105); Potassium 3.4 mmol/L (3.5-5.1); Protein, Total 6.7 g/dL (6.0-8.3); Sodium 143 mmol/L (136-145)
[2019-10-29 01:22] LABS: #Basophils 0.1 thou/uL (0.0-0.2); #Eosinphils 0.1 thou/uL (0.0-0.7); #Lymphocytes 1.6 thou/uL (1.20-3.40); #Monocytes 0.6 thou/uL (0.11-0.59); #Neutrophils 5.5 thou/uL (1.40-6.50); %Basophils 0.7 % (0.0-1.0); %Eosinophils 0.8 % (0.0-10.0); %Lymphocytes 19.8 % (21.0-51.0); %Monocytes 7.9 % (0.0-10.0); %Neutrophils 70.8 % (42.0-75.0); Anisocytosis SLIGHT = 6-15 cells (100X) (0-5/hpf); Hemoglobin 12.7 g/dL (14.0-18.0); MDiff Complete? YES; Mean Corpuscular Hemoglobin 33.1 pg (27.0-31.0); Mean Platelet Volume 11.5 fL (7.4-10.4); Platelet Count 96 thou/uL (130-400); Platelet Morphology Comment Appears Decreased; RBC Distribution Width 16.4 % (11.5-14.5); Red Blood Cell (RBC) Count 3.82 mill/uL (4.70-6.10); White Blood Cell (WBC) Count 7.8 thou/uL (4.8-10.8)
[2019-10-29 01:38] LABS: CKMB 4.3 ng/mL (0-6.6)
--- NOTE | 2019-10-29 02:19 | PDOC.HHP ---
Hospitalist HPI - History of Present Illness Chest pain History of Present Illness: PCP: [facility] The patient is a 48/M with past medical history significant for chronic, systolic heart failure with AICD, HTN, HLD, COPD, and hypothyroidism that presents to the ER via EMS for the above complaint. The patient reports the acute onset of midsternal chest pain this afternoon at 1200, describes as pressure, non radiating, constant, exacerbated and relieved by nothing. Reports associated SOB. Reports 5lb. weight gain and swelling to his lower extremities over the past 5 days. Reports compliant with home dose of lasix 40mg BID. Reports compliant with daily fluid restrictions. Denies any heart palpitations, or PND. Denies any cough, wheezing or fevers. Reports some abdominal distention and straining with bowel movements, last BM 3-4 days. Denies abdominal pain, vomiting. Endorses passing flatus. Denies any urinary difficulties. Patient called EMS. Upon arrival, patient hypertensive, tachycardic, normal Sp02, chest pain 10/10. Given 1 spray SL nitro, 1 inch nitropaste and full dose aspirin. The patient was recently discharged from our hospital on 10/16/19 for acute CHF exacerbation. He was non compliant with his medication regimen. Presented with BNP 1304, CXR unremarkable. Diuresed and discharged home with PCP follow up. Echocardiogram on 09/23 showed EF 20-25% with mod-severe MR/TR. ED Course: VITAL SIGNS Shantel Oct 29, 2019 00:38 CAM Hennessy [place] BP: 175/130, MAP: 145, Pulse: 80, Resp: 22, Temp: 99.0 (Oral), Pain: 10, O2 sat : 93 on (Room Air), Time: 10/29/2019 00:38. VITAL SIGNS Shantel Oct 29, 2019 01:05 CAM Hennessy [place] BP: 158/116, MAP: 130, Pulse: 90, Resp: 24, Pain: 4, O2 sat: 92 on (Room Air), Time: 10/29/2019 01:05. EKG NSR, PVCs, LVH, no ST elevations CXR appears no acute process. BNP 991.4, Trop 0.035, CKMB 4.3 Medication administration: furosemide injection 80 mg IV Push Given 01:04 10/29/2019 Hospitalist ROS - Review of Systems All other systems reviewed; all pertinent +/- noted in HPI/Subj - Medication Medications: carvedilol [facility] Oct 29, 2019 01:17 CAM Hennessy, Suzy TABLET : Strength - 12.5 mg : ORAL Patient Dose: 25 mg Oral 2 times a day. isosorbide dinitrate oral [facility] Oct 29, 2019 01:17 CAM Hennessy, Suzy tablet : Strength - 20 mg : ORAL Patient Dose: 20 mg Oral 3 times a day. furosemide oral [facility] Oct 29, 2019 01:17 CAM Hennessy, Suzy tablet : Strength - 40 mg : ORAL Patient Dose: 40 mg Oral 2 times a day. potassium chloride oral [facility] Oct 29, 2019 01:18 CAM Hennessy, Suzy tablet extended release : Strength - 20 mEq : ORAL Patient Dose: once a day. cephALEXin [facility] Oct 29, 2019 01:18 CAM Hennessy, Suzy capsule : Strength - 500 mg : ORAL Patient Dose: every 6 hours PRN. benzonatate [facility] Oct 29, 2019 01:19 CAM Hennessy, Suzy capsule : Strength - 200 mg : ORAL Patient Dose: 3 times a day.as needed. albuterol sulfate inhalation [facility] Oct 29, 2019 01:19 CAM Hennessy, Suzy HFA aerosol inhaler : Strength - 90 mcg : INHALATION Patient Dose: Unknown Levothyroxine 175mcg po q am Hydralazine 25mg po TID Atorvastatin 40mg po daily Allergies: JOSE ANGEL Inhibitors, diphenhydrAMINE (bulk), diphenhydramine HCl ( Unconfirmed), traMADol Hospitalist History - Past Medical History Source: patient, RN notes reviewed Cardiac: reports: CHF, HTN, Hyperlipidemia Pulmonary: reports: COPD Heme/Onc: reports: Iron deficiency anemia Psych: reports: Anxiety, Bipolar, Depression, Schizophrenia Endocrine: reports: Diabetes, Hypothyroidism - Past Surgical History Past Surgical History: reports: Appendectomy, Hernia Repair, Other Other Surgical History: AICD cardiac cath (2018) - Social History Smoking Status: Current every day smoker Tobacco Type: cigarettes (1/2 ppd x 30 years) Alcohol: reports: Occassional Drugs: reports: none (None currently, used to use cocaine and marijuana) Living Situation: With Family Activity level: independent ambulation - Exam General Appearance: NAD. negative: ill appearing General - other findings: somnolent, speaks complete sentences Eye: PERRL, anicteric sclera ENT: normocephalic atraumatic, dry oral mucosa Neck: supple, symmetric, no JVD, no thyromegaly, no lymphadenopathy Heart: RRR, no gallops, no rubs, normal peripheral pulses, III/IV Respiratory: CTAB, no wheezes, no rales, no ronchi, normal chest expansion, no tachypnea Gastrointestinal: soft, non-tender, normal bowel sounds, no bruit, no guarding, no rigidity, distended Extremities: no cyanosis Extremities - other findings: 3+ BLE Skin: no rashes Neurological: normal sensation to touch, no weakness, no focal deficits Musculoskeletal: normal tone, normal strength Psychiatric: A&O x 3, flat affect Hospitalist Results - Labs Result Diagrams: 10/29/19 00:47 10/29/19 00:47 Lab results: WBC 7.8 thou/uL (4.8-10.8) 10/29/19 00:47 Hgb 12.7 g/dL (14.0-18.0) L 10/29/19 00:47 Hct 38.3 % (42.0-52.0) L 10/29/19 00:47 MCV 100.0 fL (78.0-98.0) H 10/29/19 00:47 Plt Count 96 thou/uL (130-400) L 10/29/19 00:47 Neutrophils % 70.8 % (42.0-75.0) 10/29/19 00:47 Sodium 143 mmol/L (136-145) 10/29/19 00:47 Potassium 3.4 mmol/L (3.5-5.1) L 10/29/19 00:47 Chloride 108 mmol/L (98-107) H 10/29/19 00:47 Carbon Dioxide 25 mmol/L (22-29) 10/29/19 00:47 BUN 13 mg/dL (8.9-20.6) 10/29/19 00:47 Creatinine 1.50 mg/dL (0.7-1.3) H 10/29/19 00:47 Glucose 160 mg/dL (70-105) H 10/29/19 00:47 Calcium 8.4 mg/dL (7.8-10.44) 10/29/19 00:47 Total Bilirubin 1.3 mg/dL (0.2-1.2) H 10/29/19 00:47 AST 23 U/L (5-34) 10/29/19 00:47 ALT 9 U/L (8-55) 10/29/19 00:47 Alkaline Phosphatase 151 U/L (40-110) H 10/29/19 00:47 CK-MB (CK-2) 4.3 ng/mL (0-6.6) 10/29/19 00:47 Troponin I 0.035 ng/mL (< 0.028) H 10/29/19 00:47 B-Natriuretic Peptide 991.4 pg/mL (0-100) H 10/29/19 00:47 Serum Total Protein 6.7 g/dL (6.0-8.3) 10/29/19 00:47 Albumin 3.7 g/dL (3.5-5.0) 10/29/19 00:47 - EKG Interpretation EKG: NSR, PVCs, LVH - Radiology Interpretation Chest x-ray Status: image reviewed by nj Hospitalist H&P A/P - Problem (1) Acute on chronic systolic (congestive) heart failure Code(s): I50.23 - ACUTE ON CHRONIC SYSTOLIC (CONGESTIVE) HEART FAILURE Status : Acute Assessment and Plan: Admit to telemetry floor, inpatient status. Expected length of stay at least 2 midnights. Patient presented hypertensive with respiratory distress per EMS. EKG NSR, PVCs, LVH. CXR appears no acute process. BNP 991, was 421 at recent discharge on 10/16/19. Trop 0.035, CKMB 4.3 Upon examination, patient reports improvement of symptoms, 1200ml UOP s/p lasix 80mg IVP. Lasix 40mg IVP BID, nitropaste, FR, DW, consult HF clinic and cardiology. (2) Chest pain Code(s): R07.9 - CHEST PAIN, UNSPECIFIED Status: Acute Assessment and Plan: Likely demand ischemia, secondary to problem #1. Will trend troponins. ASA given by EMS. Restart home dose plavix. (3) MISSAEL (acute kidney injury) Code(s): N17.9 - ACUTE KIDNEY FAILURE, UNSPECIFIED Status: Acute Assessment and Plan: Presented with creatinine 1.50, was 1.20 on 09/26/19. Likely pre-renal. Continue diuresis. Will recheck level in am. (4) Hypokalemia Code(s): E87.6 - HYPOKALEMIA Status: Acute Assessment and Plan: Mild, K 3.4. Will continue home dose of 20 mEQ oral potassium. Will check magnesium level. Will recheck level in am. (5) COPD (chronic obstructive pulmonary disease) Status: Chronic Assessment and Plan: No wheezing or Respiratory distress on examination. Will restart home albuterol inhaler prn. (6) HTN (hypertension) Code(s): I10 - ESSENTIAL (PRIMARY) HYPERTENSION Status: Chronic Assessment and Plan: Presented hypertensive. Will restart home dose of Coreg, Imdur and hydralazine. Continue to monitor blood pressure. (7) HLD (hyperlipidemia) Code(s): E78.5 - HYPERLIPIDEMIA, UNSPECIFIED Status: Chronic Assessment and Plan: Will get FLP. Restart home dose of atorvastatin. (8) Hypothyroidism Code(s): E03.9 - HYPOTHYROIDISM, UNSPECIFIED Status: Chronic Assessment and Plan: Recent TSH and Free T4 on 09/25/19. Will restart home dose of levothyroxine. (9) Tobacco abuse Code(s): Z72.0 - TOBACCO USE Status: Chronic Assessment and Plan: Endorses 1/2 ppd x 30 year habit. Unwilling to quit. Start NRT therapy. 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 - Plan Plan: LMWH for DVT prophylaxis. Pepcid for GI prophylaxis. Full Code. Discussed case with Dr. Weaver.
[2019-10-29] MEDS ORDERED: Aspirin 325 MG TAB PO SCH (02:30)
[2019-10-29] MEDS ORDERED: Calcium Carbonate 500 MG ChewTAB PO PRN (02:58)
[2019-10-29] MEDS ORDERED: Bisacodyl 5 MG TAB PO PRN (02:58)
[2019-10-29] MEDS ORDERED: Ondansetron ODT 4 MG TAB PO PRN (02:58)
[2019-10-29] MEDS ORDERED: Acetaminophen 650 MG Suppository PR PRN (02:58)
[2019-10-29] MEDS ORDERED: Acetaminophen 325 MG TAB PO PRN (02:58)
[2019-10-29] MEDS ORDERED: Albuterol Sulfate 2.5 mg/3 ml Neb NEB PRN (03:15)
[2019-10-29 04:04] VITALS: BMI 37.3
[2019-10-29 04:57] LABS: Anion Gap 13 mmol/L (10-20); BUN (Urea Nitrogen) 13 mg/dL (8.9-20.6); Calc. Creatinine Clearance 96 mL/min (70-130); Calcium 8.3 mg/dL (7.8-10.44); Carbon Dioxide 26 mmol/L (22-29); Chloride 105 mmol/L (98-107); Estimated GFR-MDRD 64; Glucose 121 mg/dL (70-105); Potassium 3.3 mmol/L (3.5-5.1); Sodium 141 mmol/L (136-145)
[2019-10-29 05:03] LABS: Troponin I 0.042 ng/mL (< 0.028)
[2019-10-29 05:10] LABS: #Eosinphils 0.1 thou/uL (0.0-0.7); #Lymphocytes 1.8 thou/uL (1.20-3.40); #Monocytes 0.7 thou/uL (0.11-0.59); %Basophils 0.4 % (0.0-1.0); %Eosinophils 0.9 % (0.0-10.0); %Lymphocytes 21.1 % (21.0-51.0); %Monocytes 7.8 % (0.0-10.0); %Neutrophils 69.9 % (42.0-75.0); Hemoglobin 13.5 g/dL (14.0-18.0); MDiff Complete? YES; Macrocytosis SLIGHT = 6-15 cells (100X) (0-5/hpf); Mean Corpuscular HGB CONC 31.1 g/dL (32.0-36.0); Mean Corpuscular Hemoglobin 31.3 pg (27.0-31.0); Mean Platelet Volume 11.4 fL (7.4-10.4); Platelet Count 98 thou/uL (130-400); Platelet Morphology Comment Appears Decreased; RBC Distribution Width 16.5 % (11.5-14.5); Red Blood Cell (RBC) Count 4.32 mill/uL (4.70-6.10); White Blood Cell (WBC) Count 8.6 thou/uL (4.8-10.8)
[2019-10-29 05:38] LABS: Bacteria/HPF None Seen HPF (None Seen); Bilirubin Negative (Negative); Blood, Urine Negative (Negative); Clarity Clear (Clear); Glucose, Urine (Dipstick) Normal (Negative); Ketone, Urine Negative (Negative); Leukocyte Negative Leu/uL (Negative); Nitrite Negative (Negative); Protein, Urine (Dipstick) Negative (Neg-Trace); RBC/HPF None Seen HPF (0-3); Specific Gravity, Urine 1.006 (1.002-1.036); Squamous Epithelial None Seen HPF (0-3); Urobilinogen Normal mg/dL (Less than 2); WBC/HPF None Seen HPF (0-3)
[2019-10-29] MEDS: Levothyroxine 175 MCG TAB PO SCH (05:50)
[2019-10-29] MEDS: Nicotine 14 MG PATCH TD SCH (05:51)
[2019-10-29] MEDS ORDERED: Nitroglycerin 2% Ointment 1 INCH/1 GM Packet TOP SCH (06:00)
[2019-10-29] MEDS ORDERED: Furosemide 40 MG/4 ML VIAL SLOW IVP SCH (06:00)
[2019-10-29 07:20] LABS: Troponin I 0.039 ng/mL (< 0.028)
--- NOTE | 2019-10-29 07:37 | PDOC.HOSPP ---
- Subjective Encounter Date: 10/29/19 Encounter Time: 07:36 Subjective: sleeping supine without O2. no chest pain, previous chest pain described as stabbing - Objective Vital Signs & Weight: Vital Signs (12 hours) Temp Pulse Resp BP Pulse Ox 10/29/19 03:21 97.4 F L 91 20 151/110 H 97 Weight Weight 231 lb 12.8 oz I&O: 10/28/19 10/29/19 10/30/19 06:59 06:59 06:59 Intake Total 240 Output Total 650 1000 Balance -410 -1000 Result Diagrams: 10/29/19 04:24 10/29/19 04:24 Hospitalist ROS - Medication Medications: Active Medications Generic Name Dose Route Start Last Admin Trade Name Freq PRN Reason Stop Dose Admin Furosemide 40 mg 10/29/19 06:00 10/29/19 05:50 Lasix SLOW IVP 40 mg 0600,1400 BRENDA Administration Levothyroxine Sodium 175 mcg 10/29/19 06:00 10/29/19 05:50 Synthroid PO 175 mcg 0600 BRENDA Administration Nicotine 14 mg 10/29/19 03:00 10/29/19 05:51 Nicoderm Patch TD 14 mg Q24HR BRENDA Administration Nitroglycerin 0.5 inch 10/29/19 06:00 10/29/19 05:50 Nitro-Bid 2% Ointment TOP 0.5 inch Q8HR BRENDA Administration - Exam General Appearance: awake alert Neck: no JVD Heart: RRR, II/IV Respiratory: CTAB Gastrointestinal: soft, normal bowel sounds Extremities: no edema Hosp A/P (1) Chronic systolic HF (heart failure) Code(s): I50.22 - CHRONIC SYSTOLIC (CONGESTIVE) HEART FAILURE Status: Chronic (2) CKD (chronic kidney disease) stage 3, GFR 30-59 ml/min Code(s): N18.3 - CHRONIC KIDNEY DISEASE, STAGE 3 (MODERATE) Status: Chronic (3) COPD (chronic obstructive pulmonary disease) Status: Chronic Qualifiers: COPD type: unspecified COPD Qualified Code(s): J44.9 - Chronic obstructive pulmonary disease, unspecified (4) HLD (hyperlipidemia) Code(s): E78.5 - HYPERLIPIDEMIA, UNSPECIFIED Status: Chronic (5) HTN (hypertension) Code(s): I10 - ESSENTIAL (PRIMARY) HYPERTENSION Status: Chronic (6) Chest pain Code(s): R07.9 - CHEST PAIN, UNSPECIFIED Status: Acute Qualifiers: Chest pain type: unspecified Qualified Code(s): R07.9 - Chest pain, unspecified - Plan no evidence for decompensation chest pain atypical troponin chronically elevated resume home meds
--- NOTE | 2019-10-29 07:53 | RAD ---
EXAM: Single view of the chest HISTORY: CHF COMPARISON: 10/14/2019 FINDINGS: Single view of the chest shows an enlarged but stable cardiomediastinal silhouette. The pa cemaker is unchanged in position. 1.2 cm well-circumscribed nodule projects over the right lower lobe. No pleural effusion is seen. No acute osseous abnormality. IMPRESSION: 1. Cardiomegaly 2. Right lower lobe pulmonary nodule appears new. A CT of the chest with contrast is recommended for further evaluation.
[2019-10-29] MEDS: Enoxaparin Sodium 40 MG/0.4 ML SYRINGE SC SCH (08:32)
[2019-10-29] MEDS: hydrALAZINE 25 MG TAB PO SCH ×3 (08:33→21:16)
[2019-10-29] MEDS: Clopidogrel Bisulfate 75 MG TAB PO SCH (08:33)
[2019-10-29] MEDS: Atorvastatin Calcium 40 MG TAB PO SCH (08:33)
[2019-10-29] MEDS: Potassium Chloride 20 MEQ TAB PO SCH (08:33)
[2019-10-29] MEDS: Famotidine 20 MG TAB PO SCH ×2 (08:33→21:16)
[2019-10-29] MEDS: Aspirin 81 mg Enteric Coated Tablet PO SCH (08:33)
[2019-10-29] MEDS: Carvedilol 25 MG TAB PO SCH ×2 (08:33→17:12)
[2019-10-29] MEDS: Isosorbide Dinitrate 20 MG TAB PO SCH ×3 (08:33→23:14)
[2019-10-29] MEDS: Senokot S 8.6-50 MG TAB PO PRN (08:39)
[2019-10-29 09:21] LABS: Amphetamine Not Detected (NotDetected); Barbiturates Screen Not Detected (NotDetected); Benzodiazepine Screen Not Detected (NotDetected); Cocaine Metabolite Screen Not Detected (NotDetected); Medtox Control Line Valid? VALID (VALID); Medtox Reader # READER 1; Methadone Not Detected (NotDetected); Methamphetamine Not Detected (NotDetected); Opiate Screen Not Detected (NotDetected); Oxycodone Screen Not Detected (NotDetected); Phencyclidine (PCP) Not Detected (NotDetected); THC/Cannabinoid Screen Not Detected (NotDetected); Tricyclic Screen Not Detected (NotDetected)
[2019-10-29 13:29] LABS: SARS-CoV-2 MS2 Positive; SARS-CoV-2 N Gene Negative; SARS-CoV-2 S Gene Negative; SARS-CoV-2 by NAA Not Detected (NotDetected); SARS-CoV-2 orf1ab Negative
--- NOTE | 2019-10-29 14:33 | CON ---
DATE OF CONSULTATION: 10/29/2019 HISTORY OF PRESENT ILLNESS: The patient is a 48-year-old gentleman with a history of nonischemic cardiomyopathy, who presents with recurrent dyspnea and chest discomfort. The patient was seen initially in 2014. He underwent a cardiac catheterization and found to have severe decrease in left ventricular systolic function with normal coronary arteries. The patient subsequently had placement of an AICD. The patient unfortunately has been noncompliant with his followup on medications. The patient has a long history of use of tobacco and illicit drug use. The patient was recently admitted with congestive heart failure a month ago. He underwent a repeat echocardiogram, which revealed a severe decrease in left ventricular systolic function with an estimated ejection fraction of 20% to 25% with [id number] mitral regurgitation. The patient states that he has been compliant with his medications. He noted having increasing dyspnea. He also reports having persistent substernal chest discomfort. The patient denies having any recent use of illicit drugs. PAST MEDICAL HISTORY; 1. Cardiomyopathy. 2. Hypertension. 3. Renal insufficiency. 4. Diabetes mellitus. 5. Dyslipidemia. 6. Noncompliance. PAST SURGICAL HISTORY: Appendectomy. ALLERGIES: JOSE ANGEL INHIBITORS, TRAMADOL, DIPHENHYDRAMINE. SOCIAL HISTORY: Long history of tobacco and illicit drug use. MEDICATIONS: See nursing list. FAMILY HISTORY: Positive family history of coronary artery disease. REVIEW OF SYSTEMS: Ten-point system otherwise unremarkable. PHYSICAL EXAMINATION: GENERAL: Obese gentleman. VITAL SIGNS: Blood pressure of 163/123. NECK: Showed no jugular venous distention. LUNGS: Have few crackles in both bases. HEART: Regular rate and rhythm, normal S1, with a 1/6 systolic murmur. ABDOMEN: Markedly distended. EXTREMITIES: Show severe bilateral edema. VASCULAR: Radial pulses 2+. LABORATORY DATA: Sodium 141, potassium 3.3, chloride 105, bicarbonate 26, BUN 13, creatinine 1.4, and glucose 121. Troponin was 0.39. BNP was 991. White blood cell count 8.6, hemoglobin 13.5, hematocrit 43.4, and platelets are 98. IMAGING DATA: EKG normal sinus rhythm, left ventricular hypertrophy, nonspecific T-wave abnormality. IMPRESSION: 1. Anasarca. 2. Severe cardiomyopathy. 3. History of normal coronary arteries. 4. History of automatic implantable cardioverter defibrillator placement. 5. Hypertension. 6. Renal insufficiency. 7. Diabetes mellitus. 8. Noncompliance. 9. History of illicit drug use. PLAN: This gentleman presents with recurrent congestive heart failure. It is unclear how compliant he is with his medication. From a cardiac standpoint, he is markedly edematous. We will increase the dose of his IV Lasix. We will restart the patient on Spironolactone. We will follow this patient with you through his hospitalization. Job ID: [id number] MTDD
[2019-10-29] MEDS: Spironolactone 25 MG TAB PO SCH ×2 (15:43→17:13)
[2019-10-29] MEDS: Furosemide 100 MG/10 ML VIAL SLOW IVP SCH ×3 (15:44→18:34)
[2019-10-29] MEDS ORDERED: Furosemide 40 MG TAB PO SCH (21:00)
[2019-10-30] MEDS: Nicotine 14 MG PATCH TD SCH (04:26)
[2019-10-30 05:25] LABS: Anion Gap 9 mmol/L (10-20); BUN (Urea Nitrogen) 17 mg/dL (8.9-20.6); Calc. Creatinine Clearance 94 mL/min (70-130); Calcium 8.3 mg/dL (7.8-10.44); Carbon Dioxide 32 mmol/L (22-29); Cardiac Risk 4.3 (Less than 4.5); Chloride 102 mmol/L (98-107); Cholesterol 107 mg/dl (< 200 Desired); Estimated GFR-MDRD 65; Glucose 137 mg/dL (70-105); HDL Cholesterol 25 mg/dL (>60 Neg Risk); LDL Cholesterol, Calculated 55 mg/dL; Potassium 3.4 mmol/L (3.5-5.1); Sodium 140 mmol/L (136-145); Triglycerides 134 mg/dL (Less than 150)
[2019-10-30] MEDS: Furosemide 100 MG/10 ML VIAL SLOW IVP SCH ×3 (06:52→13:52)
[2019-10-30] MEDS: Levothyroxine 175 MCG TAB PO SCH (06:52)
--- NOTE | 2019-10-30 07:27 | PDOC.HOSPP ---
- Subjective Encounter Date: 10/30/19 Encounter Time: 07:20 Subjective: states anytime he eats or drinks, he has fluid build up. discussed diet and salt. he insists he in not using salt or salty foods. - Objective Vital Signs & Weight: Vital Signs (12 hours) Temp Pulse Resp BP BP Pulse Ox 10/30/19 04:23 97.6 F 71 18 142/105 H 96 10/30/19 00:10 94 L 10/29/19 23:15 64 20 121/64 10/29/19 23:11 92 L 10/29/19 21:10 97.7 F 64 20 119/87 92 L Weight Weight 231 lb 12.8 oz I&O: 10/29/19 10/30/19 10/31/19 06:59 06:59 06:59 Intake Total 240 1560 Output Total 650 3670 Balance -410 -2110 Result Diagrams: 10/29/19 04:24 10/30/19 04:29 Hospitalist ROS - Medication Medications: Active Medications Generic Name Dose Route Start Last Admin Trade Name Patrick PRN Reason Stop Dose Admin Aspirin 81 mg 10/29/19 09:00 10/29/19 08:33 Ecotrin PO 81 mg DAILY BRENDA Administration Atorvastatin Calcium 40 mg 10/29/19 09:00 10/29/19 08:33 Lipitor PO 40 mg DAILY BRENDA Administration Carvedilol 25 mg 10/29/19 08:00 10/29/19 17:12 Coreg PO 25 mg BID-WM BRENDA Administration Clopidogrel Bisulfate 75 mg 10/29/19 09:00 10/29/19 08:33 Plavix PO 75 mg DAILY BRENDA Administration Enoxaparin Sodium 40 mg 10/29/19 09:00 10/29/19 08:32 Lovenox SC 40 mg 0900 BRENDA Administration Famotidine 20 mg 10/29/19 09:00 10/29/19 21:16 Pepcid PO 20 mg BID BRENDA Administration Furosemide 80 mg 10/29/19 14:00 10/30/19 06:52 Lasix SLOW IVP 80 mg 0600,1400 BRENDA Administration Hydralazine HCl 25 mg 10/29/19 09:00 10/29/19 21:16 Apresoline PO 25 mg TID BRENDA Administration Isosorbide Dinitrate 20 mg 10/29/19 09:00 10/29/19 23:14 Isordil PO 20 mg TID BRENDA Administration Levothyroxine Sodium 175 mcg 10/29/19 06:00 10/30/19 06:52 Synthroid PO 175 mcg 0600 BRENDA Administration Nicotine 14 mg 10/29/19 03:00 10/30/19 04:26 Nicoderm Patch TD 14 mg Q24HR BRENDA Administration Potassium Chloride 20 meq 10/29/19 09:00 10/29/19 08:33 K-Dur PO 20 meq DAILY BRENDA Administration Senna/Docusate Sodium 2 tab 10/29/19 02:58 10/29/19 08:39 Senokot S PO 2 tab BID PRN Administration Constipation Sodium Chloride 10 ml 10/29/19 02:58 10/29/19 18:35 Flush - Normal Saline IVF 10 ml PRN PRN Administration Saline Flush - Exam General Appearance: awake alert Neck: no JVD Heart: RRR, II/IV Respiratory: CTAB Gastrointestinal: soft, normal bowel sounds Extremities: 1+ LE edema Hosp A/P (1) Chronic systolic HF (heart failure) Code(s): I50.22 - CHRONIC SYSTOLIC (CONGESTIVE) HEART FAILURE Status: Chronic (2) CKD (chronic kidney disease) stage 3, GFR 30-59 ml/min Code(s): N18.3 - CHRONIC KIDNEY DISEASE, STAGE 3 (MODERATE) Status: Chronic (3) COPD (chronic obstructive pulmonary disease) Status: Chronic Qualifiers: COPD type: unspecified COPD Qualified Code(s): J44.9 - Chronic obstructive pulmonary disease, unspecified (4) HLD (hyperlipidemia) Code(s): E78.5 - HYPERLIPIDEMIA, UNSPECIFIED Status: Chronic Qualifiers: Hyperlipidemia type: unspecified Qualified Code(s): E78.5 - Hyperlipidemia , unspecified (5) HTN (hypertension) Code(s): I10 - ESSENTIAL (PRIMARY) HYPERTENSION Status: Chronic Qualifiers: Hypertension type: essential hypertension Qualified Code(s): I10 - Essential (primary) hypertension (6) Chest pain Code(s): R07.9 - CHEST PAIN, UNSPECIFIED Status: Acute Qualifiers: Chest pain type: unspecified Qualified Code(s): R07.9 - Chest pain, unspecified - Plan edema improved witv iv diuresis I&O pos diuresis cont iv lasix, spironolactone per Dr Chung discuss plan with Dr Chung
[2019-10-30] MEDS ORDERED: Spironolactone 25 MG TAB PO SCH (08:00)
[2019-10-30] MEDS: Isosorbide Dinitrate 20 MG TAB PO SCH ×2 (09:06→15:56)
[2019-10-30] MEDS: Senokot S 8.6-50 MG TAB PO PRN (09:06)
[2019-10-30] MEDS: Clopidogrel Bisulfate 75 MG TAB PO SCH (09:06)
[2019-10-30] MEDS: hydrALAZINE 25 MG TAB PO SCH ×2 (09:06→15:56)
[2019-10-30] MEDS: Potassium Chloride 20 MEQ TAB PO SCH (09:06)
[2019-10-30] MEDS: Famotidine 20 MG TAB PO SCH (09:06)
[2019-10-30] MEDS: Atorvastatin Calcium 40 MG TAB PO SCH (09:06)
[2019-10-30] MEDS: Carvedilol 25 MG TAB PO SCH ×2 (09:06→18:34)
[2019-10-30] MEDS: Aspirin 81 mg Enteric Coated Tablet PO SCH (09:07)
[2019-10-30] MEDS: Enoxaparin Sodium 40 MG/0.4 ML SYRINGE SC SCH (09:08)
[2019-10-30 15:52] VITALS: BP 132/86; TEMP 97.7
--- NOTE | 2019-10-30 17:48 | DIS ---
DATE OF ADMISSION: 10/29/2019 DATE OF DISCHARGE: 10/30/2019 PRIMARY CARE PROVIDER: Damaris Gamino MD. DISPOSITION: Discharged home. DIAGNOSES: Acute on chronic systolic heart failure, chest pain, hypokalemia, chronic obstructive pulmonary disease, hypertension, hyperlipidemia, hypothyroidism, chronic kidney disease stage 2, elevated troponin secondary to increased creatinine. DISCHARGE MEDICINES: 1. Aspirin 81 mg a day. 2. Plavix 75 mg a day. 3. Lasix 80 mg twice a day. 4. Spironolactone 25 mg a day. 5. Potassium chloride 20 mEq a day. 6. Hydralazine 25 mg three times a day. 7. Levothyroxine 175 mcg a day. 8. Nicoderm CQ 14 mg per 24 hours. 9. Isosorbide dinitrate 20 mg p.o. t.i.d. 10. Albuterol HFA two puffs q.4 hours p.r.n. 11. Coreg 25 mg p.o. b.i.d. ALLERGIES: ALLERGIC TO JOSE ANGEL INHIBITORS, TRAMADOL, DIPHENHYDRAMINE. DIET: Heart healthy with 1500 mL fluid restriction, salt restriction. CODE STATUS: Full. PENDING AT TIME OF DISCHARGE: Nothing. CONSULTATIONS: Dr. Erickson Oneil, Cardiology. PROCEDURES: None. HOSPITAL COURSE: The patient was admitted with acute on chronic systolic heart failure. He had significant weight gain, large amount of fluid retention in his lower extremities, abdominal distention. His chest exam was clear. His O2 saturation was adequate on room air. His laboratory; creatinine 1.5, sodium 143, potassium 3.4. Troponins were 0.035, 0.042, 0.039. Toxicology was clear. COVID was negative. Urine was clear. White count 7.8, hemoglobin 12.7, platelet count 96,000. The patient was started on IV Lasix. He has diuresed from 238 pounds to approximately 220 pounds. He is a negative fluid balance of over 4 L. His edema which was 3+ is now none. Chest is still clear. Heart has a regular rate and rhythm. He is insistent on going home. I have attempted to call Dr. Chung before he leaves rather than allow him to go AMA with no prescriptions the fact that he is clinically stable at the present time, I am discharging him on the aforementioned increase in Lasix and the addition of Aldactone to follow up with Dr. Chung and to follow up with his PCP in 3 to 7 days. Job ID: [id number]
--- NOTE | 2019-11-02 07:51 | PQF ---
CLINICAL DOCUMENTATION CLARIFICATION FORM: Dear : Shayne Cordoba Date / Time: 11/02/2019 07:50 Please exercise your independent, professional judgment in responding to the clarification form. Clinical indicators are provided on the bottom of this form for your review Please check appropriate box(es): Conflicting documentation was noted in the Medical Record; please clarify if patient is being treated/monitored for: [ ] Acute on chronic systolic HF [ ] Chronic systolic HF [ ] Other diagnosis [ ] Unable to determine Physician Signature: Date/Time: For continuity of documentation, please document condition throughout progress notes and discharge summary. Thank You. To be completed by CDI/Coding staff for physician review: Present Clinical Indicators - Signs / Symptoms / Labs Results and Location in Medical Record [x] Acute on chronic systolic CHF HP 10/28 [x] Chronic systolic CHF PN 10/28 [x] Chest Xray: no pleural effusion seen Chest Xray 10/28 [x] weight gain and swelling of his lower extremities HP 10/28 [x] no evidence for decompensation PN 10/28 [x] BNP: 10/2894=156.4 Labs 10/28 Present Risk Factors Results and Location in Medical Record [x] HTN HP 10/28 [x] HLD HP 10/28 [x] DM HP 10/28 [x] Smoker HP 10/28 [x] CKD stage 3 PN 10/28 Present Treatments Results and Location in Medical Record [x] Chest Xray Collected 10/28 [x] Lasix 40mg Oral MAR 10/28 [x] Aldactone 25mg Oral MAR 10/28 [x] Cardiology Consult Consult 10/28 CDS/Geospatial Engineer Signature: Ray Suarez Phone #: ext [phone] Date/Time:11/02/2019 07:50 This is a permanent part of the Medical Record [facility]
== END 2019-10-30 18:50 | disposition home or self-care (01) | DRG 291 ==
LOC: ERS 00:35 → 2SE 02:20
PROVIDERS: ADMIT Internal Medicine; ATTEND Internal Medicine
PROC: 5A09357 Assistance with Respiratory Ventilation, Less than 24 Consecutive Hours, Continuous Positive Airway Pressure (ICD-10-PCS; principal; 2019-10-29)
DX: I13.0 Hypertensive heart and chronic kidney disease with heart failure and stage 1 through stage 4 chronic kidney disease, or unspecified chronic kidney disease (principal); I50.23 Acute on chronic systolic (congestive) heart failure; N17.9 Acute kidney failure, unspecified; E78.5 Hyperlipidemia, unspecified; J44.9 Chronic obstructive pulmonary disease, unspecified; E03.9 Hypothyroidism, unspecified; I08.1 Rheumatic disorders of both mitral and tricuspid valves; D50.9 Iron deficiency anemia, unspecified; F31.9 Bipolar disorder, unspecified; F20.9 Schizophrenia, unspecified; F17.210 Nicotine dependence, cigarettes, uncomplicated; E87.6 Hypokalemia; E11.22 Type 2 diabetes mellitus with diabetic chronic kidney disease; N18.2 Chronic kidney disease, stage 2 (mild); I42.8 Other cardiomyopathies; E66.9 Obesity, unspecified; R79.89 Other specified abnormal findings of blood chemistry; Z95.810 Presence of automatic (implantable) cardiac defibrillator; Z90.49 Acquired absence of other specified parts of digestive tract; Z79.899 Other long term (current) drug therapy; Z88.8 Allergy status to other drugs, medicaments and biological substances; Z68.35 Body mass index [BMI] 35.0-35.9, adult
CPT/HCPCS: 36415; 71045; 80048; 80053; 80061; 80306; 81001; 82553; 83735; 83880; 84484; 85025; 87635; 93005; 94660; 96374; J1650; J1940; U0003

== ENCOUNTER 2019-11-20 00:23 | Emergency (ER) | payer OTHER ==
[2019-11-20 00:44] LABS: #Eosinphils 0.1 thou/uL (0.0-0.7); #Lymphocytes 1.5 thou/uL (1.20-3.40); #Monocytes 0.4 thou/uL (0.11-0.59); #Neutrophils 4.3 thou/uL (1.40-6.50); %Basophils 0.5 % (0.0-1.0); %Eosinophils 1.3 % (0.0-10.0); %Lymphocytes 24.1 % (21.0-51.0); %Monocytes 6.6 % (0.0-10.0); %Neutrophils 67.6 % (42.0-75.0); Hemoglobin 13.3 g/dL (14.0-18.0); Mean Corpuscular HGB CONC 32.7 g/dL (32.0-36.0); Mean Platelet Volume 12.2 fL (7.4-10.4); Platelet Count 88 thou/uL (130-400); RBC Distribution Width 16.5 % (11.5-14.5); Red Blood Cell (RBC) Count 4.02 mill/uL (4.70-6.10); White Blood Cell (WBC) Count 6.4 thou/uL (4.8-10.8)
[2019-11-20 01:23] LABS: CKMB 8.4 ng/mL (0-6.6)
[2019-11-20 01:28] LABS: ALT (SGPT) 9 U/L (8-55); AST (SGOT) 24 U/L (5-34); Albumin 3.6 g/dL (3.5-5.0); Alkaline Phosphatase 118 U/L (40-110); Anion Gap 17 mmol/L (10-20); BUN (Urea Nitrogen) 19 mg/dL (8.9-20.6); Bilirubin, Total 0.9 mg/dL (0.2-1.2); Calc. Creatinine Clearance 0 mL/min (70-130); Calcium 8.6 mg/dL (7.8-10.44); Carbon Dioxide 22 mmol/L (22-29); Chloride 106 mmol/L (98-107); Estimated GFR-MDRD 56; Globulin 2.9 g/dL (2.4-3.5); Glucose 230 mg/dL (70-105); Potassium 3.4 mmol/L (3.5-5.1); Protein, Total 6.5 g/dL (6.0-8.3); Sodium 142 mmol/L (136-145)
[2019-11-20] MEDS ORDERED: Furosemide 40 MG/4 ML VIAL ONE (01:30)
[2019-11-20 03:47] LABS: Troponin I 0.061 ng/mL (< 0.028)
--- NOTE | 2019-11-20 07:27 | RAD ---
Exam: Chest one view HISTORY:Dyspnea Comparison: 11/10/2019 FINDINGS: Cardiac silhouette:Cardiomegaly. Stable left-sided dual lead defibrillator. Aorta: Unremarkable Pulmonary vessels: Normal Costophrenic angles: Clear LUNGS: No masses or consolidation. Pneumothorax: None Osseous abnormalities: None IMPRESSION: Cardiomegaly, without evidence of congestive heart failure.
== END 2019-11-20 04:05 | disposition home or self-care (01) ==
LOC: ERS 00:23
DX: I42.9 Cardiomyopathy, unspecified (principal); D50.9 Iron deficiency anemia, unspecified; J45.909 Unspecified asthma, uncomplicated; E03.9 Hypothyroidism, unspecified; E78.5 Hyperlipidemia, unspecified; I11.0 Hypertensive heart disease with heart failure; I50.9 Heart failure, unspecified; F41.9 Anxiety disorder, unspecified; F31.9 Bipolar disorder, unspecified; F20.9 Schizophrenia, unspecified; F17.210 Nicotine dependence, cigarettes, uncomplicated; Z79.899 Other long term (current) drug therapy
CPT/HCPCS: 36415; 71045; 80053; 82553; 83880; 84484; 85025; 93005; 96374; J1940

== ENCOUNTER 2019-11-29 22:43 | Inpatient (IN) | payer OTHER ==
[2019-11-29 23:41] LABS: Hemoglobin 13.8 g/dL (14.0-18.0); Red Blood Cell (RBC) Count 4.11 mill/uL (4.70-6.10)
[2019-11-29 23:42] LABS: #Basophils 0.1 thou/uL (0.0-0.2); #Eosinphils 0.1 thou/uL (0.0-0.7); #Lymphocytes 1.5 thou/uL (1.20-3.40); #Monocytes 0.4 thou/uL (0.11-0.59); #Neutrophils 3.9 thou/uL (1.40-6.50); %Basophils 1.3 % (0.0-1.0); %Eosinophils 1.7 % (0.0-10.0); %Lymphocytes 24.5 % (21.0-51.0); %Monocytes 7.4 % (0.0-10.0); %Neutrophils 65.1 % (42.0-75.0); Mean Corpuscular HGB CONC 32.8 g/dL (32.0-36.0); Mean Corpuscular Hemoglobin 33.6 pg (27.0-31.0); Mean Platelet Volume 11.2 fL (7.4-10.4); Platelet Count 87 thou/uL (130-400); RBC Distribution Width 16.9 % (11.5-14.5)
[2019-11-29] MEDS ORDERED: Nitroglycerin 2% Ointment 1 INCH/1 GM Packet ONE (23:48)
[2019-11-30 00:01] LABS: ALT (SGPT) 11 U/L (8-55); AST (SGOT) 42 U/L (5-34); Albumin 3.8 g/dL (3.5-5.0); Alkaline Phosphatase 163 U/L (40-110); Anion Gap 13 mmol/L (10-20); BUN (Urea Nitrogen) 15 mg/dL (8.9-20.6); Bilirubin, Total 1.1 mg/dL (0.2-1.2); CK (CPK) 1208 U/L (30-200); Calc. Creatinine Clearance 0 mL/min (70-130); Calcium 8.2 mg/dL (7.8-10.44); Carbon Dioxide 25 mmol/L (22-29); Chloride 107 mmol/L (98-107); Estimated GFR-MDRD 55; Globulin 2.9 g/dL (2.4-3.5); Glucose 127 mg/dL (70-105); Potassium 3.4 mmol/L (3.5-5.1); Protein, Total 6.7 g/dL (6.0-8.3); Sodium 142 mmol/L (136-145)
[2019-11-30 00:09] LABS: CKMB 13.7 ng/mL (0-6.6)
[2019-11-30] MEDS ORDERED: Aspirin 325 MG TAB ONE (02:22)
[2019-11-30] MEDS ORDERED: Furosemide 40 MG/4 ML VIAL ONE ×2 (02:22→05:58)
[2019-11-30] MEDS ORDERED: Nitroglycerin 0.4 MG TAB 1 EACH ONE (02:22)
[2019-11-30] MEDS ORDERED: Potassium Chloride 20 MEQ TAB ONE (03:32)
[2019-11-30 05:06] LABS: Troponin I 0.052 ng/mL (< 0.028)
[2019-11-30] MEDS ORDERED: Nitroglycerin 2% Ointment 1 INCH/1 GM Packet ONE (05:58)
--- NOTE | 2019-11-30 06:03 | HP ---
PCP: Damaris Gamino MD. CHIEF COMPLAINT: "I passed out." HISTORY OF PRESENT ILLNESS: The patient is a 48-year-old male with past medical history significant for chronic systolic heart failure with AICD placement, hypertension, hyperlipidemia, COPD, and hypothyroidism that presented to the ER for an episode of passing out at home. The patient states that he was sitting on his walker when he fell to his knees on the floor. He states that his girlfriend called out to him and helped him come back awake. He states that she saved his life. At that time, he also had shortness of breath and chest pain. Prior to passing out, he states that he had began coughing and it felt like he could not catch his breath. He states that he has been compliant with his medication recently, although he has a significant history of noncompliance. The patient states that the chest pain felt like a pressure and he also states no relieving or exacerbating factors for it. He also endorses abdominal distention. States it has been possibly over 3 days since he has had a bowel movement. Today in the ER, they completed lab work, a brain CT, a chest x-ray, and an EKG. He was given potassium 40 mEq oral, Lasix 40 mg IV push, nitro 0.4 mg sublingual, aspirin 325 mg orally, and nitro patch 1 inch. PAST MEDICAL HISTORY: CHF, hypertension, hyperlipidemia, COPD, iron deficiency anemia, anxiety, bipolar, depression, schizophrenia, and hypothyroid. PAST SURGICAL HISTORY: Appendectomy, hernia repair, AICD placement. ALLERGIES: JOSE ANGEL INHIBITORS, BENADRYL, AND TRAMADOL. MEDICATIONS: 1. Spironolactone 25 mg daily. 2. Furosemide 80 mg two times a day. 3. Clopidogrel 75 mg once a day. SOCIAL HISTORY: The patient lives at home and uses a walker to ambulate. He states he is still smoking, but trying to cut back. He denies any alcohol or illicit drug use. The patient states that he used to use cocaine and marijuana, but no longer does. FAMILY HISTORY: Nothing contributory to this stay. REVIEW OF SYSTEMS: All other review of systems are negative unless noted in the HPI. PHYSICAL EXAMINATION: VITAL SIGNS: Blood pressure 157/134, pulse 88, respiratory rate 15, temp 97.5, O2 saturation 99% on non-rebreather. HEENT: Head atraumatic, normocephalic. Eyes, PERRLA. Extraocular muscles intact. No nystagmus. RESPIRATORY: Clear to auscultation bilaterally, however, is grunting when talking and barely able to finish a sentence. No rhonchi. No wheezes. No rales noted. CARDIOVASCULAR: Regular rate and rhythm. No murmurs, no rubs, no gallops. ABDOMEN: Distended, firm, nontender. No guarding. Umbilical hernia easily reducible. EXTREMITIES: Upper extremities, normal range of motion. Radial pulse normal. Lower extremities, 4+ pitting edema to bilateral. NEUROLOGIC: The patient oriented to person, place, and time. LABORATORY DATA AND IMAGING DATA: EKG showed sinus rhythm with LVH 92 beats per minute. Defibrillator was interrogated with no evidence of recent arrhythmia. Head CT negative without contrast, no bleed, no acute changes. Chest x-ray shows cardiomegaly with pulmonary vascular congestion, noted that findings are at his baseline. White blood cells 6.0, hemoglobin 13.8, hematocrit 42.2. Sodium 142, potassium 3.4, creatinine 1.63, GFR 55, glucose 127, total bilirubin 1.1, AST 42, alkaline phosphatase 163. CK 1208, CK-MB 13.7, BNP 604, initial troponin 0.047, next troponin 0.056. IMPRESSION AND PLAN: The patient presents today for possible syncopal episode after coughing at home, possibly a vagal reaction. He has had increased shortness of breath and appears to be fluid overload having an acute on chronic systolic heart failure exacerbation. We will admit him to the telemetry floor. We will continue to diurese him with IV Lasix and have him on daily weights and fluid restrictions while here. Will also have him on scheduled nitro paste to help with diuresis process and his hypertension. Currently, the patient is on non-rebreather, which he seems to be maintaining his oxygen saturation. If he continues to not maintain his current breathing status or begin to improve it is felt he may need to be placed on BiPAP. We will continue to monitor him to see if the non-rebreather is enough and even if we can wean him off it throughout the day or if he needs to be upgraded for BiPAP. Cardiology has already been consulted by the ER physician. The patient does have indeterminate troponins. However, this is his baseline and he is actually slightly lower than his normal. We will continue to trend them. His CK-MB did come back critically elevated and it is higher than his usual. Cardiology has already been notified about this. Chronic kidney disease. The patient's GFR today is at 55, which appears to be his baseline for his past few visits here. His creatinine is 1.63, which is just slightly more elevated than his last visit. The patient's BNP is 604, which is markedly lower than his past couple emergency room visits, hoping these numbers can improve as we continue to diurese him. The patient was also found to be hypokalemic in the ER and potassium has since been replaced. We will continue to watch his electrolytes as he is continuing to receive IV Lasix and continuing to diurese. The patient states that his stomach is distended, not only due to fluid, but because of constipation. He does have active bowel sounds. We can start him on a p.r.n. regimen to assist him having a bowel movement to see if this provides some relief to him. The patient with history of COPD. No wheezing on examination. However, he was having difficulty with finishing sentences and had to be placed on a non-rebreather to maintain his oxygen saturation. Can restart him on home albuterol inhaler as needed. The patient is currently hypertensive and has a history of hypertension. We will restart his home medications and administer any p.r.n. antihypertensives as needed. The patient does have a history of tobacco abuse. He states he is trying to quit. However, he has been currently smoking for 30 years at least a half pack per day. Smoking cessation has been counseled to him and we will start him on a nicotine patch while he is here. Low molecular weight heparin in place for DVT prophylaxis and Pepcid for GI prophylaxis. The patient wishes to be a full code. His surrogate decision maker will be his girlfriend. Palliative care team has been consulted to assist with symptom management. The patient has frequented the ER over ten times in the past six months with similar symptoms. The patient has been discussed with Dr. Sweeney. Job ID: [id number] [facility] SYSTEMMarilyn
[2019-11-30] MEDS: Nitroglycerin 2% Ointment 1 INCH/1 GM Packet TOP SCH ×3 (06:05→21:23)
[2019-11-30] MEDS: Furosemide 40 MG/4 ML VIAL SLOW IVP SCH ×2 (06:06→15:19)
[2019-11-30] MEDS ORDERED: Bisacodyl 5 MG TAB PO PRN (06:11)
[2019-11-30] MEDS ORDERED: Electrolyte Replacement Protoc 1 EACH EACH FS SCH (06:15)
[2019-11-30] MEDS ORDERED: Albuterol Sulfate 2.5 mg/3 ml Neb NEB PRN (06:26)
[2019-11-30] MEDS ORDERED: Nicotine 14 MG PATCH ONE (07:20)
[2019-11-30] MEDS: Nicotine 14 MG PATCH TD SCH (07:26)
--- NOTE | 2019-11-30 07:45 | CT ---
CT HEAD WITHOUT CONTRAST: Date: 11/29/2019 INDICATION: Syncope. COMPARISON: CT head of 01/11/2019. FINDINGS: Ventricles have normal size and position. There is cortical atrophy which is stable. Basal ganglia ca lcification again noted. There is no evidence of acute mass, infarct, hemorrhage, or other acute proc ess. Stable findings are noted. IMPRESSION: No acute abnormality. POS: AGW
--- NOTE | 2019-11-30 07:48 | RAD ---
PA CHEST: Date: 11/29/2019 INDICATION: Chest pain. COMPARISON: 11/20/2019. FINDINGS: Cardiomegaly. The vascular markings are upper normal but stable. No evidence of overt congestion or e rosemary. No focal infiltrate. AICD leads are unchanged. No interval change from 11/20/2019. IMPRESSION: Stable chest findings. POS: AGW
[2019-11-30 07:59] LABS: Troponin I 0.052 ng/mL (< 0.028)
--- NOTE | 2019-11-30 08:42 | PDOC.BPN ---
- Brief Progress Note Encounter Date: 11/30/19 Pt is in respiratory distress. O2 sat is in the 70s. Wheezing on chest auscultation. -Duoneb q4h. -IV Methylprednisolone 40 mg Q6 -IV Ceftriaxone and Azithromycin -Bipap for the next 4-6h -Check ABG. - Admit to IMCU
[2019-11-30] MEDS ORDERED: Clopidogrel Bisulfate 75 MG TAB ONE (08:52)
[2019-11-30] MEDS ORDERED: Aspirin Chewable 81 MG TAB ONE (08:52)
[2019-11-30] MEDS ORDERED: cefTRIAXone\\ROCEPHIN 1 GM VIAL ONE (08:52)
[2019-11-30] MEDS ORDERED: methylPREDNISolone Sod Succ 40 MG VIAL ONE (08:52)
[2019-11-30] MEDS ORDERED: Enoxaparin Sodium 40 MG/0.4 ML SYRINGE ONE (08:52)
[2019-11-30] MEDS: Clopidogrel Bisulfate 75 MG TAB PO SCH (09:05)
[2019-11-30] MEDS: Enoxaparin Sodium 40 MG/0.4 ML SYRINGE SC SCH (09:05)
[2019-11-30] MEDS: Aspirin 81 mg Enteric Coated Tablet PO SCH (09:05)
[2019-11-30 10:10] LABS: Actual Bicarbonate (HCO3a) 23.7 mEq/L (22-28); Analyzer IN Cardio ER; Base Excess (BEa) 1.6 mEq/L (-2.0 to +3.0); CO2 Tension 30.2 mmHg (35.0-45.0); Calcium, Ionized (arterial) 1.05 mmol/L (1.12-1.30); Carboxyhemoglobin (COHb) 1.2 gm% (0.0-3.0); Hemoglobin (Hb) 14.6 g/dL (14.0-18.0); O2 Tension (PaO2), arterial 83.5 mmHg (80.0-100.0); Potassium - ABG Lab 3.74 mmol/L (3.70-5.30); pH, Arterial 7.51 (7.35-7.45)
[2019-11-30 10:14] LABS: Puncture Site L.R.
[2019-11-30] MEDS: methylPREDNISolone Sod Succ 40 MG VIAL IVP SCH ×2 (15:19→21:24)
[2019-11-30] MEDS: Senokot S 8.6-50 MG TAB PO PRN (15:38)
[2019-11-30] MEDS ORDERED: hydrALAZINE 20 MG/ML VIAL SLOW IVP PRN (16:06)
[2019-11-30] MEDS ORDERED: hydrALAZINE 25 MG TAB PO SCH (16:15)
--- NOTE | 2019-11-30 16:40 | PDOC.PALFU ---
Palliative Care Follow-up Note Attempted to visit with patient, he requested a visit tomorrow to discuss Goal of Care and symptom management.
[2019-11-30] MEDS ORDERED: Amlodipine 10 MG TAB PO SCH (16:45)
[2019-11-30] MEDS ORDERED: Dextrose 50% Abboject 50 ML SYRINGE SLOW IVP PRN (17:04)
[2019-11-30] MEDS ORDERED: Dextrose 5% in Water 1,000 ML IV PRN (17:04)
[2019-11-30] MEDS: Isosorbide Dinitrate 20 MG TAB PO SCH (21:23)
[2019-11-30] MEDS: hydrALAZINE 25 MG TAB PO SCH (21:23)
[2019-11-30] MEDS: Carvedilol 25 MG TAB PO SCH (21:23)
[2019-11-30] MEDS: Atorvastatin Calcium 40 MG TAB PO SCH (21:23)
--- NOTE | 2019-11-30 23:02 | CON ---
DATE OF CONSULTATION: HISTORY OF PRESENT ILLNESS: The patient is a 48-year-old gentleman, who presents with increasing dyspnea and lower extremity swelling. The patient has a history of nonischemic cardiomyopathy and was admitted after he developed weakness, chest discomfort, and apparently loss of consciousness. The patient was seen initially in 2014 with congestive heart failure. He underwent a cardiac catheterization, found to have a severe decreased left ventricular systolic function with an estimated ejection fraction of 10% to 15%. He was found to have normal coronary arteries. The patient has been admitted on multiple occasions with congestive heart failure. In January of 2019, he underwent repeat catheterization, which revealed mild coronary artery disease. There was a 30% LAD lesion and a 30% RCA lesion. There subsequently seemed to be an improvement in his left ventricular systolic function with an estimated ejection fraction of 45%. The patient has been admitted on several other occasions with congestive heart failure. He states that he has been compliant with his medication. He denies using any recent use of illicit drugs. He presented with increasing dyspnea and lower extremity swelling. PAST MEDICAL HISTORY: 1. Cardiomyopathy. 2. Coronary artery disease. 3. Hypertension. 4. Renal insufficiency. 5. Diabetes mellitus. 6. Dyslipidemia. 7. Schizophrenia. 8. AICD. PAST SURGICAL HISTORY: Appendectomy and hernia surgery. ALLERGIES: JOSE ANGEL INHIBITORS, TRAMADOL, AND BENADRYL. SOCIAL HISTORY: Long history of tobacco abuse. The patient denies any use of illicit drugs. MEDICATIONS: See nursing list. The patient has been noncompliant. FAMILY HISTORY: Positive family history of heart disease. REVIEW OF SYSTEMS: Ten-point system otherwise unremarkable. PHYSICAL EXAMINATION: GENERAL: Obese gentleman, in mild distress. VITAL SIGNS: With a blood pressure of 177/114. NECK: Showed jugular venous distention in the jaw. LUNGS: Have a few scattered crackles in the bases. HEART: Regular rate and rhythm. Normal S1, S2 with a holosystolic murmur. ABDOMEN: Markedly distended. EXTREMITIES: Showed severe bilateral edema. VASCULAR: Radial pulses 2+. LABORATORY DATA: Sodium 142, potassium 3.4, chloride 107, bicarbonate 25, BUN 15, creatinine 1.63. Troponin was 0.056. The CPK was 12,008. White blood cell count is 6.0, hemoglobin 13.8, hematocrit 42.2, platelets are 87. ASSESSMENT: This gentleman has a history of nonischemic cardiomyopathy. The patient has a long history of noncompliance. The patient should be on BiDil for survival benefit. He is allergic to JOSE ANGEL inhibitor therapy. The patient also has a history of noncompliance. From a cardiac standpoint, I will restart him on the hydralazine and Isordil. His prognosis is very guarded. We will interrogate the patient's defibrillator. From a cardiac standpoint, he will be diuresed with Lasix. We will restart him on hydralazine, Isordil, and Coreg. The patient's prognosis is very guarded. Job ID: [id number] [facility]
[2019-12-01] MEDS: methylPREDNISolone Sod Succ 40 MG VIAL IVP SCH ×4 (02:13→21:05)
[2019-12-01 04:41] LABS: #Lymphocytes 1.1 thou/uL (1.20-3.40); #Monocytes 0.1 thou/uL (0.11-0.59); #Neutrophils 7.7 thou/uL (1.40-6.50); %Basophils 0.1 % (0.0-1.0); %Eosinophils 0.1 % (0.0-10.0); %Lymphocytes 12.2 % (21.0-51.0); %Monocytes 1.4 % (0.0-10.0); %Neutrophils 86.2 % (42.0-75.0); Hemoglobin 12.6 g/dL (14.0-18.0); Mean Corpuscular HGB CONC 32.4 g/dL (32.0-36.0); Mean Corpuscular Hemoglobin 33.3 pg (27.0-31.0); Mean Platelet Volume 11.9 fL (7.4-10.4); Platelet Count 87 thou/uL (130-400); RBC Distribution Width 16.7 % (11.5-14.5); Red Blood Cell (RBC) Count 3.77 mill/uL (4.70-6.10); White Blood Cell (WBC) Count 8.9 thou/uL (4.8-10.8)
[2019-12-01 04:57] LABS: Anion Gap 14 mmol/L (10-20); BUN (Urea Nitrogen) 17 mg/dL (8.9-20.6); Calc. Creatinine Clearance 102 mL/min (70-130); Carbon Dioxide 27 mmol/L (22-29); Chloride 102 mmol/L (98-107); Estimated GFR-MDRD 65; Glucose 191 mg/dL (70-105); Magnesium 2.1 mg/dL (1.6-2.6); Potassium 3.8 mmol/L (3.5-5.1); Sodium 139 mmol/L (136-145)
[2019-12-01] MEDS: Nicotine 14 MG PATCH TD SCH ×2 (05:35→08:38)
[2019-12-01] MEDS: Furosemide 40 MG/4 ML VIAL SLOW IVP SCH (05:36)
[2019-12-01] MEDS: Nitroglycerin 2% Ointment 1 INCH/1 GM Packet TOP SCH (05:36)
[2019-12-01] MEDS ORDERED: Albuterol 200 PUFF (6.7GM INHALER) INH PRN (08:00)
[2019-12-01] MEDS: cefTRIAXone\\ROCEPHIN 1 GM in Sodium Chloride 0.9% 100 ML IVPB SCH (08:39)
[2019-12-01] MEDS: Carvedilol 25 MG TAB PO SCH ×2 (08:40→21:05)
[2019-12-01] MEDS: Isosorbide Dinitrate 20 MG TAB PO SCH ×3 (08:40→21:04)
[2019-12-01] MEDS: Aspirin 81 mg Enteric Coated Tablet PO SCH (08:40)
[2019-12-01] MEDS: hydrALAZINE 25 MG TAB PO SCH ×3 (08:40→21:04)
[2019-12-01] MEDS: Clopidogrel Bisulfate 75 MG TAB PO SCH (08:40)
[2019-12-01] MEDS ORDERED: Amlodipine 10 MG TAB PO SCH (09:00)
[2019-12-01] MEDS ORDERED: FLU VACC QS2020-21(6MOS UP)/PF 60 MCG/0.5 ML SYRINGE IM ONE (09:00)
[2019-12-01] MEDS ORDERED: Carvedilol 25 MG TAB PO SCH ×2 (09:41→10:15)
[2019-12-01] MEDS ORDERED: Spironolactone 25 MG TAB PO SCH ×2 (09:42→10:15)
[2019-12-01] MEDS: Enoxaparin Sodium 40 MG/0.4 ML SYRINGE SC SCH (09:51)
[2019-12-01] MEDS: PROVENTIL INHALER 6.7 G (200 INHALATIONS) INH SCH ×4 (10:09→21:49)
[2019-12-01] MEDS: HumaLOG 300 UNITS/3 ML VIAL SC PRN ×3 (11:50→21:05)
[2019-12-01 13:47] VITALS: BMI 39.3
[2019-12-01] MEDS: Furosemide 100 MG/10 ML VIAL SLOW IVP SCH (14:50)
[2019-12-01 15:29] LABS: SARS-CoV-2 MS2 Positive; SARS-CoV-2 N Gene Negative; SARS-CoV-2 S Gene Negative; SARS-CoV-2 by NAA Not Detected (NotDetected); SARS-CoV-2 orf1ab Negative
--- NOTE | 2019-12-01 17:15 | PDOC.HOSPP ---
- Subjective Encounter Date: 12/01/19 Encounter Time: 17:15 Subjective: f/u for Acute/chronic systolic CHF and syncopal episode receiving IV Lasix. States breathing much easier today. Off O2 currently. - Objective Vital Signs & Weight: Vital Signs (12 hours) Temp Pulse Resp BP BP Pulse Ox 12/01/19 15:00 98.6 F 69 16 128/79 100 12/01/19 11:55 97.6 F 62 18 118/73 96 12/01/19 10:25 116/58 L 12/01/19 07:35 98.8 F 69 18 133/99 H 98 Weight Admit Weight 252 lb Weight 251 lb I&O: 11/30/19 12/01/19 12/02/19 06:59 06:59 06:59 Intake Total 1210 Output Total 860 Balance 350 Result Diagrams: 12/01/19 04:00 12/01/19 04:00 Additional Labs: Accuchecks 12/01/19 12/01/19 11/30/19 11:26 06:03 20:11 POC Glucose 245 H 193 H 172 H Microbiology 08/11/19 21:29 Venous blood - Right Hand Blood Culture - Preliminary NO GROWTH AT 48 HOURS 08/11/19 21:29 Venous blood - Right Arm Blood Culture - Preliminary NO GROWTH AT 48 HOURS Laboratory Tests 06/14/16 06/14/16 06/14/16 05:30 05:30 05:30 Hgb MCV Plt Count D-Dimer Creatinine Ferritin Creatine Kinase 2332 H B-Natriuretic Peptide 898.1 H Troponin I 0.023 C-Reactive Protein SARS-CoV-2 (PCR) 06/14/16 06/14/16 08/11/19 09:14 11:54 21:29 Hgb MCV Plt Count D-Dimer 0.56 H Creatinine Ferritin Creatine Kinase B-Natriuretic Peptide Troponin I 0.030 H 0.020 C-Reactive Protein SARS-CoV-2 (PCR) 08/15/19 08/15/19 08/15/19 09:29 09:29 09:29 Hgb MCV Plt Count D-Dimer Creatinine Ferritin 386.81 H Creatine Kinase B-Natriuretic Peptide 75.1 Troponin I C-Reactive Protein 4.84 H SARS-CoV-2 (PCR) 10/14/19 10/15/19 10/29/19 05:55 17:19 00:47 Hgb MCV Plt Count D-Dimer Creatinine Ferritin Creatine Kinase B-Natriuretic Peptide 1304.8 H 421.6 H 991.4 H Troponin I C-Reactive Protein SARS-CoV-2 (PCR) 11/11/19 11/11/19 11/20/19 00:04 00:04 00:34 Hgb MCV Plt Count D-Dimer Creatinine 1.58 H Ferritin Creatine Kinase B-Natriuretic Peptide 1036.4 H 753.3 H Troponin I C-Reactive Protein SARS-CoV-2 (PCR) 11/20/19 11/29/19 11/29/19 00:59 23:29 23:29 Hgb MCV Plt Count D-Dimer Creatinine 1.60 H Ferritin Creatine Kinase B-Natriuretic Peptide 604.0 H Troponin I 0.047 H C-Reactive Protein SARS-CoV-2 (PCR) 11/29/19 11/29/19 11/30/19 23:29 23:29 01:40 Hgb 13.8 L MCV 103.0 H Plt Count 87 L D-Dimer Creatinine 1.63 H Ferritin Creatine Kinase B-Natriuretic Peptide Troponin I 0.056 H C-Reactive Protein SARS-CoV-2 (PCR) 11/30/19 11/30/19 11/30/19 04:25 04:40 07:18 Hgb MCV Plt Count D-Dimer Creatinine Ferritin Creatine Kinase B-Natriuretic Peptide Troponin I 0.052 H 0.052 H C-Reactive Protein SARS-CoV-2 (PCR) Not Detected Radiology Reviewed by me: Yes (PCXR - increased pulm markings bilat) EKG Reviewed by me: Yes (Tele - SR) Hospitalist ROS - Medication Medications: Active Medications Generic Name Dose Route Start Last Admin Trade Name Freq PRN Reason Stop Dose Admin Albuterol Sulfate 2 puff 12/01/19 10:30 12/01/19 14:53 Proventil Inhaler 6.7 G (200 Inhalations) INH 2 puff [id number] BRENDA Administration Aspirin 81 mg 11/30/19 09:00 12/01/19 08:40 Aspirin 81 Mg Enteric Coated Tablet PO 81 mg DAILY BRENDA Administration Atorvastatin Calcium 40 mg 11/30/19 21:00 11/30/19 21:23 Atorvastatin Calcium 40 Mg Tab PO 40 mg HS BRENDA Administration Bisacodyl 10 mg 11/30/19 06:11 11/30/19 15:38 Bisacodyl 5 Mg Tab PO 10 mg DAILYPRN PRN Administration Constipation Clopidogrel Bisulfate 75 mg 11/30/19 09:00 12/01/19 08:40 Clopidogrel Bisulfate 75 Mg Tab PO 75 mg DAILY BRENDA Administration Enoxaparin Sodium 40 mg 11/30/19 09:00 12/01/19 09:51 Enoxaparin Sodium 40 Mg/0.4 Ml Syringe SC Not Given 0900 BRENDA Furosemide 80 mg 12/01/19 14:00 12/01/19 14:50 Furosemide 100 Mg/10 Ml Vial SLOW IVP 80 mg 0600,1400 BRENDA Administration Hydralazine HCl 50 mg 11/30/19 21:00 12/01/19 14:52 Hydralazine 25 Mg Tab PO 50 mg TID BRENDA Administration Ceftriaxone Sodium 1 gm/ 100 mls @ 200 mls/hr 12/01/19 09:00 12/01/19 08:39 Sodium Chloride IVPB 100 mls 0900 BRENDA Administration Insulin Human Lispro 0 units 11/30/19 17:04 12/01/19 11:50 Humalog 300 Units/3 Ml Vial SC 4 units .MODERATE SLIDING SC PRN Administration Moderate Correctional Scale Isosorbide Dinitrate 20 mg 11/30/19 21:00 12/01/19 14:54 Isosorbide Dinitrate 20 Mg Tab PO 20 mg TID BRENDA Administration Methylprednisolone Sodium Succinate 40 mg 11/30/19 15:00 12/01/19 14:54 Methylprednisolone Sod Succ 40 Mg Vial IVP 40 mg 0300,0900,1500,2100 BRENDA Administration Nicotine 14 mg 11/30/19 06:30 12/01/19 08:38 Nicotine 14 Mg Patch TD Not Given Q24HR BRENDA Senna/Docusate Sodium 2 tab 11/30/19 06:11 11/30/19 15:38 Senokot S 8.6-50 Mg Tab PO 2 tab BID PRN Administration Constipation Sodium Chloride 10 ml 11/30/19 09:00 12/01/19 08:42 Flush - Normal Saline 10 Ml Syringe IVF 10 ml Q12HR BRENDA Administration - Exam General Appearance: NAD, awake alert Eye: PERRL, anicteric sclera ENT: normocephalic atraumatic, no oropharyngeal lesions Neck: supple, symmetric, no JVD, no thyromegaly, no lymphadenopathy Heart: RRR, no gallops, no rubs, normal peripheral pulses Heart - other findings: S1, S2 Respiratory: normal chest expansion, no tachypnea Respiratory - other findings: diminished bilat, few basilar rales Gastrointestinal: soft, non-tender, non-distended, normal bowel sounds, no palpable masses Extremities: no cyanosis, 2+ LE edema Skin: normal turgor, no lesions Neurological: cranial nerve grossly intact, no new deficit Musculoskeletal: normal tone, normal strength Psychiatric: normal affect, A&O x 3 Hosp A/P (1) Acute on chronic systolic (congestive) heart failure Code(s): I50.23 - ACUTE ON CHRONIC SYSTOLIC (CONGESTIVE) HEART FAILURE Status: Acute Plan: Continue Lasix 80mg IV BID, serial I/O's, Daily weight, EF 20-25% (2) Syncope Code(s): R55 - SYNCOPE AND COLLAPSE Status: Acute Plan: Likely vagal response to coughing in context of pulm edema (3) Acute worsening of stage 3 chronic kidney disease Code(s): N18.3 - CHRONIC KIDNEY DISEASE, STAGE 3 (MODERATE) * DO NOT USE * S tatus: Acute Plan: Avoid nephrotoxic meds and limit contrast exposure, serial creatinine (4) Anemia, macrocytic Code(s): D53.9 - NUTRITIONAL ANEMIA, UNSPECIFIED Status: Chronic (5) Bipolar disorder Code(s): F31.9 - BIPOLAR DISORDER, UNSPECIFIED Status: Chronic Qualifiers: Active/Remission status: remission status unspecified (6) HTN (hypertension) Code(s): I10 - ESSENTIAL (PRIMARY) HYPERTENSION Status: Chronic Qualifiers: Hypertension type: essential hypertension Qualified Code(s): I10 - Essential (primary) hypertension Plan: Resume home BP regimen (7) Hypothyroidism Code(s): E03.9 - HYPOTHYROIDISM, UNSPECIFIED Status: Chronic Qualifiers: (8) Tobacco abuse Code(s): Z72.0 - TOBACCO USE Status: Chronic Plan: Smoking cessation resources - Plan medical social consultant, respiratory therapy, out of bed/ambulate Continue Lasix 80mg IV BID Monitor daily weight/I/O's Bowel regimen with Mag Citrate OOB/ambulate KCL 40meq BID AM lab: BMP, CBC
[2019-12-01] MEDS ORDERED: Benzonatate 100 MG CAP PO PRN (17:22)
[2019-12-01] MEDS ORDERED: Magnesium Citrate 300 ML BOT PO SCH (17:45)
[2019-12-01] MEDS ORDERED: Potassium Chloride 20 MEQ TAB PO SCH (18:00)
[2019-12-01] MEDS: Mometasone 100 MCG/PUFF (1 INHALER) INH SCH (18:17)
[2019-12-01] MEDS: Senokot S 8.6-50 MG TAB PO PRN (21:04)
[2019-12-01] MEDS: Atorvastatin Calcium 40 MG TAB PO SCH (21:05)
[2019-12-02] MEDS: methylPREDNISolone Sod Succ 40 MG VIAL IVP SCH ×4 (03:32→20:55)
[2019-12-02 04:43] LABS: Anion Gap 14 mmol/L (10-20); BUN (Urea Nitrogen) 23 mg/dL (8.9-20.6); Calc. Creatinine Clearance 103 mL/min (70-130); Calcium 8.8 mg/dL (7.8-10.44); Carbon Dioxide 27 mmol/L (22-29); Chloride 99 mmol/L (98-107); Estimated GFR-MDRD 65; Glucose 191 mg/dL (70-105); Potassium 4.4 mmol/L (3.5-5.1); Sodium 136 mmol/L (136-145)
[2019-12-02 05:06] LABS: Band 20 % (5-11); Hemoglobin 12.9 g/dL (14.0-18.0); Lymphocytes 4 % (21-51); MDiff Complete? YES; Mean Corpuscular Hemoglobin 31.9 pg (27.0-31.0); Mean Platelet Volume 12.2 fL (7.4-10.4); Monocytes 1 % (0-10); Neutrophil 75 % (42-75); Platelet Count 99 thou/uL (130-400); Platelet Morphology Comment Appears Decreased; RBC Distribution Width 16.8 % (11.5-14.5); Red Blood Cell (RBC) Count 4.03 mill/uL (4.70-6.10); White Blood Cell (WBC) Count 18.2 thou/uL (4.8-10.8)
[2019-12-02] MEDS: Furosemide 100 MG/10 ML VIAL SLOW IVP SCH ×2 (05:36→15:44)
[2019-12-02] MEDS: Nicotine 14 MG PATCH TD SCH (05:36)
[2019-12-02] MEDS: PROVENTIL INHALER 6.7 G (200 INHALATIONS) INH SCH ×3 (07:18→10:38)
[2019-12-02] MEDS: Mometasone 100 MCG/PUFF (1 INHALER) INH SCH ×2 (07:19→18:23)
[2019-12-02] MEDS: Clopidogrel Bisulfate 75 MG TAB PO SCH ×2 (07:43→09:08)
[2019-12-02] MEDS ORDERED: Spironolactone 25 MG TAB PO SCH ×3 (08:00→09:30)
[2019-12-02] MEDS: cefTRIAXone\\ROCEPHIN 1 GM in Sodium Chloride 0.9% 100 ML IVPB SCH (09:06)
[2019-12-02] MEDS: Enoxaparin Sodium 40 MG/0.4 ML SYRINGE SC SCH (09:07)
[2019-12-02] MEDS: Carvedilol 25 MG TAB PO SCH ×2 (09:07→20:52)
[2019-12-02] MEDS: Aspirin 81 mg Enteric Coated Tablet PO SCH (09:08)
[2019-12-02] MEDS: Potassium Chloride 20 MEQ TAB PO SCH ×3 (09:08→17:03)
[2019-12-02] MEDS: hydrALAZINE 25 MG TAB PO SCH ×3 (09:08→20:54)
[2019-12-02] MEDS: Isosorbide Dinitrate 20 MG TAB PO SCH ×3 (09:09→20:52)
--- NOTE | 2019-12-02 12:30 | PDOC.HOSPP ---
- Subjective Encounter Date: 12/02/19 Encounter Time: 12:15 Subjective: f/u for CHF exacerbation on current Lasix IV. Weight down 12lbs since admit. Feels better overall and less SOB. - Objective Vital Signs & Weight: Vital Signs (12 hours) Temp Pulse Resp BP BP Pulse Ox 12/02/19 09:08 65 113/89 12/02/19 08:00 96.8 F L 65 20 113/89 97 12/02/19 07:19 66 18 98 12/02/19 04:00 97.5 F L 65 15 118/72 94 L Weight Admit Weight 252 lb Weight 240 lb 11.2 oz I&O: 12/01/19 12/02/19 12/03/19 06:59 06:59 06:59 Intake Total 1210 1750 Output Total 860 1750 Balance 350 0 Result Diagrams: 12/02/19 04:08 12/02/19 04:07 Additional Labs: Accuchecks 12/02/19 12/01/19 12/01/19 06:32 20:17 17:30 POC Glucose 173 H 260 H 192 H Microbiology 08/11/19 21:29 Venous blood - Right Hand Blood Culture - Preliminary NO GROWTH AT 48 HOURS 08/11/19 21:29 Venous blood - Right Arm Blood Culture - Preliminary NO GROWTH AT 48 HOURS Laboratory Tests 06/14/16 06/14/16 06/14/16 05:30 05:30 05:30 Hgb MCV Plt Count D-Dimer Creatinine Ferritin Creatine Kinase 2332 H B-Natriuretic Peptide 898.1 H Troponin I 0.023 C-Reactive Protein SARS-CoV-2 (PCR) 06/14/16 06/14/16 08/11/19 09:14 11:54 21:29 Hgb MCV Plt Count D-Dimer 0.56 H Creatinine Ferritin Creatine Kinase B-Natriuretic Peptide Troponin I 0.030 H 0.020 C-Reactive Protein SARS-CoV-2 (PCR) 08/15/19 08/15/19 08/15/19 09:29 09:29 09:29 Hgb MCV Plt Count D-Dimer Creatinine Ferritin 386.81 H Creatine Kinase B-Natriuretic Peptide 75.1 Troponin I C-Reactive Protein 4.84 H SARS-CoV-2 (PCR) 08/19/20 08/20/20 09/03/20 05:55 17:19 00:47 Hgb MCV Plt Count D-Dimer Creatinine Ferritin Creatine Kinase B-Natriuretic Peptide 1304.8 H 421.6 H 991.4 H Troponin I C-Reactive Protein SARS-CoV-2 (PCR) 11/11/19 11/11/19 11/20/19 00:04 00:04 00:34 Hgb MCV Plt Count D-Dimer Creatinine 1.58 H Ferritin Creatine Kinase B-Natriuretic Peptide 1036.4 H 753.3 H Troponin I C-Reactive Protein SARS-CoV-2 (PCR) 11/20/19 11/29/19 11/29/19 00:59 23:29 23:29 Hgb MCV Plt Count D-Dimer Creatinine 1.60 H Ferritin Creatine Kinase B-Natriuretic Peptide 604.0 H Troponin I 0.047 H C-Reactive Protein SARS-CoV-2 (PCR) 11/29/19 11/29/19 11/30/19 23:29 23:29 01:40 Hgb 13.8 L MCV 103.0 H Plt Count 87 L D-Dimer Creatinine 1.63 H Ferritin Creatine Kinase B-Natriuretic Peptide Troponin I 0.056 H C-Reactive Protein SARS-CoV-2 (PCR) 11/30/19 11/30/19 11/30/19 04:25 04:40 07:18 Hgb MCV Plt Count D-Dimer Creatinine Ferritin Creatine Kinase B-Natriuretic Peptide Troponin I 0.052 H 0.052 H C-Reactive Protein SARS-CoV-2 (PCR) Not Detected EKG Reviewed by me: Yes (Tele - SR) Hospitalist ROS - Medication Medications: Active Medications Generic Name Dose Route Start Last Admin Trade Name Freq PRN Reason Stop Dose Admin Aspirin 81 mg 11/30/19 09:00 12/02/19 09:08 Aspirin 81 Mg Enteric Coated Tablet PO 81 mg DAILY BRENDA Administration Atorvastatin Calcium 40 mg 11/30/19 21:00 12/01/19 21:05 Atorvastatin Calcium 40 Mg Tab PO 40 mg HS BRENDA Administration Bisacodyl 10 mg 11/30/19 06:11 11/30/19 15:38 Bisacodyl 5 Mg Tab PO 10 mg DAILYPRN PRN Administration Constipation Carvedilol 50 mg 12/01/19 21:00 12/02/19 09:07 Carvedilol 25 Mg Tab PO 50 mg BID BRENDA Administration Clopidogrel Bisulfate 75 mg 11/30/19 09:00 12/02/19 09:08 Clopidogrel Bisulfate 75 Mg Tab PO 75 mg DAILY BRENDA Administration Clopidogrel Bisulfate 75 mg 12/02/19 09:00 12/02/19 07:43 Clopidogrel Bisulfate 75 Mg Tab PO Not Given DAILY BRENDA Enoxaparin Sodium 40 mg 11/30/19 09:00 12/02/19 09:07 Enoxaparin Sodium 40 Mg/0.4 Ml Syringe SC Not Given 0900 [facility] Furosemide 80 mg 12/01/19 14:00 12/02/19 05:36 Furosemide 100 Mg/10 Ml Vial SLOW IVP 80 mg 0600,1400 BRENDA Administration Hydralazine HCl 50 mg 11/30/19 21:00 12/02/19 09:08 Hydralazine 25 Mg Tab PO 50 mg TID [facility] Administration Ceftriaxone Sodium 1 gm/ 100 mls @ 200 mls/hr 12/01/19 09:00 12/02/19 09:06 Sodium Chloride IVPB 100 mls 0900 [facility] Administration Insulin Human Lispro 0 units 11/30/19 17:04 12/01/19 21:05 Humalog 300 Units/3 Ml Vial SC 6 units .MODERATE SLIDING SC PRN Administration Moderate Correctional Scale Isosorbide Dinitrate 20 mg 11/30/19 21:00 12/02/19 09:09 Isosorbide Dinitrate 20 Mg Tab PO 20 mg TID [facility] Administration Methylprednisolone Sodium Succinate 40 mg 11/30/19 15:00 12/02/19 09:06 Methylprednisolone Sod Succ 40 Mg Vial IVP 40 mg 0300,0900,1500,2100 [facility] Administration Mometasone Furoate 100 mcg 12/01/19 18:30 12/02/19 07:19 Mometasone 100 Mcg/Puff (1 Inhaler) INH 1 puff BID-RT BRENDA Administration Nicotine 14 mg 11/30/19 06:30 12/02/19 05:36 Nicotine 14 Mg Patch TD Not Given Q24HR [facility] Potassium Chloride 40 meq 12/02/19 08:00 12/02/19 09:34 Potassium Chloride 20 Meq Tab PO Not Given BID-WM BRENDA Senna/Docusate Sodium 2 tab 11/30/19 06:11 12/01/19 21:04 Senokot S 8.6-50 Mg Tab PO 2 tab BID PRN Administration Constipation Sodium Chloride 10 ml 11/30/19 09:00 12/02/19 09:09 Flush - Normal Saline 10 Ml Syringe IVF 10 ml Q12HR BRENDA Administration - Exam General Appearance: NAD, awake alert Eye: PERRL, anicteric sclera ENT: normocephalic atraumatic, no oropharyngeal lesions Neck: supple, symmetric, no JVD, no thyromegaly, no lymphadenopathy Heart: RRR, no gallops, no rubs, normal peripheral pulses Heart - other findings: S1, S2 Respiratory - other findings: basilar crackles o/w clear Gastrointestinal: soft, non-tender, normal bowel sounds, no guarding, no rigidity Gastrointestinal - other findings: mild distention Extremities: no cyanosis, 2+ LE edema Skin: normal turgor Neurological: cranial nerve grossly intact, no new deficit Musculoskeletal: normal tone, normal strength Psychiatric: normal affect, A&O x 3 Hosp A/P (1) Acute on chronic systolic (congestive) heart failure Code(s): I50.23 - ACUTE ON CHRONIC SYSTOLIC (CONGESTIVE) HEART FAILURE Status: Acute Plan: Continue Lasix 80mg IV BID, serial I/O's, daily weight, 12lb weight loss since admit (2) Syncope Code(s): R55 - SYNCOPE AND COLLAPSE Status: Acute Plan: Secondary to #1 (3) Acute worsening of stage 3 chronic kidney disease Code(s): N18.3 - CHRONIC KIDNEY DISEASE, STAGE 3 (MODERATE) * DO NOT USE * Status: Acute Plan: Improved, continue monitoring renal function, avoid nephrotoxic meds and limit contrast exposure (4) Anemia, macrocytic Code(s): D53.9 - NUTRITIONAL ANEMIA, UNSPECIFIED Status: Chronic (5) Bipolar disorder Code(s): F31.9 - BIPOLAR DISORDER, UNSPECIFIED Status: Chronic Qualifiers: Active/Remission status: remission status unspecified (6) HTN (hypertension) Code(s): I10 - ESSENTIAL (PRIMARY) HYPERTENSION Status: Chronic Qualifiers: Hypertension type: essential hypertension Qualified Code(s): I10 - Essential (primary) hypertension (7) Hypothyroidism Code(s): E03.9 - HYPOTHYROIDISM, UNSPECIFIED Status: Chronic Qualifiers: (8) Tobacco abuse Code(s): Z72.0 - TOBACCO USE Status: Chronic - Plan PT/OT, social work instructor, out of bed/ambulate Continue Lasix 80mg IV BID Monitor daily weight/I/O's Bowel regimen with Mag Citrate OOB/ambulate KCL 40meq BID Continue ASA/Plavix/Lipitor/Coreg AM lab: BMP, CBC
[2019-12-02] MEDS: HumaLOG 300 UNITS/3 ML VIAL SC PRN ×2 (15:46→20:53)
[2019-12-02] MEDS: Atorvastatin Calcium 40 MG TAB PO SCH (20:54)
[2019-12-03] MEDS ORDERED: Albuterol Sulfate 1.25 MG/3 ML NEB ONE (05:03)
[2019-12-03] MEDS: methylPREDNISolone Sod Succ 40 MG VIAL IVP SCH ×2 (06:21→09:18)
[2019-12-03] MEDS: Furosemide 100 MG/10 ML VIAL SLOW IVP SCH ×3 (06:24→18:07)
[2019-12-03] MEDS: HumaLOG 300 UNITS/3 ML VIAL SC PRN ×3 (07:03→21:37)
[2019-12-03] MEDS: Nicotine 14 MG PATCH TD SCH (07:06)
[2019-12-03] MEDS: Mometasone 100 MCG/PUFF (1 INHALER) INH SCH ×2 (07:33→18:36)
[2019-12-03 07:57] LABS: #Lymphocytes 0.8 thou/uL (1.20-3.40); #Monocytes 0.3 thou/uL (0.11-0.59); #Neutrophils 12.7 thou/uL (1.40-6.50); %Eosinophils 0.2 % (0.0-10.0); %Lymphocytes 5.4 % (21.0-51.0); %Monocytes 2.5 % (0.0-10.0); %Neutrophils 91.9 % (42.0-75.0); Hemoglobin 12.1 g/dL (14.0-18.0); Large Platelets MODERATE; MDiff Complete? YES; Macrocytosis SLIGHT = 6-15 cells (100X) (0-5/hpf); Mean Corpuscular HGB CONC 32.1 g/dL (32.0-36.0); Mean Corpuscular Hemoglobin 33.4 pg (27.0-31.0); Mean Platelet Volume 11.8 fL (7.4-10.4); Platelet Count 83 thou/uL (130-400); Platelet Morphology Comment Appears Decreased; RBC Distribution Width 16.6 % (11.5-14.5); Red Blood Cell (RBC) Count 3.63 mill/uL (4.70-6.10); White Blood Cell (WBC) Count 13.8 thou/uL (4.8-10.8)
[2019-12-03] MEDS: Clopidogrel Bisulfate 75 MG TAB PO SCH ×2 (09:10→09:15)
[2019-12-03] MEDS: Spironolactone 25 MG TAB PO SCH (09:13)
[2019-12-03] MEDS: Aspirin 81 mg Enteric Coated Tablet PO SCH (09:13)
[2019-12-03] MEDS: hydrALAZINE 25 MG TAB PO SCH ×3 (09:14→21:37)
[2019-12-03] MEDS: Carvedilol 25 MG TAB PO SCH ×2 (09:14→21:37)
[2019-12-03] MEDS: Isosorbide Dinitrate 20 MG TAB PO SCH ×3 (09:15→21:37)
[2019-12-03] MEDS: Enoxaparin Sodium 40 MG/0.4 ML SYRINGE SC SCH (09:16)
[2019-12-03] MEDS: cefTRIAXone\\ROCEPHIN 1 GM in Sodium Chloride 0.9% 100 ML IVPB SCH (09:17)
[2019-12-03] MEDS: Potassium Chloride 20 MEQ TAB PO SCH ×2 (09:19→15:07)
[2019-12-03 09:37] LABS: Anion Gap 14 mmol/L (10-20); BUN (Urea Nitrogen) 29 mg/dL (8.9-20.6); Calc. Creatinine Clearance 81 mL/min (70-130); Calcium 8.6 mg/dL (7.8-10.44); Carbon Dioxide 27 mmol/L (22-29); Chloride 96 mmol/L (98-107); Estimated GFR-MDRD 53; Glucose 336 mg/dL (70-105); Sodium 133 mmol/L (136-145)
--- NOTE | 2019-12-03 10:32 | PQF ---
CLINICAL DOCUMENTATION CLARIFICATION FORM: Dear Dr. Castellanos Date: 12/03/2019 Please exercise your independent, professional judgment in responding to the clarification form. Clinical indicators are provided on the bottom of this form for your review. Please check appropriate box(s): [ x ] Acute Respiratory Failure: [x ] with Hypoxia [ ] with Hypercapnia [ ] Respiratory Insufficiency without Respiratory Failure [ ] Other diagnosis [ ] Unable to determine In addition, please specify: Present on Admission (POA): [ x ] Yes [ ] No [ ] Unable to determine For continuity of documentation, please document condition throughout progress notes and discharge summary. Thank You. CLINICAL INDICATORS - SIGNS / SYMPTOMS / LABS / RESULTS AND LOCATION IN EMR *ED 10: * Vital Signs O2 Sat: 90-100% Room air to 99% Non Rebreather RR 14-19 Pulse 76-89 * He complains of diffuse chest pain and shortness of breath. * Pulmonary vascular congestion. *H&P 10 ([place]): Currently, the patient is on non-rebreather, which seems to be maintaining his oxygen saturation. *PN 10/ ([place]): * Pt is in respiratory distress. * O2 sat in the 70s. * Wheezing on chest auscultation. *LAB 10 ([facility]) ABG: pH 7.51 pCO2 30.2 pO2 83.5 RISK FACTORS / RESULTS AND LOCATION IN EMR *H&P 10 ([place]): * He states he is still smoking * Acute on chronic systolic heart failure exacerbation. * ... History of COPD. TREATMENTS / RESULTS AND LOCATION IN EMR *ED 11/29: Oxygen (Non rebreather), Lasix IV, Solu-medrol IV *H&P 10 ([place]): We will continue to monitor him to see if the non- rebreather is enough Continue to diurese him. *PN 10 ([place]): Duoneb q4h, IV methylprednisolone 40 mg Q6, IV Ceftrixone and Azithromycin, Bipap for the next 4-6h, Check ABG, Admit to ICU *Reports ([facility]): CXR Thank you, Jessica CDS/[employer] Signature: Jessica Ng RN, CDS Phone #: [phone] This is a permanent part of the Medical Record [facility]
--- NOTE | 2019-12-03 10:59 | PDOC.HOSPP ---
- Subjective Encounter Date: 12/03/19 Encounter Time: 10:45 Subjective: f/u for CHF exacerbation with 15lb weight loss since admit. Feels better overall and minimal SOB. - Objective Vital Signs & Weight: Vital Signs (12 hours) Temp Pulse Resp BP BP BP Pulse Ox 12/03/19 09:14 62 149/92 H 12/03/19 08:00 97.5 F L 63 14 149/92 H 97 12/03/19 06:22 62 16 88 L 12/03/19 04:19 97.7 F 62 14 121/88 96 12/03/19 00:30 97.7 F 61 20 124/74 95 Weight Admit Weight 252 lb Weight 237 lb 9 oz I&O: 12/02/19 12/03/19 12/04/19 06:59 06:59 06:59 Intake Total 1750 830 Output Total 1750 1200 400 Balance 0 -370 -400 Result Diagrams: 12/03/19 04:00 12/03/19 03:02 Additional Labs: Accuchecks 12/03/19 12/02/19 12/02/19 06:06 20:44 17:03 POC Glucose 323 H 285 H 234 H 12/02/19 12:30 POC Glucose 304 H Microbiology 08/11/19 21:29 Venous blood - Right Hand Blood Culture - Preliminary NO GROWTH AT 48 HOURS 08/11/19 21:29 Venous blood - Right Arm Blood Culture - Preliminary NO GROWTH AT 48 HOURS Laboratory Tests 06/14/16 06/14/16 06/14/16 05:30 05:30 05:30 Hgb MCV Plt Count D-Dimer Creatinine Ferritin Creatine Kinase 2332 H B-Natriuretic Peptide 898.1 H Troponin I 0.023 C-Reactive Protein SARS-CoV-2 (PCR) 06/14/16 06/14/16 08/11/19 09:14 11:54 21:29 Hgb MCV Plt Count D-Dimer 0.56 H Creatinine Ferritin Creatine Kinase B-Natriuretic Peptide Troponin I 0.030 H 0.020 C-Reactive Protein SARS-CoV-2 (PCR) 08/15/19 08/15/19 08/15/19 09:29 09:29 09:29 Hgb MCV Plt Count D-Dimer Creatinine Ferritin 386.81 H Creatine Kinase B-Natriuretic Peptide 75.1 Troponin I C-Reactive Protein 4.84 H SARS-CoV-2 (PCR) 10/14/19 10/15/19 10/29/19 05:55 17:19 00:47 Hgb MCV Plt Count D-Dimer Creatinine Ferritin Creatine Kinase B-Natriuretic Peptide 1304.8 H 421.6 H 991.4 H Troponin I C-Reactive Protein SARS-CoV-2 (PCR) 11/11/19 11/11/19 11/20/19 00:04 00:04 00:34 Hgb MCV Plt Count D-Dimer Creatinine 1.58 H Ferritin Creatine Kinase B-Natriuretic Peptide 1036.4 H 753.3 H Troponin I C-Reactive Protein SARS-CoV-2 (PCR) 11/20/19 11/29/19 11/29/19 00:59 23:29 23:29 Hgb MCV Plt Count D-Dimer Creatinine 1.60 H Ferritin Creatine Kinase B-Natriuretic Peptide 604.0 H Troponin I 0.047 H C-Reactive Protein SARS-CoV-2 (PCR) 11/29/19 11/29/19 11/30/19 23:29 23:29 01:40 Hgb 13.8 L MCV 103.0 H Plt Count 87 L D-Dimer Creatinine 1.63 H Ferritin Creatine Kinase B-Natriuretic Peptide Troponin I 0.056 H C-Reactive Protein SARS-CoV-2 (PCR) 11/30/19 11/30/19 11/30/19 04:25 04:40 07:18 Hgb MCV Plt Count D-Dimer Creatinine Ferritin Creatine Kinase B-Natriuretic Peptide Troponin I 0.052 H 0.052 H C-Reactive Protein SARS-CoV-2 (PCR) Not Detected Hospitalist ROS - Medication Medications: Active Medications Generic Name Dose Route Start Last Admin Trade Name Freq PRN Reason Stop Dose Admin Aspirin 81 mg 11/30/19 09:00 12/03/19 09:13 Aspirin 81 Mg Enteric Coated Tablet PO 81 mg DAILY BRENDA Administration Atorvastatin Calcium 40 mg 11/30/19 21:00 12/02/19 20:54 Atorvastatin Calcium 40 Mg Tab PO 40 mg HS BRENDA Administration Bisacodyl 10 mg 11/30/19 06:11 11/30/19 15:38 Bisacodyl 5 Mg Tab PO 10 mg DAILYPRN PRN Administration Constipation Carvedilol 50 mg 12/01/19 21:00 12/03/19 09:14 Carvedilol 25 Mg Tab PO 50 mg BID BRENDA Administration Clopidogrel Bisulfate 75 mg 12/02/19 09:00 12/03/19 09:10 Clopidogrel Bisulfate 75 Mg Tab PO Not Given DAILY BRENDA Enoxaparin Sodium 40 mg 11/30/19 09:00 12/03/19 09:16 Enoxaparin Sodium 40 Mg/0.4 Ml Syringe SC Not Given 0900 BRENDA Furosemide 80 mg 12/01/19 14:00 12/03/19 06:24 Furosemide 100 Mg/10 Ml Vial SLOW IVP Not Given 0600,1400 [facility] Hydralazine HCl 50 mg 11/30/19 21:00 12/03/19 09:14 Hydralazine 25 Mg Tab PO 50 mg TID BRENDA Administration Ceftriaxone Sodium 1 gm/ 100 mls @ 200 mls/hr 12/01/19 09:00 12/03/19 09:17 Sodium Chloride IVPB 100 mls 0900 BRENDA Administration Insulin Human Lispro 0 units 11/30/19 17:04 12/03/19 07:03 Humalog 300 Units/3 Ml Vial SC 8 units .MODERATE SLIDING SC PRN Administration Moderate Correctional Scale Isosorbide Dinitrate 20 mg 11/30/19 21:00 12/03/19 09:15 Isosorbide Dinitrate 20 Mg Tab PO 20 mg TID BRENDA Administration Mometasone Furoate 100 mcg 12/01/19 18:30 12/03/19 07:33 Mometasone 100 Mcg/Puff (1 Inhaler) INH 1 puff BID-RT BRENDA Administration Nicotine 14 mg 11/30/19 06:30 12/03/19 07:06 Nicotine 14 Mg Patch TD Not Given Q24HR BRENDA Potassium Chloride 40 meq 12/02/19 08:00 12/03/19 09:19 Potassium Chloride 20 Meq Tab PO Not Given BID-WM BRENDA Senna/Docusate Sodium 2 tab 11/30/19 06:11 12/01/19 21:04 Senokot S 8.6-50 Mg Tab PO 2 tab BID PRN Administration Constipation Sodium Chloride 10 ml 11/30/19 09:00 12/03/19 09:18 Flush - Normal Saline 10 Ml Syringe IVF 10 ml Q12HR BRENDA Administration Spironolactone 50 mg 12/03/19 08:00 12/03/19 09:13 Spironolactone 25 Mg Tab PO 50 mg QAM-WM BRENDA Administration - Exam General Appearance: NAD, awake alert Eye: PERRL, anicteric sclera ENT: normocephalic atraumatic, no oropharyngeal lesions Neck: supple, symmetric, no JVD, no thyromegaly, no lymphadenopathy Heart: RRR, no gallops, no rubs, normal peripheral pulses Heart - other findings: S1, S2 Respiratory: normal chest expansion, no tachypnea Respiratory - other findings: diminished in bases, occ rhonchi/wheeze Gastrointestinal: soft, non-tender, non-distended, normal bowel sounds, no palpable masses Gastrointestinal - other findings: obese Extremities: no cyanosis, no clubbing, 2+ LE edema Skin: normal turgor Neurological: cranial nerve grossly intact, no new deficit Musculoskeletal: normal tone, normal strength Psychiatric: normal affect, A&O x 3 Hosp A/P (1) Acute on chronic systolic (congestive) heart failure Code(s): I50.23 - ACUTE ON CHRONIC SYSTOLIC (CONGESTIVE) HEART FAILURE Status: Acute Plan: Continue Lasix 80mg IV BID, serial I/O's, daily weight, likely can transition to po Lasix in 24h (2) Acute respiratory failure with hypoxia Code(s): J96.01 - ACUTE RESPIRATORY FAILURE WITH HYPOXIA Status: Acute Plan: Improved, continue supplemental O2 PRN (3) Syncope Code(s): R55 - SYNCOPE AND COLLAPSE Status: Acute (4) Acute worsening of stage 3 chronic kidney disease Code(s): N18.3 - CHRONIC KIDNEY DISEASE, STAGE 3 (MODERATE) * DO NOT USE * Status: Acute Plan: Monitor renal function closely, avoid nephrotoxic meds and limit contrast exposure (5) Anemia, macrocytic Code(s): D53.9 - NUTRITIONAL ANEMIA, UNSPECIFIED Status: Chronic (6) Bipolar disorder Code(s): F31.9 - BIPOLAR DISORDER, UNSPECIFIED Status: Chronic Qualifiers: Active/Remission status: remission status unspecified (7) HTN (hypertension) Code(s): I10 - ESSENTIAL (PRIMARY) HYPERTENSION Status: Chronic Qualifiers: Hypertension type: essential hypertension Qualified Code(s): I10 - Es sential (primary) hypertension (8) Hypothyroidism Code(s): E03.9 - HYPOTHYROIDISM, UNSPECIFIED Status: Chronic Qualifiers: (9) Tobacco abuse Code(s): Z72.0 - TOBACCO USE Status: Chronic - Plan continue antibiotics, PT/OT, drug abuse social worker, respiratory therapy, out of bed/ambulate Continue Lasix 80mg IV BID, likely transition to po Lasix in 24h Monitor daily weight/I/O's Bowel regimen with Mag Citrate OOB/ambulate KCL 40meq BID Continue ASA/Plavix/Lipitor/Coreg Start Prednisone 40mg po daily AM lab: BMP, CBC ? Home in 24h
[2019-12-03] MEDS ORDERED: predniSONE 20 MG TAB PO SCH (11:00)
[2019-12-03] MEDS: Atorvastatin Calcium 40 MG TAB PO SCH (21:37)
[2019-12-04 04:45] LABS: #Lymphocytes 1.1 thou/uL (1.20-3.40); #Monocytes 0.7 thou/uL (0.11-0.59); #Neutrophils 11.5 thou/uL (1.40-6.50); %Eosinophils 0.2 % (0.0-10.0); %Lymphocytes 8.1 % (21.0-51.0); %Monocytes 5.2 % (0.0-10.0); %Neutrophils 86.5 % (42.0-75.0); Hemoglobin 12.3 g/dL (14.0-18.0); Mean Corpuscular HGB CONC 32.2 g/dL (32.0-36.0); Mean Corpuscular Hemoglobin 33.3 pg (27.0-31.0); Mean Platelet Volume 11.1 fL (7.4-10.4); Platelet Count 84 thou/uL (130-400); RBC Distribution Width 16.5 % (11.5-14.5); White Blood Cell (WBC) Count 13.3 thou/uL (4.8-10.8)
[2019-12-04 04:57] LABS: Anion Gap 13 mmol/L (10-20); BUN (Urea Nitrogen) 30 mg/dL (8.9-20.6); Calc. Creatinine Clearance 88 mL/min (70-130); Calcium 8.6 mg/dL (7.8-10.44); Carbon Dioxide 27 mmol/L (22-29); Chloride 100 mmol/L (98-107); Estimated GFR-MDRD 58; Glucose 158 mg/dL (70-105); Potassium 3.9 mmol/L (3.5-5.1); Sodium 136 mmol/L (136-145)
[2019-12-04] MEDS: Furosemide 100 MG/10 ML VIAL SLOW IVP SCH ×2 (05:27→15:40)
[2019-12-04] MEDS: Nicotine 14 MG PATCH TD SCH (05:28)
[2019-12-04] MEDS ORDERED: predniSONE 20 MG TAB PO SCH (08:00)
[2019-12-04] MEDS: Mometasone 100 MCG/PUFF (1 INHALER) INH SCH (08:42)
--- NOTE | 2019-12-04 10:03 | DIS ---
DATE OF ADMISSION: 11/30/2019 DATE OF DISCHARGE: 12/04/2019 DISCHARGE DIAGNOSES: 1. Acute on chronic systolic congestive heart failure exacerbation. 2. Acute hypoxic respiratory failure secondarily to #1, improved. 3. Syncope secondary to #1. 4. Acute on chronic kidney disease stage 3. 5. Macrocytic anemia, chronic. 6. Bipolar disorder. 7. Hypertension, improved. 8. Hypothyroidism. 9. Tobacco abuse. CONSULTATIONS: Dr. Chung with Cardiology Service. PERTINENT LABORATORY AND X-RAY FINDINGS: Creatinine ranged between 1.40 to 1.68. Estimated GFR ranged between 53 to 65. BNP 604. CBC showed a white blood cell count ranging between 6.0 to 18.2, hemoglobin ranged between 12.1 to 13.8, MCV 104. COVID-19 PCR not detected, 11/30/2019. Portable chest x-ray dated 11/29/2019, showed prominent vascular markings bilaterally. AICD leads in place. CT of the brain without contrast dated 11/29/2019, showed no acute intracranial process. HOSPITAL COURSE: The patient was initially admitted after presenting status post syncopal episode. The patient with chronic systolic congestive heart failure with AICD placement, undergoing extensive evaluation with evidence of acute on chronic congestive heart failure exacerbation. The patient was given IV Lasix and monitored for diuresis. CT imaging of the brain revealed no acute intracranial process and telemetry monitoring showed no ectopy or dysrhythmia. The patient was evaluated by the Cardiology Service with recommendations for ongoing diuretic therapy. The patient was titrated on his antihypertensive regimen with more optimal blood pressure trend. The patient was counseled regarding smoking cessation and given resources prior to discharge. Overall, the patient did clinically stabilize with diuretic therapy, maintaining O2 saturations in the mid 90% range on room air. I have examined the patient at the time of discharge and discussed followup instructions. The patient verbalizes understanding and agreement, ready for discharge on 12/04/2019. DISCHARGE MEDICATIONS: 1. Fluticasone 44 mcg inhaled b.i.d. 2. Spironolactone 25 mg p.o. daily. 3. Hydralazine 50 mg p.o. t.i.d. 4. Coreg 50 mg p.o. b.i.d. 5. Isordil 20 mg p.o. t.i.d. 6. Lasix 80 mg p.o. b.i.d. 7. Plavix 75 mg p.o. daily. 8. Prednisone 20 mg p.o. q.a.m. x5 days. FOLLOWUP: The patient may follow up with his primary care provider, Damaris Gamino on 12/09/2019 at 2:15 p.m. The patient will follow up with Dr. Chong Chung with [facility]. CONDITION ON DISCHARGE: Fair. ACTIVITY: Ad sabas. DIET: Heart healthy. CODE STATUS: Full. DISPOSITION: To home, 12/04/2019. TIME SPENT: Total time preparing and coordinating discharge, 33 minutes. Job ID: [id number]
[2019-12-04 10:16] VITALS: BP 111/67; TEMP 98.6
[2019-12-04] MEDS: cefTRIAXone\\ROCEPHIN 1 GM in Sodium Chloride 0.9% 100 ML IVPB SCH (10:17)
[2019-12-04] MEDS: Isosorbide Dinitrate 20 MG TAB PO SCH ×2 (10:18→15:40)
[2019-12-04] MEDS: Carvedilol 25 MG TAB PO SCH (10:18)
[2019-12-04] MEDS: Spironolactone 25 MG TAB PO SCH (10:19)
[2019-12-04] MEDS: Potassium Chloride 20 MEQ TAB PO SCH ×2 (10:19→15:41)
[2019-12-04] MEDS: hydrALAZINE 25 MG TAB PO SCH ×2 (10:19→15:40)
[2019-12-04] MEDS: Clopidogrel Bisulfate 75 MG TAB PO SCH (10:20)
[2019-12-04] MEDS: Enoxaparin Sodium 40 MG/0.4 ML SYRINGE SC SCH (10:20)
[2019-12-04] MEDS: Aspirin 81 mg Enteric Coated Tablet PO SCH (10:20)
[2019-12-04] MEDS: HumaLOG 300 UNITS/3 ML VIAL SC PRN (10:37)
== END 2019-12-04 17:17 | disposition home or self-care (01) | DRG 291 ==
LOC: ERS 22:43 → ERHOLD 11-30 04:01 → OBSVTOIN 11-30 04:01 → 2NO 11-30 15:01
PROVIDERS: ADMIT Internal Medicine; ATTEND Internal Medicine
PROC: 4B02XTZ Measurement of Cardiac Defibrillator, External Approach (ICD-10-PCS; principal; 2019-11-30)
DX: I13.0 Hypertensive heart and chronic kidney disease with heart failure and stage 1 through stage 4 chronic kidney disease, or unspecified chronic kidney disease (principal); J96.01 Acute respiratory failure with hypoxia; I50.23 Acute on chronic systolic (congestive) heart failure; Z20.828 Contact with and (suspected) exposure to other viral communicable diseases; E78.5 Hyperlipidemia, unspecified; F20.9 Schizophrenia, unspecified; F31.9 Bipolar disorder, unspecified; F41.9 Anxiety disorder, unspecified; E11.22 Type 2 diabetes mellitus with diabetic chronic kidney disease; E87.6 Hypokalemia; N18.30 Chronic kidney disease, stage 3 unspecified; I42.8 Other cardiomyopathies; F17.210 Nicotine dependence, cigarettes, uncomplicated; E03.9 Hypothyroidism, unspecified; D53.9 Nutritional anemia, unspecified; Z90.49 Acquired absence of other specified parts of digestive tract; Z95.810 Presence of automatic (implantable) cardiac defibrillator; Z79.899 Other long term (current) drug therapy; Z91.19 Patient's noncompliance with other medical treatment and regimen; Z79.890 Hormone replacement therapy; Z88.5 Allergy status to narcotic agent; Z88.8 Allergy status to other drugs, medicaments and biological substances; J44.9 Chronic obstructive pulmonary disease, unspecified; E66.9 Obesity, unspecified; Z68.37 Body mass index [BMI] 37.0-37.9, adult
CPT/HCPCS: 36415; 36416; 70450; 71045; 80048; 80053; 82550; 82553; 82805; 83735; 83880; 84484; 85025; 87635; 93005; 94640; J0696; J1650; J1940; J2920; J3490; J7512; J7620; U0003

== ENCOUNTER 2019-12-21 22:22 | Observation (INO) | payer OTHER ==
[~2019-12-21 22:22] MED LIST changes: -Iopamidol 370 76% 100 ML VIAL ONE; +Iopamidol-370 76% 500 ML 1 ML ONE
[2019-12-21] MEDS ORDERED: Furosemide 40 MG/4 ML VIAL ONE (22:42)
[2019-12-21] MEDS ORDERED: Aspirin Chewable 81 MG TAB ONE (22:42)
[2019-12-21 22:50] LABS: Hemoglobin 13.9 g/dL (14.0-18.0); Mean Corpuscular HGB CONC 33.8 g/dL (32.0-36.0); Mean Corpuscular Hemoglobin 34.1 pg (27.0-31.0); RBC Distribution Width 16.1 % (11.5-14.5); Red Blood Cell (RBC) Count 4.07 mill/uL (4.70-6.10); White Blood Cell (WBC) Count 5.8 thou/uL (4.8-10.8)
[2019-12-21 23:10] LABS: Acetaminophen Less than 6.0 mcg/mL (10.0-30.0); Alcohol Less than 10 mg/dL (Less than 10); Salicylate Less than 8.0 mg/dL (15.0-30.0)
[2019-12-21 23:11] LABS: #Eosinphils 0.1 thou/uL (0.0-0.7); #Lymphocytes 2.1 thou/uL (1.20-3.40); #Monocytes 0.4 thou/uL (0.11-0.59); #Neutrophils 3.2 thou/uL (1.40-6.50); %Basophils 0.8 % (0.0-1.0); %Lymphocytes 35.4 % (21.0-51.0); %Monocytes 6.4 % (0.0-10.0); %Neutrophils 55.4 % (42.0-75.0); Anisocytosis SLIGHT = 6-15 cells (100X) (0-5/hpf); MDiff Complete? YES; Mean Platelet Volume 11.9 fL (7.4-10.4); Platelet Count 83 thou/uL (130-400); Platelet Morphology Comment Appears Decreased
[2019-12-21 23:12] LABS: ALT (SGPT) 12 U/L (8-55); AST (SGOT) 31 U/L (5-34); Alkaline Phosphatase 145 U/L (40-110); Anion Gap 14 mmol/L (10-20); BUN (Urea Nitrogen) 17 mg/dL (8.9-20.6); Calc. Creatinine Clearance 0 mL/min (70-130); Calcium 8.6 mg/dL (7.8-10.44); Carbon Dioxide 26 mmol/L (22-29); Chloride 106 mmol/L (98-107); Estimated GFR-MDRD 58; Globulin 2.7 g/dL (2.4-3.5); Glucose 123 mg/dL (70-105); Lipase 26 U/L (8-78); Potassium 3.4 mmol/L (3.5-5.1); Protein, Total 6.7 g/dL (6.0-8.3); Sodium 143 mmol/L (136-145)
[2019-12-21 23:32] LABS: Bilirubin Negative (Negative); Blood, Urine Negative (Negative); Clarity Clear (Clear); Glucose, Urine (Dipstick) Normal (Negative); Ketone, Urine Negative (Negative); Leukocyte Negative Leu/uL (Negative); Nitrite Negative (Negative); Protein, Urine (Dipstick) 20 mg/dL (Neg-Trace); Specific Gravity, Urine 1.008 (1.002-1.036); Urobilinogen Normal mg/dL (Less than 2); pH, Urine 6.5 (5.0-9.0)
[2019-12-21 23:45] LABS: CKMB 12.5 ng/mL (0-6.6); Critical Call CKMB RESULT DECREASING
[2019-12-21 23:51] LABS: Amphetamine Not Detected (NotDetected); Barbiturates Screen Not Detected (NotDetected); Benzodiazepine Screen Not Detected (NotDetected); Cocaine Metabolite Screen Not Detected (NotDetected); Medtox Control Line Valid? VALID (VALID); Medtox Reader # READER 4; Methadone Not Detected (NotDetected); Methamphetamine Not Detected (NotDetected); Opiate Screen Not Detected (NotDetected); Oxycodone Screen Not Detected (NotDetected); Phencyclidine (PCP) Not Detected (NotDetected); THC/Cannabinoid Screen Not Detected (NotDetected); Tricyclic Screen Not Detected (NotDetected)
[2019-12-22] MEDS ORDERED: Acetaminophen 650 MG Suppository PR PRN (00:52)
[2019-12-22] MEDS ORDERED: Acetaminophen 325 MG TAB PO PRN (00:52)
[2019-12-22] MEDS ORDERED: Ondansetron PF 4 MG/2 ML Vial IVP PRN (00:52)
[2019-12-22] MEDS ORDERED: Ondansetron ODT 4 MG TAB PO PRN (00:52)
[2019-12-22] MEDS ORDERED: Calcium Carbonate 500 MG ChewTAB PO PRN (00:52)
[2019-12-22 01:57] LABS: Troponin I 0.049 ng/mL (< 0.028)
--- NOTE | 2019-12-22 02:24 | PDOC.HHP ---
Hospitalist HPI - History of Present Illness sob History of Present Illness: Case of an 49y/o male with pmhx of systolic chf with aicd, hypothyrodism, hx of stroke, bipolar, mdd htn, copd and hypercholesterolemia who comes to hospital due to sob. patient refers he was on his usual state of health until two days ago when he started with sob. since then symptoms has become progressively worse. patient states this has happened before many times, last time was at the beginning of the month. he states he has been compliant with medication, but on record review apparently he has a hx of non compliance. patient denies chest pain palpitations diaphoresis or syncope. Hospitalist ROS - Review of Systems All other systems reviewed; all pertinent +/- noted in HPI/Subj Hospitalist History - Past Medical History Heme/Onc: reports: Iron deficiency anemia Psych: reports: Anxiety, Bipolar, Depression, Schizophrenia Endocrine: reports: Diabetes, Hypothyroidism - Past Surgical History Past Surgical History: reports: Appendectomy, Hernia Repair, Other - Social History Alcohol: reports: Occassional Drugs: reports: none (None currently, used to use cocaine and marijuana) - Exam General Appearance: NAD, awake alert Eye: PERRL, anicteric sclera ENT: normocephalic atraumatic, no oropharyngeal lesions Neck: supple, symmetric, JVD Heart: RRR, no murmur, no gallops Respiratory: no wheezes, no ronchi, normal chest expansion, rales Gastrointestinal: soft, non-tender, non-distended, normal bowel sounds Gastrointestinal - other findings: edematous abdominal wall Extremities: 2+ LE edema Skin: tenting Neurological: cranial nerve grossly intact, normal sensation to touch Musculoskeletal: normal tone, normal strength Psychiatric: normal affect, normal behavior, A&O x 3 Hospitalist Results - Labs Result Diagrams: 12/21/19 22:34 12/21/19 22:34 Lab results: WBC 5.8 thou/uL (4.8-10.8) 12/21/19 22:34 Hgb 13.9 g/dL (14.0-18.0) L 12/21/19 22:34 Hct 41.0 % (42.0-52.0) L 12/21/19 22:34 MCV 101.0 fL (78.0-98.0) H 12/21/19 22:34 Plt Count 83 thou/uL (130-400) L 12/21/19 22:34 Neutrophils % 55.4 % (42.0-75.0) 12/21/19 22:34 Sodium 143 mmol/L (136-145) 12/21/19 22:34 Potassium 3.4 mmol/L (3.5-5.1) L 12/21/19 22:34 Chloride 106 mmol/L (98-107) 12/21/19 22:34 Carbon Dioxide 26 mmol/L (22-29) 12/21/19 22:34 BUN 17 mg/dL (8.9-20.6) 12/21/19 22:34 Creatinine 1.54 mg/dL (0.7-1.3) H 12/21/19 22:34 Glucose 123 mg/dL (70-105) H 12/21/19 22:34 Calcium 8.6 mg/dL (7.8-10.44) 12/21/19 22:34 Total Bilirubin 1.0 mg/dL (0.2-1.2) 12/21/19 22:34 AST 31 U/L (5-34) 12/21/19 22:34 ALT 12 U/L (8-55) 12/21/19 22:34 Alkaline Phosphatase 145 U/L (40-110) H 12/21/19 22:34 CK-MB (CK-2) 12.5 ng/mL (0-6.6) H* 12/21/19 22:34 Troponin I 0.049 ng/mL (< 0.028) H 12/22/19 01:23 B-Natriuretic Peptide 997.3 pg/mL (0-100) H 12/21/19 22:34 Serum Total Protein 6.7 g/dL (6.0-8.3) 12/21/19 22:34 Albumin 4.0 g/dL (3.5-5.0) 12/21/19 22:34 Lipase 26 U/L (8-78) 12/21/19 22:34 Urine Ketones Negative mg/dL (Negative) 12/21/19 23:14 Urine Blood Negative (Negative) 12/21/19 23:14 Urine Nitrite Negative (Negative) 12/21/19 23:14 Ur Leukocyte Esterase Negative Dena/uL (Negative) 12/21/19 23:14 Hospitalist H&P A/P - Problem (1) Acute on chronic systolic (congestive) heart failure Code(s): I50.23 - ACUTE ON CHRONIC SYSTOLIC (CONGESTIVE) HEART FAILURE Status: Acute (2) COPD (chronic obstructive pulmonary disease) Status: Chronic Qualifiers: COPD type: unspecified COPD Qualified Code(s): J44.9 - Chronic obstructive pulmonary disease, unspecified (3) Dyslipidemia Code(s): E78.5 - HYPERLIPIDEMIA, UNSPECIFIED Status: Chronic (4) HTN (hypertension) Code(s): I10 - ESSENTIAL (PRIMARY) HYPERTENSION Status: Chronic Qualifiers: Hypertension type: essential hypertension Qualified Code(s): I10 - Essential (primary) hypertension (5) Hypertension Code(s): I10 - ESSENTIAL (PRIMARY) HYPERTENSION Status: Chronic Qualifiers: (6) Hypothyroidism Code(s): E03.9 - HYPOTHYROIDISM, UNSPECIFIED Status: Chronic Qualifiers: (7) Obesity (BMI 30-39.9) Code(s): E66.9 - OBESITY, UNSPECIFIED Status: Chronic - Plan Plan: case of an 49y/o male with the stated pmhx who presents with D chf D systolic chf - cxr with vascular congestion, cardiomegaly - bnp in the 900s - will start lasix 80mg iv bid - last 2d echo showed ef 20-25 with moderate to severe mitral and tricuspid regurgitation - will repeat 2d echo - continue with beta deborah, unable to start acei due to allergy - nail maker consulted - diet with liquid restriction - prn 02 supplementation - spinorolactone -steward cath elevated troponin - will trend troponin - likely secondary to D chf tsh - recheck tsh - seems not to be taken medication for this copd - chronic, stable, not in acute decompensation
[2019-12-22 04:40] LABS: Hemoglobin A1c 8.3 % (4.0-6.0)
[2019-12-22 04:52] LABS: ALT (SGPT) 13 U/L (8-55); AST (SGOT) 30 U/L (5-34); Albumin 3.8 g/dL (3.5-5.0); Alkaline Phosphatase 143 U/L (40-110); Anion Gap 14 mmol/L (10-20); BUN (Urea Nitrogen) 17 mg/dL (8.9-20.6); Calc. Creatinine Clearance 0 mL/min (70-130); Carbon Dioxide 29 mmol/L (22-29); Cardiac Risk 4.4 (Less than 4.5); Chloride 102 mmol/L (98-107); Cholesterol 161 mg/dl (< 200 Desired); Estimated GFR-MDRD 56; Globulin 3.2 g/dL (2.4-3.5); Glucose 135 mg/dL (70-105); HDL Cholesterol 37 mg/dL (>60 Neg Risk); LDL Cholesterol, Calculated 83 mg/dL; Potassium 3.3 mmol/L (3.5-5.1); Sodium 142 mmol/L (136-145); Triglycerides 203 mg/dL (Less than 150)
[2019-12-22 04:52] LABS: #Eosinphils 0.1 thou/uL (0.0-0.7); #Lymphocytes 1.9 thou/uL (1.20-3.40); #Monocytes 0.4 thou/uL (0.11-0.59); #Neutrophils 3.4 thou/uL (1.40-6.50); %Basophils 0.4 % (0.0-1.0); %Eosinophils 1.5 % (0.0-10.0); %Lymphocytes 32.3 % (21.0-51.0); %Monocytes 6.8 % (0.0-10.0); Hemoglobin 13.6 g/dL (14.0-18.0); Mean Corpuscular HGB CONC 33.4 g/dL (32.0-36.0); Mean Platelet Volume 11.8 fL (7.4-10.4); Platelet Count 79 thou/uL (130-400); RBC Distribution Width 15.9 % (11.5-14.5); Red Blood Cell (RBC) Count 3.99 mill/uL (4.70-6.10); White Blood Cell (WBC) Count 5.8 thou/uL (4.8-10.8)
[2019-12-22 04:56] LABS: Troponin I 0.053 ng/mL (< 0.028)
[2019-12-22] MEDS ORDERED: Amlodipine 10 MG TAB PO SCH (05:15)
[2019-12-22 05:27] VITALS: BMI 37.4
--- NOTE | 2019-12-22 05:50 | RAD ---
AP CHEST: Date: 12/21/2019 HISTORY: Shortness of breath. COMPARISON: 11/29/2019. FINDINGS: Cardiomegaly. Mild vascular engorgement. Pacemaker leads are unchanged. No significant effusion. No s ignificant interval change. IMPRESSION: 1. Cardiomegaly. The heart has a globular shape and pericardial effusion cannot be excluded radiogra phically. Consider echocardiogram to rule out pericardial effusion. 2. Mild vascular congestion. POS: AGW
[2019-12-22] MEDS: Furosemide 100 MG/10 ML VIAL SLOW IVP SCH ×2 (06:02→15:00)
--- NOTE | 2019-12-22 06:07 | CT ---
CTA CHEST WITH CONTRAST: Axial tomograms obtained following angio protocol with multiplanar reconstruction and 3D postprocessi ng. INDICATION: Shortness of breath. Elevated D-Dimer. Correlation made to recent CTA chest dated 08/11/2019. FINDINGS: Pulmonary arteries show adequate opacification. No evidence of pulmonary embolus. There is cardiomegaly with vascular congestion. Ground-glass opacities in the lung bases may represen t infiltrate or edema. Mediastinum unremarkable with nonspecific lymph nodes. Upper abdomen unremarkable. IMPRESSION: 1. No evidence of pulmonary embolus. 2. Cardiomegaly with vascular congestion. 3. Ground-glass opacities in the lung bases could represent inflammatory infiltrate and/or edema wit h atelectasis. POS: AGW
[2019-12-22] MEDS ORDERED: Carvedilol 3.125 MG TAB PO SCH ×2 (08:00→08:18)
[2019-12-22] MEDS ORDERED: FLU VACC QS2020-21(6MOS UP)/PF 60 MCG/0.5 ML SYRINGE IM ONE (09:00)
[2019-12-22] MEDS: Spironolactone 25 MG TAB PO SCH (09:16)
[2019-12-22] MEDS: Clopidogrel Bisulfate 75 MG TAB PO SCH (09:16)
[2019-12-22] MEDS: Aspirin 81 mg Enteric Coated Tablet PO SCH (09:16)
[2019-12-22] MEDS: Carvedilol 25 MG TAB PO SCH ×2 (09:16→16:34)
--- NOTE | 2019-12-22 10:32 | CON ---
DATE OF CONSULTATION: HISTORY OF PRESENT ILLNESS: This patient is a 49-year-old gentleman who presents for evaluation of increasing dyspnea. The patient has a long history of nonischemic cardiomyopathy. The patient underwent a cardiac catheterization in 2014. He was found to be ejection fraction of 10% to 15% with normal coronary arteries. He was subsequently admitted on several occasions with congestive heart failure. He also underwent a repeat catheterization in January 2019, and was found to have mild coronary artery disease with 30% LAD and RCA lesions. The patient has a long history of noncompliance. He states that he has been taking his medications. He presents once again with increasing shortness of breath and lower extremity edema. The patient denies having any chest discomfort. PAST MEDICAL HISTORY: 1. Cardiomyopathy. 2. Diabetes mellitus. 3. Dyslipidemia. 4. Coronary artery disease. 5. Hypertension. 6. Schizophrenia. 7. History of AICD placement. PAST SURGICAL HISTORY: Appendectomy and hernia surgery. ALLERGIES: JOSE ANGEL INHIBITORS, BENADRYL, AND TRAMADOL. SOCIAL HISTORY: Long history of tobacco abuse. He denies any recent use of illicit drugs. MEDICATIONS: See nursing list. PHYSICAL EXAMINATION: GENERAL: Obese gentleman, in no acute distress. VITAL SIGNS: Blood pressure is 153/98. NECK: No jugular venous distention. LUNGS: A few crackles in both bases. HEART: Regular rate and rhythm. Normal S1, S2 with a holosystolic murmur. EXTREMITIES: Severe bilateral edema. VASCULAR: Radial pulses 2+. LABORATORY DATA: Sodium 142, potassium 3.3, chloride 102, bicarbonate 29, BUN 17, creatinine 1.6, glucose 135. TSH was 19. White blood cell count 5.8, hemoglobin 13.6, hematocrit 40.6, and platelets are 79. EKG normal sinus rhythm, left atrial enlargement, voltage criteria for left ventricular hypertrophy. IMPRESSION: 1. Congestive heart failure. 2. Severe cardiomyopathy. 3. History of mild coronary artery disease. 4. Hypothyroidism. 5. Dyslipidemia. 6. History of automatic implantable cardioverter-defibrillator placement. 7. Renal insufficiency. 8. Diabetes mellitus. 9. Schizophrenia. This gentleman presents once again with congestive heart failure. He does not appear to be compliant his with medication since his TSH is markedly elevated, he may have hypothyroidism which could be affecting his cardiomyopathy. From a cardiac standpoint, he should be on carvedilol. The patient should also be on Hydralazine and Isordil for its protection in patients with cardiomyopathy. The patient is also on Spironolactone The patient needs to have close followup,and compliance with his medication.. Job ID: [id number] [facility]ITALMarilyn
[2019-12-22 11:09] LABS: SARS-CoV-2 MS2 Positive; SARS-CoV-2 N Gene Negative; SARS-CoV-2 S Gene Negative; SARS-CoV-2 by NAA Not Detected (NotDetected); SARS-CoV-2 orf1ab Negative
[2019-12-22] MEDS: hydrALAZINE 25 MG TAB PO SCH ×2 (15:00→20:58)
[2019-12-22] MEDS: Isosorbide Dinitrate 20 MG TAB PO SCH ×2 (15:01→20:58)
[2019-12-22] MEDS ORDERED: Sodium Chloride 0.9% 500 ML IV SCH (17:15)
[2019-12-22 18:04] LABS: Anion Gap 17 mmol/L (10-20); BUN (Urea Nitrogen) 16 mg/dL (8.9-20.6); Calc. Creatinine Clearance 95 mL/min (70-130); Calcium 8.5 mg/dL (7.8-10.44); Carbon Dioxide 29 mmol/L (22-29); Chloride 97 mmol/L (98-107); Estimated GFR-MDRD 63; Glucose 146 mg/dL (70-105); Potassium 3.8 mmol/L (3.5-5.1); Sodium 139 mmol/L (136-145)
--- NOTE | 2019-12-22 18:39 | PDOC.EVN ---
Event Note - Event Note Event Note: This patient has a history of prior cocaine use. His recent drug screens have all been negative. He has a cardiomyopathy resulting in recurrent congestive heart failure episodes. Medication compliance has been a concern. Presented with apparent decompensated heart failure. Patient was started on IV diuretics. By this afternoon the patient had voided over 4 L. The nurse had just given him a second dose of Lasix 80 mg. During the day he had pain associated with his Domingo catheter and some mild hematuria and therefore it was discontinued. There was no strong indication to have it other than monitoring his I's and O's. He also developed some pain in his leg. I gave him a little bit of fluid back as anticipate he will have another significant response to the Lasix. Also recheck a BMP to ensure his potassium level was okay. It was normal. Appreciate cardiology input. He has been started on hydralazine and isosorbide along with the Coreg. He does have an elevated TSH and will be started on levothyroxine 100 mcg p.o. daily.
[2019-12-22] MEDS ORDERED: Levothyroxine Sodium 100 MCG TAB PO SCH (18:45)
--- NOTE | 2019-12-23 04:03 | PDOC.EVN ---
Event Note - Event Note Event Note: Nursing called, patient wishes to be DNAR. Discussed code status with patient. Paperwork signed and in chart. Orders for DNAR.
[2019-12-23 05:26] LABS: Anion Gap 13 mmol/L (10-20); BUN (Urea Nitrogen) 19 mg/dL (8.9-20.6); Calc. Creatinine Clearance 94 mL/min (70-130); Calcium 8.3 mg/dL (7.8-10.44); Carbon Dioxide 31 mmol/L (22-29); Chloride 98 mmol/L (98-107); Estimated GFR-MDRD 66; Glucose 123 mg/dL (70-105); Potassium 3.2 mmol/L (3.5-5.1); Sodium 139 mmol/L (136-145)
[2019-12-23] MEDS: Levothyroxine Sodium 100 MCG TAB PO SCH (05:49)
[2019-12-23] MEDS: Carvedilol 25 MG TAB PO SCH ×2 (08:21→17:21)
[2019-12-23] MEDS: Spironolactone 25 MG TAB PO SCH (08:21)
[2019-12-23] MEDS: Aspirin 81 mg Enteric Coated Tablet PO SCH (08:22)
[2019-12-23] MEDS: Isosorbide Dinitrate 20 MG TAB PO SCH ×3 (08:22→20:45)
[2019-12-23] MEDS: Clopidogrel Bisulfate 75 MG TAB PO SCH (08:22)
[2019-12-23] MEDS: hydrALAZINE 25 MG TAB PO SCH ×3 (08:22→20:45)
[2019-12-23] MEDS ORDERED: Potassium Chloride 20 MEQ TAB PO SCH (08:30)
[2019-12-23] MEDS ORDERED: Amlodipine 10 MG TAB PO SCH (09:00)
[2019-12-23] MEDS ORDERED: Spironolactone 25 MG TAB PO SCH ×2 (09:15)
--- NOTE | 2019-12-23 17:36 | PDOC.HOSPP ---
- Subjective Encounter Date: 12/23/19 Encounter Time: 11:00 Subjective: Patient seen for follow-up regarding systolic congestive heart failure exacerbation NYHA class III. He denies chest pain. He reports shortness of breath with exertion. - Objective Vital Signs & Weight: Vital Signs (12 hours) Temp Pulse Pulse Pulse Resp BP BP 12/23/19 15:29 97.6 F 62 16 12/23/19 12:00 98.1 F 66 18 12/23/19 09:42 61 83 130/79 138/84 12/23/19 07:40 97.3 F L 71 18 BP Pulse Ox 12/23/19 15:29 117/66 99 12/23/19 12:00 123/63 100 12/23/19 09:42 12/23/19 07:40 172/108 H 95 Weight Weight 230 lb 1.6 oz I&O: 12/22/19 12/23/19 12/24/19 06:59 06:59 06:59 Intake Total 1730 Output Total 6725 Balance -4995 Result Diagrams: 12/22/19 04:06 12/23/19 04:31 Additional Labs: Accuchecks 12/23/19 12/23/19 12/22/19 16:23 11:44 20:46 POC Glucose 121 H 159 H 167 H 12/22/19 17:33 POC Glucose 134 H Labs and MAR reviewed by me EKG Reviewed by me: Yes (Telemetry: Normal sinus rhythm) Hospitalist ROS - Review of Systems Respiratory: reports: SOB with excertion. denies: cough, dry, shortness of breath, hemoptysis, pleuritic pain, sputum, wheezing Cardiovascular: reports: edema. denies: chest pain, palpitations, orthopnea, paroxysmal noc. dyspnea, light headedness - Medication Medications: Active Medications Generic Name Dose Route Start Last Admin Trade Name Freq PRN Reason Stop Dose Admin Aspirin 81 mg 12/22/19 09:00 12/23/19 08:22 Aspirin 81 Mg Enteric Coated Tablet PO 81 mg DAILY BRENDA Administration Carvedilol 25 mg 12/22/19 08:00 12/23/19 17:21 Carvedilol 25 Mg Tab PO 25 mg BID-WM BRENDA Administration Clopidogrel Bisulfate 75 mg 12/22/19 09:00 12/23/19 08:22 Clopidogrel Bisulfate 75 Mg Tab PO 75 mg DAILY BRENDA Administration Hydralazine HCl 50 mg 12/22/19 15:00 12/23/19 15:33 Hydralazine 25 Mg Tab PO 50 mg TID BRENDA Administration Isosorbide Dinitrate 20 mg 12/22/19 15:00 12/23/19 15:33 Isosorbide Dinitrate 20 Mg Tab PO 20 mg TID BRENDA Administration Levothyroxine Sodium 100 mcg 12/23/19 06:00 12/23/19 05:49 Levothyroxine Sodium 100 Mcg Tab PO 100 mcg 0600 BRENDA Administration Sodium Chloride 10 ml 12/22/19 21:00 12/23/19 08:22 Flush - Normal Saline 10 Ml Syringe IVF 10 ml Q12HR BRENDA Administration - Exam General - other findings: Obese Eye: anicteric sclera ENT: moist mucosa Neck: supple Heart: RRR Respiratory - other findings: Bibasilar crackles Gastrointestinal: soft, non-tender Extremities: 1+ LE edema Skin: no rashes Psychiatric: normal affect, normal behavior Hosp A/P (1) Acute on chronic systolic (congestive) heart failure Code(s): I50.23 - ACUTE ON CHRONIC SYSTOLIC (CONGESTIVE) HEART FAILURE Status: Acute (2) CKD (chronic kidney disease) stage 3, GFR 30-59 ml/min Status: Chronic (3) COPD (chronic obstructive pulmonary disease) Status: Chronic Qualifiers: COPD type: unspecified COPD Qualified Code(s): J44.9 - Chronic obstructive pulmonary disease, unspecified (4) Hypertension Code(s): I10 - ESSENTIAL (PRIMARY) HYPERTENSION Status: Chronic Qualifiers: (5) Hypothyroidism Code(s): E03.9 - HYPOTHYROIDISM, UNSPECIFIED Status: Chronic Qualifiers: (6) Non-ischemic cardiomyopathy Code(s): I42.9 - CARDIOMYOPATHY, UNSPECIFIED Status: Chronic (7) Obesity (BMI 30-39.9) Code(s): E66.9 - OBESITY, UNSPECIFIED Status: Chronic - Plan Continue IV furosemide. Continue isosorbide dinitrate. Continue Synthroid 100 mcg daily. Continue spironolactone. Chronic kidney disease is stable. COPD stable. Hypertension is controlled.
[2019-12-23] MEDS ORDERED: Furosemide 40 MG/4 ML VIAL SLOW IVP SCH (17:45)
[2019-12-23] MEDS ORDERED: HumaLOG 300 UNITS/3 ML VIAL SC PRN ×2 (21:06)
[2019-12-23] MEDS ORDERED: Dextrose 5% in Water 1,000 ML IV PRN (21:06)
[2019-12-23] MEDS ORDERED: Dextrose 50% Abboject 50 ML SYRINGE SLOW IVP PRN (21:06)
[2019-12-24] MEDS: Levothyroxine Sodium 100 MCG TAB PO SCH (05:42)
[2019-12-24] MEDS ORDERED: Furosemide 20 MG/2 ML VIAL SLOW IVP SCH (06:00)
[2019-12-24] MEDS: Aspirin 81 mg Enteric Coated Tablet PO SCH (08:45)
[2019-12-24] MEDS: Isosorbide Dinitrate 20 MG TAB PO SCH (08:45)
[2019-12-24] MEDS: Clopidogrel Bisulfate 75 MG TAB PO SCH (08:46)
[2019-12-24] MEDS: hydrALAZINE 25 MG TAB PO SCH (08:46)
[2019-12-24] MEDS: Carvedilol 25 MG TAB PO SCH (08:46)
[2019-12-24] MEDS ORDERED: Furosemide 40 MG TAB PO SCH (09:00)
[2019-12-24] MEDS ORDERED: Spironolactone 25 MG TAB PO SCH (09:00)
[2019-12-24 12:32] VITALS: BP 113/61; TEMP 97.3
--- NOTE | 2019-12-24 13:24 | PDOC.DS.DS ---
Provider - Provider Date of Admission: 12/22/19 00:47 Admitting Provider: Stuart Grey Primary Care Physician: SAMIR MARION MD Course - Hospital Course Hospital Course: Discharge diagnoses: 1. Acute on chronic systolic congestive heart failure NYHA class III 2. Hypothyroidism 3. Chronic kidney disease stage III 4. Nonischemic cardiomyopathy Condition of patient on the day of discharge: Stable. Assess Mr. Mejia on the day of discharge. He denies any chest pain or shortness of breath. Vital signs are stable. S1 and S2 are heard, regular. Lungs are clear to auscultation b ilaterally. Hospital course: Patient is a pleasant 49-year-old gentleman who was admitted to [facility] from December 22, 2019 for congestive heart failure exacerbation. He was seen by cardiology service. He improved with intravenous diuretics. He is being discharged home in a stable condition. He was also hypothyroid, with a TSH of 19.13 and free T4 of 0.45. He has been started on Synthroid. There is question of whether he is compliant with his medications. Medication compliance was emphasized. Resuscitation Status: 12/22/19 20:12 Resuscitation Status Routine Co-Sign Provider: Resuscitation Status: DNAR: NO Resuscitation Discussed with: patient Additional comments: Signed DNAR consent, in chart. - Labs Lab Results: 12/22/19 04:06 12/23/19 04:31 Abnormal Lab Results - Last 48 hrs 12/22/19 17:30: Chloride 97 L, Creatinine 1.43 H 12/23/19 04:31: Potassium 3.2 L, Carbon Dioxide 31 H, Creatinine 1.39 H 12/23/19 04:31: Free T4 0.45 L - Physical Exam Vitals: Vital Signs (12 hours) Temp Pulse Resp BP BP Pulse Ox 12/24/19 12:31 97.3 F L 69 20 113/61 92 L 12/24/19 08:46 62 138/91 H 12/24/19 08:00 98.0 F 62 16 138/91 H 95 12/24/19 03:44 97.5 F L 60 20 115/62 92 L 12/24/19 01:40 92 L Weight Weight 231 lb 3.2 oz Physical Exam: The patient was seen and examined on the day of discharge. Problem - Discharge Plan Assessment: TAKE CONTROL OF HEART FAILURE Together we can! o Weigh yourself daily every morning after going to the bathroom. Call your health care provider if you gain 2 pounds in a day or 5 pounds in a week. Use the daily log provided to record your weight. o Eat no more than 2 grams (2000mg) sodium (salt) a day. Read food labels and throw away the salt shaker! o Your personal fluid limit: Take in no more than [ 2000 ] ml, equal to [ 8 ] Cups PER DAY. This includes anything that is liquid at room temperature. o Take your Medications as prescribed. Do not skip doses. If you can't afford your medications, please let your doctor know. o Watch for worsening heart failure symptoms such as increased swelling or increased shortness of breath with activity or at rest. o Follow-up with your primary care provider within 1 week of discharge from the hospital. o Maintain activity as tolerated with frequent rest periods. o If you smoke - smoking puts stress on your heart. We can help you quit smoking, just ask. o Expect a follow up call in one to three days if you are being discharged to your home. Please go to heart.org/myhfguide to learn even more about managing your heart failure using the free interactive workbook. FOCUS: Transition from Acute Care after Discharge GOAL: Successful transition to care in the community YOUR TASKS: (1) review all information outlined in your discharge packet (2) follow any instructions outlined in your discharge packet (3) contact your primary care provider if you have questions or need additional assistance See patient discharge instruction sheet for detailed teaching. Patient verbalizes understanding of medications and is able to verbalize follow-up care. See Discharge Plan for additional discharge information. Patient secured in private vehicle prior to departure. - Problem (1) Acute on chronic systolic (congestive) heart failure Code(s): I50.23 - ACUTE ON CHRONIC SYSTOLIC (CONGESTIVE) HEART FAILURE Status: Acute (2) CKD (chronic kidney disease) stage 3, GFR 30-59 ml/min Status: Chronic (3) COPD (chronic obstructive pulmonary disease) Status: Chronic Qualifiers: COPD type: unspecified COPD Qualified Code(s): J44.9 - Chronic obstructive pulmonary disease, unspecified (4) Hypertension Code(s): I10 - ESSENTIAL (PRIMARY) HYPERTENSION Status: Chronic Qualifiers: (5) Hypothyroidism Code(s): E03.9 - HYPOTHYROIDISM, UNSPECIFIED Status: Chronic Qualifiers: (6) Non-ischemic cardiomyopathy Code(s): I42.9 - CARDIOMYOPATHY, UNSPECIFIED Status: Chronic (7) Obesity (BMI 30-39.9) Code(s): E66.9 - OBESITY, UNSPECIFIED Status: Chronic Plan - Discharge Medications Prescriptions: Spironolactone [Aldactone] 50 mg PO DAILY #60 tab Carvedilol [Coreg] 25 mg PO BID-WM #60 tab Furosemide [Lasix] 40 mg PO 0900,1400 #60 tab Levothyroxine Sodium [Synthroid] 100 mcg PO 0600 #30 tab Home Medications: Medication Instructions Recorded Confirmed Type Clopidogrel Bisulfate [Plavix] 75 mg PO DAILY #30 tab 10/30/19 12/22/19 Rx Benzonatate 200 mg PO TID PRN 11/30/19 12/22/19 History Fluticasone Propionate [Flovent 44 mcg INH BID 11/30/19 12/22/19 History HFA] Isosorbide Dinitrate [Isordil] 20 mg PO TID #90 tab 12/04/19 12/23/19 Rx hydrALAZINE [Apresoline] 50 mg PO TID #90 tab 12/04/19 12/23/19 Rx Aspirin [Ecotrin Low Strength] 81 mg PO DAILY tab 12/24/19 Rx Carvedilol [Coreg] 25 mg PO BID-WM #60 tab 12/24/19 Rx Furosemide [Lasix] 40 mg PO 0900,1400 #60 tab 12/24/19 Rx Levothyroxine Sodium [Synthroid] 100 mcg PO 0600 #30 tab 12/24/19 Rx Spironolactone [Aldactone] 50 mg PO DAILY #60 tab 12/24/19 Rx Allergies: JOSE ANGEL Inhibitors Allergy (Severe, Verified 10/29/19 03:41) Swelling Angioedema diphenhydramine HCl [From Benadryl] Allergy (Verified 10/29/19 03:41) SWELLING tramadol Allergy (Verified 10/29/19 03:41) Nausea, Swelling - Discharge Instructions Discharge Instructions:: BE COMPLIANT WITH YOUR MEDICATIONS. Activity:: No Restrictions Nourishment:: Heart Healthy Diet, Low Sodium Diet - Follow up Plan Referrals: SAMIR MARION MD [Primary Care Provider] - 3 Days Chong Chung MD [Active] - Disposition: HOME Quality - Care Measures CORE MEASURES:: HF
== END 2019-12-24 15:03 | disposition home or self-care (01) ==
LOC: ERS 22:22 → 2NO 12-22 00:47
PROVIDERS: ADMIT Internal Medicine; ATTEND Internal Medicine
DX: I13.0 Hypertensive heart and chronic kidney disease with heart failure and stage 1 through stage 4 chronic kidney disease, or unspecified chronic kidney disease (principal); N18.30 Chronic kidney disease, stage 3 unspecified; I50.23 Acute on chronic systolic (congestive) heart failure; E03.9 Hypothyroidism, unspecified; E78.00 Pure hypercholesterolemia, unspecified; I42.8 Other cardiomyopathies; J44.9 Chronic obstructive pulmonary disease, unspecified; E66.9 Obesity, unspecified; F31.9 Bipolar disorder, unspecified; F41.9 Anxiety disorder, unspecified; F20.9 Schizophrenia, unspecified; F17.290 Nicotine dependence, other tobacco product, uncomplicated; I25.10 Atherosclerotic heart disease of native coronary artery without angina pectoris; Z68.36 Body mass index [BMI] 36.0-36.9, adult; Z79.02 Long term (current) use of antithrombotics/antiplatelets; Z79.82 Long term (current) use of aspirin; Z79.899 Other long term (current) drug therapy; Z88.5 Allergy status to narcotic agent; Z88.8 Allergy status to other drugs, medicaments and biological substances; Z95.810 Presence of automatic (implantable) cardiac defibrillator; Z66 Do not resuscitate
CPT/HCPCS: 36415; 36416; 51702; 71045; 71275; 80048; 80053; 80061; 80306; 80307; 81003; 82553; 83036; 83690; 83735; 83880; 84439; 84443; 84484; 85025; 85379; 87635; 90471; 90662; 93005; 93306; 93798; 94760; 96374; 96376; G0008; G0378; J1940; Q9967; U0003

== ENCOUNTER 2020-01-09 01:41 | Emergency (ER) | payer OTHER ==
[2020-01-09 02:51] LABS: #Basophils 0.1 thou/uL (0.0-0.2); #Eosinphils 0.1 thou/uL (0.0-0.7); #Lymphocytes 1.9 thou/uL (1.20-3.40); #Monocytes 0.5 thou/uL (0.11-0.59); #Neutrophils 4.6 thou/uL (1.40-6.50); %Basophils 1.3 % (0.0-1.0); %Eosinophils 1.1 % (0.0-10.0); %Lymphocytes 26.4 % (21.0-51.0); %Monocytes 6.9 % (0.0-10.0); %Neutrophils 64.4 % (42.0-75.0); Anisocytosis SLIGHT = 6-15 cells (100X) (0-5/hpf); Hemoglobin 13.2 g/dL (14.0-18.0); MDiff Complete? YES; Mean Corpuscular HGB CONC 33.1 g/dL (32.0-36.0); Mean Corpuscular Hemoglobin 33.3 pg (27.0-31.0); Mean Platelet Volume 11.7 fL (7.4-10.4); Platelet Count 79 thou/uL (130-400); Platelet Morphology Comment Appears Decreased; Red Blood Cell (RBC) Count 3.95 mill/uL (4.70-6.10); White Blood Cell (WBC) Count 7.1 thou/uL (4.8-10.8)
[2020-01-09 02:56] LABS: ALT (SGPT) 8 U/L (8-55); AST (SGOT) 31 U/L (5-34); Alkaline Phosphatase 150 U/L (40-110); Anion Gap 16 mmol/L (10-20); BUN (Urea Nitrogen) 16 mg/dL (8.9-20.6); Bilirubin, Total 0.7 mg/dL (0.2-1.2); Calc. Creatinine Clearance 0 mL/min (70-130); Carbon Dioxide 25 mmol/L (22-29); Chloride 103 mmol/L (98-107); Globulin 3.5 g/dL (2.4-3.5); Glucose 135 mg/dL (70-105); Potassium 3.4 mmol/L (3.5-5.1); Protein, Total 7.5 g/dL (6.0-8.3); Sodium 141 mmol/L (136-145)
[2020-01-09 03:29] LABS: CKMB 12.5 ng/mL (0-6.6)
--- NOTE | 2020-01-09 09:18 | RAD ---
CHEST 1 VIEW Date: 01/09/2020 INDICATION: History of shortness of breath and palpitations. COMPARISON: Prior exam dated 12/21/2019. FINDINGS: There is worsening pulmonary vascular congestion. There is cardiomegaly. There is an AICD in place. N o pneumothorax is evident. IMPRESSION: Cardiomegaly with worsening pulmonary vascular congestion, suspicious for decompensated CHF. No martha d air space edema or pleural effusion is grossly evident. POS: BH
--- NOTE | 2020-01-16 13:13 | EKG ---
Test Reason : Blood Pressure : / mmHG Vent. Rate : 094 BPM Atrial Rate : 094 BPM P-R Int : 176 ms QRS Dur : 126 ms QT Int : 436 ms P-R-T Axes : 053 -53 098 degrees QTc Int : 545 ms Normal sinus rhythm Possible Left atrial enlargement Left axis deviation Left ventricular hypertrophy with QRS widening and repolarization abnormality Cannot rule out Septal infarct , age undetermined Abnormal ECG Confirmed by ROSETTA JOYNER ([id number]), development editor SOPHIE CROWE ([id number] on 01/16/2020 1:13:00 PM Referred By: Confirmed By:ROSETTA JOYNER
== END 2020-01-09 03:43 | disposition home or self-care (01) ==
LOC: ERS 01:41
DX: I11.0 Hypertensive heart disease with heart failure (principal); I50.9 Heart failure, unspecified; J44.9 Chronic obstructive pulmonary disease, unspecified; E03.9 Hypothyroidism, unspecified; E78.5 Hyperlipidemia, unspecified; E11.9 Type 2 diabetes mellitus without complications; D50.9 Iron deficiency anemia, unspecified; F31.9 Bipolar disorder, unspecified; F20.9 Schizophrenia, unspecified; F17.210 Nicotine dependence, cigarettes, uncomplicated; F41.9 Anxiety disorder, unspecified; Z79.899 Other long term (current) drug therapy
CPT/HCPCS: 36415; 71045; 80053; 82553; 83880; 84484; 85025; 93005

== ENCOUNTER 2020-01-12 12:21 | Inpatient (IN) | payer OTHER ==
[2020-01-12 13:31] LABS: #Basophils 0.1 thou/uL (0.0-0.2); #Eosinphils 0.1 thou/uL (0.0-0.7); #Lymphocytes 2.4 thou/uL (1.20-3.40); #Monocytes 0.7 thou/uL (0.11-0.59); #Neutrophils 4.2 thou/uL (1.40-6.50); %Basophils 0.9 % (0.0-1.0); %Eosinophils 1.5 % (0.0-10.0); %Monocytes 9.3 % (0.0-10.0); %Neutrophils 56.3 % (42.0-75.0); Hemoglobin 13.5 g/dL (14.0-18.0); Mean Corpuscular HGB CONC 32.7 g/dL (32.0-36.0); Mean Corpuscular Hemoglobin 33.8 pg (27.0-31.0); Platelet Count 72 thou/uL (130-400); RBC Distribution Width 15.3 % (11.5-14.5); Red Blood Cell (RBC) Count 3.99 mill/uL (4.70-6.10); White Blood Cell (WBC) Count 7.5 thou/uL (4.8-10.8)
[2020-01-12 13:43] LABS: Anisocytosis SLIGHT = 6-15 cells (100X) (0-5/hpf); Giant Platelets SLIGHT; Large Platelets SLIGHT; MDiff Complete? YES; Macrocytosis SLIGHT = 6-15 cells (100X) (0-5/hpf); Platelet Morphology Comment Appears Decreased; Polychromasia SLIGHT = 2-3 cells (100X) (0-2/hpf)
--- NOTE | 2020-01-12 13:45 | RAD ---
XR Chest 1 View Portable History: Shortness of breath Comparison: Radiograph January 09, 2020 Findings: Heart size is enlarged. Mild pulmonary edema. Trace effusions. No pneumothorax. Dual-lead AICD/pacer electrodes projecting over the right atrium and right ventricle. Impression: Mild decompensated congestive heart failure.
[2020-01-12 13:53] LABS: Anion Gap 16 mmol/L (10-20); BUN (Urea Nitrogen) 15 mg/dL (8.9-20.6); Calc. Creatinine Clearance 0 mL/min (70-130); Calcium 8.8 mg/dL (7.8-10.44); Carbon Dioxide 25 mmol/L (22-29); Chloride 105 mmol/L (98-107); Estimated GFR-MDRD 60; Glucose 114 mg/dL (70-105); Potassium 3.7 mmol/L (3.5-5.1); Sodium 142 mmol/L (136-145)
[2020-01-12 14:24] LABS: CKMB 12.8 ng/mL (0-6.6)
[2020-01-12] MEDS ORDERED: Furosemide 40 MG/4 ML VIAL ONE (14:26)
[2020-01-12] MEDS ORDERED: Nitroglycerin 2% Ointment 1 INCH/1 GM Packet ONE (16:57)
[2020-01-12 18:24] LABS: Anion Gap 13 mmol/L (10-20); BUN (Urea Nitrogen) 15 mg/dL (8.9-20.6); Calc. Creatinine Clearance 0 mL/min (70-130); Calcium 8.6 mg/dL (7.8-10.44); Carbon Dioxide 31 mmol/L (22-29); Chloride 102 mmol/L (98-107); Estimated GFR-MDRD 57; Glucose 149 mg/dL (70-105); Magnesium 2.2 mg/dL (1.6-2.6); Potassium 3.3 mmol/L (3.5-5.1); Sodium 143 mmol/L (136-145)
--- NOTE | 2020-01-12 18:40 | PDOC.HHP ---
Hospitalist HPI - History of Present Illness History of Present Illness: ADMISSION DATE: 01/12/2020 TIME OF ASSESSMENT: 1515 PRIMARY CARE PHYSICIAN: Duane Sims CHIEF COMPLAINT: Difficulty breathing HPI: Patient is a 49-year-old male with known history of CHF who presented to the ER today for increased work of breathing. He was evaluated last Saturday at the hospital for CHF exacerbation also but was discharged without needing admission. Today he denies chest pain, abdominal pain, contact with sick person s, bowel or bladder changes. He states he has been compliant with his medication. ED COURSE: Today in the ER they completed lab work, chest x-ray, EKG. Patient was given nitro 1 inch topical and Lasix 40 mg IV push. PAST MEDICAL HISTORY: Congestive heart failure, hypertension, remote stroke, iro n deficiency anemia, hypertension, COPD, hypothyroidism, hyperlipidemia, hernia PAST SURGICAL HISTORY: Appendectomy, hernia repair, implanted defibrillator/pacemaker SOCIAL HISTORY: Patient lives at home with roommates. He states that he does not drink alcohol, smoke cigarettes, or use any drugs. He does state that his roommates are smokers though. Previous history of cocaine and marijuana use. FAMILY HISTORY: Unknown at this time ALLERGIES: JOSE ANGEL inhibitor, diphenhydramine, tramadol CURRENT MEDICATIONS: Hydralazine 50 mg p.o. 3 times daily Aldactone 50 mg p.o. daily Synthroid 100 mcg p.o. daily Isordil 20 mg p.o. 3 times daily Lasix 40 mg p.o. twice a day Flovent twice a day Plavix 75 mg p.o. daily Coreg 25 mg p.o. twice a day Benzonatate 200 mg p.o. 3 times a day as needed Aspirin 81 mg p.o. daily Hospitalist ROS - Review of Systems Respiratory: reports: cough, shortness of breath Cardiovascular: reports: chest pain, orthopnea, edema All other systems reviewed; all pertinent +/- noted in HPI/Subj Hospitalist History - Past Medical History Heme/Onc: reports: Iron deficiency anemia Psych: reports: Anxiety, Bipolar, Depression, Schizophrenia Endocrine: reports: Diabetes, Hypothyroidism - Past Surgical History Past Surgical History: reports: Appendectomy, Hernia Repair, Other - Social History Alcohol: reports: Occassional Drugs: reports: none (None currently, used to use cocaine and marijuana) - Exam General Appearance: awake alert, ill appearing Eye: PERRL ENT: dry oral mucosa Neck: JVD Heart: RRR, no rubs, normal peripheral pulses Heart - other findings: S3, tachycardic Respiratory: rales (lower), tachypneic Respiratory - other findings: increased labor of breathing Gastrointestinal: soft, non-tender, distended Extremities - other findings: 3+ LE edema Skin - other findings: stasis dermatitis BLE Musculoskeletal: generalized weakness Hospitalist Results - Labs Result Diagrams: 01/12/20 13:06 01/12/20 17:44 Lab results: WBC 7.5 thou/uL (4.8-10.8) 01/12/20 13:06 Hgb 13.5 g/dL (14.0-18.0) L 01/12/20 13:06 Hct 41.3 % (42.0-52.0) L 01/12/20 13:06 MCV 103.0 fL (78.0-98.0) H 01/12/20 13:06 Plt Count 72 thou/uL (130-400) L 01/12/20 13:06 Neutrophils % 56.3 % (42.0-75.0) 01/12/20 13:06 Sodium 143 mmol/L (136-145) 01/12/20 17:44 Potassium 3.3 mmol/L (3.5-5.1) L 01/12/20 17:44 Chloride 102 mmol/L (98-107) 01/12/20 17:44 Carbon Dioxide 31 mmol/L (22-29) H 01/12/20 17:44 BUN 15 mg/dL (8.9-20.6) 01/12/20 17:44 Creatinine 1.57 mg/dL (0.7-1.3) H 01/12/20 17:44 Glucose 149 mg/dL (70-105) H 01/12/20 17:44 Calcium 8.6 mg/dL (7.8-10.44) 01/12/20 17:44 CK-MB (CK-2) 12.8 ng/mL (0-6.6) H* 01/12/20 13:05 Troponin I 0.044 ng/mL (< 0.028) H 01/12/20 13:05 B-Natriuretic Peptide 713.2 pg/mL (0-100) H 01/12/20 13:06 - EKG Interpretation EKG: SR, LVH 85 bpm - Radiology Interpretation Chest x-ray Status: image reviewed by me, report reviewed by me Additional Comment: Findings: Heart size is enlarged. Mild pulmonary edema. Trace effusions. No pneumothorax. Dual-lead AICD/pacer electrodes projecting over the right atrium and right ventricle. Impression: Mild decompensated congestive heart failure Hospitalist H&P A/P - Problem (1) Acute on chronic systolic (congestive) heart failure Code(s): I50.23 - ACUTE ON CHRONIC SYSTOLIC (CONGESTIVE) HEART FAILURE Status: Acute (2) CKD (chronic kidney disease) stage 3, GFR 30-59 ml/min Status: Chronic (3) COPD (chronic obstructive pulmonary disease) Status: Chronic Qualifiers: COPD type: unspecified COPD Qualified Code(s): J44.9 - Chronic obstructive pulmonary disease, unspecified (4) HTN (hypertension) Code(s): I10 - ESSENTIAL (PRIMARY) HYPERTENSION Status: Chronic Qualifiers: Hypertension type: essential hypertension Qualified Code(s): I10 - Essential (primary) hypertension - Plan Plan: #Acute on chronic systolic heart failure exacerbation Continue twice daily IV Lasix Nitropaste to chest wall Continue O2 as needed Strict I's and O's Daily weights Electrolyte replacement protocol in place if potassium begins to decrease with increased Lasix given #Hypertension Restart home medications As needed antihypertensives as needed #Indeterminate troponins Denies chest pain Currently at baseline #Chronic kidney disease Currently baseline Monitor labs in a.m. DVT prophylaxis in place with Lovenox Patient wishes to be a DNR which he has chosen in previous hospitalizations Patient does not wish to list a surrogate decision maker at this time Patient has been discussed with Dr. Balderas
[2020-01-12] MEDS ORDERED: Ondansetron PF 4 MG/2 ML Vial IVP PRN (18:45)
[2020-01-12] MEDS ORDERED: Acetaminophen 325 MG TAB PO PRN (18:45)
[2020-01-12] MEDS ORDERED: Ondansetron ODT 4 MG TAB SL PRN (18:45)
[2020-01-12] MEDS ORDERED: Electrolyte Replacement Protoc 1 EACH EACH FS SCH (18:45)
[2020-01-12] MEDS ORDERED: HYDROcodone/Acetaminophen 5/325 mg Tablet PO PRN ×2 (18:45)
[2020-01-12] MEDS ORDERED: Electrolyte Replacement Protocol FS PRN (19:00)
[2020-01-12 20:02] VITALS: BMI 37.2
[2020-01-12] MEDS: Nitroglycerin 2% Ointment 1 INCH/1 GM Packet TOP SCH (22:37)
[2020-01-12 22:45] LABS: Troponin I 0.047 ng/mL (< 0.028)
[2020-01-13 05:07] LABS: #Basophils 0.1 thou/uL (0.0-0.2); #Eosinphils 0.1 thou/uL (0.0-0.7); #Lymphocytes 1.6 thou/uL (1.20-3.40); #Monocytes 0.5 thou/uL (0.11-0.59); #Neutrophils 4.6 thou/uL (1.40-6.50); %Basophils 0.8 % (0.0-1.0); %Eosinophils 1.7 % (0.0-10.0); %Lymphocytes 22.9 % (21.0-51.0); %Monocytes 7.5 % (0.0-10.0); Hemoglobin 12.5 g/dL (14.0-18.0); Mean Corpuscular HGB CONC 32.8 g/dL (32.0-36.0); Mean Corpuscular Hemoglobin 33.4 pg (27.0-31.0); Mean Platelet Volume 10.5 fL (7.4-10.4); Platelet Count 73 thou/uL (130-400); RBC Distribution Width 15.3 % (11.5-14.5); Red Blood Cell (RBC) Count 3.73 mill/uL (4.70-6.10); White Blood Cell (WBC) Count 6.9 thou/uL (4.8-10.8)
[2020-01-13 05:19] LABS: Anion Gap 12 mmol/L (10-20); BUN (Urea Nitrogen) 16 mg/dL (8.9-20.6); Calc. Creatinine Clearance 90 mL/min (70-130); Calcium 8.6 mg/dL (7.8-10.44); Carbon Dioxide 28 mmol/L (22-29); Chloride 103 mmol/L (98-107); Estimated GFR-MDRD 60; Glucose 158 mg/dL (70-105); Potassium 3.3 mmol/L (3.5-5.1); Sodium 140 mmol/L (136-145)
[2020-01-13 05:43] LABS: SARS-CoV-2 MS2 Positive; SARS-CoV-2 N Gene Negative; SARS-CoV-2 S Gene Negative; SARS-CoV-2 by NAA Not Detected (NotDetected); SARS-CoV-2 orf1ab Negative
[2020-01-13] MEDS: Furosemide 40 MG/4 ML VIAL SLOW IVP SCH ×2 (05:58→15:02)
[2020-01-13] MEDS: Potassium Chloride 2 MEQ in Premix Bag 1 BAG IVPB SCH ×2 (09:46→12:51)
[2020-01-13] MEDS: Nitroglycerin 2% Ointment 1 INCH/1 GM Packet TOP SCH ×2 (09:47→21:39)
[2020-01-13] MEDS: Enoxaparin Sodium 40 MG/0.4 ML SYRINGE SC SCH (10:00)
[2020-01-13] MEDS ORDERED: Benzonatate 100 MG CAP PO PRN (10:02)
[2020-01-13] MEDS ORDERED: Potassium Chloride 20 MEQ TAB PO SCH (10:15)
[2020-01-13] MEDS ORDERED: Furosemide 40 MG TAB PO SCH (14:00)
[2020-01-13] MEDS: hydrALAZINE 25 MG TAB PO SCH ×2 (15:02→21:35)
[2020-01-13] MEDS: Isosorbide Dinitrate 20 MG TAB PO SCH ×2 (15:03→21:35)
[2020-01-13] MEDS: Carvedilol 25 MG TAB PO SCH (17:50)
--- NOTE | 2020-01-13 18:06 | PDOC.HOSPP ---
- Subjective Encounter Date: 01/13/20 Encounter Time: 10:30 Subjective: Patient up in bed still complains of shortness of breath. - Objective Vital Signs & Weight: Vital Signs (12 hours) Temp Pulse Resp BP BP Pulse Ox 01/13/20 17:50 142/87 H 01/13/20 15:02 93 161/103 H 01/13/20 15:00 98.0 F 93 20 161/103 H 100 01/13/20 13:31 97 01/13/20 12:00 97.7 F 70 18 134/86 97 01/13/20 07:53 97.7 F 86 20 149/100 H 94 L Weight Weight 237 lb 9.6 oz I&O: 01/12/20 01/13/20 01/14/20 06:59 06:59 06:59 Intake Total 960 Output Total 275 150 Balance 685 -150 Result Diagrams: 01/13/20 04:34 01/13/20 04:34 Hospitalist ROS - Review of Systems Respiratory: reports: shortness of breath Cardiovascular: denies: chest pain, palpitations, orthopnea, paroxysmal noc. dyspnea, edema, light headedness, other Gastrointestinal: denies: nausea, vomiting, abdominal pain, diarrhea, constipation, melena, hematochezia, other Genitourinary: denies: dysuria, frequency, incontinence, hematuria, retention, other - Medication Medications: Active Medications Generic Name Dose Route Start Last Admin Trade Name Freq PRN Reason Stop Dose Admin Carvedilol 25 mg 01/13/20 17:00 01/13/20 17:50 Carvedilol 25 Mg Tab PO 25 mg BID- BRENDA Administration Enoxaparin Sodium 40 mg 01/13/20 09:00 01/13/20 10:00 Enoxaparin Sodium 40 Mg/0.4 Ml Syringe SC Not Given 0900 BRENDA Furosemide 40 mg 01/13/20 06:00 01/13/20 15:02 Furosemide 40 Mg/4 Ml Vial SLOW IVP 40 mg 0600,1400 BRENDA Administration Hydralazine HCl 50 mg 01/13/20 15:00 01/13/20 15:02 Hydralazine 25 Mg Tab PO 50 mg TID BRENDA Administration Isosorbide Dinitrate 20 mg 01/13/20 15:00 01/13/20 15:03 Isosorbide Dinitrate 20 Mg Tab PO 20 mg TID BRENDA Administration Nitroglycerin 1 inch 01/12/20 21:00 01/13/20 09:47 Nitroglycerin 2% Ointment 1 Inch/1 Gm Packet TOP Not Given BID BRENDA Sodium Chloride 10 ml 01/13/20 09:00 01/13/20 09:47 Flush - Normal Saline 10 Ml Syringe IVF 10 ml Q12HR BRENDA Administration - Exam Neck: negative: supple, symmetric, no JVD, no thyromegaly, no lymphadenopathy, no carotid bruit, JVD Heart: negative: RRR, no murmur, no gallops, no rubs, normal peripheral pulses, irregular, diminshed peripheral pulses, murmur present, II/IV, III/IV Respiratory: rales Gastrointestinal: negative: soft, non-tender, non-distended, normal bowel sounds, no palpable masses, no hepatomegaly, no splenomegaly, no bruit, no guarding, no rigidity, tender to palpation, distended, diminished bowl sounds, voluntary guarding Extremities: 2+ LE edema Hosp A/P (1) Acute on chronic systolic (congestive) heart failure Code(s): I50.23 - ACUTE ON CHRONIC SYSTOLIC (CONGESTIVE) HEART FAILURE Status: Acute (2) CKD (chronic kidney disease) stage 3, GFR 30-59 ml/min Status: Chronic (3) Bipolar disorder Code(s): F31.9 - BIPOLAR DISORDER, UNSPECIFIED Status: Chronic Qualifiers: Active/Remission status: remission status unspecified Qualified Code(s): F31.9 - Bipolar disorder, unspecified (4) Dyslipidemia Code(s): E78.5 - HYPERLIPIDEMIA, UNSPECIFIED Status: Chronic (5) Hypertension Code(s): I10 - ESSENTIAL (PRIMARY) HYPERTENSION Status: Chronic Qualifiers: (6) Hypothyroidism Code(s): E03.9 - HYPOTHYROIDISM, UNSPECIFIED Status: Chronic (7) Obesity (BMI 30-39.9) Code(s): E66.9 - OBESITY, UNSPECIFIED Status: Chronic (8) Mitral regurgitation Status: Acute (9) Tricuspid regurgitation Code(s): I07.1 - RHEUMATIC TRICUSPID INSUFFICIENCY Status: Acute - Plan We will continue IV diuretics. Patient's Synthroid dose increased. Patient states that he has been taking his medication however unclear. We will replace patient's potassium. Patient's last echocardiogram was in August which indicated an EF of 20 to 25% with mitral and tricuspid regurgitation. I did educate the patient about low-salt and limited water intake given his heart failure.
[2020-01-13] MEDS: Mometasone 100 MCG/PUFF (1 INHALER) INH SCH (18:40)
[2020-01-14 04:33] LABS: #Basophils 0.1 thou/uL (0.0-0.2); #Eosinphils 0.1 thou/uL (0.0-0.7); #Lymphocytes 1.5 thou/uL (1.20-3.40); #Monocytes 0.4 thou/uL (0.11-0.59); #Neutrophils 4.3 thou/uL (1.40-6.50); %Basophils 0.8 % (0.0-1.0); %Eosinophils 1.4 % (0.0-10.0); %Monocytes 6.2 % (0.0-10.0); %Neutrophils 67.6 % (42.0-75.0); Hemoglobin 11.7 g/dL (14.0-18.0); Mean Corpuscular HGB CONC 32.4 g/dL (32.0-36.0); Mean Corpuscular Hemoglobin 33.3 pg (27.0-31.0); Mean Platelet Volume 11.5 fL (7.4-10.4); Platelet Count 69 thou/uL (130-400); RBC Distribution Width 15.4 % (11.5-14.5); Red Blood Cell (RBC) Count 3.52 mill/uL (4.70-6.10); White Blood Cell (WBC) Count 6.4 thou/uL (4.8-10.8)
[2020-01-14 04:45] LABS: Anion Gap 13 mmol/L (10-20); BUN (Urea Nitrogen) 17 mg/dL (8.9-20.6); Calc. Creatinine Clearance 90 mL/min (70-130); Calcium 8.3 mg/dL (7.8-10.44); Carbon Dioxide 27 mmol/L (22-29); Chloride 102 mmol/L (98-107); Estimated GFR-MDRD 61; Glucose 150 mg/dL (70-105); Potassium 3.7 mmol/L (3.5-5.1); Sodium 138 mmol/L (136-145)
[2020-01-14] MEDS: Levothyroxine 175 MCG TAB PO SCH (05:21)
[2020-01-14] MEDS: Furosemide 40 MG/4 ML VIAL SLOW IVP SCH ×2 (05:21→14:16)
[2020-01-14] MEDS ORDERED: Levothyroxine Sodium 100 MCG TAB PO SCH (06:00)
[2020-01-14] MEDS: Mometasone 100 MCG/PUFF (1 INHALER) INH SCH ×2 (07:19→18:45)
[2020-01-14] MEDS: Isosorbide Dinitrate 20 MG TAB PO SCH ×3 (09:55→21:31)
[2020-01-14] MEDS: Spironolactone 25 MG TAB PO SCH (09:55)
[2020-01-14] MEDS: Aspirin 81 mg Enteric Coated Tablet PO SCH (09:55)
[2020-01-14] MEDS: Clopidogrel Bisulfate 75 MG TAB PO SCH (09:55)
[2020-01-14] MEDS: hydrALAZINE 25 MG TAB PO SCH ×3 (09:55→21:32)
[2020-01-14] MEDS: Nitroglycerin 2% Ointment 1 INCH/1 GM Packet TOP SCH ×2 (09:56→21:31)
[2020-01-14] MEDS: Carvedilol 25 MG TAB PO SCH ×2 (09:56→16:02)
[2020-01-14] MEDS: Enoxaparin Sodium 40 MG/0.4 ML SYRINGE SC SCH (09:56)
--- NOTE | 2020-01-14 15:59 | PDOC.HOSPP ---
- Subjective Encounter Date: 01/14/20 Encounter Time: 10:30 Subjective: Patient up in chair states he feels better today. - Objective Vital Signs & Weight: Vital Signs (12 hours) Temp Pulse Resp BP BP Pulse Ox 01/14/20 12:00 97 F L 71 20 111/78 01/14/20 09:55 69 01/14/20 07:32 99.5 F 69 18 132/90 95 01/14/20 07:20 90 L 01/14/20 04:00 97.4 F L 63 141/83 H 97 Weight Weight 235 lb 12.8 oz I&O: 01/13/20 01/14/20 01/15/20 06:59 06:59 06:59 Intake Total 960 1310 Output Total 275 550 Balance 685 760 Result Diagrams: 01/14/20 04:07 01/14/20 04:07 Hospitalist ROS - Review of Systems Cardiovascular: denies: chest pain, palpitations, orthopnea, paroxysmal noc. dyspnea, edema, light headedness, other Gastrointestinal: denies: nausea, vomiting, abdominal pain, diarrhea, const ipation, melena, hematochezia, other Genitourinary: denies: dysuria, frequency, incontinence, hematuria, retention, other - Medication Medications: Active Medications Generic Name Dose Route Start Last Admin Trade Name Patrick PRN Reason Stop Dose Admin Aspirin 81 mg 01/14/20 09:00 01/14/20 09:55 Aspirin 81 Mg Enteric Coated Tablet PO 81 mg DAILY BRENDA Administration Carvedilol 25 mg 01/13/20 17:00 01/14/20 09:56 Carvedilol 25 Mg Tab PO 25 mg BID- BRENDA Administration Clopidogrel Bisulfate 75 mg 01/14/20 09:00 01/14/20 09:55 Clopidogrel Bisulfate 75 Mg Tab PO 75 mg DAILY BRENDA Administration Enoxaparin Sodium 40 mg 01/13/20 09:00 01/14/20 09:56 Enoxaparin Sodium 40 Mg/0.4 Ml Syringe SC 40 mg 0900 BRENDA Administration Furosemide 40 mg 01/13/20 06:00 01/14/20 14:16 Furosemide 40 Mg/4 Ml Vial SLOW IVP 40 mg 0600,1400 BRENDA Administration Hydralazine HCl 50 mg 01/13/20 15:00 01/14/20 09:55 Hydralazine 25 Mg Tab PO 50 mg TID BRENDA Administration Isosorbide Dinitrate 20 mg 01/13/20 15:00 01/14/20 09:55 Isosorbide Dinitrate 20 Mg Tab PO 20 mg TID BRENDA Administration Levothyroxine Sodium 175 mcg 01/14/20 06:00 01/14/20 05:21 Levothyroxine 175 Mcg Tab PO 175 mcg 0600 BRENDA Administration Mometasone Furoate 100 mcg 01/13/20 18:30 01/14/20 07:19 Mometasone 100 Mcg/Puff (1 Inhaler) INH 100 mcg BID-RT BRENDA Administration Nitroglycerin 1 inch 01/12/20 21:00 01/14/20 09:56 Nitroglycerin 2% Ointment 1 Inch/1 Gm Packet TOP 1 inch BID BRENDA Administration Sodium Chloride 10 ml 01/13/20 09:00 01/14/20 09:56 Flush - Normal Saline 10 Ml Syringe IVF 10 ml Q12HR BRENDA Administration Sodium Chloride 10 ml 01/13/20 06:45 01/14/20 14:16 Flush - Normal Saline 10 Ml Syringe IVF 10 ml PRN PRN Administration Saline Flush Spironolactone 50 mg 01/14/20 09:00 01/14/20 09:55 Spironolactone 25 Mg Tab PO 50 mg DAILY BRENDA Administration - Exam Neck: negative: supple, symmetric, no JVD, no thyromegaly, no lymphadenopathy, no carotid bruit, JVD Heart: negative: RRR, no murmur, no gallops, no rubs, normal peripheral pulses, irregular, diminshed peripheral pulses, murmur present, II/IV, III/IV Respiratory: rales Gastrointestinal: negative: soft, non-tender, non-distended, normal bowel sounds, no palpable masses, no hepatomegaly, no splenomegaly, no bruit, no guarding, no rigidity, tender to palpation, distended, diminished bowl sounds, voluntary guarding Extremities: 2+ LE edema Hosp A/P (1) Acute on chronic systolic (congestive) heart failure Code(s): I50.23 - ACUTE ON CHRONIC SYSTOLIC (CONGESTIVE) HEART FAILURE Status: Acute (2) CKD (chronic kidney disease) stage 3, GFR 30-59 ml/min Status: Chronic (3) Bipolar disorder Code(s): F31.9 - BIPOLAR DISORDER, UNSPECIFIED Status: Chronic Qualifiers: Active/Remission status: remission status unspecified Qualified Code(s): F31.9 - Bipolar disorder, unspecified (4) Dyslipidemia Code(s): E78.5 - HYPERLIPIDEMIA, UNSPECIFIED Status: Chronic (5) Hypertension Code(s): I10 - ESSENTIAL (PRIMARY) HYPERTENSION Status: Chronic Qualifiers: (6) Hypothyroidism Code(s): E03.9 - HYPOTHYROIDISM, UNSPECIFIED Status: Chronic (7) Obesity (BMI 30-39.9) Code(s): E66.9 - OBESITY, UNSPECIFIED Status: Chronic (8) Mitral regurgitation Status: Acute (9) Tricuspid regurgitation Code(s): I07.1 - RHEUMATIC TRICUSPID INSUFFICIENCY Status: Acute - Plan We will continue IV diuretics. Patient's Synthroid dose increased. Patient states that he has been taking his medication however unclear. We will replace patient's potassium. Patient's last echocardiogram was in August which indicated an EF of 20 to 25% with mitral and tricuspid regurgitation. I did educate the patient about low-salt and limited water intake given his heart failure. 01/13 we will continue Lasix. We will continue current home medications. Patient educated again on low salt intake and water intake. Patient on DVT prophylaxis. Patient has is JOSE ANGEL inhibitor allergy.
[2020-01-14] MEDS ORDERED: hydrALAZINE 25 MG TAB PO SCH (16:30)
[2020-01-15] MEDS: Levothyroxine 175 MCG TAB PO SCH (05:27)
[2020-01-15] MEDS: Furosemide 40 MG/4 ML VIAL SLOW IVP SCH ×2 (05:27→14:01)
[2020-01-15] MEDS: Mometasone 100 MCG/PUFF (1 INHALER) INH SCH (08:04)
[2020-01-15] MEDS: Isosorbide Dinitrate 20 MG TAB PO SCH ×2 (08:41→14:00)
[2020-01-15] MEDS: Spironolactone 25 MG TAB PO SCH (08:41)
[2020-01-15] MEDS: Clopidogrel Bisulfate 75 MG TAB PO SCH (08:42)
[2020-01-15] MEDS: Carvedilol 25 MG TAB PO SCH (08:42)
[2020-01-15] MEDS: hydrALAZINE 25 MG TAB PO SCH ×2 (08:43→14:04)
[2020-01-15] MEDS: Enoxaparin Sodium 40 MG/0.4 ML SYRINGE SC SCH (08:44)
[2020-01-15] MEDS: Aspirin 81 mg Enteric Coated Tablet PO SCH (08:44)
[2020-01-15] MEDS: Nitroglycerin 2% Ointment 1 INCH/1 GM Packet TOP SCH (08:44)
[2020-01-15] MEDS ORDERED: Nitroglycerin 2% Ointment 1 INCH/1 GM Packet TOP SCH (09:00)
[2020-01-15 11:36] LABS: Anion Gap 16 mmol/L (10-20); BUN (Urea Nitrogen) 18 mg/dL (8.9-20.6); Calc. Creatinine Clearance 90 mL/min (70-130); Calcium 8.2 mg/dL (7.8-10.44); Carbon Dioxide 25 mmol/L (22-29); Chloride 101 mmol/L (98-107); Estimated GFR-MDRD 61; Glucose 113 mg/dL (70-105); Potassium 3.5 mmol/L (3.5-5.1); Sodium 138 mmol/L (136-145)
[2020-01-15 12:44] VITALS: TEMP 97.6
[2020-01-15] MEDS ORDERED: Potassium Chloride 20 MEQ TAB PO SCH (13:00)
[2020-01-15 14:05] VITALS: BP 121/75
--- NOTE | 2020-01-16 00:55 | DIS ---
DATE OF ADMISSION: 01/14/2020 DATE OF DISCHARGE: 01/15/2020 DISCHARGE DIAGNOSES: 1. Acute on chronic systolic heart failure. 2. Shortness of breath. 3. Bipolar disorder. 4. Chronic kidney disease, stage 3. 5. Hypertension. 6. Hypothyroidism. HOSPITAL COURSE: Patient is a 49-year-old male, who initially presented to the hospital on 01/11 with complaints of difficulty breathing. At this time, patient was noted to have some mild congestion on the chest x-ray. His troponin was mildly elevated. He was started on IV diuretics. Patient was educated on compliance of his medication and also low-salt diet. He continued to feel better. His COVID test was negative. His shortness of breath improved. He was ambulating in the hallway and the patient at this time was discharged home. Patient's TSH was noted to be 21. At this time, the dose of medication was increased. I have reemphasized the importance of medication compliance. HOME MEDICATIONS: Will be: 1. Isosorbide 20 mg t.i.d. 2. Levothyroxine 150 mcg daily. 3. Spironolactone 50 mg daily. 4. Coreg 25 mg b.i.d. 5. Hydralazine 50 mg b.i.d. His hydralazine dose was decreased from 50 mg t.i.d. to 50 mg b.i.d. 6. Aspirin 81 mg daily. 7. Clopidogrel 75 mg daily. 8. Fluticasone 44 mcg inhalation daily. PHYSICAL EXAMINATION: VITAL SIGNS: On discharge, temperature 97.6, 56, 16, , 95% on room air, and . GENERAL: He is awake, alert, and oriented x3. Does not appear in distress. CV: S1, S2 present. No murmurs, rubs, or gallops. Job ID: [id number]
--- NOTE | 2020-01-16 17:10 | EKG ---
Test Reason : SOB Blood Pressure : / mmHG Vent. Rate : 085 BPM Atrial Rate : 085 BPM P-R Int : 182 ms QRS Dur : 130 ms QT Int : 452 ms P-R-T Axes : 049 -52 104 degrees QTc Int : 537 ms Normal sinus rhythm Left axis deviation Left ventricular hypertrophy with QRS widening and repolarization abnormality Cannot rule out Septal infarct , age undetermined Abnormal ECG Confirmed by LIS ADAMS DO [id number]), technical editor SOPHIE CROWE ([id number] on 01/16/2020 5:10:22 PM Referred By: Confirmed By:LIS ADAMS DO
== END 2020-01-15 15:25 | disposition home or self-care (01) | DRG 291 ==
LOC: ERS 12:21 → 2NO 15:07 → OBSVTOIN 01-14 14:33
PROVIDERS: ADMIT Internal Medicine; ATTEND Internal Medicine
DX: I13.0 Hypertensive heart and chronic kidney disease with heart failure and stage 1 through stage 4 chronic kidney disease, or unspecified chronic kidney disease (principal); I50.23 Acute on chronic systolic (congestive) heart failure; J44.9 Chronic obstructive pulmonary disease, unspecified; E03.9 Hypothyroidism, unspecified; Z20.828 Contact with and (suspected) exposure to other viral communicable diseases; E78.5 Hyperlipidemia, unspecified; N18.30 Chronic kidney disease, stage 3 unspecified; F41.9 Anxiety disorder, unspecified; E66.9 Obesity, unspecified; I08.1 Rheumatic disorders of both mitral and tricuspid valves; E11.22 Type 2 diabetes mellitus with diabetic chronic kidney disease; F31.9 Bipolar disorder, unspecified; F20.9 Schizophrenia, unspecified; Z86.73 Personal history of transient ischemic attack (TIA), and cerebral infarction without residual deficits; Z95.810 Presence of automatic (implantable) cardiac defibrillator; Z90.49 Acquired absence of other specified parts of digestive tract; Z88.8 Allergy status to other drugs, medicaments and biological substances; Z79.02 Long term (current) use of antithrombotics/antiplatelets; Z79.82 Long term (current) use of aspirin; Z68.37 Body mass index [BMI] 37.0-37.9, adult
CPT/HCPCS: 36415; 71045; 80048; 82553; 83735; 83880; 84443; 84484; 85025; 87635; 93005; 93798; 96372; 96374; 96376; G0378; J1650; J1940; J3480; U0003

== ENCOUNTER 2020-02-01 16:21 | Emergency (ER) | payer OTHER ==
[2020-02-01 17:10] LABS: #Eosinphils 0.1 thou/uL (0.0-0.7); #Lymphocytes 1.6 thou/uL (1.20-3.40); #Monocytes 0.6 thou/uL (0.11-0.59); #Neutrophils 4.1 thou/uL (1.40-6.50); %Basophils 0.2 % (0.0-1.0); %Eosinophils 1.3 % (0.0-10.0); %Lymphocytes 25.7 % (21.0-51.0); %Monocytes 8.5 % (0.0-10.0); %Neutrophils 64.3 % (42.0-75.0); Hemoglobin 12.6 g/dL (14.0-18.0); Mean Corpuscular HGB CONC 32.1 g/dL (32.0-36.0); Mean Corpuscular Hemoglobin 32.6 pg (27.0-31.0); Mean Platelet Volume 11.8 fL (7.4-10.4); Platelet Count 85 thou/uL (130-400); RBC Distribution Width 14.7 % (11.5-14.5); Red Blood Cell (RBC) Count 3.87 mill/uL (4.70-6.10); White Blood Cell (WBC) Count 6.4 thou/uL (4.8-10.8)
--- NOTE | 2020-02-01 17:22 | RAD ---
PORTABLE CHEST: History: Left lower extremity swelling. Comparison: 01-12-2020 FINDINGS: Heart size is enlarged. Internal defibrillator device is present. Lungs are clear of infiltrates. The re are no signs of failure. IMPRESSION: Cardiomegaly. Stable chest. POS: JACK
[2020-02-01 17:28] LABS: ALT (SGPT) 10 U/L (8-55); AST (SGOT) 30 U/L (5-34); Albumin 3.7 g/dL (3.5-5.0); Alkaline Phosphatase 165 U/L (40-110); Anion Gap 13 mmol/L (10-20); BUN (Urea Nitrogen) 19 mg/dL (8.9-20.6); Bilirubin, Total 0.6 mg/dL (0.2-1.2); Calc. Creatinine Clearance 0 mL/min (70-130); Calcium 8.2 mg/dL (7.8-10.44); Carbon Dioxide 28 mmol/L (22-29); Chloride 104 mmol/L (98-107); Globulin 3.1 g/dL (2.4-3.5); Glucose 143 mg/dL (70-105); Potassium 3.7 mmol/L (3.5-5.1); Protein, Total 6.8 g/dL (6.0-8.3); Sodium 141 mmol/L (136-145)
[2020-02-01 17:34] LABS: Large Platelets SLIGHT; MDiff Complete? YES; Platelet Morphology Comment Appears Decreased; Polychromasia SLIGHT = 2-3 cells (100X) (0-2/hpf)
[2020-02-01 17:51] LABS: CKMB 8.9 ng/mL (0-6.6)
--- NOTE | 2020-02-01 17:51 | ULT ---
US Testicular W Doppler History: Testicular pain Comparison: None. Findings: Real-time grayscale, color and spectral analysis of the testicles was performed. There is marked skin thickening over both testicles with interstitial edema. Small bilateral hydrocel es. Adequate vascular flow to both testicles. Small bilateral spermatoceles. Right testicle measures 3.8 x 5.5 x 3.7 cm and the left testicle measures 3.2 x 5.1 x 3.5 cm. Impression: 1. Marked scrotal skin thickening and interstitial edema can be seen with cellulitis versus third spa cing of fluid. 2. Small bilateral varicoceles. 3. Adequate vascular flow to both testicles. 4. Small bilateral complex hydroceles.
== END 2020-02-01 19:30 | disposition home or self-care (01) ==
LOC: ERS 16:21
DX: I11.0 Hypertensive heart disease with heart failure (principal); I50.9 Heart failure, unspecified; N50.89 Other specified disorders of the male genital organs; D50.9 Iron deficiency anemia, unspecified; J44.9 Chronic obstructive pulmonary disease, unspecified; E03.9 Hypothyroidism, unspecified; E78.5 Hyperlipidemia, unspecified; F17.210 Nicotine dependence, cigarettes, uncomplicated
CPT/HCPCS: 71045; 76870; 80053; 82553; 83880; 84484; 85025; 93005; 93976

== ENCOUNTER 2020-11-12 00:10 | Inpatient (IN) | payer OTHER ==
[2020-11-12] MEDS ORDERED: cloNIDine 0.1 MG TAB ONE (02:29)
[2020-11-12] MEDS ORDERED: Potassium Chloride 20 MEQ TAB ONE (04:35)
[2020-11-12] MEDS ORDERED: Furosemide 20 MG/2 ML VIAL ONE (04:35)
[2020-11-12] MEDS ORDERED: Aspirin Chewable 81 MG TAB ONE (04:35)
[2020-11-12] MEDS ORDERED: Acetaminophen 325 MG TAB PO PRN (08:02)
[2020-11-12] MEDS ORDERED: Dextrose 50% Abboject 50 ML SYRINGE SLOW IVP PRN (08:11)
[2020-11-12] MEDS ORDERED: Dextrose 5% in Water 1,000 ML IV PRN (08:11)
[2020-11-12] MEDS ORDERED: Magnesium 2 GM/50 ML 2 GM in Premix Bag 1 BAG IVPB SCH (08:30)
[2020-11-12 08:49] LABS: Actual Bicarbonate (HCO3a) 29.7 mEq/L (22-28); Base Excess (BEa) 4.9 mEq/L (-2.0 to +3.0); CO2 Tension 44.7 mmHg (35.0-45.0); Calcium, Ionized (arterial) 1.06 mmol/L (1.12-1.30); Carboxyhemoglobin (COHb) 1.5 gm% (0.0-3.0); Hemoglobin (Hb) 13.1 g/dL (14.0-18.0); O2 Tension (PaO2), arterial 130.5 mmHg (80.0-100.0); Potassium - ABG Lab 3.57 mmol/L (3.70-5.30); pH, Arterial 7.44 (7.35-7.45)
[2020-11-12 08:50] LABS: Puncture Site LRA
[2020-11-12 08:51] LABS: ALV-art Gradient 41.785 mmHg (0-20)
[2020-11-12 10:05] LABS: ALT (SGPT) 8 U/L (8-55); AST (SGOT) 33 U/L (5-34); Albumin 3.7 g/dL (3.5-5.0); Alkaline Phosphatase 208 U/L (40-110); Anion Gap 13 mmol/L (10-20); BUN (Urea Nitrogen) 11 mg/dL (8.9-20.6); Bilirubin, Total 1.3 mg/dL (0.2-1.2); Calc. Creatinine Clearance 0 mL/min (70-130); Calcium 8.7 mg/dL (7.8-10.44); Carbon Dioxide 26 mmol/L (22-29); Chloride 102 mmol/L (98-107); Globulin 4.2 g/dL (2.4-3.5); Glucose 127 mg/dL (70-105); Potassium 2.9 mmol/L (3.5-5.1); Protein, Total 7.9 g/dL (6.0-8.3); Sodium 138 mmol/L (136-145)
[2020-11-12 10:08] LABS: Troponin I 0.048 ng/mL (< 0.028)
[2020-11-12 10:22] LABS: SARS-CoV-2 NAA Rapid Test Not Detected (NotDetected)
[2020-11-12 11:11] LABS: Hemoglobin 13.3 g/dL (14.0-18.0); Mean Corpuscular Volume 98.4 fL (78.0-98.0); Red Blood Cell (RBC) Count 4.12 mill/uL (4.70-6.10); White Blood Cell (WBC) Count 6.9 thou/uL (4.8-10.8)
[2020-11-12 11:12] LABS: %Lymphocytes 22.6 % (21.0-51.0); %Neutrophils 66.4 % (42.0-75.0); Mean Corpuscular HGB CONC 32.7 g/dL (32.0-36.0); Mean Corpuscular Hemoglobin 32.2 pg (27.0-31.0); RBC Distribution Width 16.8 % (11.5-14.5)
[2020-11-12 11:15] LABS: #Eosinphils 0.1 thou/uL (0.0-0.7); #Lymphocytes 1.6 thou/uL (1.20-3.40); #Monocytes 0.6 thou/uL (0.11-0.59); #Neutrophils 4.6 thou/uL (1.40-6.50); %Basophils 0.4 % (0.0-1.0); %Eosinophils 2.2 % (0.0-10.0); %Monocytes 8.5 % (0.0-10.0); Mean Platelet Volume 12.1 fL (7.4-10.4)
[2020-11-12] MEDS ORDERED: Furosemide 40 MG/4 ML VIAL SLOW IVP SCH (11:15)
[2020-11-12 11:16] LABS: Platelet Count 102 thou/uL (130-400)
[2020-11-12 11:57] LABS: Magnesium 1.9 mg/dL (1.6-2.6)
[2020-11-12] MEDS: Enoxaparin Sodium 40 MG/0.4 ML SYRINGE SC SCH (12:06)
[2020-11-12] MEDS: DOBUTamine 500 mg/250 ml 250 ML IVPB SCH (12:06)
[2020-11-12] MEDS: Famotidine 20 MG TAB PO SCH ×2 (12:07→21:08)
[2020-11-12] MEDS ORDERED: Potassium Chloride 20 MEQ TAB PO SCH (14:00)
[2020-11-12] MEDS: Furosemide 40 MG/4 ML VIAL SLOW IVP SCH (15:04)
[2020-11-12 16:24] LABS: Anion Gap 15 mmol/L (10-20); BUN (Urea Nitrogen) 11 mg/dL (8.9-20.6); Calc. Creatinine Clearance 96 mL/min (70-130); Calcium 8.4 mg/dL (7.8-10.44); Carbon Dioxide 30 mmol/L (22-29); Chloride 101 mmol/L (98-107); Glucose 96 mg/dL (70-105); Potassium 3.7 mmol/L (3.5-5.1); Sodium 142 mmol/L (136-145)
[2020-11-12 16:29] LABS: Troponin I 0.031 ng/mL (< 0.028)
[2020-11-12 19:38] LABS: #Eosinphils 0.1 thou/uL (0.0-0.7); #Lymphocytes 1.7 thou/uL (1.20-3.40); #Monocytes 0.6 thou/uL (0.11-0.59); #Neutrophils 5.9 thou/uL (1.40-6.50); %Basophils 0.3 % (0.0-1.0); %Eosinophils 1.3 % (0.0-10.0); %Lymphocytes 20.7 % (21.0-51.0); %Monocytes 7.2 % (0.0-10.0); %Neutrophils 70.5 % (42.0-75.0); Hemoglobin 13.3 g/dL (14.0-18.0); Mean Corpuscular HGB CONC 32.1 g/dL (32.0-36.0); Mean Corpuscular Hemoglobin 32.1 pg (27.0-31.0); Mean Corpuscular Volume 99.7 fL (78.0-98.0); Platelet Count 92 thou/uL (130-400); Red Blood Cell (RBC) Count 4.14 mill/uL (4.70-6.10); White Blood Cell (WBC) Count 8.4 thou/uL (4.8-10.8)
[2020-11-12 21:52] LABS: Bilirubin Negative (Negative); Blood, Urine Large (Negative); Glucose, Urine (Dipstick) Negative (Negative); Ketone, Urine Trace mg/dL (Negative); Leukocyte Trace (Negative); Protein, Urine (Dipstick) 100 mg/dL (Neg-Trace); Urobilinogen > or = 8.0 mg/dL (Less than 2); pH, Urine 6.5 (5.0-9.0)
[2020-11-12 21:53] LABS: Clarity Cloudy (Clear)
[2020-11-12 21:59] LABS: Nitrite Unable to Interpret (Negative); RBC/HPF Greater than 50 HPF (0-3)
[2020-11-12 22:00] LABS: Bacteria/HPF Rare-Few HPF (None Seen); Other Microscopic Description Less than 2 mL rec'd; Squamous Epithelial 0-3 HPF (0-3)
[2020-11-12 22:02] LABS: Urine Culture Reflex Yes Yes
[2020-11-13 04:18] LABS: ALT (SGPT) Less than 7 U/L (8-55); AST (SGOT) 24 U/L (5-34); Albumin 3.4 g/dL (3.5-5.0); Alkaline Phosphatase 190 U/L (40-110); Anion Gap 11 mmol/L (10-20); BUN (Urea Nitrogen) 14 mg/dL (8.9-20.6); Bilirubin, Total 1.3 mg/dL (0.2-1.2); Calc. Creatinine Clearance 98 mL/min (70-130); Calcium 8.1 mg/dL (7.8-10.44); Carbon Dioxide 33 mmol/L (22-29); Chloride 101 mmol/L (98-107); Globulin 3.4 g/dL (2.4-3.5); Glucose 102 mg/dL (70-105); Potassium 3.5 mmol/L (3.5-5.1); Protein, Total 6.8 g/dL (6.0-8.3); Sodium 141 mmol/L (136-145)
[2020-11-13 04:27] LABS: #Eosinphils 0.1 thou/uL (0.0-0.7); #Lymphocytes 1.3 thou/uL (1.20-3.40); #Monocytes 0.7 thou/uL (0.11-0.59); #Neutrophils 5.6 thou/uL (1.40-6.50); %Basophils 0.4 % (0.0-1.0); %Eosinophils 1.9 % (0.0-10.0); %Lymphocytes 16.9 % (21.0-51.0); %Monocytes 8.5 % (0.0-10.0); %Neutrophils 72.4 % (42.0-75.0); Hemoglobin 12.7 g/dL (14.0-18.0); Mean Corpuscular HGB CONC 32.4 g/dL (32.0-36.0); Mean Corpuscular Hemoglobin 32.4 pg (27.0-31.0); Mean Platelet Volume 11.6 fL (7.4-10.4); Platelet Count 92 thou/uL (130-400); RBC Distribution Width 16.7 % (11.5-14.5); Red Blood Cell (RBC) Count 3.92 mill/uL (4.70-6.10); White Blood Cell (WBC) Count 7.7 thou/uL (4.8-10.8)
[2020-11-13] MEDS: Furosemide 40 MG/4 ML VIAL SLOW IVP SCH ×2 (06:02→14:34)
[2020-11-13] MEDS: Potassium Chloride 20 MEQ TAB PO SCH (09:28)
[2020-11-13] MEDS: Famotidine 20 MG TAB PO SCH ×2 (09:29→19:29)
[2020-11-13] MEDS: Enoxaparin Sodium 40 MG/0.4 ML SYRINGE SC SCH (09:29)
[2020-11-13] MEDS: DOBUTamine 500 mg/250 ml 250 ML IVPB SCH (14:33)
[2020-11-13] MEDS ORDERED: traZODone HCl 50 MG TAB PO PRN (19:51)
[2020-11-14 04:17] LABS: Anion Gap 12 mmol/L (10-20); BUN (Urea Nitrogen) 12 mg/dL (8.9-20.6); Calc. Creatinine Clearance 103 mL/min (70-130); Calcium 8.5 mg/dL (7.8-10.44); Carbon Dioxide 31 mmol/L (22-29); Chloride 97 mmol/L (98-107); Glucose 145 mg/dL (70-105); Potassium 3.6 mmol/L (3.5-5.1); Sodium 136 mmol/L (136-145)
[2020-11-14] MEDS: Levothyroxine Sodium 100 MCG TAB PO SCH (05:12)
[2020-11-14] MEDS: Furosemide 40 MG/4 ML VIAL SLOW IVP SCH ×2 (05:13→13:57)
[2020-11-14] MEDS: DOBUTamine 500 mg/250 ml 250 ML IVPB SCH ×2 (05:13→20:46)
[2020-11-14] MEDS: HumaLOG 300 UNITS/3 ML VIAL SC PRN (06:51)
[2020-11-14] MEDS ORDERED: Spironolactone 25 MG TAB PO SCH (09:00)
[2020-11-14] MEDS: Famotidine 20 MG TAB PO SCH ×2 (09:47→20:46)
[2020-11-14] MEDS: Enoxaparin Sodium 40 MG/0.4 ML SYRINGE SC SCH (09:47)
[2020-11-14] MEDS: Potassium Chloride 20 MEQ TAB PO SCH (09:47)
[2020-11-14] MEDS ORDERED: Potassium Chloride 20 MEQ TAB PO SCH (14:00)
[2020-11-15] MEDS: Furosemide 40 MG/4 ML VIAL SLOW IVP SCH ×2 (06:36→14:46)
[2020-11-15] MEDS: Levothyroxine Sodium 100 MCG TAB PO SCH (06:36)
[2020-11-15 06:39] LABS: Anion Gap 13 mmol/L (10-20); BUN (Urea Nitrogen) 14 mg/dL (8.9-20.6); Calc. Creatinine Clearance 99 mL/min (70-130); Carbon Dioxide 27 mmol/L (22-29); Chloride 99 mmol/L (98-107); Glucose 153 mg/dL (70-105); Potassium 4.1 mmol/L (3.5-5.1); Sodium 135 mmol/L (136-145)
[2020-11-15] MEDS ORDERED: Spironolactone 25 MG TAB PO SCH (08:00)
[2020-11-15] MEDS: Famotidine 20 MG TAB PO SCH (09:40)
[2020-11-15] MEDS: Enoxaparin Sodium 40 MG/0.4 ML SYRINGE SC SCH (09:40)
[2020-11-15] MEDS: HumaLOG 300 UNITS/3 ML VIAL SC PRN (11:06)
[2020-11-15] MEDS: DOBUTamine 500 mg/250 ml 250 ML IVPB SCH (13:26)
[2020-11-15 15:44] VITALS: BP 124/68; TEMP 98.4
== END 2020-11-15 17:07 | disposition home or self-care (01) | DRG 291 ==
LOC: SUATTDRO 00:10 → ERS 00:10 → 2NO 04:21 → IMCU/EMU 06:08 → OBSVTOIN 09:15 → 3SE 11-14 22:25
PROVIDERS: ADMIT Student in an Organized Health Care Education/Training Program; ATTEND Family Medicine
PROC: 5A09357 Assistance with Respiratory Ventilation, Less than 24 Consecutive Hours, Continuous Positive Airway Pressure (ICD-10-PCS; principal; 2020-11-12)
DX: I13.0 Hypertensive heart and chronic kidney disease with heart failure and stage 1 through stage 4 chronic kidney disease, or unspecified chronic kidney disease (principal); I50.23 Acute on chronic systolic (congestive) heart failure; J96.01 Acute respiratory failure with hypoxia; N17.9 Acute kidney failure, unspecified; E87.3 Alkalosis; E87.6 Hypokalemia; I42.0 Dilated cardiomyopathy; E11.22 Type 2 diabetes mellitus with diabetic chronic kidney disease; E03.9 Hypothyroidism, unspecified; D64.9 Anemia, unspecified; I16.0 Hypertensive urgency; N18.30 Chronic kidney disease, stage 3 unspecified; G47.33 Obstructive sleep apnea (adult) (pediatric); J44.9 Chronic obstructive pulmonary disease, unspecified; E66.01 Morbid (severe) obesity due to excess calories; Z20.822 Contact with and (suspected) exposure to COVID-19; E83.42 Hypomagnesemia; E88.09 Other disorders of plasma-protein metabolism, not elsewhere classified; Z79.82 Long term (current) use of aspirin; Z79.02 Long term (current) use of antithrombotics/antiplatelets; Z79.899 Other long term (current) drug therapy; Z88.8 Allergy status to other drugs, medicaments and biological substances; Z95.810 Presence of automatic (implantable) cardiac defibrillator; Z68.37 Body mass index [BMI] 37.0-37.9, adult; Z91.19 Patient's noncompliance with other medical treatment and regimen
CPT/HCPCS: 36415; 36416; 36600; 71045; 80048; 80053; 81001; 82088; 82533; 82805; 83735; 83880; 84244; 84439; 84443; 85025; 87086; 93306; 93798; 94660; 96374; G0378; J1250; J1650; J1815; J1940; J3475; U0002